=== PATIENT | male | born 1945 | race Caucasian/White ===

== ENCOUNTER 2016-12-21 19:03 | Inpatient (IN) | payer OTHER ==
[~2016-12-21] VITALS: Ht 175.3 cm; Wt 83.6 kg
[2016-12-21] MEDS ORDERED: SODIUM CHLORIDE 0.9% 500ML 500 ML IV STA (19:31)
--- NOTE | 2016-12-21 19:43 | EMERGENCY ROOM VISIT NOTE ---
History Report prepared by Yamilet: German Ojeda Under the Supervision of: Dr. Rich Lawler M.D. First contact with patient: 19:24 Chief Complaint: CHEST PAIN Stated Complaint: LEFT SIDED CHEST/ARM/NECK PAIN Nursing Triage Summary: Patient reports a sudden onset of left sided body "feeling weird." which then resolved after a few minutes. Patinet did report becoming nausea, and slightly clammy on onset. He denies any actual ches tpain, reporting my left body felt "weird", my hand "felt like it was swelling." Patient only c/c at present is a left sided headache, mild in nature. History of Present Illness The patient is a 71 year old male who presents to the Emergency Room with complaints of sudden left sided arm, chest, and face numbness occurring 15 minutes prior to arrival. The patient states that he was at [employer], and he was reading, and afterwards his left arm went numb, and he felt like his left hand was swelling. The patient states that after walking around it improved, and it felt like his arm had "fallen asleep". The patient denies any arm pain or numbness in his left leg. The patient additionally states that he has a slight headache. He denies any history of heart attack, stroke, or TIA. The patient states that he takes Advil, though he does not take any blood pressure or diabetes medication, and he states that he has been feeling okay recently. Source of History: patient Onset: 15 minutes prior to arrival Position: chest (left), arm (left) Quality: numbness Timing: other (sudden) Associated Symptoms: + headache Review of Systems See HPI for pertinent positives & negatives. A total of 10 systems reviewed and were otherwise negative. Past Medical & Surgical Medical Problems: (1) IBS (irritable bowel syndrome) Family History FH: heart attack Social History Smoking Status: Never Smoker Marital Status: Housing Status: lives with family Occupation Status: employed Current/Historical Medications Scheduled Glucosamine Sulfate (Glucosamine), 1,000 MG PO QAM Multivitamin (Multivitamin), 1 TAB PO DAILY Probiotic Product (Probiotic), 1 CAP PO DAILY Scheduled PRN Ibuprofen (Advil), 200-600 MG PO Q4H PRN for Pain Allergies Coded Allergies: No Known Allergies (Unverified , 12/21/16) Physical Exam Vital Signs Date Time Temp Pulse Resp B/P Pulse Ox O2 Delivery O2 Flow Rate FiO2 12/21/16 21:42 50 19 12/21/16 21:27 49 22 12/21/16 21:12 50 14 97 12/21/16 21:03 175/85 12/21/16 20:57 47 20 99 12/21/16 20:42 53 16 96 12/21/16 20:37 163/94 12/21/16 19:58 175/102 12/21/16 19:50 Room Air 12/21/16 19:33 51 19 97 12/21/16 19:31 156/100 12/21/16 19:28 54 12/21/16 19:22 Room Air 12/21/16 19:20 150/97 12/21/16 19:14 97 Room Air 12/21/16 19:07 36.7 52 20 192/91 94 Room Air Physical Exam GENERAL: Patient is in no acute distress. HEENT: No acute trauma, normocephalic atraumatic, mucous membranes moist, no nasal congestion, no scleral icterus. NECK: No stridor, no adenopathy, no meningismus, trachea is midline. LUNGS: Clear to auscultation bilaterally, no wheeze, no rhonchi, breath sounds equal. HEART: Bradycardic with regular rhythm. No murmur. ABDOMEN: Soft, nontender, bowel sounds positive, no hernias, no peritonitis. EXTREMITIES: No cyanosis or edema, full range of motion of all the joints without pain or difficulty, no signs for acute trauma. NEUROLOGIC: Oriented x 3, no acute motor or sensory deficits, no focal weakness. No pronator drift or cerebellar dysfunction. No speech slur or facial droop. SKIN: No rash, no jaundice, no diaphoresis. Medical Decision & Procedures ER Provider Diagnostic Interpretation: Radiology results as stated below per my review and radiologist interpretation: CT OF THE HEAD WITHOUT CONTRAST CLINICAL HISTORY: Stroke symptoms. Left-sided chest wall arm and neck pain. COMPARISON STUDY: No previous studies for comparison. CT DOSE: 537.48 mGy.cm TECHNIQUE: Helical axial images of the head were obtained without IV contrast. Automated exposure control was utilized for the study. FINDINGS: No acute intracranial hemorrhage, midline shift or mass effect is present. Ventricular system is normal. Basilar cisterns are patent. There are no extra-axial collections. Garza-white differentiation is maintained. There are no findings to suggest acute dural sinus thrombosis or acute territorial infarct. There are no calvarial abnormalities. Visualized portions of the sinuses and mastoid air cells are clear. IMPRESSION: No acute intracranial findings. Electronically signed by: Elliott Justice M.D. 12/21/2016 8:22 PM Dictated Date/Time: 12/21/2016 8:20 PM CHEST ONE VIEW PORTABLE CLINICAL HISTORY: Left-sided chest pain, arm pain and neck pain. COMPARISON STUDY: No previous studies for comparison. FINDINGS: Lung volumes are normal. Linear left basilar opacity is suggestive of atelectasis. There is no consolidation to suggest pneumonia and there is no evidence of pulmonary edema. Cardiac size is normal. Mediastinal contours are normal. IMPRESSION: No acute cardiopulmonary findings. Electronically signed by: Elliott Justice M.D. 12/21/2016 8:24 PM Dictated Date/Time: 12/21/2016 8:22 PM Laboratory Results Test 12/21/16 20:00 Prothrombin Time 10.1 SECONDS (9.0-12.0) Prothromb Time International Ratio 0.9 (0.9-1.1) Activated Partial Thromboplast Time 26.4 SECONDS (21.0-31.0) Partial Thromboplastin Ratio 1.0 Estimated Average Glucose 117 mg/dl Hemoglobin A1c 5.7 % (4.5-5.6) Magnesium Level 2.3 mg/dl (1.8-2.4) Thyroid Stimulating Hormone (TSH) 1.980 uIu/ml (0.300-4.500) Laboratory results reviewed by me. Medications Administered Medications (Trade) Dose Ordered Sig/[facility] Route Start Time Stop Time Status Last Admin Dose Admin Sodium Chloride (Nss 500ml) 500 ml @ 999 mls/hr Q31M STAT IV 12/21/16 19:31 12/21/16 20:02 DC 12/21/16 20:02 999 MLS/HR Aspirin (Aspirin Chew) 324 mg NOW STAT PO 12/21/16 20:46 12/21/16 20:47 DC 12/21/16 21:17 324 MG ECG Indication: chest pain Rate (beats per minute): 51 Rhythm: sinus bradycardia Findings: no acute ischemic change, no ectopy ED Course 1923: The patient was evaluated in room B10. A complete history and physical exam was performed. 1930: Sodium Chloride 500 ml @ 999 mls/hr IV 2045: Aspirin 324mg PO 2048: I discussed the patient's case with Sharda Novoa. He is going to evaluate the patient for further treatment. 2102: I reevaluated the patient, and I discussed the treatment plan. Medical Decision The patient is a 71 year old male who presents to the ED with complaints of left arm and chest numbness. Differential diagnoses considered include TIA or CVA, intracranial bleed, dysrhythmia, cardiac ischemia, thyroid disorder, electrolyte imbalance, anemia. The patient presents with some left arm and face numbness. It has almost completely improved/resolved. It was much worse prior to arrival. There is no leukocytosis or concerning anemia. No significant electrolyte abnormality or kidney failure. Brain CT shows no acute bleed or mass effect. EKG shows a sinus bradycardia, no acute ischemia. Cardiac enzyme testing 1 is not consistent with acute cardiac injury. Chest x-ray does not show mediastinal widening, pneumonia or pneumothorax. His stroke scale was 0, there were no focal neurologic deficits. The patient was given oral aspirin. He received IV saline. He has been resting comfortably. He has remained bradycardic, sometimes in the 40s. His blood pressure has remained adequate. The patient presents with left arm and face numbness. TIA or small CVA is a consideration. His bradycardia may be part of the issue as well. I do think further care in the hospital is warranted. I spoke to case management, the on- call hospitalist was consulted. Consults Time Called: 2044 Consulting Physician: Sharda Novoa Returned Call: 2048 I discussed the patient's case with Sharda Novoa. He is going to evaluate the patient for further treatment. Impression Primary Impression: Left sided numbness Scribe Attestation The scribe's documentation has been prepared under my direction and personally reviewed by me in its entirety. I confirm that the note above accurately reflects all work, treatment, procedures, and medical decision making performed by me. Departure Information Dispostion Being Evaluated By Hospitalist Referrals Abdullahi Hicks D.O. (PCP) Patient Instructions My [facility]
[2016-12-21 20:08] LABS: BASO % 0.3 %; BASO ABS # 0.02 K/uL (0-0.2); COMPLETE YES; EOS % 2.6 %; HEMATOCRIT 41.6 % (42-52); IG% 0.1 %; LYMPH % 36.8 %; LYMPH ABS # 2.55 K/uL (1.2-3.4); MEAN CELL VOLUME 82.2 fL (80-100); MEAN CORPUSCULAR HEMOGLOBIN 27.5 pg (25-34); MEAN CORPUSCULAR HGB CONC 33.4 g/dl (32-36); MEAN PLATELET VOLUME 10.4 fL (7.4-10.4); MONO % 11.3 %; NEUT % 48.9 %; PLATELET COUNT 239 K/uL (130-400); RED BLOOD COUNT 5.06 M/uL (4.7-6.1); WHITE BLOOD COUNT 6.93 K/uL (4.8-10.8)
[2016-12-21 20:18] LABS: INR 0.9 (0.9-1.1); PROTHROMBIN TIME (PATIENT) 10.1 SECONDS (9.0-12.0)
--- NOTE | 2016-12-21 20:24 | DIAGNOSTIC IMAGING REPORT ---
CT OF THE HEAD WITHOUT CONTRAST CLINICAL HISTORY: Stroke symptoms. Left-sided chest wall arm and neck pain. COMPARISON STUDY: No previous studies for comparison. CT DOSE: 537.48 mGy.cm TECHNIQUE: Helical axial images of the head were obtained without IV contrast. Automated exposure control was utilized for the study. FINDINGS: No acute intracranial hemorrhage, midline shift or mass effect is present. Ventricular system is normal. Basilar cisterns are patent. There are no extra-axial collections. Garza-white differentiation is maintained. There are no findings to suggest acute dural sinus thrombosis or acute territorial infarct. There are no calvarial abnormalities. Visualized portions of the sinuses and mastoid air cells are clear. IMPRESSION: No acute intracranial findings. Electronically signed by: Elliott Justice M.D. 12/21/2016 8:22 PM Dictated Date/Time: 12/21/2016 8:20 PM
--- NOTE | 2016-12-21 20:25 | DIAGNOSTIC IMAGING REPORT ---
CHEST ONE VIEW PORTABLE CLINICAL HISTORY: Left-sided chest pain, arm pain and neck pain. COMPARISON STUDY: No previous studies for comparison. FINDINGS: Lung volumes are normal. Linear left basilar opacity is suggestive of atelectasis. There is no consolidation to suggest pneumonia and there is no evidence of pulmonary edema. Cardiac size is normal. Mediastinal contours are normal. IMPRESSION: No acute cardiopulmonary findings. Electronically signed by: Elliott Justice M.D. 12/21/2016 8:24 PM Dictated Date/Time: 12/21/2016 8:22 PM
[2016-12-21 20:28] LABS: BLOOD UREA NITROGEN 19 mg/dl (7-18); BUN/CREATININE RATIO 13.5 (10-20); CARBON DIOXIDE 28 mmol/L (21-32); CHLORIDE 108 mmol/L (98-107); GLUCOSE 102 mg/dl (70-99); MAGNESIUM 2.3 mg/dl (1.8-2.4); POTASSIUM 4.2 mmol/L (3.5-5.1); SODIUM 143 mmol/L (136-145)
[2016-12-21 20:30] LABS: CALCIUM 8.7 mg/dl (8.5-10.1)
[2016-12-21] MEDS ORDERED: IBUP-1277 PO (20:30)
[2016-12-21] MEDS ORDERED: MISCCAP80 PO (20:30)
[2016-12-21] MEDS ORDERED: GLUC10007 PO (20:30)
[2016-12-21] MEDS ORDERED: MULT-506 PO (20:30)
[2016-12-21] MEDS ORDERED: ASPIRIN 81 MG CHEW PO STA (20:46)
[2016-12-21] MEDS ORDERED: NITROGLYCERIN 0.4 MG SL PER TAB CHARGE SL PRN (21:30)
[2016-12-21] MEDS ORDERED: ONDANSETRON INJ 2 MG/ML 2 ML VIAL IV PRN (21:30)
[2016-12-21] MEDS ORDERED: ACETAMINOPHEN 325 MG TAB PO PRN (21:30)
[2016-12-21] MEDS ORDERED: PHARMACIST DISCHARGE MED REC CONSULT PRN (21:45)
--- NOTE | 2016-12-21 21:58 | History and Physical ---
History & Physical Date & Time of Service: December 21, 2016 at 21:45 Chief Complaint: Left Arm Numbness Primary Care Physician: Abdullahi Hicks D.O. History of Present Illness 71 year old male who presents to the ER with left arm numbness. Patient reports he was at [employer] looking at tired when he developed left arm numbness. He reports his entire arm was tingling. He then went to find his . He reports symptoms started to ease up after a few minutes. He reports he was able to move his arm the entire time. No facial droop or slurred speech. No other extremities were affected. He also reports associated chest pain. He describes it as an ache and rated it #5/10 at its worst. It only lasted for a few minutes as well and resolved on its own. He also had a mild left temporal headache. He denies blurred vision. No associated diaphoresis, shortness of breath, or nausea. He notes that while doing yard work over the past few days he had some mild worsening exertional shortness of breath. He denies abdominal pain, vomiting, and diarrhea. No fevers or chills. He denies urinary symptoms. In the ER, patient's work up is unremarkable. Currently he reports minimal tingling in the left arm. He was given full dose ASA. Past Medical/Surgical History Medical Problems: (1) IBS (irritable bowel syndrome) Status: Chronic Family History FH: heart attack FATHER ( from [place] at age 43) Social History Smoking Status: Never Smoker Alcohol Use: occasionally Marital Status: Immunizations History of Influenza Vaccine: Yes (10) Influenza Vaccine Date: May 12, 2016 History of Tetanus Vaccine?: Yes Tetanus Immunization Date: Jun 16, 2015 History of Pneumococcal: Yes Pneumococcal Date: May 12, 2016 Multi-Drug Resistant Organisms History of MDRO: No Allergies Coded Allergies: No Known Allergies (Unverified , 12/21/16) Home Medications Scheduled Glucosamine Sulfate (Glucosamine), 1,000 MG PO QAM Multivitamin (Multivitamin), 1 TAB PO DAILY Probiotic Product (Probiotic), 1 CAP PO DAILY Scheduled PRN Ibuprofen (Advil), 200-600 MG PO Q4H PRN for Pain Review of Systems ROS per HPI, all other systems reviewed and negative Physical Exam Vital Signs Date Time Temp Pulse Resp B/P Pulse Ox O2 Delivery O2 Flow Rate FiO2 12/21/16 20:37 163/94 12/21/16 19:58 175/102 12/21/16 19:50 Room Air 12/21/16 19:33 51 19 97 12/21/16 19:31 156/100 12/21/16 19:28 54 12/21/16 19:22 Room Air 12/21/16 19:20 150/97 12/21/16 19:14 97 Room Air 12/21/16 19:07 36.7 52 20 192/91 94 Room Air General Appearance: no apparent distress Head: normocephalic Eyes: normal inspection ENT: hearing grossly normal Neck: supple, no JVD, no carotid bruits Respiratory/Chest: lungs clear, normal breath sounds, no respiratory distress Cardiovascular: regular rate, rhythm, no edema, normal peripheral pulses Abdomen/GI: normal bowel sounds, non tender, soft Extremities/Musculoskelatal: normal inspection, no calf tenderness Neurologic/Psych: no motor/sensory deficits, alert, normal mood/affect, oriented x 3 Skin: normal color, warm/dry Diagnostics Laboratory Results Results Past 24 Hours Test 12/21/16 20:00 12/21/16 21:31 Range/Units White Blood Count 6.93 4.8-10.8 K/uL Red Blood Count 5.06 4.7-6.1 M/uL Hemoglobin 13.9 14.0-18.0 g/dL Hematocrit 41.6 42-52 % Mean Corpuscular Volume 82.2 80-100 fL Mean Corpuscular Hemoglobin 27.5 25-34 pg Mean Corpuscular Hemoglobin Concent 33.4 32-36 g/dl Platelet Count 239 130-400 K/uL Mean Platelet Volume 10.4 7.4-10.4 fL Neutrophils (%) (Auto) 48.9 % Lymphocytes (%) (Auto) 36.8 % Monocytes (%) (Auto) 11.3 % Eosinophils (%) (Auto) 2.6 % Basophils (%) (Auto) 0.3 % Neutrophils # (Auto) 3.39 1.4-6.5 K/uL Lymphocytes # (Auto) 2.55 1.2-3.4 K/uL Monocytes # (Auto) 0.78 0.11-0.59 K/uL Eosinophils # (Auto) 0.18 0-0.5 K/uL Basophils # (Auto) 0.02 0-0.2 K/uL RDW Standard Deviation 44.2 36.4-46.3 fL RDW Coefficient of Variation 14.8 11.5-14.5 % Immature Granulocyte % (Auto) 0.1 % Immature Granulocyte # (Auto) 0.01 0.00-0.02 K/uL Prothrombin Time 10.1 9.0-12.0 SECONDS Prothromb Time International Ratio 0.9 0.9-1.1 Activated Partial Thromboplast Time 26.4 21.0-31.0 SECONDS Partial Thromboplastin Ratio 1.0 Sodium Level 143 136-145 mmol/L Potassium Level 4.2 3.5-5.1 mmol/L Chloride Level 108 98-107 mmol/L Carbon Dioxide Level 28 21-32 mmol/L Anion Gap 7.0 3-11 mmol/L Blood Urea Nitrogen 19 7-18 mg/dl Creatinine 1.40 0.60-1.40 mg/dl Est Creatinine Clear Calc Drug Dose 51.4 ml/min Estimated GFR () 57.4 Estimated GFR (Non- 49.5 BUN/Creatinine Ratio 13.5 10-20 Random Glucose 102 70-99 mg/dl Calcium Level 8.7 8.5-10.1 mg/dl Magnesium Level 2.3 1.8-2.4 mg/dl Troponin I < 0.015 0-0.045 ng/ml Thyroid Stimulating Hormone (TSH) 1.980 0.300-4.500 uIu/ml Diagnostic Radiology CT HEAD IMPRESSION: No acute intracranial findings. CXR IMPRESSION: No acute cardiopulmonary findings. Impression Assessment and Plan LEFT ARM PARESTHESIA, CHEST PAIN - admit to tele - patient presenting with left arm paresthesias and chest pain that lasted for a few minutes and subsequently resolved on its own - father from [place] at age 43, no other risk factors identified - CT head negative; will obtain brain MRI/MRA, neck MRA - initial troponin negative, EKG without acute ST changes - continue to cycle cardiac enzymes, check resting echo for wall motion abnormalities; consider stress test, possibly outpatient - s/p full dose ASA in ER, will continue with 81mg daily - check lipids in AM - BP elevated - possibly due to stress / anxiety; would allow for some permissive HTN due to possible CVA DVT PROPHYLAXIS - SCDs DISPO - In my clinical judgment this beneficiary meets acute admission criteria, established by [facility], that includes being hospitalized through two midnights. Attending Addendum: The patient was seen and examined in ER in presence of the Left UE heaviness and tingling since this evening Associate with discomfort in left neck without any other symptoms Denies any Chest pain,palpitation,SOB Denies any Nausea and or vomiting O/E hemodynamically stable HEENT-unremarkable Chest-clear Heart-regular Abdomen-benign,No masses,bowel sound present Extremities-negative M[employer] CLE[employer]ER-AAOx3 No Focal sensory and or motor deficit Labs and Imaging studies were reviewed Agree with the Assessment and plan. Dr Andrew Haile VTE Prophylaxis VTE Risk Assessment Done? Y/N: Yes Risk Level: Low
[2016-12-21] MEDS ORDERED: IV FLUIDS COMPLETED PRN (22:00)
[2016-12-21 23:55] VITALS: BP 192/90; PULSE 58; TEMP 36.4; O2SAT 98; Ht 175.3 cm; Wt 83.6 kg
[2016-12-22] MEDS ORDERED: GADAVIST IV PRN (00:30)
[2016-12-22] MEDS ORDERED: CLONIDINE HCL 0.1 MG TAB PO PRN (00:30)
[2016-12-22] MEDS ORDERED: IV FLUIDS COMPLETED PRN (01:15)
[2016-12-22 02:26] LABS: BASO % 0.5 %; BASO ABS # 0.03 K/uL (0-0.2); COMPLETE YES; EOS % 2.8 %; HEMATOCRIT 40.4 % (42-52); IG% 0.2 %; LYMPH % 38.9 %; LYMPH ABS # 2.52 K/uL (1.2-3.4); MEAN CELL VOLUME 81.6 fL (80-100); MEAN CORPUSCULAR HEMOGLOBIN 26.7 pg (25-34); MEAN CORPUSCULAR HGB CONC 32.7 g/dl (32-36); MONO % 9.3 %; NEUT % 48.3 %; PLATELET COUNT 218 K/uL (130-400); RED BLOOD COUNT 4.95 M/uL (4.7-6.1); WHITE BLOOD COUNT 6.47 K/uL (4.8-10.8)
[2016-12-22 02:43] LABS: BLOOD UREA NITROGEN 18 mg/dl (7-18); BUN/CREATININE RATIO 15.1 (10-20); CALCIUM 8.3 mg/dl (8.5-10.1); CARBON DIOXIDE 27 mmol/L (21-32); CHLORIDE 110 mmol/L (98-107); GLUCOSE 99 mg/dl (70-99); POTASSIUM 4.2 mmol/L (3.5-5.1); SODIUM 143 mmol/L (136-145)
[2016-12-22 02:48] LABS: CHOLESTEROL 195 mg/dl (0-200); CHOLESTEROL/HDL RATIO 6.1; HDL CHOLESTEROL 32 mg/dl
[2016-12-22 04:24] VITALS: BP 137/53; PULSE 43; TEMP 36.5; O2SAT 96
[2016-12-22 04:55] LABS: TRIGLYCERIDES 169 mg/dl (0-150)
[2016-12-22 04:57] LABS: LDL CHOLESTEROL CALCULATED 129 mg/dl; VERY LOW DENSITY LIPOPROT CALC 34 mg/dl
[2016-12-22 06:37] LABS: ESTIMATED AVERAGE GLUCOSE 117 mg/dl; HA1C FLAG Normal (Normal)
--- NOTE | 2016-12-22 06:38 | DIAGNOSTIC IMAGING REPORT ---
MRA OF THE INTRACRANIAL CIRCULATION WITHOUT CONTRAST CLINICAL HISTORY: Stroke - Attention to [facility] [employer] COMPARISON STUDY: Head CT performed earlier today. TECHNIQUE: Utilizing a 1.5 [place] magnet and 3-D [id number] technique, unenhanced MRA of the intracranial circulation was obtained. FINDINGS: The bilateral M1 and E3tokwoves are patent. There is no abrupt vessel cut off. The right A1 segment is absent and there is a tiny 2 mm aneurysm arising from the origin of the right A2 segment. The posterior circulation is intact. There is mild to moderate narrowing of the petrous portion of the right internal carotid artery and the bilateral supraclinoid internal carotid arteries. IMPRESSION: 1. No abrupt vessel cut off. 2. 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 3. Absent right A1 segment, likely congenital. 4. Mild to moderate narrowing of the petrous portion of the right internal carotid artery and the bilateral supraclinoid internal carotid arteries. Electronically signed by: Elliott Justice M.D. 12/22/2016 6:37 AM Dictated Date/Time: 12/22/2016 6:33 AM
--- NOTE | 2016-12-22 06:48 | DIAGNOSTIC IMAGING REPORT ---
MRA OF THE NECK WITH AND WITHOUT CONTRAST CLINICAL HISTORY: Stroke COMPARISON STUDY: None. TECHNIQUE: Unenhanced and contrast-enhanced MRA of the neck was performed. Injection of 8.7 mL of Gadavist IV was uneventful. NASCET criteria were utilized to estimate the degree of carotid stenosis. FINDINGS: The bilateral common carotid and internal carotid arteries are patent. No high-grade stenosis is identified within these vessels. There is irregularity of the proximal right internal carotid artery due to atherosclerotic plaque. This results in minimal narrowing of less than 30%. No dissection is identified within the major vasculature of the neck. IMPRESSION: No hemodynamically significant stenosis within the major vasculature of the neck. Minimal narrowing of the proximal right internal carotid artery, less than 30%. Electronically signed by: Elliott Justice M.D. 12/22/2016 6:47 AM Dictated Date/Time: 12/22/2016 6:44 AM
--- NOTE | 2016-12-22 07:24 | DIAGNOSTIC IMAGING REPORT ---
Brain MRI WITH AND WITHOUT CONTRAST HISTORY: Left-sided arm and neck pain. Stroke TECHNIQUE: Multiplanar multisequence MRI of the brain was performed both before and after the intravenous administration of contrast. COMPARISON STUDY: Head CT 12/21/2016. FINDINGS: There is no mass, hematoma, midline shift, or acute infarct. The paranasal sinuses are clear. The mastoid air cells are clear. The ventricles and sulci demonstrate mild age-related involutional changes. Scattered foci of T2 hyperintensity seen within the periventricular and subcortical white matter are nonspecific but suggestive of minimal microvascular ischemic changes. The major vascular flow voids at the skull base are well-maintained. No abnormal enhancement. IMPRESSION: No acute intracranial abnormality. Electronically signed by: Aashish Alcala M.D. 12/22/2016 7:23 AM Dictated Date/Time: 12/22/2016 7:20 AM
[2016-12-22 07:50] VITALS: BP 125/71; PULSE 44; TEMP 36.4; O2SAT 95
[2016-12-22 08:00] VITALS: O2SAT 95
--- NOTE | 2016-12-22 08:26 | ECHOCARDIOGRAM REPORT ---
*NOTICE TO RECEIVING LIBERTARIAN AGENCY This information is strictly Confidential and protected under [place] law. [place] law prohibits you from making any further disclosure of this information unless further disclosure is expressly permitted by the written consent of the person to whom it pertains or is authorized by law. A general authorization for the release of medical or other information is not sufficient for this purpose. Hospital accepts no responsibility if the information is made available to any other person, INCLUDING THE PATIENT. Interpretation Summary * Name: FRANCE MARTINEZ Study Date: 12/22/2016 06:33 AM BP: 125/71 mmHg * Patient Location: C.2E\S\E209\S\1 HR: 44 * : 1945 (M/d/yyyy) Gender: Male Height: 69 in * Age: 71 yrs Ethnicity: CA Weight: 192 lb * Ordering Physician: Abigail Roy * Referring Physician: Self, Referred * Performed By: Darleen Obrien RDCS * * Reason For Study: CHEST PAIN * BSA: 2.0 m2 * -- Conclusions -- * Normal LV chamber size with mild concentric LVH, sigmoid appearing septum. * Normal LV systolic function, EF 55-60%. * No segmental left ventricular wall motion abnormalities are noted. * Grade I diastolic dysfunction. * Aortic valve sclerosis mild, without significant aortic valvular stenosis. Mild aortic regurgitation. * Mild mitral annular calcification, mild mitral regurgitation. * Mild left atrial enlargement. Procedure Details * A complete two-dimensional transthoracic echocardiogram was performed (2D, M-mode, Doppler and color flow Doppler). Left Ventricle * The left ventricle is normal in size. * There is mild concentric left ventricular hypertrophy. * The basal septum is thickened and angulated consistent with sigmoid septum. * Ejection Fraction = 55-60%. * Left ventricular systolic function is normal. * No segmental left ventricular wall motion abnormalities are noted. * The left ventricular wall motion is normal. Right Ventricle * The right ventricular cavity size is normal (basal dimension <4.2 cm in right ventricular apical 4-chamber view). * The right ventricular systolic function is normal as assessed by tricuspid annular plane systolic excursion (TAPSE) (normal >1.5 cm). Atria * The left atrium is mildly dilated. * Right atrial size is normal. * No ASD detected; PFO is not assessed. Mitral Valve * There is mild mitral annular calcification. * There is no mitral valve stenosis. * There is trace mitral regurgitation. Tricuspid Valve * The tricuspid valve is normal in structure and function. Aortic Valve * The aortic valve is trileaflet. * Aortic valve sclerosis mild, without significant aortic valvular stenosis. * Mild aortic regurgitation. Pulmonic Valve * The pulmonary valve is not well seen, but the Doppler examination is normal without significant regurgitation or stenosis. Great Vessels * The aortic root is normal size. Pericardium/Pleural * There is no pericardial effusion. Left Ventricular Diastolic Function * Grade I diastolic dysfunction, (abnormal relaxation pattern). MMode 2D Measurements and Calculations IVSd 1.5 cm IVSs 2.1 cm LVIDd 4.7 cm LVIDs 3.0 cm LVPWd 1.2 cm LVPWs 1.4 cm IVS/LVPW 1.3 FS 35.6 % EDV(Teich) 101.9 ml ESV(Teich) 35.6 ml EF(Teich) 65.0 % EDV(cubed) 103.2 ml ESV(cubed) 27.6 ml EF(cubed) 73.3 % % IVS thick 45.3 % % LVPW thick 23.1 % LV mass(C)d 243.1 grams LV mass(C)dI 119.7 grams/m\S\2 LV mass(C)s 217.3 grams LV mass(C)sI 107.0 grams/m\S\2 SV(Teich) 66.3 ml SI(Teich) 32.6 ml/m\S\2 SV(cubed) 75.6 ml SI(cubed) 37.2 ml/m\S\2 Ao root diam 3.2 cm Ao root area 8.2 cm\S\2 LA dimension 4.1 cm LA/Ao 1.3 LVAd ap4 34.1 cm\S\2 LVLd ap4 8.3 cm EDV(MOD-sp4) 118.0 ml LVAs ap4 18.6 cm\S\2 LVLs ap4 6.3 cm ESV(MOD-sp4) 48.4 ml EF(MOD-sp4) 59.0 % LVAd ap2 31.6 cm\S\2 LVLd ap2 8.4 cm EDV(MOD-sp2) 99.7 ml LVAs ap2 16.4 cm\S\2 LVLs ap2 6.7 cm ESV(MOD-sp2) 34.7 ml EF(MOD-sp2) 65.2 % SV(MOD-sp4) 69.6 ml SI(MOD-sp4) 34.3 ml/m\S\2 SV(MOD-sp2) 65.0 ml SI(MOD-sp2) 32.0 ml/m\S\2 Doppler Measurements and Calculations MV E max alaina 66.5 cm/sec MV A max alaina 77.1 cm/sec MV E/A 0.86 MV dec time 0.24 sec Ao V2 max 179.8 cm/sec Ao max PG 12.9 mmHg Ao max PG (full) 8.4 mmHg LV V1 max PG 4.5 mmHg LV V1 max 106.2 cm/sec TR max alaina 205.6 cm/sec
[2016-12-22] MEDS: ASPIRIN 81 MG ECTAB PO SCH (09:11)
--- NOTE | 2016-12-22 10:12 | Progress Note ---
Internal Med Progress Note Date of Service: December 22, 2016. Provider Documentation: SUBJECTIVE: Seen and examined at bedside. Patient reports left hand tingling sensation. Denies chest pain, SOB, weakness, facial deformity, speech problems, blurry vision. Offers no other complaints. Family at bedside. OBJECTIVE: Vital Signs-as noted below Physical Exam: General Appearance:Moderately built and nourished, no apparent distress Head: normocephalic, Atraumatic Eyes: normal inspection, EOMI, PERRL Neck: supple, Trachea midline Respiratory/Chest: Normal breath sounds, CTA Cardiovascular: S1, S2, +Sinus bradycardia, No murmur Abdomen/GI:Soft, Non tender, Bowel sounds present Extremities/Musculoskelatal:normal inspection, no edema Neurologic/Psych:AAOX3, grossly no focal neurological deficits Skin: normal color, warm Lab data as noted below. 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 Await for input ECHO:No segmental left ventricular wall motion abnormalities Troponin X 3:negative EKG without acute ST changes Continue ASA 81mg daily H/O statin Intolerance BP elevated: likely situational Patient reports frequent checks of BP at home which is well controlled per patient Cardiology consulted for possible stress test H/O hyperlipidemia: Diet controlled, H/O statin intolerance Sinus Bradycardia: Monitor for now DVT PX: SCDs DISPOSITION: Likely discharge home today after Neurology/Cardiology eval. PROCEDURES: ECHO: * Normal LV chamber size with mild concentric LVH, sigmoid appearing septum. * Normal LV systolic function, EF 55-60%. * No segmental left ventricular wall motion abnormalities are noted. * Grade I diastolic dysfunction. * Aortic valve sclerosis mild, without significant aortic valvular stenosis. Mild aortic regurgitation. * Mild mitral annular calcification, mild mitral regurgitation. * Mild left atrial enlargement. Vital Signs: Date Time Temp Pulse Resp B/P Pulse Ox O2 Delivery O2 Flow Rate FiO2 12/22/16 08:00 95 Room Air 12/22/16 07:50 36.4 44 18 125/71 95 Room Air 12/22/16 05:37 Room Air 12/22/16 04:24 36.5 43 18 137/53 96 Room Air 12/21/16 23:55 36.4 58 16 192/90 Room Air 12/21/16 23:55 36.4 58 16 192/90 98 Room Air 12/21/16 22:42 54 12 168/78 97 12/21/16 21:42 50 19 12/21/16 21:27 49 22 12/21/16 21:12 50 14 97 12/21/16 21:03 175/85 12/21/16 20:57 47 20 99 12/21/16 20:42 53 16 96 12/21/16 20:37 163/94 12/21/16 19:58 175/102 12/21/16 19:50 Room Air 12/21/16 19:33 51 19 97 12/21/16 19:31 156/100 12/21/16 19:28 54 12/21/16 19:22 Room Air 12/21/16 19:20 150/97 12/21/16 19:14 97 Room Air 12/21/16 19:07 36.7 52 20 192/91 94 Room Air Lab Results: Results Past 24 Hours Test 12/21/16 20:00 12/22/16 02:00 12/22/16 02:07 12/22/16 07:58 Range/Units White Blood Count 6.93 6.47 4.8-10.8 K/uL Red Blood Count 5.06 4.95 4.7-6.1 M/uL Hemoglobin 13.9 13.2 14.0-18.0 g/dL Hematocrit 41.6 40.4 42-52 % Mean Corpuscular Volume 82.2 81.6 80-100 fL Mean Corpuscular Hemoglobin 27.5 26.7 25-34 pg Mean Corpuscular Hemoglobin Concent 33.4 32.7 32-36 g/dl Platelet Count 239 218 130-400 K/uL Mean Platelet Volume 10.4 10.0 7.4-10.4 fL Neutrophils (%) (Auto) 48.9 48.3 % Lymphocytes (%) (Auto) 36.8 38.9 % Monocytes (%) (Auto) 11.3 9.3 % Eosinophils (%) (Auto) 2.6 2.8 % Basophils (%) (Auto) 0.3 0.5 % Neutrophils # (Auto) 3.39 3.13 1.4-6.5 K/uL Lymphocytes # (Auto) 2.55 2.52 1.2-3.4 K/uL Monocytes # (Auto) 0.78 0.60 0.11-0.59 K/uL Eosinophils # (Auto) 0.18 0.18 0-0.5 K/uL Basophils # (Auto) 0.02 0.03 0-0.2 K/uL RDW Standard Deviation 44.2 43.0 36.4-46.3 fL RDW Coefficient of Variation 14.8 14.5 11.5-14.5 % Immature Granulocyte % (Auto) 0.1 0.2 % Immature Granulocyte # (Auto) 0.01 0.01 0.00-0.02 K/uL Prothrombin Time 10.1 9.0-12.0 SECONDS Prothromb Time International Ratio 0.9 0.9-1.1 Activated Partial Thromboplast Time 26.4 21.0-31.0 SECONDS Partial Thromboplastin Ratio 1.0 Sodium Level 143 143 136-145 mmol/L Potassium Level 4.2 4.2 3.5-5.1 mmol/L Chloride Level 108 110 98-107 mmol/L Carbon Dioxide Level 28 27 21-32 mmol/L Anion Gap 7.0 6.0 3-11 mmol/L Blood Urea Nitrogen 19 18 7-18 mg/dl Creatinine 1.40 1.20 0.60-1.40 mg/dl Est Creatinine Clear Calc Drug Dose 51.4 59.5 ml/min Estimated GFR () 57.4 69.1 Estimated GFR (Non- 49.5 59.6 BUN/Creatinine Ratio 13.5 15.1 10-20 Random Glucose 102 99 70-99 mg/dl Estimated Average Glucose 117 mg/dl Hemoglobin A1c 5.7 4.5-5.6 % Calcium Level 8.7 8.3 8.5-10.1 mg/dl Magnesium Level 2.3 1.8-2.4 mg/dl Troponin I < 0.015 0.017 < 0.015 0-0.045 ng/ml Thyroid Stimulating Hormone (TSH) 1.980 0.300-4.500 uIu/ml Creatine Kinase MB Ratio 0-3.0 Creatine Kinase MB 2.3 1.9 0.5-3.6 ng/ml Triglycerides Level 169 0-150 mg/dl Cholesterol Level 195 0-200 mg/dl HDL Cholesterol 32 mg/dl LDL Cholesterol, Calculated 129 mg/dl VLDL Cholesterol, Calculated 34 mg/dl Cholesterol/HDL Ratio 6.1 Test 12/22/16 08:00 Range/Units Creatine Kinase MB Ratio 0-3.0
[2016-12-22] MEDS ORDERED: AMLODIPINE BESYLATE 5 MG TAB PO ONE (11:52)
[2016-12-22 12:00] VITALS: BP 142/72; PULSE 63; TEMP 36.7; O2SAT 96
--- NOTE | 2016-12-22 12:16 | EXERCISE STRESS ECHO ---
*NOTICE TO RECEIVING REPUBLICAN AGENCY This information is strictly Confidential and protected under [place] law. [place] law prohibits you from making any further disclosure of this information unless further disclosure is expressly permitted by the written consent of the person to whom it pertains or is authorized by law. A general authorization for the release of medical or other information is not sufficient for this purpose. Hospital accepts no responsibility if the information is made available to any other person, INCLUDING THE PATIENT. Interpretation Summary * Name: FRANCE MARTINEZ Study Date: 12/22/2016 10:47 AM * Patient Location: C.2E\S\E209\S\1 HR: 46 * : 1945 (M/d/yyyy) Gender: Male Height: 69 in * Age: 71 yrs Ethnicity: [place] Weight: 188 lb * Ordering Physician: Dex Teresa * Referring Physician: Self, Referred * Performed By: Elsa Anthony RCS * * Reason For Study: CHEST PAIN * BSA: 2.0 m2 * -- Conclusions -- * Abnormal exercise stress echocardiogarm. * Inducible hypokinesis of the mid to basal anteroseptal wall. * >2mm horizontal ST segment depressions in the inferior leads. * >1mm horizontal ST segment depressions in the lateral leads. * Hypertensive BP response to exercise. * MATIHAS reproduced with stress. * Above average exercise tolerance. Procedure Details * ECHOEX, CPT #80167 Stress Parameters * Normal baseline electrocardiogram. * There was >2mm ST segment depression in the inferior lead(s). * There was a maximum 1.5mm ST segment depression in the lateral lead(s). * No arrhythmia were noted with stress. * The stress portion of this study was personally supervised by the undersigned interpreting physician. * Rest heart rate was '46' BPM. * Rest blood pressure was '160/86' * Maximum heart rate was 86 % of maximum age-predicted heart rate. * Maximum heart rate achieved was 127 bpm. * Maximum blood pressure was '227/113' * Total exercise time was '09:30' * Maximum exercise MET level achieved was '10.80' METS * Maximum treadmill speed was '4.20' miles per hour. * Maximum treadmill elevation was '16.00'% grade.
--- NOTE | 2016-12-22 16:20 | Neurology Consultation ---
Neurology Consultation Date of Consultation: December 22, 2016. Attending Physician: Luis Smith MD Primary Care Physician: Abdullahi Hicks D.O. Reason for Consultation: TIA History of Present Illness Source: patient Radhika is a 71 year old male who presents to the ER with chest pressure and left arm numbness which he describes has his hand feeling big. He was at [employer] looking for tires when he developed left arm numbness and tingling. He then went to find his and the symptoms strarted to subside after a few minutes. He also had a mild left temporal headache. 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 He had a complete cardiac work up when his father in his 50's from heart disease. He has always been concerned with the strong family history. Currently he states his left arm is still heavy feeling but the numbness and tingling is gone. he was not previously on aspirin and was given full dose ASA. denies current CP, SOB, abdominal pain, weakness, numbness tingling, slurred speech, N, V, swallowing difficulty. Social History Alcohol Use: occasionally Marital Status: Housing Status: lives with family Allergies Coded Allergies: No Known Allergies (Unverified , 12/21/16) Current Inpatient Medications Current Inpatient Medications Medications (Trade) Dose Ordered Sig/Travis Route Start Time Stop Time Status Last Admin Dose Admin Acetaminophen (Tylenol Tab) 650 mg Q4H PRN PO 12/21/16 21:30 01/20/17 21:29 Ondansetron HCl (Zofran Inj) 4 mg Q6H PRN IV 12/21/16 21:30 01/20/17 21:29 Nitroglycerin (Nitrostat Tab) 0.4 mg UD PRN SL 12/21/16 21:30 01/20/17 21:29 Aspirin (Ecotrin Tab) 81 mg QAM PO 12/22/16 09:00 01/21/17 08:59 12/22/16 09:11 81 MG Miscellaneous (Iv Fluids Completed) 1 ea PRN PRN N/A 12/21/16 22:00 12/21/17 21:59 Gadobutrol (Gadavist) 8.7 mmol UD PRN IV 12/22/16 00:30 12/26/16 00:29 Amlodipine Besylate (Norvasc Tab) 2.5 mg QAM PO 12/23/16 09:00 01/22/17 08:59 Physical Exam Vital Signs (Past 24 Hrs): Date Time Temp Pulse Resp B/P Pulse Ox O2 Delivery O2 Flow Rate FiO2 12/22/16 12:00 36.7 63 20 142/72 96 Room Air 12/22/16 12:00 Room Air 12/22/16 08:00 95 Room Air 12/22/16 07:50 36.4 44 18 125/71 95 Room Air 12/22/16 05:37 Room Air 12/22/16 04:24 36.5 43 18 137/53 96 Room Air 12/21/16 23:55 36.4 58 16 192/90 Room Air 12/21/16 23:55 36.4 58 16 192/90 98 Room Air 12/21/16 22:42 54 12 168/78 97 12/21/16 21:42 50 19 12/21/16 21:27 49 22 12/21/16 21:12 50 14 97 12/21/16 21:03 175/85 12/21/16 20:57 47 20 99 12/21/16 20:42 53 16 96 12/21/16 20:37 163/94 12/21/16 19:58 175/102 12/21/16 19:50 Room Air 12/21/16 19:33 51 19 97 12/21/16 19:31 156/100 12/21/16 19:28 54 12/21/16 19:22 Room Air 12/21/16 19:20 150/97 12/21/16 19:14 97 Room Air 12/21/16 19:07 36.7 52 20 192/91 94 Room Air Physical Exam: Constitutional: appearance nourished, healthy and normal Ears, Nose, Mouth and Throat: mucous membranes moist, no injection and skin normal, eyes normal Cardiovascular: normal S-1 and S-2 and regular rate and rhythm Respiratory: clear to auscultation (CTA) and no rales, rhonchi or wheeze Musculoskeletal: no peripheral edema and good distal pulses Skin: no stigmata of neurocutaneous disease noted and normal and intact Eyes: extraocular muscles intact (EOMI) and pupils equal, round and reactive to light (PERRL) NEUROLOGIC EXAMINATION: Mental status: Alert and interactive Oriented to full date and location Oriented to person Speech fluent with no evidence of aphasia Cranial Nerves smile eye brow raise symmetric, tongue midline Reflexes: Deep tendon reflexes were symmetrical and graded 2/5. Plantar responses were flexor. Sensory: cool and vibration intact Coordination: Romberg absent Gait/Stance: Posture normal. Gait normal: with steady with steps, base, turning, and tandem gait. Motor: Negative for pronator drift of out stretched arms with eyes closed. Strength: biceps triceps deltoids hand curator herbarium bilaterally 5/5 hip flex ext plantar flex ext 5/5 bilaterally Laboratory Results Past 24 Hours: 12/22/16 02:07 Red Blood Count 4.95, Mean Corpuscular Volume 81.6, Mean Corpuscular Hemoglobin 26.7, Mean Corpuscular Hemoglobin Concent 32.7, Mean Platelet Volume 10.0, Neutrophils (%) (Auto) 48.3, Lymphocytes (%) (Auto) 38.9, Monocytes (%) (Auto) 9.3, Eosinophils (%) (Auto) 2.8, Basophils (%) (Auto) 0.5, Neutrophils # (Auto) 3.13, Lymphocytes # (Auto) 2.52, Monocytes # (Auto) 0.60, Eosinophils # (Auto) 0.18, Basophils # (Auto) 0.03 12/22/16 02:07 Test 12/21/16 20:00 12/22/16 02:07 12/22/16 07:58 12/22/16 08:00 Prothrombin Time 10.1 SECONDS (9.0-12.0) Prothromb Time International Ratio 0.9 (0.9-1.1) Activated Partial Thromboplast Time 26.4 SECONDS (21.0-31.0) Partial Thromboplastin Ratio 1.0 Estimated Average Glucose 117 mg/dl Hemoglobin A1c 5.7 % (4.5-5.6) Magnesium Level 2.3 mg/dl (1.8-2.4) Thyroid Stimulating Hormone (TSH) 1.980 uIu/ml (0.300-4.500) White Blood Count 6.47 K/uL (4.8-10.8) Red Blood Count 4.95 M/uL (4.7-6.1) Hemoglobin 13.2 g/dL (14.0-18.0) Hematocrit 40.4 % (42-52) Mean Corpuscular Volume 81.6 fL (80-100) Mean Corpuscular Hemoglobin 26.7 pg (25-34) Mean Corpuscular Hemoglobin Concent 32.7 g/dl (32-36) Platelet Count 218 K/uL (130-400) Mean Platelet Volume 10.0 fL (7.4-10.4) Neutrophils (%) (Auto) 48.3 % Lymphocytes (%) (Auto) 38.9 % Monocytes (%) (Auto) 9.3 % Eosinophils (%) (Auto) 2.8 % Basophils (%) (Auto) 0.5 % Neutrophils # (Auto) 3.13 K/uL (1.4-6.5) Lymphocytes # (Auto) 2.52 K/uL (1.2-3.4) Monocytes # (Auto) 0.60 K/uL (0.11-0.59) Eosinophils # (Auto) 0.18 K/uL (0-0.5) Basophils # (Auto) 0.03 K/uL (0-0.2) RDW Standard Deviation 43.0 fL (36.4-46.3) RDW Coefficient of Variation 14.5 % (11.5-14.5) Immature Granulocyte % (Auto) 0.2 % Immature Granulocyte # (Auto) 0.01 K/uL (0.00-0.02) Anion Gap 6.0 mmol/L (3-11) Est Creatinine Clear Calc Drug Dose 59.5 ml/min Estimated GFR () 69.1 Estimated GFR (Non- 59.6 BUN/Creatinine Ratio 15.1 (10-20) Calcium Level 8.3 mg/dl (8.5-10.1) Triglycerides Level 169 mg/dl (0-150) Cholesterol Level 195 mg/dl (0-200) HDL Cholesterol 32 mg/dl LDL Cholesterol, Calculated 129 mg/dl VLDL Cholesterol, Calculated 34 mg/dl Cholesterol/HDL Ratio 6.1 Creatine Kinase MB 1.9 ng/ml (0.5-3.6) Troponin I < 0.015 ng/ml (0-0.045) Creatine Kinase MB Ratio (0-3.0) Imaging MRI brain with and without- no acute intracranial abnormality. MRA brain- No abrupt vessel cut off. 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 . Absent right A1 segment, likely congenital. Mild to moderate narrowing of the petrous portion of the right internal carotid artery and the bilateral supraclinoid internal carotid arteries. MRA neck -: No hemodynamically significant stenosis within the major vasculature of the neck. Minimal narrowing of the proximal right internal carotid artery, less than 30%. CT head- No acute intracranial findings. TTE- * Normal LV chamber size with mild concentric LVH, sigmoid appearing septum. * Normal LV systolic function, EF 55-60%. * No segmental left ventricular wall motion abnormalities are noted. * Grade I diastolic dysfunction. * Aortic valve sclerosis mild, without significant aortic valvular stenosis. Mild aortic regurgitation. * Mild mitral annular calcification, mild mitral regurgitation. * Mild left atrial enlargement. * NO ASD stress ECHO Abnormal exercise stress echocardiogarm. * Inducible hypokinesis of the mid to basal anteroseptal wall. * >2mm horizontal ST segment depressions in the inferior leads. * >1mm horizontal ST segment depressions in the lateral leads. * Hypertensive BP response to exercise. * MATHIAS reproduced with stress. * Above average exercise tolerance. Impression 71 year old male s/p left sided pressure and chest discomfort Plan 1. MRI no area of ischemia or structural abnormalities 2. MRA head- small aneurysm would refer to neurovascular as out patient for recommendations on how to follow 3. antiplatlet therapy chosen by cardiology ok with neurology 4. cardio vascular for procedure tomorrow 5. optimize HTN and cholestrol 6. no further neurologic imaging needed 7. will see prn as out patient I have seen and discussed above patient with Dr Halie Griffith, neurology History is difficult and perhaps less clear with repeated tellings.While pt walking he developed pressure and a sense of expanding in L arm and hand. This was accompanied by a similar feeling in L trunk and possibly l face. Possible numbness in same distribution. No neck pain per se. Bulk of sx lasted several minutes while he continued to look for his in the store. He was not SOB or diaphoretic. He may have developed a mild L sided headache ( no hx of migraine) . There was no change in vision, face, arm or leg weakness. The bulk of his sx resolved in several minutes however he still has a tight feeling in his L arm. MRI brain no acute ischemia , inspite of ongoing sx.. MRA R A2 segment 2 mm aneurysm. Pt EST pos for ischemia. Troponin x 1 neg. Exam reveals no CN, motor sensory or reflex abnl. Pressure/expansion in left arm would be unusual for an ischemic sx and in spite of ongoing sx his MRI brain does not show a diffusion abnl. Cervical radicular sx would generally not cause any cranial nerve abnormalities. Migraine, unlikely. If these sx were ischemic they would be small vessel and unlikely cardioembolic given there restricted distribution. REc antiplt agent as per cardiology, exploration for a statin that might be better tolerated. I do not think pt needs a cardionet as an outpt on the basis of his neuro sx. If sx of tightness in L arm persist MRI c spine, ncv emg as outpt might be reasonable. Pt should see NS post dc to see how often they recommend reimaging the small R PETER aneuysm. Dr. Kong will follow with you. TIGIST Griffith MD
[2016-12-22 16:36] VITALS: BP 151/93; PULSE 54; TEMP 36.8; O2SAT 95
--- NOTE | 2016-12-22 16:59 | CARDIOLOGY CONSULTATION ---
DATE OF CONSULTATION: 12/22/2016 CONSULTATION REQUESTED BY: Dr. Smith. REASON FOR CONSULTATION: Chest discomfort. HISTORY OF PRESENT ILLNESS: Mr. De La Torre is a very pleasant 71-year-old gentleman who presented to [facility] Emergency Department on 12/21/2016 with a complaint of left arm numbness and tingling. The patient states he was in his normal state of health yesterday when he was shopping for tires at [employer] when he suddenly developed left arm numbness and tingling down his left arm. At that time, he still had full use of his arm, but he developed an overwhelming sense of doom and became very concerned. At the same time he did have some chest discomfort with it. He described it as a pressure sensation, but states he has had this pressure sensation before and has never had this arm tingling at the same time. So after a few minutes the tingling slowly resolved but the pressure seemed to wax and wane. He came into the Emergency Department and upon presentation was rather hypertensive, but that quickly resolved. Currently, states he feels well at rest. He has not had any further tingling down his arm. He also denies any trauma. 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 He does not remember hurting his neck or sleeping on the wrong. He states he has never had paresthesias before. Upon further questioning, the patient does admit that over the last several weeks, he has been noticing that he is getting winded more and more easily. He states he is normally very active; however, previous activities for which he was able to complete without limitation, he has now had to stop and catch his breath with. He also gets occasional chest discomfort which he describes as a pressure sensation over the left side of his chest. He states it seems to occur with stress or significant exertion and usually does occur at the same time as his shortness of breath. Whenever it occurs, he simply stops what he is doing and the symptoms slowly subside. PAST SURGICAL HISTORY: 1. Cardiac catheterization over 20 years ago, was reportedly normal. 2. Colonoscopy. MEDICAL ILLNESSES: 1. Irritable bowel. 2. Dyslipidemia with intolerance to pravastatin. 3. Basel cell carcinoma of the forearm. FAMILY HISTORY: Remarkable for father who had a fatal myocardial infarction at age 43. SOCIAL HISTORY: Denies any tobacco use. Drinks occasional alcohol. Denies any recreational drug use. He is . He has 2 sons who are in good health. He is very active and he is retired from retail furniture. REVIEW OF SYSTEMS: As per HPI, all other review of systems reviewed and negative at this time. ALLERGIES: PRAVASTATIN CAUSED MUSCLE ACHES. MEDICATIONS AN OUTPATIENT: Multivitamin daily, albuterol as needed. PHYSICAL EXAMINATION: VITALS: Temperature 36.4, pulse 58, respiratory rate 12, blood pressure 125/71. GENERAL: Awake, alert, oriented x3 in no acute distress. HEENT: Normocephalic, atraumatic. Pupils equal, round, and reactive to light and accommodation. Extraocular muscles intact. Anicteric sclerae. Moist mucous membranes. NECK: No JVD, no bruit. CARDIOVASCULAR: Regular. Positive S4. Normal S1 and S2. No S3. A 2/6 mid to late systolic ejection murmur greatest at the right sternal border without radiation, no rubs. PULMONARY: Clear to auscultation bilaterally. No rales, rhonchi, or wheezing. ABDOMEN: Bowel sounds x4, soft. No rebound, guarding, tenderness. No organomegaly. EXTREMITIES: No clubbing, cyanosis or edema. +2 pedal pulses bilaterally. SKIN: Warm and dry. TEST RESULTS: A 12-lead EKG performed in the Emergency Department independently reviewed at this time shows sinus bradycardia at 51 beats per minute, otherwise normal study. A 2-D echocardiogram was read as normal LV chamber size with mild concentric LVH, sigmoid appearing septum, normal LV systolic function, EF 55%-60%, no segmental wall motion abnormalities were noted, grade 1 diastolic dysfunction, mild aortic valve sclerosis without stenosis, mild aortic regurgitation, mild mitral annular calcification, mild mitral regurgitation, mild left atrial enlargement. Exercise stress echocardiogram was positive for ischemic changes, inducible mid to apical anterior septal hypokinesis along with significant greater than [address] segment depressions in the inferior and lateral leads, hypertensive blood pressure response to exercise. IMPRESSION: 1. Abnormal exercise stress echocardiogram suggestive of mid to distal LAD stenosis. 2. Hypertensive blood pressure response to exercise. 3. Left arm paraesthesia. 4. Dyslipidemia with previous statin intolerance. RECOMMENDATIONS: It was my pleasure to see Mr. De La Torre in consultation today. The patient and his family were counseled. Given his symptoms of progressive dyspnea on exertion and chest discomfort with exertion along with his family history of coronary artery disease, his history of dyslipidemia that is unable will be treated and his stress test results, I believe the most prudent course of action would be to proceed with cardiac catheterization, they are in agreement. So at this time the patient will be made n.p.o. after midnight and plan for cardiac catheterization in the a.m. In the meantime, given his blood pressure response to exercise, will start him on gentle amlodipine of 2.5 mg daily, and his aspirin will be continued. Otherwise, I do not believe his paresthesias are completely separate issue and likely due to cervical radiculopathy. Neurology has been consulted. Thank you very much for allowing me to participate in the care of your patient.
[2016-12-22 20:25] VITALS: BP 146/83; PULSE 59; TEMP 36.7; O2SAT 94
[2016-12-23] VITALS (10 sets, daily range): BP systolic 113–181; BP diastolic 60–93; PULSE 46–64; TEMP 36.4–36.7; O2SAT 94–97
[2016-12-23 06:40] LABS: BASO % 0.3 %; BASO ABS # 0.02 K/uL (0-0.2); COMPLETE YES; EOS % 1.9 %; HEMATOCRIT 40.9 % (42-52); IG% 0.1 %; LYMPH % 29.8 %; LYMPH ABS # 2.16 K/uL (1.2-3.4); MEAN CELL VOLUME 82.5 fL (80-100); MEAN CORPUSCULAR HGB CONC 32.8 g/dl (32-36); MEAN PLATELET VOLUME 10.4 fL (7.4-10.4); MONO % 8.7 %; NEUT % 59.2 %; PLATELET COUNT 219 K/uL (130-400); RED BLOOD COUNT 4.96 M/uL (4.7-6.1); WHITE BLOOD COUNT 7.24 K/uL (4.8-10.8)
[2016-12-23 07:15] LABS: BUN/CREATININE RATIO 14.7 (10-20); CALCIUM 8.1 mg/dl (8.5-10.1); CREATININE 1.3 mg/dl (0.60-1.40); POTASSIUM 4.1 mmol/L (3.5-5.1)
[2016-12-23] MEDS: AMLODIPINE BESYLATE 5 MG TAB PO SCH (07:46)
[2016-12-23] MEDS: SODIUM CHLORIDE 0.9% 1000ML 1,000 ML IV SCH ×2 (09:58→16:12)
--- NOTE | 2016-12-23 10:08 | Progress Note ---
Internal Med Progress Note Date of Service: December 23, 2016. Provider Documentation: SUBJECTIVE: Seen and examined at bedside. States feeling well. Reports left hand pressure sensation has resolved. Denies chest pain, SOB, palpitations. Offers no other complaints. Family at bedside. OBJECTIVE: Vital Signs-as noted below Physical Exam: General Appearance:Moderately built and nourished, no apparent distress Head: normocephalic, Atraumatic Eyes: normal inspection, EOMI, PERRL Neck: supple, Trachea midline Respiratory/Chest: Normal breath sounds, CTA Cardiovascular: S1, S2, +Sinus bradycardia, No murmur Abdomen/GI:Soft, Non tender, Bowel sounds present Extremities/Musculoskelatal:normal inspection, no edema Neurologic/Psych:AAOX3, grossly no focal neurological deficits Skin: normal color, warm Lab data as noted below. 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 PROCEDURES: ECHO: * Normal LV chamber size with mild concentric LVH, sigmoid appearing septum. * Normal LV systolic function, EF 55-60%. * No segmental left ventricular wall motion abnormalities are noted. * Grade I diastolic dysfunction. * Aortic valve sclerosis mild, without significant aortic valvular stenosis. Mild aortic regurgitation. * Mild mitral annular calcification, mild mitral regurgitation. * Mild left atrial enlargement. Stress ECHO: * Abnormal exercise stress echocardiogram. * Inducible hypokinesis of the mid to basal anteroseptal wall. * >2mm horizontal ST segment depressions in the inferior leads. * >1mm horizontal ST segment depressions in the lateral leads. * Hypertensive BP response to exercise. * MATHIAS reproduced with stress. * Above average exercise tolerance. Vital Signs: Date Time Temp Pulse Resp B/P Pulse Ox O2 Delivery O2 Flow Rate FiO2 12/23/16 08:00 36.7 46 20 151/80 96 Room Air 12/23/16 08:00 Room Air 12/23/16 04:10 36.7 46 19 120/66 96 Room Air 12/23/16 04:00 Room Air 12/23/16 00:05 36.7 50 18 132/60 95 Room Air 12/23/16 00:00 Room Air 12/22/16 20:25 36.7 59 18 146/83 94 Room Air 12/22/16 20:00 Room Air 12/22/16 16:36 36.8 54 18 151/93 95 Room Air 12/22/16 16:00 Room Air 12/22/16 12:00 36.7 63 20 142/72 96 Room Air 12/22/16 12:00 Room Air Lab Results: Results Past 24 Hours Test 12/23/16 06:10 Range/Units White Blood Count 7.24 4.8-10.8 K/uL Red Blood Count 4.96 4.7-6.1 M/uL Hemoglobin 13.4 14.0-18.0 g/dL Hematocrit 40.9 42-52 % Mean Corpuscular Volume 82.5 80-100 fL Mean Corpuscular Hemoglobin 27.0 25-34 pg Mean Corpuscular Hemoglobin Concent 32.8 32-36 g/dl Platelet Count 219 130-400 K/uL Mean Platelet Volume 10.4 7.4-10.4 fL Neutrophils (%) (Auto) 59.2 % Lymphocytes (%) (Auto) 29.8 % Monocytes (%) (Auto) 8.7 % Eosinophils (%) (Auto) 1.9 % Basophils (%) (Auto) 0.3 % Neutrophils # (Auto) 4.28 1.4-6.5 K/uL Lymphocytes # (Auto) 2.16 1.2-3.4 K/uL Monocytes # (Auto) 0.63 0.11-0.59 K/uL Eosinophils # (Auto) 0.14 0-0.5 K/uL Basophils # (Auto) 0.02 0-0.2 K/uL RDW Standard Deviation 44.0 36.4-46.3 fL RDW Coefficient of Variation 14.7 11.5-14.5 % Immature Granulocyte % (Auto) 0.1 % Immature Granulocyte # (Auto) 0.01 0.00-0.02 K/uL Sodium Level 143 136-145 mmol/L Potassium Level 4.1 3.5-5.1 mmol/L Chloride Level 109 98-107 mmol/L Carbon Dioxide Level 28 21-32 mmol/L Anion Gap 6.0 3-11 mmol/L Blood Urea Nitrogen 19 7-18 mg/dl Creatinine 1.30 0.60-1.40 mg/dl Est Creatinine Clear Calc Drug Dose 50.6 ml/min Estimated GFR () 62.7 Estimated GFR (Non- 54.1 BUN/Creatinine Ratio 14.7 10-20 Random Glucose 89 70-99 mg/dl Calcium Level 8.1 8.5-10.1 mg/dl
--- NOTE | 2016-12-23 10:30 | Cardiology Follow-Up ---
Subjective Subjective Date of Service: December 23, 2016. Pt evaluation today including: conversation w/ patient, physical exam, chart review, lab review, review of studies, review of inpatient medication list Additional Details: Pt seen and examined, with at bedside. States that he's feeling well. No recurrence of arm paresthesia. No cp or sob at rest. Otherwise, feels well Tele reviewed: sinus rhythm with bradycardia while sleeping. No arrhythmias. Review of Systems Respiratory: No cough, No dyspnea at rest, No dyspnea on exertion, No hemoptysis, No problem reported, No see HPI, No shortness of breath, No sputum, No wheezing Cardiac: No PND, No chest pain, No claudication, No edema, No orthopnea, No palpitations, No problem reported, No see HPI Objective Vital Signs Last Vital Signs Documentation Date Time Temp Pulse Resp B/P Pulse Ox O2 Delivery O2 Flow Rate FiO2 12/23/16 08:00 36.7 46 20 151/80 96 Room Air Physical Exam: General Appearance: WD/WN, no apparent distress Eyes: bilateral eyes EOMI, bilateral eyes PERRL, bilateral eyes normal inspection ENT: normal ENT inspection, hearing grossly normal, pharynx normal Neck: supple, no adenopathy, thyroid normal, no JVD, no carotid bruits, trachea midline Respiratory/Chest: chest non-tender, lungs clear, normal breath sounds, no respiratory distress, no accessory muscle use Cardiovascular: regular rate, rhythm, no edema, no gallop, no JVD, + systolic murmur Abdomen: normal bowel sounds, non tender, soft, no organomegaly, no pulsatile mass Extremities: normal inspection, no pedal edema, no calf tenderness 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 MATHIAS abnormal stress echocardiogram suggestive of mid to distal LAD disease for cardiac cath today on asa intolerant of statins previously, pt reluctant to try further meds 2. hypertensive bp response to exercise started on amlodipine tolerating well
[2016-12-23] MEDS ORDERED: HEPARIN SOD (PORCINE) 1000 UNIT/ML 10 ML VIAL ONE (14:26)
[2016-12-23] MEDS ORDERED: MIDAZOLAM HCL 1 MG/ML 2ML VIAL ONE (14:26)
[2016-12-23] MEDS ORDERED: NiCARDipine HCL INJ 2.5 MG/ML 10 ML AMP ONE (14:26)
[2016-12-23] MEDS ORDERED: NITROGLYCERIN/D5W 100MCG/ML 20ML SYR ONE (14:26)
[2016-12-23] MEDS ORDERED: FENTANYL CITRATE INJ 50 MCG/1 ML 2 ML VIAL ONE (14:26)
[2016-12-23] MEDS ORDERED: ADENOSINE IV SOLN 3 MG/ML 20 ML VIAL ONE (15:13)
--- NOTE | 2016-12-23 15:13 | PROGRESS NOTE ---
DATE: 12/23/2016 HISTORY OF PRESENT ILLNESS: Radhika is 71 years old and soon to be 72 and was admitted yesterday to the hospital for evaluation of left arm pressure and a sense of fullness in his hand and some perhaps transient pressure in the left side of his face followed by a low grade left-sided headache. I refer the reader to Halie Crespo and Halie Griffith's note and to the admitting history and physical for more details. Basically, most of the symptoms have resolved. They occurred while he was at [employer] looking at tires. He became appropriately concerned that this was not a coronary artery syndrome. His is a nurse. She was located. He was brought to the ER and subsequent evaluation has suggested a left mid anterior descending type of ischemia with hypokinetic response to exercise in the distal left ventricle as described in the echo report. He is on deck for catheterization study, but this was delayed due to an emergency and he is now apparently going to be put back on the schedule. He has had no new symptoms, although the sense of tightness in his left thumb has persisted. IMAGING DATA: Imaging studies have shown no acute infarctions but did show an incidental right A2 segment 2 mm aneurysm which is going to need to be followed up with an MRA in a year. PHYSICAL EXAMINATION: At this point, his exam remains normal. I cannot induce any sensory symptoms by neck extension. He has normal strength. Good reflexes. There is no sensory loss. His speech is clear and his gait, station and coordination testing, etc. are quite unremarkable. ASSESSMENT AND PLAN: Like Dr. Griffith, I doubt that this was a cerebral event. I think this probably was somewhat atypical angina. The fact that symptoms persisted in the left thumb and index finger are little concerning, but we do not see anything on imaging studies and the exam is essentially normal now. He needs to have the coronary artery issue addressed and treated appropriately and possibly stented. I will take a look at him tomorrow and review the chart, but at this point, neurologic follow up is going to be limited to scheduling another MRA of the intracranial vessels in a year and possibly to do an outpatient EMG and MRI of the cervical spine if indeed his symptoms recur after the coronary disease has been addressed and treated appropriately. I will check with him tomorrow. THAO
[2016-12-23] MEDS ORDERED: SODIUM CHLORIDE 0.9% 1000ML 1,000 ML IV SCH (16:13)
[2016-12-23] MEDS ORDERED: ACETAMINOPHEN 325 MG TAB PO PRN (16:15)
--- NOTE | 2016-12-23 16:18 | Procedure Note ---
Post-Mod Sedation Assessment General Date of Moderate Sedation December 23, 2016. Vital Signs: Vital Signs Past 12 Hours Date Time Temp Pulse Resp B/P Pulse Ox O2 Delivery O2 Flow Rate FiO2 12/23/16 16:08 64 18 147/85 99 Nasal Cannula 3 12/23/16 12:00 Room Air 12/23/16 11:56 36.4 59 16 113/82 95 Room Air 12/23/16 08:00 36.7 46 20 151/80 96 Room Air 12/23/16 08:00 Room Air Review - Discharge Criteria Vital Signs Stable: Yes Alert/Oriented/Conversant: Yes Returned to Baseline Mental St: Yes Nausea Absent/Minimal: Yes Pain/Discomfort/Absent/Minimal: Yes Normal/Baseline Respirations: Yes Active Bleeding?: No Pt Received D/C Instructions: N/A Prescriptions Given: None Specific Proced. D/C Criteria Distal Pulses Present (Cardiac: Yes Groin site assessed-Card Cath: N/A Voided Prior To Discharge: N/A Discharged Patients Adult Escort/Transportation: Yes
--- NOTE | 2016-12-23 16:18 | Procedure Note ---
Pre-Mod Sedation Assessment General Date of Moderate Sedation: December 23, 2016. Vital Signs: Vital Signs Past 12 Hours Date Time Temp Pulse Resp B/P Pulse Ox O2 Delivery O2 Flow Rate FiO2 12/23/16 16:08 64 18 147/85 99 Nasal Cannula 3 12/23/16 12:00 Room Air 12/23/16 11:56 36.4 59 16 113/82 95 Room Air 12/23/16 08:00 36.7 46 20 151/80 96 Room Air 12/23/16 08:00 Room Air Review Cardiovascular: regular rate, rhythm, no edema Abdomen: normal bowel sounds, non tender Lungs: chest non-tender, lungs clear Airway Class: II Pre-Sedation Airway Assessment Oral Cavity: WNL Able to Visualize Vocal Cords: No Short Thick Neck: No Smoking Status: Never Smoker Mallampati Classification: Class II Procedure Planning Contraindications-for Mod Sed: None Yes Notes The planned sedation has been discussed with the patient and consent obtained. I have identified the patient, determined the appropriateness of sedation and have assessed the patient immediately prior to the procedure. All medicine(s) and interventions are by my order.
--- NOTE | 2016-12-23 17:28 | Cardiac Catheterization ---
Procedure Note Procedure Date December 23, 2016. Pre-Procedure Diagnosis Angina, Positive Stress Test AUC Score 7 Post-Procedure Diagnosis Severe CAD, Normal Intracardiac Pressures Procedure(s) Performed Coronary Angiography, Left Heart Cath, IVUS, Fractional Flow [place] [facility] Dr. thomas Traffic Inspector(s) Mauricio Estimated Blood Loss 18 Medication(s) Fentanyl, Heparin, Nitroglycerin, Versed, Lidocaine 1% Summary of Findings Indication: Positive stress test Access: 6Fr Slender Right Radial Artery Catheters: [place]; EBU 3.5 guide Findings: LM - 30% mid to distal disease LAD - Diffuse, calcified, 70-80% ostial to proximal stenosis; 80-90% focal mid segment stenosis; small distal/apical segment with 90% focal stenosis Circumflex - 60-70% ostial stenosis; 20-30% distal stenosis - small OM1 with 90% ostial stenosis - small to moderate caliber OM3 with diffuse 80-90% stenosis RCA - Dominant, 20-30% proximal to mid stenosis; diffuse 70-80% stenosis from the mid to distal segment. - small PDA with 70% ostial stenosis - distal PLB with 60-70% proximal stenosis LVEDP - 3 Arterial Closure: TR Band FFR LAD 0.62, ostial circumflex 0.82 IVUS - mildly calcified LM, ~30% stenosis; severe ostial/proximal calcified stenosis (CSA <4, catheter occlusive). Summary: 1. Severe multivessel coronary artery disease - 80% ostial-proximal LAD, 80% mid LAD - 60-70% ostial circumflex, 80% OM3 - 70-80% mid RCA 2. Normal intracardiac filling pressure Recommendations: With 3 vessel disease involving ostial LAD recommend CT surgery referral for consideration of bypass surgery Continued ASCVD risk factor modification Hemodynamics Rest Ao: 121/74/93 Final Ao: 132/54/86 LV: 136/3 Recommendations CABG Specimens None Radiation Exposure (mGy) 2400 Contrast (mls) 160 Fluids (cc crystalloids) 175 Drains None Anesthesia Moderate 14:51 - 16:08 Procedural Complication(s) None Disposition PCU [facility] Data Cardiac Status Clinical evaluation leading to the procedure CAD Presntation: Positive Stress Test Anginal Classification: CCS III Heart Failure: No, NYHA Class: CCS I Cardiogenic Shock w/in 24Hrs: No Cardiac Arrest w/in 24Hrs: No Imaging studies past 6 months: Yes Stress studies past 6 months: Yes Standard Exercise Stress Test: No Stress Echocardiogram: Yes - Positive Stress Testing w/SPECT MPI: No Cardiac CTA: No Coronary Anatomy Dominant: Right Left Main (% Stenosis): Mid (30) LAD (% Stenosis): Ostial (80), Mid (80), Distal (90) Circumflex (% Stenosis): Ostial (60-70) OM1 (% Stenosis): Ostial (80) OM3 (% Stenosis): Proximal RCA (% Stenosis): Mid (70) R PDA (% Stenosis): Ostial (70) Diagnostic Physician's Name: Slade Thomas MD Status: Elective Closure Device Percutaneous Entry Location: Radial Closure Device: Radial Band Recommendations: Medical therapy and/or Counseling Lesion Segment Name: proximal to mid LAD Culprit Artery: Yes Stenosis Prior to Rx (%): 80 IVUS: Yes FFR: Yes Ratio: less than or equal to 0.75% Intraprocedure Events Significant Dissection: No
[2016-12-23] MEDS ORDERED: NURSING VERBAL MED ORDER ONE (17:45)
[2016-12-23] MEDS ORDERED: AMLODIPINE BESYLATE 5 MG TAB PO ONE (18:30)
[2016-12-24 04:21] VITALS: BP 148/75; PULSE 57; TEMP 36.7; O2SAT 96
[2016-12-24] MEDS: SODIUM CHLORIDE 0.9% 1000ML 1,000 ML IV SCH (05:05)
[2016-12-24 06:26] LABS: BASO % 0.2 %; BASO ABS # 0.02 K/uL (0-0.2); COMPLETE YES; EOS % 1.3 %; HEMATOCRIT 41.9 % (42-52); IG% 0.2 %; LYMPH % 23.1 %; LYMPH ABS # 1.97 K/uL (1.2-3.4); MEAN CELL VOLUME 81.7 fL (80-100); MEAN CORPUSCULAR HEMOGLOBIN 26.7 pg (25-34); MEAN CORPUSCULAR HGB CONC 32.7 g/dl (32-36); MONO % 10.1 %; NEUT % 65.1 %; PLATELET COUNT 221 K/uL (130-400); RED BLOOD COUNT 5.13 M/uL (4.7-6.1); WHITE BLOOD COUNT 8.54 K/uL (4.8-10.8)
[2016-12-24 07:03] LABS: BUN/CREATININE RATIO 14.2 (10-20); CALCIUM 8.5 mg/dl (8.5-10.1); CREATININE 1.3 mg/dl (0.60-1.40); POTASSIUM 4.3 mmol/L (3.5-5.1)
[2016-12-24] MEDS: ASPIRIN 81 MG ECTAB PO SCH (07:34)
[2016-12-24] MEDS: AMLODIPINE BESYLATE 5 MG TAB PO SCH (07:35)
--- NOTE | 2016-12-24 07:47 | Progress Note ---
Internal Med Progress Note Date of Service: December 24, 2016. Provider Documentation: SUBJECTIVE: Seen and examined at bedside. Reports having some chest pressure and nausea overnight. Currently denies chest pain, SOB, palpitations. Offers no other complaints. Family at bedside. OBJECTIVE: Vital Signs-as noted below Physical Exam: General Appearance:Moderately built and nourished, no apparent distress Head: normocephalic, Atraumatic Eyes: normal inspection, EOMI, PERRL Neck: supple, Trachea midline Respiratory/Chest: Normal breath sounds, CTA Cardiovascular: S1, S2, +Sinus bradycardia, No murmur Abdomen/GI:Soft, Non tender, Bowel sounds present Extremities/Musculoskelatal:normal inspection, no edema Neurologic/Psych:AAOX3, grossly no focal neurological deficits Skin: normal color, warm Lab data as noted below. 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 PROCEDURES: ECHO: * Normal LV chamber size with mild concentric LVH, sigmoid appearing septum. * Normal LV systolic function, EF 55-60%. * No segmental left ventricular wall motion abnormalities are noted. * Grade I diastolic dysfunction. * Aortic valve sclerosis mild, without significant aortic valvular stenosis. Mild aortic regurgitation. * Mild mitral annular calcification, mild mitral regurgitation. * Mild left atrial enlargement. Stress ECHO: * Abnormal exercise stress echocardiogram. * Inducible hypokinesis of the mid to basal anteroseptal wall. * >2mm horizontal ST segment depressions in the inferior leads. * >1mm horizontal ST segment depressions in the lateral leads. * Hypertensive BP response to exercise. * MATHIAS reproduced with stress. * Above average exercise tolerance. Cardiac Cath: 1. Severe multivessel coronary artery disease - 80% ostial-proximal LAD, 80% mid LAD - 60-70% ostial circumflex, 80% OM3 - 70-80% mid RCA 2. Normal intracardiac filling pressure Recommendations: With 3 vessel disease involving ostial LAD recommend CT surgery referral for consideration of bypass surgery Continued ASCVD risk factor modification Vital Signs: Date Time Temp Pulse Resp B/P Pulse Ox O2 Delivery O2 Flow Rate FiO2 12/24/16 04:21 36.7 57 18 148/75 96 Room Air 12/24/16 04:00 Room Air 12/23/16 23:59 36.7 47 18 146/80 97 Room Air 12/23/16 23:59 Room Air 12/23/16 20:00 Room Air 12/23/16 19:32 36.4 53 18 148/88 94 Room Air 12/23/16 18:21 52 20 144/84 Room Air 12/23/16 18:07 54 22 181/93 Room Air 12/23/16 17:02 64 23 152/76 Room Air 12/23/16 16:45 61 22 156/93 Room Air 12/23/16 16:45 Room Air 12/23/16 16:23 64 18 154/77 98 Room Air 12/23/16 16:18 62 18 157/119 97 Room Air 12/23/16 16:13 62 18 157/93 97 Room Air 12/23/16 16:08 64 18 147/85 99 Nasal Cannula 3 12/23/16 12:00 Room Air 12/23/16 11:56 36.4 59 16 113/82 95 Room Air Lab Results: Results Past 24 Hours Test 12/24/16 06:15 Range/Units White Blood Count 8.54 4.8-10.8 K/uL Red Blood Count 5.13 4.7-6.1 M/uL Hemoglobin 13.7 14.0-18.0 g/dL Hematocrit 41.9 42-52 % Mean Corpuscular Volume 81.7 80-100 fL Mean Corpuscular Hemoglobin 26.7 25-34 pg Mean Corpuscular Hemoglobin Concent 32.7 32-36 g/dl Platelet Count 221 130-400 K/uL Mean Platelet Volume 10.0 7.4-10.4 fL Neutrophils (%) (Auto) 65.1 % Lymphocytes (%) (Auto) 23.1 % Monocytes (%) (Auto) 10.1 % Eosinophils (%) (Auto) 1.3 % Basophils (%) (Auto) 0.2 % Neutrophils # (Auto) 5.56 1.4-6.5 K/uL Lymphocytes # (Auto) 1.97 1.2-3.4 K/uL Monocytes # (Auto) 0.86 0.11-0.59 K/uL Eosinophils # (Auto) 0.11 0-0.5 K/uL Basophils # (Auto) 0.02 0-0.2 K/uL RDW Standard Deviation 42.9 36.4-46.3 fL RDW Coefficient of Variation 14.4 11.5-14.5 % Immature Granulocyte % (Auto) 0.2 % Immature Granulocyte # (Auto) 0.02 0.00-0.02 K/uL Sodium Level 143 136-145 mmol/L Potassium Level 4.3 3.5-5.1 mmol/L Chloride Level 109 98-107 mmol/L Carbon Dioxide Level 28 21-32 mmol/L Anion Gap 6.0 3-11 mmol/L Blood Urea Nitrogen 18 7-18 mg/dl Creatinine 1.30 0.60-1.40 mg/dl Est Creatinine Clear Calc Drug Dose 50.6 ml/min Estimated GFR () 62.7 Estimated GFR (Non- 54.1 BUN/Creatinine Ratio 14.2 10-20 Random Glucose 93 70-99 mg/dl Calcium Level 8.5 8.5-10.1 mg/dl
[2016-12-24 08:00] VITALS: BP 145/92; PULSE 60; TEMP 36.5; O2SAT 93; O2SAT 96
[2016-12-24] MEDS ORDERED: LISINOPRIL 5 MG TAB PO ONE (10:45)
--- NOTE | 2016-12-24 11:15 | CARDIOLOGY PROGRESS NOTE ---
DATE: 12/24/2016 DATE: 12/24/2016. The patient seen and examined. Chart, medications, telemetry reviewed. SUBJECTIVE: The patient feels well this morning. No further chest pains or discomfort. Notes no dizziness or lightheadedness. Notes no syncope or near syncope. Results of testing were discussed in detail with the patient. OBJECTIVE: VITAL SIGNS: Heart rate is 60, blood pressure is 145/92. Telemetry reveals intermittent sinus bradycardia, no arrhythmias. HEAD, EYES, EARS, NOSE, AND THROAT EXAMINATION: Normocephalic, atraumatic. NECK: There is no jugular venous distention. No carotid bruits. LUNGS: Clear. CARDIOVASCULAR EXAMINATION: Regular. There is no S3 gallop. ABDOMEN: Soft. EXTREMITIES: Without cyanosis or clubbing. There is no peripheral edema. Right radial puncture site is healed well. LABORATORY DATA: White cell count is 8.5, hemoglobin is 13.7. Sodium is 143, potassium is 4.3, chloride is 109, bicarbonate 28, BUN 18, creatinine is 1.3. Cardiac catheterization as well outlined demonstrated 3-vessel coronary disease. IMPRESSION: A 71-year-old male presents with atypical left arm pain, likely representing angina after abnormal stress testing underwent diagnostic cardiac catheterization demonstrating 3-vessel coronary disease. RECOMMENDATIONS: Results of findings discussed in detail. The patient will be referred for surgical revascularization. The patient may be discharged to home with the above recommendations. 1. Continue aspirin 81 mg per day. Continue amlodipine at 2.5 mg daily for anginal effect. 2. Avoid beta blockers given profound bradycardia at night. 3. Initiate lisinopril 5 mg per day for hypertension control and cardioprotective affect. 4. Begin statin at low dose, atorvastatin 10 mg every other day, given past history of diffuse myalgias with pravastatin at moderate dosing. Arrangements have been made for initial contact with cardiovascular surgery in the next week. With scheduling contacted full arrangements will be made Monday.
[2016-12-24 12:00] VITALS: BP 158/108; PULSE 59; TEMP 36.3; O2SAT 92; O2SAT 96
[2016-12-24] MEDS ORDERED: NRV5 PO (12:57)
[2016-12-24] MEDS ORDERED: ASPEC81 PO (12:57)
[2016-12-24] MEDS ORDERED: LPT10 PO (12:57)
[2016-12-24] MEDS ORDERED: LSN5 PO (12:57)
[2016-12-24] MEDS ORDERED: NTRSLP4 SL (12:57)
--- NOTE | 2016-12-24 13:07 | Discharge Summary ---
Discharge Summary Date of Service December 24, 2016. Discharge Summary Admission Date: December 21, 2016 at 21:42 Discharge Date: December 24, 2016 Discharge Disposition: Home Principal Diagnosis: Severe Coronary Artery Disease Procedures: ECHO: * Normal LV chamber size with mild concentric LVH, sigmoid appearing septum. * Normal LV systolic function, EF 55-60%. * No segmental left ventricular wall motion abnormalities are noted. * Grade I diastolic dysfunction. * Aortic valve sclerosis mild, without significant aortic valvular stenosis. Mild aortic regurgitation. * Mild mitral annular calcification, mild mitral regurgitation. * Mild left atrial enlargement. Stress ECHO: * Abnormal exercise stress echocardiogram. * Inducible hypokinesis of the mid to basal anteroseptal wall. * >2mm horizontal ST segment depressions in the inferior leads. * >1mm horizontal ST segment depressions in the lateral leads. * Hypertensive BP response to exercise. * MATHIAS reproduced with stress. * Above average exercise tolerance. Cardiac Cath: 1. Severe multivessel coronary artery disease - 80% ostial-proximal LAD, 80% mid LAD - 60-70% ostial circumflex, 80% OM3 - 70-80% mid RCA 2. Normal intracardiac filling pressure Recommendations: With 3 vessel disease involving ostial LAD recommend CT surgery referral for consideration of bypass surgery Continued ASCVD risk factor modification Brain MRI: No acute intracranial abnormality. Brain MRA: 1. No abrupt vessel cut off. 2. 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 3. Absent right A1 segment, likely congenital. 4. Mild to moderate narrowing of the petrous portion of the right internal carotid artery and the bilateral supraclinoid internal carotid arteries. Neck MRA: No hemodynamically significant stenosis within the major vasculature of the neck. Minimal narrowing of the proximal right internal carotid artery, less than 30%. CXR: No acute cardiopulmonary findings. Consultations: Cardiology, Neurology Pending Studies/Follow-Up: Follow up with on 12/28/16 at 11:05am Follow up with your manager data in 1 week as advised Follow up with cardiovascular surgery for revascularization as advised Take medications as prescribed Seek immediate medical attention if your symptoms reoccur or worsen Recommend to get repeat Head MRA in 1 year to assess aneurysm of right anterior cerebral artery and follow up with Neurosurgery as needed. Medication Reconciliation New Medications: Amlodipine Besylate (Amlodipine Besylate) 5 Mg Tab 2.5 MG PO QAM for 30 Days, #15 TAB 1 Refill Aspirin (Aspirin EC Low Dose) 81 Mg Ectab 81 MG PO QAM for 30 Days, #30 1 Refill Atorvastatin (Atorvastatin Calcium) 10 Mg Tab 10 MG PO Q2D@0900 for 30 Days, #15 TAB 1 Refill Lisinopril (Lisinopril) 5 Mg Tab 5 MG PO QAM for 30 Days, #30 TAB 1 Refill Nitroglycerin (Nitrostat) 0.4 Mg/1 Tab Subl 0.4 MG SL UD PRN for Chest Pain for 10 Days, #30 Continued Medications: Glucosamine Sulfate (Glucosamine) 1,000 Mg Tab 1000 MG PO QAM, TAB Ibuprofen (Advil) 200 Mg Tab 200-600 MG PO Q4H PRN for Pain, TAB Multivitamin (Multivitamin) Tab 1 TAB PO DAILY, TAB Probiotic Product (Probiotic) 1 Cap Cap 1 CAP PO DAILY Admission Information HPI (per Admitting provider): 71 year old male who presents to the ER with left arm numbness. Patient reports he was at [employer] looking at tired when he developed left arm numbness. He reports his entire arm was tingling. He then went to find his . He reports symptoms started to ease up after a few minutes. He reports he was able to move his arm the entire time. No facial droop or slurred speech. No other extremities were affected. He also reports associated chest pain. He describes it as an ache and rated it #5/10 at its worst. It only lasted for a few minutes as well and resolved on its own. He also had a mild left temporal headache. He denies blurred vision. No associated diaphoresis, shortness of breath, or nausea. He notes that while doing yard work over the past few days he had some mild worsening exertional shortness of breath. He denies abdominal pain, vomiting, and diarrhea. No fevers or chills. He denies urinary symptoms. In the ER, patient's work up is unremarkable. Currently he reports minimal tingling in the left arm. He was given full dose ASA. Physical Exam (per Admitting): General Appearance: no apparent distress Head: normocephalic Eyes: normal inspection ENT: hearing grossly normal Neck: supple, no JVD, no carotid bruits Respiratory/Chest: lungs clear, normal breath sounds, no respiratory distress Cardiovascular: regular rate, rhythm, no edema, normal peripheral pulses Abdomen/GI: normal bowel sounds, non tender, soft Extremities/Musculoskelatal: normal inspection, no calf tenderness Neurologic/Psych: no motor/sensory deficits, alert, normal mood/affect, oriented x 3 Skin: normal color, warm/dry Hospital Course LEFT ARM PARESTHESIA, ATYPICAL CHEST PAIN Patient presented with left arm paresthesias and chest pain that lasted for a few minutes and resolved on its own Positive family history:father from [place] at age 43, no other risk factors identified CT head/Brain MRI:No acute intracranial abnormality Brain MRA: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 PROCEDURES: ECHO: * Normal LV chamber size with mild concentric LVH, sigmoid appearing septum. * Normal LV systolic function, EF 55-60%. * No segmental left ventricular wall motion abnormalities are noted. * Grade I diastolic dysfunction. * Aortic valve sclerosis mild, without significant aortic valvular stenosis. Mild aortic regurgitation. * Mild mitral annular calcification, mild mitral regurgitation. * Mild left atrial enlargement. Stress ECHO: * Abnormal exercise stress echocardiogram. * Inducible hypokinesis of the mid to basal anteroseptal wall. * >2mm horizontal ST segment depressions in the inferior leads. * >1mm horizontal ST segment depressions in the lateral leads. * Hypertensive BP response to exercise. * MATHIAS reproduced with stress. * Above average exercise tolerance. Cardiac Cath: 1. Severe multivessel coronary artery disease - 80% ostial-proximal LAD, 80% mid LAD - 60-70% ostial circumflex, 80% OM3 - 70-80% mid RCA 2. Normal intracardiac filling pressure Recommendations: With 3 vessel disease involving ostial LAD recommend CT surgery referral for consideration of bypass surgery Continued ASCVD risk factor modification Total time spent on discharge = 33 minutes This includes examination of the patient, discharge planning, medication reconciliation, and communication with other providers. Discharge Instructions Discharge Instructions Date of Service December 24, 2016. Admission Reason for Admission: Left Arm Numbness Discharge Discharge Diagnosis / Problem: Severe Coronary Artery Disease Discharge Goals Goal(s): Decrease discomfort, Improve function Activity Recommendations Activity Limitations: per Instructions/Follow-up section Lifting Limitations: until after follow-up appointment (No heavy exercise, weight lifting) Exercise/Sports Limitations: gradually increase as tolerated Driving or Machine Use: Do not drive until cleared by your primary care physician . Instructions / Follow-Up Instructions / Follow-Up Follow up with on 12/28/16 at 11:05am Follow up with your manager data in 1 week as advised Follow up with cardiovascular surgery for revascularization as advised Take medications as prescribed Seek immediate medical attention if your symptoms reoccur or worsen Recommend to get repeat Head MRA in 1 year to assess aneurysm of right anterior cerebral artery and follow up with Neurosurgery as needed. Current Hospital Diet Patient's current hospital diet: AHA Diet (Heart Healthy) Discharge Diet Recommended Diet: AHA Diet (Heart Healthy) Pending Studies Studies pending at discharge: no Laboratory Results Hemoglobin A1c Test 12/21/16 20:00 Range/Units Estimated Average Glucose 117 mg/dl Hemoglobin A1c 5.7 H 4.5-5.6 % Lipid Panel Test 12/22/16 02:07 Range/Units Triglycerides Level 169 H 0-150 mg/dl Cholesterol Level 195 0-200 mg/dl HDL Cholesterol 32 mg/dl Cholesterol/HDL Ratio 6.1 LDL Cholesterol, Calculated 129 mg/dl Medical Emergencies . Who to Call and When: Medical Emergencies: If at any time you feel your situation is an emergency, please call 911 immediately. . Non-Emergent Contact Non-Emergency issues call your: Primary Care Provider, Director [employer] Call Non-Emergent contact if: you have a fever, your pain is not controlled, your pain is worsening, your pain is unusual for you, you have any medication questions . . "Provider Documentation" section prepared by Luis K Vangala. . VTE Core Measure Inpt VTE Proph given/why not?: SCD's
[2016-12-24 13:11] VITALS: BP 158/108; PULSE 59; TEMP 36.3; O2SAT 92
--- NOTE | 2016-12-24 14:13 | PROGRESS NOTE ---
DATE: 12/24/2016 SUBJECTIVE: Radhika looks good today. He still has some paresthesias of his left thumb and index fingers, but now admits that he has had this intermittently for some time prior to this event and the pressure sensation in his left arm, which I think was anginal is now gone. We found no evidence for CVA. Provocative testing does not suggest the C6 sensory radiculopathy but he still could have one. He may have something as common as a carpal tunnel syndrome as he does admit to occasionally waking up at night with numb hands bilaterally. The catheter study did show three level anterior descending disease circumflex disease and and some right coronary disease as well, and I refer to the cath report for more details He clearly is going to need a cardiovascular surgery consult, probably at [place] and then if he wishes to go off to [place] for another opinion he may decide to do so, but his insurance is unlikely to cover this. Right now, the neurologic issues are going to have to take back door to his cardiac ones obviously and we would be happy to look at him on an outpatient basis to address the hand paresthesias and to possibly address the potential cervical sensory neuropathy in the future. Right now, it appears he is going to be discharged and probably seen in [place] next week by the vascular surgery ____. GIGID
[2016-12-25] MEDS ORDERED: ATORVASTATIN 10 MG TAB PO SCH (09:00)
[2016-12-25] MEDS ORDERED: LISINOPRIL 5 MG TAB PO SCH (09:00)
== END 2016-12-24 13:37 | disposition home or self-care (01) | DRG 287 ==
LOC: ENRESERVTM → ENRESERVDT → C.EDB 19:05 → C.2E 21:42
PROVIDERS: ADMIT Internal Medicine; ATTEND Internal Medicine
PROC: 4A023N7 Measurement of Cardiac Sampling and Pressure, Left Heart, Percutaneous Approach (ICD-10-PCS; principal; 2016-12-23 14:23)
DX: I25.119 Atherosclerotic heart disease of native coronary artery with unspecified angina pectoris (principal); I67.1 Cerebral aneurysm, nonruptured; R20.0 Anesthesia of skin; E78.5 Hyperlipidemia, unspecified; Z79.899 Other long term (current) drug therapy; Z82.49 Family history of ischemic heart disease and other diseases of the circulatory system

== ENCOUNTER 2017-01-11 17:46 | Emergency (ER) | payer OTHER ==
[~2017-01-11] VITALS: Ht 175.3 cm; Wt 85.0 kg
[~2017-01-11 17:46] MED LIST changes: -ACET-1311 PO; -AMIO200T4 PO; -ASPI81TA28 PO; -ATOR10TA82 PO; -ENOX40IN SQ; -FAMO20TA11 PO; -FRS/40 PO; -GLUCTAB7 PO; -MISC4CAP PO; -NTRGSL/4 UT; -OXYC1TAB3 PO; -POTA10TA32 PO; -PRENTAB26 PO; -WARF-246 PO
[2017-01-11 17:58] VITALS: TEMP 36.6; Ht 175.3 cm; Wt 85.0 kg
[2017-01-11] MEDS ORDERED: WARF-246 PO (18:51)
[2017-01-11] MEDS ORDERED: POTA10TA32 PO (18:51)
[2017-01-11] MEDS ORDERED: ATOR10TA82 PO (18:51)
[2017-01-11] MEDS ORDERED: AMIO200T4 PO (18:51)
[2017-01-11] MEDS ORDERED: FRS/40 PO (18:51)
[2017-01-11] MEDS ORDERED: PRENTAB26 PO (18:51)
[2017-01-11] MEDS ORDERED: MISC4CAP PO (18:51)
[2017-01-11] MEDS ORDERED: NTRGSL/4 UT (18:51)
[2017-01-11] MEDS ORDERED: FAMO20TA11 PO (18:51)
[2017-01-11] MEDS ORDERED: ASPI81TA28 PO (18:51)
[2017-01-11] MEDS ORDERED: OXYC1TAB3 PO (18:51)
[2017-01-11] MEDS ORDERED: GLUCTAB7 PO (18:51)
[2017-01-11] MEDS ORDERED: ACET-1311 PO (18:55)
--- NOTE | 2017-01-11 18:56 | EMERGENCY ROOM VISIT NOTE ---
History Report prepared by Yamilet: Cliff Yoo Under the Supervision of: Dr. Ashley Quiroga M.D. First contact with patient: 18:30 Chief Complaint: REFERRED BY DOCTOR Stated Complaint: ACUTE THROMBOPHLEBIITIS OF LF ARM History of Present Illness The patient is a 71 year old male who presents to the Emergency Room with complaints of constant discomfort to his left wrist beginning a three days ago. He currently rates his discomfort a 1/10 in severity. The patient states that he had bypass surgery a week ago and was given mediation through an IV. He reports that his IV was moved from his right arm to his left arm with a smaller needle. The patient states that any time his IV was used, he experienced a burning sensation. He notes that he was discharged from the hospital two days ago, and his IV was removed. The patient reports that his wrist still hurt after his IV was removed. He states that today, he went in to receive his INR blood work; his INR level was 1.3. The patient reports that he was speaking to a case filler and was told his arm needed to be checked out. He notes that as he was walking out of the clinic, he saw his doctor, and was told to go to the ER because he would not be able to be seen until tomorrow. The patient states that he took Tylenol and his pain went away. He denies chest pain and shortness of breath. The patient states that he currently takes two baby aspirin and 2.5mg of Coumadin a day because his history of atrial fibulation. Source of History: patient Onset: three days ago Position: wrist (left) Symptom Intensity: 1/10 Timing: constant Modifying Factors (Relieving): tylenol Associated Symptoms: No chest pain, No SOB Review of Systems See HPI for pertinent positives & negatives. A total of 10 systems reviewed and were otherwise negative. Past Medical & Surgical Medical Problems: (1) IBS (irritable bowel syndrome) Family History FH: heart attack FATHER ( from [place] at age 43) Social History Smoking Status: Never Smoker Marital Status: Housing Status: lives with family Current/Historical Medications Scheduled Amiodarone Hcl (Cordarone), 200 MG PO UD Aspirin (Aspirin Ec), 162 MG PO DAILY Atorvastatin (Lipitor), 10 MG PO DAILY Enoxaparin (Lovenox), 40 MG SQ BID Famotidine (Pepcid), 20 MG PO Q12 Furosemide (Lasix), 40 MG PO DAILY Aqzrudgxbhb-Hzwzwavkiub-Wgp C- (Glucosamine Chondroitin), 1 TAB PO DAILY Multivit/Min/Iron/Fol Ac/Pren ( Vitamin), 1 TAB PO DAILY Potassium Chloride Microencaps (Potassium Chloride Er), 10 MEQ PO DAILY Warfarin Sodium (Warfarin Sodium), 2.5 MG PO DAILY Scheduled PRN Acetaminophen (Tylenol), 325 MG PO UD PRN for Pain or Fever Nitroglycerin (Nitrostat), 0.4 MG UT UD PRN for Chest Pain Oxycodone Ir (Roxicodone Ir), 5 MG PO Q4H PRN for Pain Probiotic Product (Align), 4 MG PO DAILY PRN for IBS Symptoms Allergies Coded Allergies: Pravastatin (Verified Allergy, Unknown, Muscle pain, 01/11/17) Physical Exam Vital Signs Date Time Temp Pulse Resp B/P (MAP) Pulse Ox O2 Delivery O2 Flow Rate FiO2 01/11/17 19:55 60 18 142/79 96 01/11/17 17:58 36.6 50 20 142/70 94 Room Air Physical Exam Vital signs reviewed. General: Well-appearing, in no significant distress. HEENT: No scleral icterus, PERRLA, neck supple. Atraumatic. Cardiovascular: Regular rate and rhythm, no extra sounds. Pulmonary: Clear to auscultation bilaterally, normal work of breathing. Upper Extremities: Erythema and subcutaneous edema of the left distal forearm, warm to the touch, neurovascularly intact Abdomen: Soft, nontender, nondistended, positive bowel sounds. Musculoskeletal: Atraumatic, no peripheral edema. Neurologic: Patient awake alert and oriented x 3 Skin: Warm, dry, no rash Medical Decision & Procedures Medications Administered Medications (Trade) Dose Ordered Sig/Travis Route Start Time Stop Time Status Last Admin Dose Admin Enoxaparin Sodium (Lovenox Inj) 80 mg NOW STAT SQ 01/11/17 19:28 01/11/17 19:29 DC 01/11/17 19:36 80 MG ED Course 1837: Past medical records reviewed. The patient was evaluated in room C11. A complete history and physical examination was performed. 1927: Ordered Lovenox Inj 80mg SQ 1932: Upon reevaluation, the patient is resting and in no distress. The treatment plan was discussed with the patient, and he verbalized complete agreement with the plan. He was discharged home. Medical Decision Differential diagnosis: Etiologies such as cellulitis, abscess, MRSA infection, DVT, necrotizing fasciitis, dermatitis, drug eruption, as well as others were entertained.. Medication Reconciliation: I attest that I have personally reviewed the patient' s current medication list. Blood Pressure Screening: Patient was found to have a slightly elevated blood pressure due to circumstances. I do not believe that the patient requires hypertension monitoring. This pt was evaluated and appeared to be in no distress. US report was reviewed from earlier in the day. The report is significant for several clots, some in the deep venous system. This was confirmed after conversation with Dr Manuel of radiology. Pt was given 80 mg of SQ lovenox and asked to take 5 mg of coumadin this evening. He will continue lovenox BID and coumadin 5 mg for 3 days and have INR repeated. This is likely reactive from a peripheral IV site the pt had last week in the hospital during his CABG. Pt was advised of the findings and the plan. He agrees and sees his PCP tomorrow as scheduled. Impression Primary Impression: DVT (deep venous thrombosis) Additional Impression: Thrombophlebitis arm Scribe Attestation The scribe's documentation has been prepared under my direction and personally reviewed by me in its entirety. I confirm that the note above accurately reflects all work, treatment, procedures, and medical decision making performed by me. Departure Information Dispostion Home / Self-Care Referrals Abdullahi Hicks D.O. (PCP) Forms HOME CARE DOCUMENTATION FORM, IMPORTANT VISIT INFORMATION, WORK / SCHOOL INSTRUCTIONS Patient Instructions My [facility] Additional Instructions Diagnosis: Thrombophlebitis Increase coumadin to 5 mg daily for 3 days, have INR repeated on 4 th day. Continue warm compresses 4 times daily and elevate arm. Gentle compression wrap maybe helpful. FOllow up with your doctor tomorrow as scheduled for reevaluation. REturn to emergency for worsening of symptoms or any medical concerns. Problem Qualifiers
[2017-01-11] MEDS ORDERED: ENOXAPARIN 80 MG/0.8 ML SYR SQ STA (19:28)
[2017-01-11] MEDS ORDERED: ENOX40IN SQ (19:31)
[2017-01-11 19:55] VITALS: BP 142/79; PULSE 60; O2SAT 96
[2017-01-12] MEDS ORDERED: ENOX40IN SQ (01:56)
== END 2017-01-11 19:55 | disposition home or self-care (01) ==
LOC: C.EDB 17:47 → C.EDC 19:55
DX: I80.8 Phlebitis and thrombophlebitis of other sites (principal); I82.622 Acute embolism and thrombosis of deep veins of left upper extremity; Z95.1 Presence of aortocoronary bypass graft; I48.91 Unspecified atrial fibrillation; K58.9 Irritable bowel syndrome, unspecified; Z82.49 Family history of ischemic heart disease and other diseases of the circulatory system; Z79.82 Long term (current) use of aspirin; Z79.01 Long term (current) use of anticoagulants; Z79.899 Other long term (current) drug therapy

== ENCOUNTER → 2017-01-11 | Outpatient (CLI) | payer OTHER ==
[~2017-01-11] MED LIST: ACET-1311 PO; AMIO200T4 PO; ASPEC81 PO; ASPI81TA28 PO; ATOR10TA82 PO; ENOX40IN SQ; FAMO20TA11 PO; FRS/40 PO; GLUC10007 PO; GLUCTAB7 PO; IBUP-1277 PO; LPT10 PO; LSN5 PO; MISC4CAP PO; MISCCAP80 PO; MULT-506 PO; NRV5 PO; NTRGSL/4 UT; NTRSLP4 SL; OXYC1TAB3 PO; POTA10TA32 PO; PRENTAB26 PO; WARF-246 PO
[2017-01-11 16:00] LABS: HEMATOCRIT 35.1 % (42-52); MEAN CELL VOLUME 83.4 fL (80-100); MEAN CORPUSCULAR HEMOGLOBIN 27.3 pg (25-34); MEAN PLATELET VOLUME 9.6 fL (7.4-10.4); PLATELET COUNT 359 K/uL (130-400); RED BLOOD COUNT 4.21 M/uL (4.7-6.1); WHITE BLOOD COUNT 10.29 K/uL (4.8-10.8)
[2017-01-11 16:10] LABS: MEAN CORPUSCULAR HGB CONC 32.8 g/dl (32-36)
--- NOTE | 2017-01-11 17:01 | DIAGNOSTIC IMAGING REPORT ---
Venous Doppler left arm LEFT VENOUS DOPP LOWER EXT UNILAT CLINICAL HISTORY: ARM LEFT SWELLING AND PAIN; I80.8 STATARM LEFT SWELLING AND TECHNIQUE: Doppler COMPARISON STUDY: None FINDINGS: Focal thrombus seen within the proximal brachial vein. Thrombus is also seen within the left cephalic vein extending to the mid forearm. Compressibility is incomplete. IMPRESSION: Findings of acute thrombophlebitis of the left arm. Electronically signed by: Brennen Manuel M.D. 01/11/2017 5:00 PM Dictated Date/Time: 01/11/2017 4:59 PM
== END | disposition home or self-care (01) ==
LOC: C.ULTR 15:38
PROVIDERS: ATTEND Internal Medicine
DX: I80.8 Phlebitis and thrombophlebitis of other sites (principal)

== ENCOUNTER 2017-01-12 01:24 | Emergency (ER) | payer OTHER ==
[~2017-01-12] VITALS: Ht 175.3 cm; Wt 81.0 kg
[~2017-01-12 01:24] MED LIST changes: +ACET-1311 PO; +AMIO200T4 PO; -ASPEC81 PO; +ASPI81TA28 PO; +ATOR10TA82 PO; +ENOX40IN SQ; +FAMO20TA11 PO; +FRS/40 PO; -GLUC10007 PO; +GLUCTAB7 PO; -IBUP-1277 PO; -LPT10 PO; -LSN5 PO; +MISC4CAP PO; -MISCCAP80 PO; -MULT-506 PO; -NRV5 PO; +NTRGSL/4 UT; -NTRSLP4 SL; +OXYC1TAB3 PO; +POTA10TA32 PO; +PRENTAB26 PO; +WARF-246 PO
[2017-01-12 01:30] VITALS: TEMP 36.8; Ht 175.3 cm; Wt 81.0 kg
[2017-01-12 01:41] VITALS: O2SAT 94
[2017-01-12] MEDS ORDERED: ENOX40IN SQ (01:56)
--- NOTE | 2017-01-12 02:08 | EMERGENCY ROOM VISIT NOTE ---
History Report prepared by Yamilet: Yeison Akins Under the Supervision of: Dr. Amy Barcenas D.O. First contact with patient: 01:34 Chief Complaint: CHEST PAIN Stated Complaint: NECK AND CHEST DISCOMFORT S/P BYPASS SURGERY Nursing Triage Summary: Seen in this ED earlier today for IV infiltration from prior hospital stay at [facility]. Diagnosed with DVT to left arm - given lovenox and warfarin adjustment. . Around 11pm, when lying down felt left sided neck pain, and intermittent chest pain. PSH: CABG x4 at [facility] on 01/04/17. Afib post operatively. Discharged home this Monday History of Present Illness The patient is a 71 year old male who presents to the Emergency Room with complaints of left chest pain starting about 3 hours ago. He lied down when he started having pain radiation to the left neck. He did not take Nitro or Oxy at home. The patient was evaluated in the Emergency Room about 7 hours ago for left arm discomfort. He had an ultrasound which showed DVT in the left arm. He received a shot of Lovenox and was discharged home on a Lovenox prescription. He did not have any pain in the left arm at the onset of the chest pain. He currently reports the chest pain has improved but it continues to persist. He ate chicken sandwich and gravy last night for dinner. He had his INR checked today which was 1.3. He had bypass surgery about a week ago and he was discharged 3 days ago. He denies any cough, sore throat, shortness of breath, or any other complaints. Source of History: patient Onset: about 3 hours ago Position: chest (left) Timing: other (persistent but improved) Associated Symptoms: + neck pain, No sorethroat, No cough, No SOB Review of Systems See HPI for pertinent positives & negatives. A total of 10 systems reviewed and were otherwise negative. Past Medical & Surgical Medical Problems: (1) IBS (irritable bowel syndrome) 4 vessel CABG Family History FH: heart attack FATHER ( from [place] at age 43) Social History Smoking Status: Never Smoker Marital Status: Housing Status: lives with family Current/Historical Medications Scheduled Amiodarone Hcl (Cordarone), 200 MG PO UD Aspirin (Aspirin Ec), 162 MG PO DAILY Atorvastatin (Lipitor), 10 MG PO DAILY Enoxaparin (Lovenox), 40 MG SQ BID Famotidine (Pepcid), 20 MG PO Q12 Furosemide (Lasix), 40 MG PO DAILY Ddwiwtmhrov-Bhjgkviqrvo-Vuw C- (Glucosamine Chondroitin), 1 TAB PO DAILY Multivit/Min/Iron/Fol Ac/Pren ( Vitamin), 1 TAB PO DAILY Potassium Chloride Microencaps (Potassium Chloride Er), 10 MEQ PO DAILY Warfarin Sodium (Warfarin Sodium), 2.5 MG PO DAILY Scheduled PRN Acetaminophen (Tylenol), 325 MG PO UD PRN for Pain or Fever Nitroglycerin (Nitrostat), 0.4 MG UT UD PRN for Chest Pain Oxycodone Ir (Roxicodone Ir), 5 MG PO Q4H PRN for Pain Probiotic Product (Align), 4 MG PO DAILY PRN for IBS Symptoms Allergies Coded Allergies: Pravastatin (Verified Allergy, Unknown, Muscle pain, 01/11/17) Physical Exam Vital Signs Date Time Temp Pulse Resp B/P (MAP) Pulse Ox O2 Delivery O2 Flow Rate FiO2 01/12/17 05:02 56 16 140/78 96 01/12/17 04:46 56 16 140/78 96 Room Air 01/12/17 03:33 54 12 127/68 96 Room Air 01/12/17 01:45 55 01/12/17 01:41 94 Room Air 01/12/17 01:30 36.8 56 16 145/78 96 Room Air 01/12/17 01:30 94 Room Air Physical Exam HEENT: Head - normocephalic and atraumatic Pupils are equal, round, and reactive to light. Extraocular eye muscles are intact, and sclera are anicteric. Nose - moist nasal mucosa without discharge. Mouth - moist buccal mucosa. Oropharynx is nonerythematous and there is no tonsillar exudate or edema noted. Neck: Supple; no JVD, nuchal rigidity, enlarged left anterior cervical lymph nodes, or auscultated bruits. Chest: Well-healing incisions on anterior chest wall. Heart: Regular rate and rhythm. There is a normal S1 and S2 with no murmurs, clicks, or gallops appreciated. Lungs: Diminished breath sounds at both lung bases. There is no wheezing. Abdomen: Soft, completely nontender, nondistended, with good bowel sounds. There are no palpable pulsatile masses or hepatosplenomegaly. There is no guarding, rigidity, or rebound noted. Extremities: No evidence of cyanosis, clubbing, or edema. There are easily palpable peripheral pulses. Well-healing surgical incisions on left lower extremity. Skin: warm and dry with good turgor and no rashes. Medical Decision & Procedures ER Provider Diagnostic Interpretation: CT results as stated below per my review and radiologist interpretation: CTA CHEST Status post recent median sternotomy and CABG. Recently with intravenous time with a few locules of gas. No evidence of abscess. There is a small pericardial effusion. Moderate left sided pleural effusion with presumed adjacent atelectasis. Pneumonia is not excluded. No thoracic aortic dissection or aneurysm. Coronary artery calcifications. Punctate calcifications within the spleen. No acute osseous abnormality. Radiologist: Chema Mejia MD ADDENDUM- Added by Chema Mejia MD on 01/12/2017 4:10 am (-07:00) No evidence of pulmonary embolus. Laboratory Results 01/12/17 01:37 Red Blood Count 4.48, Mean Corpuscular Volume 82.1, Mean Corpuscular Hemoglobin 25.9, Mean Corpuscular Hemoglobin Concent 31.5, Mean Platelet Volume 9.6, Neutrophils (%) (Auto) 64.2, Lymphocytes (%) (Auto) 22.7, Monocytes (%) (Auto) 8.5, Eosinophils (%) (Auto) 3.7, Basophils (%) (Auto) 0.4, Neutrophils # (Auto) 6.69, Lymphocytes # (Auto) 2.37, Monocytes # (Auto) 0.89, Eosinophils # (Auto) 0.39, Basophils # (Auto) 0.04 01/12/17 01:37 Test 01/12/17 01:37 White Blood Count 10.43 K/uL (4.8-10.8) Red Blood Count 4.48 M/uL (4.7-6.1) Hemoglobin 11.6 g/dL (14.0-18.0) Hematocrit 36.8 % (42-52) Mean Corpuscular Volume 82.1 fL (80-100) Mean Corpuscular Hemoglobin 25.9 pg (25-34) Mean Corpuscular Hemoglobin Concent 31.5 g/dl (32-36) Platelet Count 414 K/uL (130-400) Mean Platelet Volume 9.6 fL (7.4-10.4) Neutrophils (%) (Auto) 64.2 % Lymphocytes (%) (Auto) 22.7 % Monocytes (%) (Auto) 8.5 % Eosinophils (%) (Auto) 3.7 % Basophils (%) (Auto) 0.4 % Neutrophils # (Auto) 6.69 K/uL (1.4-6.5) Lymphocytes # (Auto) 2.37 K/uL (1.2-3.4) Monocytes # (Auto) 0.89 K/uL (0.11-0.59) Eosinophils # (Auto) 0.39 K/uL (0-0.5) Basophils # (Auto) 0.04 K/uL (0-0.2) RDW Standard Deviation 42.6 fL (36.4-46.3) RDW Coefficient of Variation 14.1 % (11.5-14.5) Immature Granulocyte % (Auto) 0.5 % Immature Granulocyte # (Auto) 0.05 K/uL (0.00-0.02) Prothrombin Time 14.0 SECONDS (9.0-12.0) Prothromb Time International Ratio 1.3 (0.9-1.1) Activated Partial Thromboplast Time 37.3 SECONDS (21.0-31.0) Partial Thromboplastin Ratio 1.4 Anion Gap 8.0 mmol/L (3-11) Est Creatinine Clear Calc Drug Dose 41.1 ml/min Estimated GFR () 48.8 Estimated GFR (Non- 42.1 BUN/Creatinine Ratio 13.9 (10-20) Calcium Level 8.8 mg/dl (8.5-10.1) Total Creatine Kinase 66 U/L (39-308) Creatine Kinase MB < 0.5 ng/ml (0.5-3.6) Creatine Kinase MB Ratio (0-3.0) Troponin I 0.022 ng/ml (0-0.045) Pro-B-Type Natriuretic Peptide 571 pg/ml (0-900) Laboratory results per my review. Medications Administered Medications (Trade) Dose Ordered Sig/Travis Route Start Time Stop Time Status Last Admin Dose Admin Sodium Chloride 500 ml @ 999 mls/hr Q31M STAT IV 01/12/17 03:24 01/12/17 03:54 DC 01/12/17 03:34 999 MLS/HR Procedure Sodium Chloride 500 ml @ 999 mls/hr IV ECG Indication: chest pain Rate (beats per minute): 56 Rhythm: sinus bradycardia Findings: no ectopy, other (Biphasic t wave anterior and lateral leads; no ST elevation) Comparison ECG Date: December 23, 2016 Change: Changes are acute when compared to December 23, 2016. ED Course 0134: Past medical records reviewed. The patient was evaluated in room A03. A complete history and physical exam was performed. An IV lock was initiated and labs were drawn as above. A twelve-lead EKG was obtained as described above. The patient will go for CT scan of the chest to rule out PE. 0324: Sodium Chloride 500 ml @ 999 mls/hr IV 0431: Upon reevaluation, the patient is resting comfortably. I discussed findings and results with him. He verbalized agreement of the treatment plan. O2 saturations remained greater than 97%. He was discharged home. Medical Decision This patient presents to the Emergency Room with the chief complaint of chest pain. Differential diagnosis includes but is not limited to PE, costochondritis , Saray's syndrome, cardiac ischemia. His labs showed no leucocytosis, hemoglobin of 11.6, hematocrit 36.8, BUN 22, creatinine 1.6, troponin of 0.022, BNP 571, glucose 91, and INR of 1.3. I attest that I have personally reviewed the patient's current medication list. Blood Pressure Screening: Patient was found to have a slightly elevated blood pressure due to circumstances. I do not believe that the patient requires hypertension monitoring. The patient had some left-sided chest discomfort and discomfort to the left side of his neck. Troponin was negative. Twelve-lead EKG was negative for any ST segment elevation. CT scan showed no evidence of pulmonary embolus or aortic dissection. There was a moderate left-sided pleural effusion. This may be the cause of the patient's chest discomfort. However, he remains hemodynamically stable. He is in no shortness of breath and he is not hypoxic. I spent some time talking to the patient and his about appropriate follow- up. He has an appointment later today with his PCP. He will continue taking the Lovenox and the Coumadin. He then has an appointment with his screen repairer crusher next week and then his cardiothoracic surgeon 1 month. I suggested that he keep all these appointments. If at any time, he develops a fever or shortness of breath, he should return to the ER. Impression Primary Impression: Pleural effusion on left Additional Impression: Left sided chest pain Scribe Attestation The scribe's documentation has been prepared under my direction and personally reviewed by me in its entirety. I confirm that the note above accurately reflects all work, treatment, procedures, and medical decision making performed by me. Departure Information Dispostion Home / Self-Care Referrals Abdullahi Hicks D.O. (PCP) Forms HOME CARE DOCUMENTATION FORM, IMPORTANT VISIT INFORMATION Patient Instructions [facility] Additional Instructions Rest. Continue the coumadin and lovenox. Continue to do incentive spirometer. If you develop a fever, cough or shortness of breath, return to the ER Follow up with Dr. Teresa next week to discuss the left-sided pleural effusion Problem Qualifiers
[2017-01-12] MEDS ORDERED: OPTIRAY 320 IV PRN (02:30)
[2017-01-12 02:40] LABS: BASO % 0.4 %; BASO ABS # 0.04 K/uL (0-0.2); COMPLETE YES; EOS % 3.7 %; HEMATOCRIT 36.8 % (42-52); IG% 0.5 %; LYMPH % 22.7 %; LYMPH ABS # 2.37 K/uL (1.2-3.4); MEAN CELL VOLUME 82.1 fL (80-100); MEAN CORPUSCULAR HEMOGLOBIN 25.9 pg (25-34); MEAN CORPUSCULAR HGB CONC 31.5 g/dl (32-36); MEAN PLATELET VOLUME 9.6 fL (7.4-10.4); MONO % 8.5 %; NEUT % 64.2 %; PLATELET COUNT 414 K/uL (130-400); RED BLOOD COUNT 4.48 M/uL (4.7-6.1); WHITE BLOOD COUNT 10.43 K/uL (4.8-10.8)
[2017-01-12 02:48] LABS: INR 1.3 (0.9-1.1); PARTIAL THROMBOPLASTIN RATIO 1.4
[2017-01-12 02:57] LABS: BLOOD UREA NITROGEN 22 mg/dl (7-18); BUN/CREATININE RATIO 13.9 (10-20); CALCIUM 8.8 mg/dl (8.5-10.1); CARBON DIOXIDE 28 mmol/L (21-32); CHLORIDE 105 mmol/L (98-107); GLUCOSE 91 mg/dl (70-99); POTASSIUM 3.8 mmol/L (3.5-5.1); SODIUM 141 mmol/L (136-145)
[2017-01-12] MEDS ORDERED: SODIUM CHLORIDE 0.9% 500ML 500 ML IV STA (03:24)
[2017-01-12 05:02] VITALS: BP 140/78; PULSE 56; O2SAT 96
--- NOTE | 2017-01-12 07:41 | DIAGNOSTIC IMAGING REPORT ---
CHEST CTA for PULMONARY ARTERIES CT DOSE: 539.31 mGycm HISTORY: Atypical chest pain. Neck pain. TECHNIQUE: Multiaxial CT images of the chest were performed following the intravenous administration of contrast to evaluate the pulmonary arteries. Maximal intensity projection images were also obtained. COMPARISON STUDY: None. FINDINGS: No evidence for an aortic dissection or pulmonary embolus. Trace right and small left pleural effusions. Small pericardial effusion. Recent median sternotomy. Retrosternal gas is likely due to the recent postoperative changes. The heart is mildly enlarged. No mediastinal or hilar lymphadenopathy. A 1 cm left thyroid nodule. Visualized liver and spleen are unremarkable. No pneumothorax. The central airways are patent. The upper lung zones are clear. Bibasilar densities, left greater the right likely represent atelectasis. IMPRESSION: 1. No evidence for pulmonary embolus. 2. Recent median sternotomy. Retrosternal gas is likely due to the recent postoperative changes. 3. Trace right and small left pleural effusions. There is also a small pericardial effusion. 4. Bibasilar densities, left greater than right, likely represent atelectasis. 5. A 1 cm left thyroid nodule. Electronically signed by: Aashish Alcala M.D. 01/12/2017 7:39 AM Dictated Date/Time: 01/12/2017 7:33 AM
== END 2017-01-12 05:03 | disposition home or self-care (01) ==
LOC: C.EDB 01:26 → C.EDA 05:03
DX: J90 Pleural effusion, not elsewhere classified (principal); R07.9 Chest pain, unspecified; K58.9 Irritable bowel syndrome, unspecified; Z98.61 Coronary angioplasty status; Z79.01 Long term (current) use of anticoagulants; Z79.82 Long term (current) use of aspirin; Z79.899 Other long term (current) drug therapy; Z88.8 Allergy status to other drugs, medicaments and biological substances; Z82.49 Family history of ischemic heart disease and other diseases of the circulatory system

== ENCOUNTER 2017-09-25 19:49 | Inpatient (IN) | payer OTHER ==
[~2017-09-25] VITALS: Ht 175.3 cm; Wt 84.7 kg
[~2017-09-25 19:49] MED LIST changes: -ENOX40IN SQ; -FRS/40 PO; -NTRGSL/4 UT; -OXYC1TAB3 PO; -POTA10TA32 PO; -WARF-246 PO
[2017-09-25] MEDS ORDERED: SODIUM CHLORIDE 0.9% 1000ML 1,000 ML IV STA (20:59)
[2017-09-25] MEDS ORDERED: OPTIRAY 320 IV PRN (21:15)
[2017-09-25 21:31] LABS: BASO % 0.3 %; BASO ABS # 0.03 K/uL (0-0.2); EOS ABS # 0.11 K/uL (0-0.5); HEMATOCRIT 46.4 % (42-52); HEMOGLOBIN 15.8 g/dL (14.0-18.0); IG# 0.01 K/uL (0.00-0.02); LYMPH % 20.9 %; LYMPH ABS # 2.25 K/uL (1.2-3.4); MEAN CELL VOLUME 81.3 fL (80-100); MEAN CORPUSCULAR HEMOGLOBIN 27.7 pg (25-34); MEAN CORPUSCULAR HGB CONC 34.1 g/dl (32-36); MEAN PLATELET VOLUME 10.2 fL (7.4-10.4); MONO % 9.4 %; MONO ABS # 1.01 K/uL (0.11-0.59); NEUT % 68.3 %; NEUT ABS # 7.38 K/uL (1.4-6.5); PLATELET COUNT 256 K/uL (130-400); RED CELL DISTRIBUTION WIDTH CV 14.4 % (11.5-14.5); RED CELL DISTRIBUTION WIDTH SD 42.4 fL (36.4-46.3); WHITE BLOOD COUNT 10.79 K/uL (4.8-10.8)
[2017-09-25 21:50] LABS: CALCIUM 9.7 mg/dl (8.5-10.1); CREATININE 1.29 mg/dl (0.60-1.40)
[2017-09-25 21:53] LABS: TOTAL PROTEIN 8.2 gm/dl (6.4-8.2)
[2017-09-25] MEDS ORDERED: COEN1CAP17 PO (22:11)
[2017-09-25] MEDS ORDERED: MULT-506 PO (22:12)
[2017-09-25] MEDS ORDERED: ACET-1256 PO (22:12)
--- NOTE | 2017-09-25 22:35 | DIAGNOSTIC IMAGING REPORT ---
ABDOMEN AND PELVIS CT WITH IV CONTRAST CT DOSE: 394.96 mGy.cm HISTORY: Left lower quadrant abdominal pain. TECHNIQUE: Multiaxial CT images of the abdomen and pelvis were performed following the use of intravenous contrast. A dose lowering technique was utilized adhering to the principles of ALARA. COMPARISON STUDY: Abdomen and pelvis CT 11/27/2006. FINDINGS: A few bibasilar linear densities consistent with subsegmental atelectasis. No pneumoperitoneum. No pneumatosis. No suspicious lytic or blastic osseous lesions. Poststernotomy changes. The liver, adrenal glands, pancreas, and kidneys are unremarkable. No hydronephrosis. A few small left peripelvic renal cysts. Calcified granuloma seen within the spleen. The gallbladder is decompressed. Multiple small gallstones. No retroperitoneal lymphadenopathy. A left circumaortic renal vein. Moderate calcified plaque within the normal caliber abdominal aorta. Normal bladder. Multiple colonic diverticula. No evidence for bowel obstruction. Normal appendix. Focal thickening within the proximal sigmoid colon with pericolonic fat stranding consistent with acute diverticulitis. There is a 1.2 cm peripheral enhancing fluid filled focus within the wall the proximal sigmoid colon. This may represent a small intramural abscess. This is best seen on image 347. IMPRESSION: 1. Acute diverticulitis within the proximal sigmoid colon. No perforation identified. There may be a small intramural abscess. Recommend follow-up to ensure resolution. 2. Cholelithiasis. Electronically signed by: Aashish Alcala M.D. 09/25/2017 10:33 PM Dictated Date/Time: 09/25/2017 10:26 PM
[2017-09-25] MEDS ORDERED: PIPERACILLIN/TAZOBACTAM 4.5 GM/100ML D5W IV STA (23:06)
--- NOTE | 2017-09-25 23:27 | EMERGENCY ROOM VISIT NOTE ---
History Report prepared by Yamilet: Winter Morales Under the Supervision of: Dr. Tyler Edwards M.D. First contact with patient: 20:39 Chief Complaint: ABDOMINAL PAIN Stated Complaint: STOMACH PAIN Nursing Triage Summary: patient states he has had gas pain, abdominal pain. states it feels like he has diverticulitis. has history of diverticulitis. went to urgent care to try to get the medicine he usually takes when he has diverticulitis and was sent to the ED History of Present Illness The patient is a 72 year old male who presents to the Emergency Room with complaints of worsening abdominal pain starting 3 days ago. He describes the pain as stabbing. He has felt bloated and gassy. He has tried taking Pepcid and Tums to no significant relief. Today, he noticed his pain localized to the LLQ and became similar to his previous diverticulitis. He notes his diverticulitis is usually treated with Flagyl and Cipro. He was sent to the ED from urgent care. He has been having harder bowel movements than normal. He did have a large bowel movement today. He reports that his face feels warm. He had 1 cold sweat. He denies any chest pain, SOB, or vomiting. Source of History: patient Onset: 3 days ago Position: abdomen Quality: stabbing Timing: worsening Associated Symptoms: + fevers, + diaphoresis, No chest pain, No SOB, No vomiting Review of Systems See HPI for pertinent positives and negatives. A total of ten systems were reviewed and were otherwise negative. Past Medical & Surgical Medical Problems: (1) IBS (irritable bowel syndrome) Family History FH: heart attack FATHER ( from [place] at age 43) Social History Smoking Status: Never Smoker Marital Status: Housing Status: lives with family Current/Historical Medications Scheduled Aspirin (Aspirin Ec), 81 MG PO DAILY Atorvastatin (Lipitor), 10 MG PO DAILY Coenzyme Q10 (Ubidecarenone) (Co Q 10), Unknown Dose PO DAILY Xscrwuromuc-Yonlvscloyg-Hku C- (Glucosamine Chondroitin), 1,500 MG PO DAILY Multivitamin (Multivitamin), 1 TAB PO DAILY Scheduled PRN Acetaminophen (Tylenol), 500 MG PO Q8 PRN for Pain or Fever Famotidine (Pepcid), 20 MG PO Q12 PRN for GI Upset Probiotic Product (Align), 4 MG PO DAILY PRN for IBS Symptoms Allergies Coded Allergies: Pravastatin (Verified Allergy, Unknown, Muscle pain, 01/11/17) Physical Exam Vital Signs Date Time Temp Pulse Resp B/P (MAP) Pulse Ox O2 Delivery O2 Flow Rate FiO2 09/25/17 22:21 64 20 168/100 97 Room Air 09/25/17 20:22 37.2 68 20 176/97 95 Room Air Physical Exam Physical Exam GENERAL: He is oriented to person, place, and time. He appears well-developed and well-nourished. He does not appear distressed. ____ HENT: Exam performed. Head: Normocephalic and atraumatic. Right Ear: External ear normal. No mastoid tenderness. Left Ear: External ear normal. No mastoid tenderness. Mouth/Throat: The oropharynx is clear and moist. No trismus in the jaw. No dental abscesses or uvula swelling. No oropharyngeal exudate or tonsillar abscesses. ____ EYES: Conjunctivae and EOM are normal. Pupils are equal, round, and reactive to light. Right eye exhibits no discharge. Left eye exhibits no discharge. No scleral icterus. ____ NECK: Normal range of motion. Neck supple. No JVD present. No spinous process tenderness present. No carotid bruit present. No rigidity. No tracheal deviation and normal range of motion present. No Brudzinski's sign and no Kernig 's sign noted. ____ CV: Normal rate, regular rhythm, normal heart sounds and intact distal pulses. There is no peripheral edema. Palpable radial pulses bue. ____ PULM/CHEST: Effort normal and breath sounds normal. No respiratory distress. No stridor. He has no wheezes. He has no rales. Chest Wall: He exhibits no tenderness. ____ ABD: The abdomen is soft. Bowel sounds are normal. He has no distension. No mass is present. There is pain on palpation of the LLQ. There is no rebound, no guarding, no Rahman's sign and no tenderness at McBurney's point. Rovsig negative MUSC/SKEL: Normal range of motion. There is no peripheral edema, tenderness or deformity. LYMPH: No cervical adenopathy. ____ NEURO: He is alert and oriented to person, place, and time. He has normal strength. No cranial nerve deficit or sensory deficit. Coordination and gait normal. GCS eye subscore is 4. GCS verbal subscore is 5. GCS motor subscore is 6. Cerebellar tests wnl. ____ SKIN: Skin is warm and dry. He is not diaphoretic. ____ PSYCH: He has a normal mood and affect. His behavior is normal. Judgment and thought content normal. ____ Medical Decision & Procedures ER Provider Diagnostic Interpretation: Radiology results as stated below per my review and radiologist interpretation: ABDOMEN AND PELVIS CT WITH IV CONTRAST CT DOSE: 394.96 mGy.cm HISTORY: Left lower quadrant abdominal pain. TECHNIQUE: Multiaxial CT images of the abdomen and pelvis were performed following the use of intravenous contrast. A dose lowering technique was utilized adhering to the principles of ALARA. COMPARISON STUDY: Abdomen and pelvis CT 11/27/2006. FINDINGS: A few bibasilar linear densities consistent with subsegmental atelectasis. No pneumoperitoneum. No pneumatosis. No suspicious lytic or blastic osseous lesions. Poststernotomy changes. The liver, adrenal glands, pancreas, and kidneys are unremarkable. No hydronephrosis. A few small left peripelvic renal cysts. Calcified granuloma seen within the spleen. The gallbladder is decompressed. Multiple small gallstones. No retroperitoneal lymphadenopathy. A left circumaortic renal vein. Moderate calcified plaque within the normal caliber abdominal aorta. Normal bladder. Multiple colonic diverticula. No evidence for bowel obstruction. Normal appendix. Focal thickening within the proximal sigmoid colon with pericolonic fat stranding consistent with acute diverticulitis. There is a 1.2 cm peripheral enhancing fluid filled focus within the wall the proximal sigmoid colon. This may represent a small intramural abscess. This is best seen on image 347. IMPRESSION: 1. Acute diverticulitis within the proximal sigmoid colon. No perforation identified. There may be a small intramural abscess. Recommend follow-up to ensure resolution. 2. Cholelithiasis. Electronically signed by: Aashish Alcala M.D. 09/25/2017 10:33 PM Dictated Date/Time: 09/25/2017 10:26 PM Laboratory Results 09/25/17 21:10 Red Blood Count 5.71, Mean Corpuscular Volume 81.3, Mean Corpuscular Hemoglobin 27.7, Mean Corpuscular Hemoglobin Concent 34.1, Mean Platelet Volume 10.2, Neutrophils (%) (Auto) 68.3, Lymphocytes (%) (Auto) 20.9, Monocytes (%) (Auto) 9.4, Eosinophils (%) (Auto) 1.0, Basophils (%) (Auto) 0.3, Neutrophils # (Auto) 7.38, Lymphocytes # (Auto) 2.25, Monocytes # (Auto) 1.01, Eosinophils # (Auto) 0.11, Basophils # (Auto) 0.03 09/25/17 21:10 Test 09/25/17 21:10 White Blood Count 10.79 K/uL (4.8-10.8) Red Blood Count 5.71 M/uL (4.7-6.1) Hemoglobin 15.8 g/dL (14.0-18.0) Hematocrit 46.4 % (42-52) Mean Corpuscular Volume 81.3 fL (80-100) Mean Corpuscular Hemoglobin 27.7 pg (25-34) Mean Corpuscular Hemoglobin Concent 34.1 g/dl (32-36) Platelet Count 256 K/uL (130-400) Mean Platelet Volume 10.2 fL (7.4-10.4) Neutrophils (%) (Auto) 68.3 % Lymphocytes (%) (Auto) 20.9 % Monocytes (%) (Auto) 9.4 % Eosinophils (%) (Auto) 1.0 % Basophils (%) (Auto) 0.3 % Neutrophils # (Auto) 7.38 K/uL (1.4-6.5) Lymphocytes # (Auto) 2.25 K/uL (1.2-3.4) Monocytes # (Auto) 1.01 K/uL (0.11-0.59) Eosinophils # (Auto) 0.11 K/uL (0-0.5) Basophils # (Auto) 0.03 K/uL (0-0.2) RDW Standard Deviation 42.4 fL (36.4-46.3) RDW Coefficient of Variation 14.4 % (11.5-14.5) Immature Granulocyte % (Auto) 0.1 % Immature Granulocyte # (Auto) 0.01 K/uL (0.00-0.02) Anion Gap 8.0 mmol/L (3-11) Est Creatinine Clear Calc Drug Dose 50.3 ml/min Estimated GFR () 62.9 Estimated GFR (Non- 54.3 BUN/Creatinine Ratio 13.0 (10-20) Calcium Level 9.7 mg/dl (8.5-10.1) Total Bilirubin 0.5 mg/dl (0.2-1) Aspartate Amino Transf (AST/SGOT) 20 U/L (15-37) Alanine Aminotransferase (ALT/SGPT) 32 U/L (12-78) Alkaline Phosphatase 114 U/L (45-117) Total Protein 8.2 gm/dl (6.4-8.2) Albumin 4.0 gm/dl (3.4-5.0) Globulin 4.2 gm/dl (2.5-4.0) Albumin/Globulin Ratio 0.9 (0.9-2) Lipase 224 U/L (73-393) Laboratory results reviewed by me Medications Administered Medications (Trade) Dose Ordered Sig/Travis Route Start Time Stop Time Status Last Admin Dose Admin Sodium Chloride 1,000 ml @ 125 mls/hr Q8H STAT IV 09/25/17 20:59 09/26/17 04:58 09/25/17 21:16 125 MLS/HR Piperacillin Sod/ Tazobactam Sod (Zosyn Iv) 4.5 gm NOW STAT IV 09/25/17 23:06 09/25/17 23:07 DC 09/25/17 23:58 4.5 GM ED Course 2058: The patient was evaluated in room B7. A complete history and physical exam was performed. 4: Labs within normal limits. CT of the abdomen shows acute diverticulitis with small intramural abscess. I discussed the patient's case with Dr. Sparks, [facility] surgery. He states to admit to the hospitalist service and he will be on consult. Patient will be treated with broad-spectrum antibiotics Zosyn. Blood culture sent. 2304: [facility] the [facility] The patient will be evaluated for further treatment and disposition. Medical Decision Labs within normal limits. CT of the abdomen shows acute diverticulitis with small intramural abscess. I discussed the patient's case with Dr. Sparks, [facility] surgery. He states to admit to the hospitalist service and he will be on consult. Patient will be treated with broad-spectrum antibiotics Zosyn. Blood culture sent. Medication Reconcilliation Current Medication List: was personally reviewed by me Blood Pressure Screening Patient's blood pressure: Elevated blood pressure Blood pressure disposition: Elevated BP felt to be situational Consults Time Called: 2249 Consulting Physician: Dr. Sparks, [facility] general surgery Returned Call: [phone] I discussed the patient's case with him. He states to admit to the hospitalist service. Additional Consults: Time Called: 2299 Consulted Physician: Dr. Clements [facility] hospitalist Returned Call: [phone] Additional Comments: Discussed the patient's case. The patient will be evaluated for further treatment and disposition. Impression Primary Impression: Colonic diverticular abscess Scribe Attestation The scribe's documentation has been prepared under my direction and personally reviewed by me in its entirety. I confirm that the note above accurately reflects all work, treatment, procedures, and medical decision making performed by me. The chart was completed utilizing [employer] Speech voice recognition software. Grammatical errors, random word insertions, pronoun errors, and incomplete sentences are an occasional consequence of this system due to software limitations, ambient noise, and hardware issues. Any formal questions or concerns about the content, text, or information contained within the body of this dictation should be directly addressed to the physician for clarification. Departure Information Dispostion Being Evaluated By Hospitalist Referrals Abdullahi Hicks D.O. (PCP) Patient Instructions [facility]
[2017-09-26] MEDS ORDERED: ACETAMINOPHEN 325 MG TAB PO PRN
[2017-09-26] MEDS ORDERED: POLYETHYLENE (MIRALAX) 17 GM PACK PO PRN
[2017-09-26] MEDS ORDERED: ONDANSETRON INJ 2 MG/ML 2 ML VIAL IV PRN
[2017-09-26] MEDS ORDERED: PIPERACILL/TAZOBAC CONSULT ACTIVE PRN (00:15)
[2017-09-26 01:10] VITALS: BP 163/92; PULSE 58; TEMP 36.7; O2SAT 94; Ht 175.3 cm; Wt 84.7 kg
--- NOTE | 2017-09-26 02:04 | History and Physical ---
History & Physical Date & Time of Service: Sep 26, 2017 at 02:03 Chief Complaint: Colonic Diverticular Abscess Primary Care Physician: Abdullahi Hicks D.OLashawn History of Present Illness Source: patient, family, clinic records, hospital records Patient is a 72 yo male who presents to the hospital for complaints of gradually worsening LLQ abdominal pain that he first noticed at the end of last week. Over the weekend he woke up at 5 AM with abdominal discomfort that felt as if he needed to eat or he needed to have a BM; he tried eating cereal but the pain was still present. He states he had gone out to eat over the weekend and thought maybe it was from eating something and then he tried taking rolaids but did not have any improvement. He states the same symptoms persisted and that he tried taking probiotics, vitamins, and pepcid but did not have any relief, and then when palpating his abdomen he felt tenderness in his LLQ which reminded him of pain that he gets with prior bouts of diverticulitis. He states he went to urgent care and they referred him to the hospital. The patient also reports having difficulty with some constipation over the weekend which is very unusual for him. He denies any complaints of N/V/D, melena or hematochezia. Denies any recent infection or antibiotic use. Denies any dietary changes. Past Medical/Surgical History Medical Problems: (1) CAD (2) IBS (irritable bowel syndrome) (3) Hypercholesterolemia (4) CKD Stage III (5) Cerebral aneurysm Surgical Hx: (1) CABG x 4 (2) Colonoscopy and EGD Family History FH: heart attack FATHER ( from [place] at age 43) Social History Smoking Status: Never Smoker Smokeless Tobacco Use: No Alcohol Use: occasionally Drug Use: none Marital Status: Housing status: lives with family Immunizations History of Influenza Vaccine: Yes Influenza Vaccine Date: May 12, 2016 History of Tetanus Vaccine?: Yes Tetanus Immunization Date: Jun 16, 2015 History of Pneumococcal: Yes Pneumococcal Date: May 12, 2016 Multi-Drug Resistant Organisms History of MDRO: No Allergies Coded Allergies: Pravastatin (Verified Allergy, Unknown, Muscle pain, 01/11/17) Home Medications Scheduled Aspirin (Aspirin Ec), 81 MG PO DAILY Atorvastatin (Lipitor), 10 MG PO DAILY Coenzyme Q10 (Ubidecarenone) (Co Q 10), Unknown Dose PO DAILY Fwpinqlrgfg-Rupbuewnomc-Qka C- (Glucosamine Chondroitin), 1,500 MG PO DAILY Multivitamin (Multivitamin), 1 TAB PO DAILY Scheduled PRN Acetaminophen (Tylenol), 500 MG PO Q8 PRN for Pain or Fever Famotidine (Pepcid), 20 MG PO Q12 PRN for GI Upset Probiotic Product (Align), 4 MG PO DAILY PRN for IBS Symptoms Review of Systems Constitutional: No fever, No chills, No sweats, No weight loss Eyes: No worsening of vision, No redness, No diplopia ENT: No nasal symptoms, No sore throat, No trouble swallowing Respiratory: No cough, No wheezing, No shortness of breath Cardiovascular: No chest pain, No edema, No palpitations Abdomen: + pain, + constipation, No nausea, No vomiting Musculoskeletal: No joint pain, No muscle pain, No swelling Genitourinary - Male: No hematuria, No dysuria, No urinary frequency, No urinary urgency Neurologic: No memory loss, No numbness/tingling, No vertigo Psychiatric: No depression symptoms, No anxiety, No insomnia Endocrine: No fatigue, No excessive thirst, No excessive urination Hematologic / Lymphatic: No abnormal bleeding/bruising, No clotting problems, No swollen lymph nodes Integumentary: No rash, No itch, No new/changing skin lesions Physical Exam Vital Signs Date Time Temp Pulse Resp B/P (MAP) Pulse Ox O2 Delivery O2 Flow Rate FiO2 09/26/17 01:10 36.7 58 18 163/92 (115) 94 Room Air 09/26/17 01:10 36.7 58 18 163/92 Room Air 09/26/17 00:49 52 18 96 Room Air 09/26/17 00:34 54 96 09/26/17 00:31 151/84 09/26/17 00:19 53 18 97 09/26/17 00:04 60 96 09/26/17 00:01 174/93 09/25/17 22:21 64 20 168/100 97 Room Air 09/25/17 20:22 37.2 68 20 176/97 95 Room Air General Appearance: WD/WN, no apparent distress Head: normocephalic, atraumatic Eyes: PERRL, EOMI, sclerae normal ENT: hearing grossly normal Neck: supple, no JVD, no carotid bruits, trachea midline Respiratory/Chest: chest non-tender, lungs clear, normal breath sounds, no respiratory distress, no accessory muscle use Cardiovascular: regular rate, rhythm, no edema, no gallop, no JVD, no murmur Abdomen/GI: normal bowel sounds, soft, no organomegaly, + tenderness (LLQ) Back: normal inspection, no CVA tenderness Extremities/Musculoskelatal: normal inspection, no calf tenderness, no pedal edema Neurologic/Psych: no motor/sensory deficits, alert, normal mood/affect, oriented x 3 Skin: normal color, warm/dry, no rash Diagnostics Laboratory Results Results Past 24 Hours Test 09/25/17 21:10 Range/Units White Blood Count 10.79 4.8-10.8 K/uL Red Blood Count 5.71 4.7-6.1 M/uL Hemoglobin 15.8 14.0-18.0 g/dL Hematocrit 46.4 42-52 % Mean Corpuscular Volume 81.3 80-100 fL Mean Corpuscular Hemoglobin 27.7 25-34 pg Mean Corpuscular Hemoglobin Concent 34.1 32-36 g/dl Platelet Count 256 130-400 K/uL Mean Platelet Volume 10.2 7.4-10.4 fL Neutrophils (%) (Auto) 68.3 % Lymphocytes (%) (Auto) 20.9 % Monocytes (%) (Auto) 9.4 % Eosinophils (%) (Auto) 1.0 % Basophils (%) (Auto) 0.3 % Neutrophils # (Auto) 7.38 1.4-6.5 K/uL Lymphocytes # (Auto) 2.25 1.2-3.4 K/uL Monocytes # (Auto) 1.01 0.11-0.59 K/uL Eosinophils # (Auto) 0.11 0-0.5 K/uL Basophils # (Auto) 0.03 0-0.2 K/uL RDW Standard Deviation 42.4 36.4-46.3 fL RDW Coefficient of Variation 14.4 11.5-14.5 % Immature Granulocyte % (Auto) 0.1 % Immature Granulocyte # (Auto) 0.01 0.00-0.02 K/uL Sodium Level 139 136-145 mmol/L Potassium Level 4.0 3.5-5.1 mmol/L Chloride Level 105 98-107 mmol/L Carbon Dioxide Level 26 21-32 mmol/L Anion Gap 8.0 3-11 mmol/L Blood Urea Nitrogen 17 7-18 mg/dl Creatinine 1.29 0.60-1.40 mg/dl Est Creatinine Clear Calc Drug Dose 50.3 ml/min Estimated GFR () 62.9 Estimated GFR (Non- 54.3 BUN/Creatinine Ratio 13.0 10-20 Random Glucose 92 70-99 mg/dl Calcium Level 9.7 8.5-10.1 mg/dl Total Bilirubin 0.5 0.2-1 mg/dl Aspartate Amino Transf (AST/SGOT) 20 15-37 U/L Alanine Aminotransferase (ALT/SGPT) 32 12-78 U/L Alkaline Phosphatase 114 45-117 U/L Total Protein 8.2 6.4-8.2 gm/dl Albumin 4.0 3.4-5.0 gm/dl Globulin 4.2 2.5-4.0 gm/dl Albumin/Globulin Ratio 0.9 0.9-2 Lipase 224 73-393 U/L Microbiology Results 09/25/17 Blood Culture, Received Pending 09/25/17 Blood Culture, Received Pending Impression Assessment and Plan ACUTE DIVERTICULITIS: WITH SMALL INTRAMURAL ABSCESS -CT abdomen pelvis: no evidence of perforation, acute diverticulitis with possible small intramural abscess; follow up imaging recommended to check for resolution -patient has had several episodes of diverticulitis which were managed over the years as an outpt with PO antibiotics -will consult GI and Surgery for recommendations going forward -continue zosyn -stool culture; and if diarrhea consider c diff -NPO -continue with IV fluids CAD: S/P CABG x 4 in 12/2016 -has had overall good recovery other than some transient a fib post op which has not recurred -not on BB due to low HR -on ASA and statin, held now for hospitalization in case of procedures; resume when able HYPERCHOLESTEROLEMIA: -resume statin when taking po CKD STAGE III: -at baseline Cr 1.2-1.4 -monitor -avoid nephrotoxins Level of Care Med/Surg Advanced Directives Existing Living Will: No Existing Power of Manager [employer]ing: No Resuscitation Status FULL RESUSCITATION VTE Prophylaxis VTE Risk Assessment Done? Y/N: Yes Risk Level: Moderate Given or contraindicated: SCD's
[2017-09-26] MEDS: SODIUM CHLORIDE 0.9% 1000ML 1,000 ML IV SCH ×3 (02:19→23:24)
[2017-09-26 03:50] VITALS: BP 129/71; PULSE 58
[2017-09-26] MEDS: PIPERACILL/TAZOBAC IV 3.375 GM in DEXTROSE 5% 100ML 100 ML IV SCH ×3 (05:40→21:26)
[2017-09-26 06:18] LABS: HEMATOCRIT 39.8 % (42-52); HEMOGLOBIN 13.5 g/dL (14.0-18.0); MEAN CELL VOLUME 81.1 fL (80-100); MEAN CORPUSCULAR HEMOGLOBIN 27.5 pg (25-34); MEAN CORPUSCULAR HGB CONC 33.9 g/dl (32-36); MEAN PLATELET VOLUME 10.4 fL (7.4-10.4); PLATELET COUNT 221 K/uL (130-400); RED CELL DISTRIBUTION WIDTH CV 14.4 % (11.5-14.5); RED CELL DISTRIBUTION WIDTH SD 42.7 fL (36.4-46.3); WHITE BLOOD COUNT 7.73 K/uL (4.8-10.8)
[2017-09-26 06:53] LABS: ALBUMIN 3.1 gm/dl (3.4-5.0); CALCIUM 8.4 mg/dl (8.5-10.1); CREATININE 1.34 mg/dl (0.60-1.40); POTASSIUM 3.7 mmol/L (3.5-5.1)
[2017-09-26 07:16] LABS: TOTAL PROTEIN 6.6 gm/dl (6.4-8.2)
[2017-09-26 07:33] VITALS: BP 137/72; PULSE 53; TEMP 36.5; O2SAT 94
--- NOTE | 2017-09-26 11:31 | Gastrointestinal Consultation ---
Gastrointestinal Consultation Date of Consultation: Sep 26, 2017 Attending Physician: Boy Consulting Physician: Vignesh Reason for Consultation: diverticulitis, gallstones History of Present Illness Patient is a 72 year old male w/ history of CAD s/p CABG x 4, IBS and others listed below who presented to the ED for abdominal pain. CT w/ evidence of diverticulitis w/ ?abscess and gallstones. GI was asked to evaluate the pt. Pt was seen and evaluated, chart reviewed. Pt notes he has had diverticulitis before, suggesting this is his 3rd episode in the past 15 years. About 4 days ago had lower abdominal pain, he thought this was related to his IBS. however, his abd pain persisted and worsened. Pain was LLQ. Sharp, constant. without radiation of his pain. Bowels unchanged. Had a large semi-formed stool yesterday , no black or bloody stools. No UGI symptoms, no epigastric pain, nausea, vomiting. None of his symptoms resolved w/ pepcid, rolaids, probiotics. CT ABD/Pelvis 09/25/17: Acute diverticulitis within the proximal sigmoid colon. No perforationidentified. There may be a small intramural abscess. Recommend follow-up to ensure resolution.Cholelithiasis. Colonoscopy 08/04/08: diverticulosis of sigmoid to descending colon Past Medical/Surgical History Medical Problems: (1) Colonic diverticular abscess Status: Acute (2) Deep vein thrombosis (DVT) of left upper extremity Status: Acute (3) DVT (deep venous thrombosis) Status: Acute (4) Left sided chest pain Status: Acute (5) Pleural effusion on left Status: Acute (6) Thrombophlebitis Status: Acute (7) Thrombophlebitis arm Status: Acute Past Medical History: IBS, CKD, dyslipidemia, cerebral aneurysm, CAD Past Surgical History: EGD, colon, CABG Family History FH: heart attack FATHER ( from [place] at age 43) Social History Smoking Status: Never Smoker Drug Use: none Marital Status: Housing Status: lives with family Allergies Coded Allergies: Pravastatin (Verified Allergy, Unknown, Muscle pain, 01/11/17) Current Medications Home Meds and Scripts Medications Dose Route/Sig Max Daily Dose Days Date Category Multivitamin (Multivitamins) Tab 1 Tab PO DAILY 09/25/17 Reported Tylenol (Acetaminophen) 500 Mg Tab 500 Mg PO Q8 PRN 09/25/17 Reported Co Q 10 (Coenzyme Q10 (Ubidecarenone)) Unknown Strength Cap Unknown Dose PO DAILY 09/25/17 Reported Align (Probiotic Product) 4 Mg Cap 4 Mg PO DAILY PRN 01/11/17 Reported Lipitor (Atorvastatin Calcium) 10 Mg Tab 10 Mg PO DAILY 01/11/17 Reported Pepcid (Famotidine) 20 Mg Tab 20 Mg PO Q12 PRN 01/11/17 Reported Aspirin Ec (Aspirin) 81 Mg Tab 81 Mg PO DAILY 01/11/17 Reported Glucosamine Chondroitin (Dpltvrmigfi-Gmybcdwrtsm-Pgj C-) 1 Tab Tab 1,500 Mg PO DAILY 01/11/17 Reported Review of Systems Constitutional: No fever, No chills, No sweats, No weight loss, No weakness, No fatigue ENT: No hearing loss, No unusual epistaxis, No sore throat, No trouble swallowing, No pain on swallowing Respiratory: No cough, No sputum, No wheezing, No shortness of breath Cardiac: No chest pain, No orthopnea, No PND, No edema Abdomen: + pain, No nausea, No vomiting, No diarrhea, No constipation, No GI bleeding, No dysphagia, No odynophagia Male : No dysuria, No urinary frequency, No incontinence, No hematuria Heme: No night sweats Skin: No rash, No itch, No color change, No bleeding, No jaundice Physical Exam Date Time Temp Pulse Resp B/P (MAP) Pulse Ox O2 Delivery O2 Flow Rate FiO2 09/26/17 07:33 36.5 53 16 137/72 (93) 94 Room Air 09/26/17 07:20 Room Air 09/26/17 03:50 58 129/71 (90) 09/26/17 01:10 Room Air 09/26/17 01:10 36.7 58 18 163/92 (115) 94 Room Air 09/26/17 01:10 36.7 58 18 163/92 Room Air 09/26/17 00:49 52 18 96 Room Air 09/26/17 00:34 54 96 09/26/17 00:31 151/84 09/26/17 00:19 53 18 97 09/26/17 00:04 60 96 09/26/17 00:01 174/93 09/25/17 22:21 64 20 168/100 97 Room Air 09/25/17 20:22 37.2 68 20 176/97 95 Room Air General Appearance: no apparent distress Eyes: PERRL ENT: hearing grossly normal Neck: supple Respiratory/Chest: lungs clear, normal breath sounds Cardiovascular: regular rate, rhythm, no gallop, no JVD, no murmur Abdomen: normal bowel sounds, soft, no organomegaly, no pulsatile mass, + tenderness (slight LLQ pain w/ palpation) Neurologic/Psych: alert, normal mood/affect, oriented x 3 Skin: normal color, no jaundice, warm/dry, no rash Laboratory Results Last 24 Hours Test 09/25/17 21:10 09/26/17 05:22 White Blood Count 10.79 K/uL 7.73 K/uL Red Blood Count 5.71 M/uL 4.91 M/uL Hemoglobin 15.8 g/dL 13.5 g/dL Hematocrit 46.4 % 39.8 % Mean Corpuscular Volume 81.3 fL 81.1 fL Mean Corpuscular Hemoglobin 27.7 pg 27.5 pg Mean Corpuscular Hemoglobin Concent 34.1 g/dl 33.9 g/dl Platelet Count 256 K/uL 221 K/uL Mean Platelet Volume 10.2 fL 10.4 fL Neutrophils (%) (Auto) 68.3 % Lymphocytes (%) (Auto) 20.9 % Monocytes (%) (Auto) 9.4 % Eosinophils (%) (Auto) 1.0 % Basophils (%) (Auto) 0.3 % Neutrophils # (Auto) 7.38 K/uL Lymphocytes # (Auto) 2.25 K/uL Monocytes # (Auto) 1.01 K/uL Eosinophils # (Auto) 0.11 K/uL Basophils # (Auto) 0.03 K/uL RDW Standard Deviation 42.4 fL 42.7 fL RDW Coefficient of Variation 14.4 % 14.4 % Immature Granulocyte % (Auto) 0.1 % Immature Granulocyte # (Auto) 0.01 K/uL Sodium Level 139 mmol/L 139 mmol/L Potassium Level 4.0 mmol/L 3.7 mmol/L Chloride Level 105 mmol/L 106 mmol/L Carbon Dioxide Level 26 mmol/L 23 mmol/L Anion Gap 8.0 mmol/L 10.0 mmol/L Blood Urea Nitrogen 17 mg/dl 15 mg/dl Creatinine 1.29 mg/dl 1.34 mg/dl Est Creatinine Clear Calc Drug Dose 50.3 ml/min 48.4 ml/min Estimated GFR () 62.9 60.1 Estimated GFR (Non- 54.3 51.8 BUN/Creatinine Ratio 13.0 11.0 Random Glucose 92 mg/dl 90 mg/dl Calcium Level 9.7 mg/dl 8.4 mg/dl Total Bilirubin 0.5 mg/dl 1.1 mg/dl Aspartate Amino Transf (AST/SGOT) 20 U/L 15 U/L Alanine Aminotransferase (ALT/SGPT) 32 U/L 22 U/L Alkaline Phosphatase 114 U/L 96 U/L Total Protein 8.2 gm/dl 6.6 gm/dl Albumin 4.0 gm/dl 3.1 gm/dl Globulin 4.2 gm/dl 3.5 gm/dl Albumin/Globulin Ratio 0.9 0.9 Lipase 224 U/L Impression Patient is a 72 year old male w/ LLQ pain x 4 days, CT evidence of acute diverticulitis w/ question of small abscess. Surgery consulted. Pt is clinically improving. Plan NPO for bowel rest - If cleared by surgery will need trial of clears, advance to low fiber x 6 weeks Continue IV ABX OP Colonoscopy in 6-8 weeks General surgery consult GI to sign off. Please call with any questions or concerns. ATTESTATION: I have performed a history and physical examination of this patient and reviewed the electronic record. Specifically, on physical examination there is mild LLQ tenderness without guarding or rebound. I have discussed the case with JEFF Curtis. The above note reflects my findings, conclusions, and recommendations. Kelton Medellin MD
[2017-09-26 14:54] VITALS: BP 154/75; PULSE 56; TEMP 36.5; O2SAT 97
--- NOTE | 2017-09-26 15:32 | Surgery Consultation ---
Consultation Date of Consultation: Sep 26, 2017. Attending Physician: Abdoulaye Brunson MD Reason for Consultation: Colonic Diverticulitis History of Present Illness Mr. De La Torre is a pleasant 72-year-old male who presented to the emergency room last evening with complaint of abdominal pain that started about 4 days ago. States the pain was generalized and started over the weekend. [place] this could have been due to the type of food that he ate as he ate at a buffet. Or he felt that this could have been due to his irritable bowel syndrome. States the pain continued and progressively got worse. Pain started to become more prominent in the left lower quadrant. Describes pain as sharp and constant pain. At this time he felt that the pain was similar to his previous episodes of diverticulitis. Did note some abdominal distention and bloating with the inability to pass gas. Yesterday he was able to pass gas that had a large semi- formed bowel movement. Denies any blood in the stools or black tarry stools. Denies of any fevers, chills, nausea, vomiting, chest pain, or shortness of breath. States this is about his third episode of diverticulitis. His first episode was about 15-20 years ago in which he was hospitalized. Next episode was about 10 years later and was treated with oral antibiotics. States he has discussed with his PCP at one time about surgical resection due to episodes of diverticulitis. However PCP did not feel that it was warranted at the time as his episodes of diverticulitis were spaced fairly far apart from one another. States his sister does have history of diverticulitis as well. Last colonoscopy was in 2008 which showed diverticulosis of sigmoid to descending colon. He has not had a colonoscopy since. States prior to his last 2 episodes of diverticulitis he has ate nuts or seeds. Emergency room workup included labs which showed no leukocytosis. CT scan of the abdomen and pelvis with IV contrast showed focal thickening within the proximal sigmoid colon with pericolonic fat stranding consistent with acute diverticulitis. A 1.2 cm peripheral enhancing fluid-filled focus within the wall of the proximal sigmoid colon was also seen which may represent a small intramural abscess. Past Medical/Surgical History Past Medical History: (1) Diverticulosis with Diverticulitis (2) Deep vein thrombosis (DVT) of left upper extremity (3) DVT (deep venous thrombosis) (4) CAD (5) Pleural effusion on left (6) Thrombophlebitis Past Surgical History: 1. CABG x 4 (December 2016) 2. Colonoscopy and EGD Family History FH: heart attack FATHER ( from [place] at age 43) Social History Smoking Status: Never Smoker Smokeless Tobacco Use: No Alcohol Use: occasionally Drug Use: none Marital Status: Housing Status: lives with family Allergies Coded Allergies: Pravastatin (Verified Allergy, Unknown, Muscle pain, 01/11/17) Home Medications Scheduled Aspirin (Aspirin Ec), 81 MG PO DAILY Atorvastatin (Lipitor), 10 MG PO DAILY Coenzyme Q10 (Ubidecarenone) (Co Q 10), Unknown Dose PO DAILY Xogivwybbbr-Qgzludxbmzl-Owe C- (Glucosamine Chondroitin), 1,500 MG PO DAILY Multivitamin (Multivitamin), 1 TAB PO DAILY Scheduled PRN Acetaminophen (Tylenol), 500 MG PO Q8 PRN for Pain or Fever Famotidine (Pepcid), 20 MG PO Q12 PRN for GI Upset Probiotic Product (Align), 4 MG PO DAILY PRN for IBS Symptoms Current Inpatient Medications Current Inpatient Medications Medications (Trade) Dose Ordered Sig/Travis Route Start Time Stop Time Status Last Admin Dose Admin Ioversol (Optiray 320) 125 ml UD PRN IV 09/25/17 21:15 09/29/17 21:14 Acetaminophen (Tylenol Tab) 650 mg Q4H PRN PO 09/26/17 00:00 10/26/17 00:00 Polyethylene (Miralax Powder Packet) 17 gm DAILY PRN PO 09/26/17 00:00 10/26/17 00:00 Ondansetron HCl (Zofran Inj) 4 mg Q6H PRN IV 09/26/17 00:00 10/26/17 00:00 Sodium Chloride 1,000 ml @ 80 mls/hr [id number] IV 09/26/17 00:15 10/26/17 00:14 09/26/17 12:15 80 MLS/HR Piperacillin Sod/ Tazobactam Sod 3.375 gm/Dextrose 115 ml @ 28.75 mls/ hr Q8H IV 09/26/17 06:00 10/06/17 05:59 09/26/17 13:54 28.75 MLS/HR Miscellaneous Information (Consult) 1 ea UD PRN N/A 09/26/17 00:15 10/26/17 00:14 Review of Systems Constitutional: + sweats, No fever, No chills Respiratory: No cough, No shortness of breath Cardiovascular: No chest pain Abdomen: + pain, No nausea, No vomiting, No diarrhea, No constipation, No GI bleeding Genitourinary - Male: No hematuria, No dysuria, No urinary frequency, No urinary urgency Hematologic / Lymphatic: No abnormal bleeding/bruising Integumentary: No rash Physical Exam Date Time Temp Pulse Resp B/P (MAP) Pulse Ox O2 Delivery O2 Flow Rate FiO2 09/26/17 14:54 36.5 56 16 154/75 (101) 97 Room Air 09/26/17 07:33 36.5 53 16 137/72 (93) 94 Room Air 09/26/17 07:20 Room Air 09/26/17 03:50 58 129/71 (90) 09/26/17 01:10 Room Air 09/26/17 01:10 36.7 58 18 163/92 (115) 94 Room Air 09/26/17 01:10 36.7 58 18 163/92 Room Air 09/26/17 00:49 52 18 96 Room Air 09/26/17 00:34 54 96 09/26/17 00:31 151/84 09/26/17 00:19 53 18 97 09/26/17 00:04 60 96 09/26/17 00:01 174/93 09/25/17 22:21 64 20 168/100 97 Room Air 09/25/17 20:22 37.2 68 20 176/97 95 Room Air General Appearance: WD/WN, no apparent distress Head: normocephalic, atraumatic Eyes: sclerae normal ENT: hearing grossly normal Neck: trachea midline Respiratory/Chest: lungs clear, normal breath sounds, no respiratory distress, no accessory muscle use Cardiovascular: regular rate, rhythm, no murmur Abdomen/GI: normal bowel sounds, soft, no organomegaly, no pulsatile mass, + tenderness (LLQ on deep palpation, slight voluntary guarding but no rigidity, rebound, or peritonitis) Back: normal inspection Extremities/Musculoskelatal: normal inspection Neurologic/Psych: alert, normal mood/affect, oriented x 3 Skin: normal color, warm/dry, no rash Laboratory Results Last 24 Hours Test 09/25/17 21:10 2/27/18 05:22 White Blood Count 10.79 K/uL 7.73 K/uL Red Blood Count 5.71 M/uL 4.91 M/uL Hemoglobin 15.8 g/dL 13.5 g/dL Hematocrit 46.4 % 39.8 % Mean Corpuscular Volume 81.3 fL 81.1 fL Mean Corpuscular Hemoglobin 27.7 pg 27.5 pg Mean Corpuscular Hemoglobin Concent 34.1 g/dl 33.9 g/dl Platelet Count 256 K/uL 221 K/uL Mean Platelet Volume 10.2 fL 10.4 fL Neutrophils (%) (Auto) 68.3 % Lymphocytes (%) (Auto) 20.9 % Monocytes (%) (Auto) 9.4 % Eosinophils (%) (Auto) 1.0 % Basophils (%) (Auto) 0.3 % Neutrophils # (Auto) 7.38 K/uL Lymphocytes # (Auto) 2.25 K/uL Monocytes # (Auto) 1.01 K/uL Eosinophils # (Auto) 0.11 K/uL Basophils # (Auto) 0.03 K/uL RDW Standard Deviation 42.4 fL 42.7 fL RDW Coefficient of Variation 14.4 % 14.4 % Immature Granulocyte % (Auto) 0.1 % Immature Granulocyte # (Auto) 0.01 K/uL Sodium Level 139 mmol/L 139 mmol/L Potassium Level 4.0 mmol/L 3.7 mmol/L Chloride Level 105 mmol/L 106 mmol/L Carbon Dioxide Level 26 mmol/L 23 mmol/L Anion Gap 8.0 mmol/L 10.0 mmol/L Blood Urea Nitrogen 17 mg/dl 15 mg/dl Creatinine 1.29 mg/dl 1.34 mg/dl Est Creatinine Clear Calc Drug Dose 50.3 ml/min 48.4 ml/min Estimated GFR () 62.9 60.1 Estimated GFR (Non- 54.3 51.8 BUN/Creatinine Ratio 13.0 11.0 Random Glucose 92 mg/dl 90 mg/dl Calcium Level 9.7 mg/dl 8.4 mg/dl Total Bilirubin 0.5 mg/dl 1.1 mg/dl Aspartate Amino Transf (AST/SGOT) 20 U/L 15 U/L Alanine Aminotransferase (ALT/SGPT) 32 U/L 22 U/L Alkaline Phosphatase 114 U/L 96 U/L Total Protein 8.2 gm/dl 6.6 gm/dl Albumin 4.0 gm/dl 3.1 gm/dl Globulin 4.2 gm/dl 3.5 gm/dl Albumin/Globulin Ratio 0.9 0.9 Lipase 224 U/L ABDOMEN AND PELVIS CT WITH IV CONTRAST CT DOSE: 394.96 mGy.cm HISTORY: Left lower quadrant abdominal pain. TECHNIQUE: Multiaxial CT images of the abdomen and pelvis were performed following the use of intravenous contrast. A dose lowering technique was utilized adhering to the principles of ALARA. COMPARISON STUDY: Abdomen and pelvis CT 11/27/2006. FINDINGS: A few bibasilar linear densities consistent with subsegmental atelectasis. No pneumoperitoneum. No pneumatosis. No suspicious lytic or blastic osseous lesions. Poststernotomy changes. The liver, adrenal glands, pancreas, and kidneys are unremarkable. No hydronephrosis. A few small left peripelvic renal cysts. Calcified granuloma seen within the spleen. The gallbladder is decompressed. Multiple small gallstones. No retroperitoneal lymphadenopathy. A left circumaortic renal vein. Moderate calcified plaque within the normal caliber abdominal aorta. Normal bladder. Multiple colonic diverticula. No evidence for bowel obstruction. Normal appendix. Focal thickening within the proximal sigmoid colon with pericolonic fat stranding consistent with acute diverticulitis. There is a 1.2 cm peripheral enhancing fluid filled focus within the wall the proximal sigmoid colon. This may represent a small intramural abscess. This is best seen on image 347. IMPRESSION: 1. Acute diverticulitis within the proximal sigmoid colon. No perforation identified. There may be a small intramural abscess. Recommend follow-up to ensure resolution. 2. Cholelithiasis. Assessment & Plan 72-year-old male presents to the emergency room with generalized abdominal pain 4 days ago which localized to the left lower quadrant yesterday. Emergency room workup showed evidence of acute diverticulitis of the sigmoid colon on CT scan of abdomen and pelvis with IV contrast with a 1.2 cm fluid enhancing foci in the wall of the sigmoid colon concerning for possible intramural abscess. This is patient's third or fourth episode of diverticulitis with this being his second hospital admission. Last colonoscopy was in 2008 which showed sigmoid diverticulosis. Today patient is feeling much better. Abdomen is soft, tender in the left lower quadrant on deep palpation with some voluntary guarding however no peritonitis rigidity or distention. Labs show no leukocytosis and patient has been afebrile since admission. Plan: No acute surgical intervention required at this time. Intramural abscess is too small for drainage. Would recommend to continue conservative management with IV fluids, IV antibiotics currently on Zosyn, n.p.o. for bowel rest, IV pain management and IV Zofran as needed. May start clear liquid diet tomorrow morning. Encourage ambulation. Continue current medical management. Discussed with patient at length elective colectomy given this is the third- fourth episode of diverticulitis with second hospital admission. It would be helpful to determine extent of diverticulosis to have an outpatient colonoscopy in 6-8 weeks prior to any discussion on elective colectomy. We will continue to follow this patient. Thank you for the consultation. Dr. Alcazar has seen this patient and agrees with above.
--- NOTE | 2017-09-26 16:44 | Progress Note ---
Subjective Date of Service: Sep 26, 2017. Subjective Pt evaluation today including: conversation w/ patient, physical exam, lab review, review of studies, review of inpatient medication list Saw/examined the patient in room 387 He's doing well abdominal pain improving no diarrhea, no nausea/vomiting; denies fevers/chills Problem List Medical Problems: (1) Colonic diverticular abscess Status: Acute (2) Deep vein thrombosis (DVT) of left upper extremity Status: Acute (3) DVT (deep venous thrombosis) Status: Acute (4) Left sided chest pain Status: Acute (5) Pleural effusion on left Status: Acute (6) Thrombophlebitis Status: Acute (7) Thrombophlebitis arm Status: Acute Review of Systems Constitutional: No fever, No chills Abdomen: + pain, No nausea, No vomiting, No diarrhea, No constipation, No GI bleeding Medications Current Inpatient Medications Medications (Trade) Dose Ordered Sig/Travis Route Start Time Stop Time Status Last Admin Dose Admin Ioversol (Optiray 320) 125 ml UD PRN IV 09/25/17 21:15 09/29/17 21:14 Acetaminophen (Tylenol Tab) 650 mg Q4H PRN PO 09/26/17 00:00 10/26/17 00:00 Polyethylene (Miralax Powder Packet) 17 gm DAILY PRN PO 09/26/17 00:00 10/26/17 00:00 Ondansetron HCl (Zofran Inj) 4 mg Q6H PRN IV 09/26/17 00:00 10/26/17 00:00 Sodium Chloride 1,000 ml @ 80 mls/hr [id number] IV 09/26/17 00:15 10/26/17 00:14 09/26/17 12:15 80 MLS/HR Piperacillin Sod/ Tazobactam Sod 3.375 gm/Dextrose 115 ml @ 28.75 mls/ hr Q8H IV 09/26/17 06:00 10/06/17 05:59 09/26/17 13:54 28.75 MLS/HR Miscellaneous Information (Consult) 1 ea UD PRN N/A 09/26/17 00:15 10/26/17 00:14 Objective Vital Signs Date Time Temp Pulse Resp B/P (MAP) Pulse Ox O2 Delivery O2 Flow Rate FiO2 09/26/17 15:10 Room Air 09/26/17 14:54 36.5 56 16 154/75 (101) 97 Room Air 09/26/17 07:33 36.5 53 16 137/72 (93) 94 Room Air 09/26/17 07:20 Room Air 09/26/17 03:50 58 129/71 (90) 09/26/17 01:10 Room Air 09/26/17 01:10 36.7 58 18 163/92 (115) 94 Room Air 09/26/17 01:10 36.7 58 18 163/92 Room Air 09/26/17 00:49 52 18 96 Room Air 09/26/17 00:34 54 96 09/26/17 00:31 151/84 09/26/17 00:19 53 18 97 09/26/17 00:04 60 96 09/26/17 00:01 174/93 09/25/17 22:21 64 20 168/100 97 Room Air 09/25/17 20:22 37.2 68 20 176/97 95 Room Air Physical Exam General Appearance: no apparent distress Respiratory/Chest: lungs clear, normal breath sounds, no respiratory distress, no accessory muscle use Abdomen: normal bowel sounds, soft, + tenderness (mild tenderness at LLQ) Neurologic/Psychiatric: no motor/sensory deficits, alert, normal mood/affect Laboratory Results Last 24 Hours Test 09/25/17 21:10 09/26/17 05:22 White Blood Count 10.79 K/uL 7.73 K/uL Red Blood Count 5.71 M/uL 4.91 M/uL Hemoglobin 15.8 g/dL 13.5 g/dL Hematocrit 46.4 % 39.8 % Mean Corpuscular Volume 81.3 fL 81.1 fL Mean Corpuscular Hemoglobin 27.7 pg 27.5 pg Mean Corpuscular Hemoglobin Concent 34.1 g/dl 33.9 g/dl Platelet Count 256 K/uL 221 K/uL Mean Platelet Volume 10.2 fL 10.4 fL Neutrophils (%) (Auto) 68.3 % Lymphocytes (%) (Auto) 20.9 % Monocytes (%) (Auto) 9.4 % Eosinophils (%) (Auto) 1.0 % Basophils (%) (Auto) 0.3 % Neutrophils # (Auto) 7.38 K/uL Lymphocytes # (Auto) 2.25 K/uL Monocytes # (Auto) 1.01 K/uL Eosinophils # (Auto) 0.11 K/uL Basophils # (Auto) 0.03 K/uL RDW Standard Deviation 42.4 fL 42.7 fL RDW Coefficient of Variation 14.4 % 14.4 % Immature Granulocyte % (Auto) 0.1 % Immature Granulocyte # (Auto) 0.01 K/uL Sodium Level 139 mmol/L 139 mmol/L Potassium Level 4.0 mmol/L 3.7 mmol/L Chloride Level 105 mmol/L 106 mmol/L Carbon Dioxide Level 26 mmol/L 23 mmol/L Anion Gap 8.0 mmol/L 10.0 mmol/L Blood Urea Nitrogen 17 mg/dl 15 mg/dl Creatinine 1.29 mg/dl 1.34 mg/dl Est Creatinine Clear Calc Drug Dose 50.3 ml/min 48.4 ml/min Estimated GFR () 62.9 60.1 Estimated GFR (Non- 54.3 51.8 BUN/Creatinine Ratio 13.0 11.0 Random Glucose 92 mg/dl 90 mg/dl Calcium Level 9.7 mg/dl 8.4 mg/dl Total Bilirubin 0.5 mg/dl 1.1 mg/dl Aspartate Amino Transf (AST/SGOT) 20 U/L 15 U/L Alanine Aminotransferase (ALT/SGPT) 32 U/L 22 U/L Alkaline Phosphatase 114 U/L 96 U/L Total Protein 8.2 gm/dl 6.6 gm/dl Albumin 4.0 gm/dl 3.1 gm/dl Globulin 4.2 gm/dl 3.5 gm/dl Albumin/Globulin Ratio 0.9 0.9 Lipase 224 U/L Assessment and Plan This is a 72 year old male with a PMH of CAD s/p CABG, CKD stage 3, hx. of recurrent diverticulitis - presents with acute diverticulitis Acute Diverticulitis around the proximal sigmoid colon for now, on Zosyn, which we can continue NPO and IVFs for now appreciate GI and general surgery input plan for advancing diet in AM no surgical intervention at this time colonoscopy in 6-8 weeks CAD s/p CABG no acute issues continue aspirin and statin on discharge (no b-ellen due to bradycardia episodes) CKD stage 3 creatinine at baseline DVT ppx SCDs FULL CODE
[2017-09-26 22:50] VITALS: BP 126/72; PULSE 62; TEMP 36.7; O2SAT 97
[2017-09-27] VITALS (7 sets, daily range): BP systolic 133–168; BP diastolic 78–85; PULSE 56–78; TEMP 36.4–36.8; O2SAT 95
[2017-09-27] MEDS: PIPERACILL/TAZOBAC IV 3.375 GM in DEXTROSE 5% 100ML 100 ML IV SCH ×3 (05:36→21:44)
[2017-09-27 07:16] LABS: HEMATOCRIT 37.6 % (42-52); HEMOGLOBIN 12.7 g/dL (14.0-18.0); MEAN CELL VOLUME 80.3 fL (80-100); MEAN CORPUSCULAR HEMOGLOBIN 27.1 pg (25-34); MEAN CORPUSCULAR HGB CONC 33.8 g/dl (32-36); MEAN PLATELET VOLUME 9.5 fL (7.4-10.4); PLATELET COUNT 204 K/uL (130-400); RED CELL DISTRIBUTION WIDTH CV 14.1 % (11.5-14.5); WHITE BLOOD COUNT 5.68 K/uL (4.8-10.8)
[2017-09-27 07:54] LABS: CALCIUM 8.3 mg/dl (8.5-10.1); CREATININE 1.22 mg/dl (0.60-1.40); POTASSIUM 3.7 mmol/L (3.5-5.1)
--- NOTE | 2017-09-27 09:43 | Gastroenterology Progress Note ---
Progress Note Date of Service: Sep 27, 2017 Subjective Pt evaluation today including: conversation w/ patient, physical exam, chart review, lab review Pt was seen and examined, chart reviewed. Surgery is at bedside. Plan for non- surgical management at this time as there is no urgent indication. He continues to improve. Notes he has much less abdominal pain, limited to deep palpation. Is passing gas, no BM. No UGI pain, no nausea, vomiting. No fever, chills, CP, SOB. CT ABD/Pelvis 09/25/17: Acute diverticulitis within the proximal sigmoid colon. No perforationidentified. There may be a small intramural abscess. Recommend follow-up to ensure resolution.Cholelithiasis. Colonoscopy 08/04/08: diverticulosis of sigmoid to descending colon Review of Systems Constitutional: No fever, No chills, No weight loss, No weakness, No fatigue Respiratory: No cough, No sputum, No shortness of breath, No dyspnea on exertion Cardiac: No chest pain, No edema Abdomen: + pain, No nausea, No vomiting, No diarrhea, No constipation, No GI bleeding, No dysphagia, No odynophagia Male : No dysuria, No urinary frequency, No incontinence Endo: No fatigue Skin: No rash, No itch, No color change, No bleeding Medications Current Inpatient Medications Medications (Trade) Dose Ordered Sig/Travis Route Start Time Stop Time Status Last Admin Dose Admin Ioversol (Optiray 320) 125 ml UD PRN IV 09/25/17 21:15 09/29/17 21:14 Acetaminophen (Tylenol Tab) 650 mg Q4H PRN PO 09/26/17 00:00 10/26/17 00:00 Polyethylene (Miralax Powder Packet) 17 gm DAILY PRN PO 09/26/17 00:00 10/26/17 00:00 Ondansetron HCl (Zofran Inj) 4 mg Q6H PRN IV 09/26/17 00:00 10/26/17 00:00 Sodium Chloride 1,000 ml @ 80 mls/hr [id number] IV 09/26/17 00:15 10/26/17 00:14 09/26/17 23:24 80 MLS/HR Piperacillin Sod/ Tazobactam Sod 3.375 gm/Dextrose 115 ml @ 28.75 mls/ hr Q8H IV 09/26/17 06:00 10/06/17 05:59 09/27/17 05:36 28.75 MLS/HR Miscellaneous Information (Consult) 1 ea UD PRN N/A 09/26/17 00:15 10/26/17 00:14 Objective Vital Signs Date Time Temp Pulse Resp B/P (MAP) Pulse Ox O2 Delivery O2 Flow Rate FiO2 09/27/17 08:09 95 Room Air 09/27/17 08:02 36.4 61 18 146/80 (102) 95 Room Air 09/27/17 07:20 Room Air 09/26/17 23:30 Room Air 09/26/17 22:50 36.7 62 18 126/72 (90) 97 Room Air 09/26/17 15:10 Room Air 09/26/17 14:54 36.5 56 16 154/75 (101) 97 Room Air Physical Exam General Appearance: no apparent distress Eyes: PERRL ENT: hearing grossly normal Neck: supple, no adenopathy, trachea midline Respiratory/Chest: lungs clear, normal breath sounds, no respiratory distress, no accessory muscle use Cardiovascular: regular rate, rhythm, no gallop, no JVD, no murmur Abdomen: normal bowel sounds, soft, no organomegaly, no pulsatile mass, + tenderness (very mild LLQ tendenress) Neurologic/Psych: alert, normal mood/affect, oriented x 3 Skin: normal color, warm/dry, no rash Laboratory Results Last 24 Hours Test 09/27/17 06:51 White Blood Count 5.68 K/uL Red Blood Count 4.68 M/uL Hemoglobin 12.7 g/dL Hematocrit 37.6 % Mean Corpuscular Volume 80.3 fL Mean Corpuscular Hemoglobin 27.1 pg Mean Corpuscular Hemoglobin Concent 33.8 g/dl RDW Standard Deviation 41.0 fL RDW Coefficient of Variation 14.1 % Platelet Count 204 K/uL Mean Platelet Volume 9.5 fL Sodium Level 139 mmol/L Potassium Level 3.7 mmol/L Chloride Level 108 mmol/L Carbon Dioxide Level 23 mmol/L Anion Gap 8.0 mmol/L Blood Urea Nitrogen 15 mg/dl Creatinine 1.22 mg/dl Est Creatinine Clear Calc Drug Dose 53.1 ml/min Estimated GFR () 67.3 Estimated GFR (Non- 58.0 BUN/Creatinine Ratio 12.0 Random Glucose 86 mg/dl Calcium Level 8.3 mg/dl Assessment and Plan Patient is a 72 year old male w/ LLQ pain x 4 days, CT evidence of acute diverticulitis w/ question of small abscess. Surgery consulted. Pt is clinically improving. Continued to improve over night, evaluated by surgery w/o need for surgical intervention. Clear liquids Advance to low fiber diet as tolerated Continue IV ABX Will need to be discharged on PO ABX to complete a 14 day course OP Colonoscopy in 6-8 weeks GI to sign off. Please call with any questions or concerns ATTESTATION: I have performed a history and physical examination of this patient and reviewed the electronic record. Specifically, on physical examination there is no abdominal tenderness. I have discussed the case with JEFF Curtis. The above note reflects my findings, conclusions, and recommendations. Kelton Medellin MD
--- NOTE | 2017-09-27 10:51 | Surgery Progress Note ---
Surgery Progress Note Date of Service Sep 27, 2017. Subjective Post OP Day: HD # 2 + feeling well patient feeling better this morning. Abdominal pain much improved. States he has to "find the pain" at this point in time. Passing small amounts of flatus, no bowel movement. Tolerated clear liquids. No nausea, vomiting, fever, chills, sweats. Objective Vital Signs: Date Time Temp Pulse Resp B/P (MAP) Pulse Ox O2 Delivery O2 Flow Rate FiO2 09/27/17 08:09 95 Room Air 09/27/17 08:02 36.4 61 18 146/80 (102) 95 Room Air 09/27/17 07:20 Room Air 09/26/17 23:30 Room Air 09/26/17 22:50 36.7 62 18 126/72 (90) 97 Room Air 09/26/17 15:10 Room Air 09/26/17 14:54 36.5 56 16 154/75 (101) 97 Room Air General Appearance: WD/WN, no apparent distress Head: normocephalic, atraumatic Neck: trachea midline Respiratory/Chest: no respiratory distress, no accessory muscle use Abdomen: normal bowel sounds, non distended, soft, no organomegaly, no pulsatile mass, + tenderness (LLQ on deep palpation, no guarding, rigidity, or peritonitis. No further voluntary guarding. Improved) Laboratory Results: Results Past 24 Hours Test 09/27/17 06:51 Range/Units White Blood Count 5.68 4.8-10.8 K/uL Red Blood Count 4.68 4.7-6.1 M/uL Hemoglobin 12.7 14.0-18.0 g/dL Hematocrit 37.6 42-52 % Mean Corpuscular Volume 80.3 80-100 fL Mean Corpuscular Hemoglobin 27.1 25-34 pg Mean Corpuscular Hemoglobin Concent 33.8 32-36 g/dl RDW Standard Deviation 41.0 36.4-46.3 fL RDW Coefficient of Variation 14.1 11.5-14.5 % Platelet Count 204 130-400 K/uL Mean Platelet Volume 9.5 7.4-10.4 fL Sodium Level 139 136-145 mmol/L Potassium Level 3.7 3.5-5.1 mmol/L Chloride Level 108 98-107 mmol/L Carbon Dioxide Level 23 21-32 mmol/L Anion Gap 8.0 3-11 mmol/L Blood Urea Nitrogen 15 7-18 mg/dl Creatinine 1.22 0.60-1.40 mg/dl Est Creatinine Clear Calc Drug Dose 53.1 ml/min Estimated GFR () 67.3 Estimated GFR (Non- 58.0 BUN/Creatinine Ratio 12.0 10-20 Random Glucose 86 70-99 mg/dl Calcium Level 8.3 8.5-10.1 mg/dl Assessment & Plan Acute diverticulitis of sigmoid colon with 1.2 cm intramural abscess -vitals stable, afebrile, no leukocytosis - abdominal pain improved, tolerating clear liquids - Passing flatus Plan: May advance diet to full liquids and then as tolerated to low fiber diet Would not recommend repeating CT scan as patient's abdominal pain vastly improving, he is afebrile, and no leukocytosis. Feel the exposure to radiation outweighs the need for repeat imaging as patient clinically improving. Would need colonoscopy in 6-8 weeks and then may discuss elective colectomy with Dr. Alcazar in surgical office. Discharge with oral Cipro/Flagyl for total course of antibiotics for 14 days. Our services signing off, please call with questions or concerns. Dr. Alcazar has seen patient, agrees with above.
[2017-09-27] MEDS: SODIUM CHLORIDE 0.9% 1000ML 1,000 ML IV SCH ×2 (11:03→23:20)
--- NOTE | 2017-09-27 12:14 | Progress Note ---
Subjective Date of Service: Sep 27, 2017. Subjective Pt evaluation today including: conversation w/ patient, physical exam, lab review, review of studies, review of inpatient medication list Saw/examined the patient in room 387 No problems/issues to note abdominal pain subsiding Tolerated clear liquids this AM Problem List Medical Problems: (1) Colonic diverticular abscess Status: Acute (2) Deep vein thrombosis (DVT) of left upper extremity Status: Acute (3) DVT (deep venous thrombosis) Status: Acute (4) Left sided chest pain Status: Acute (5) Pleural effusion on left Status: Acute (6) Thrombophlebitis Status: Acute (7) Thrombophlebitis arm Status: Acute Review of Systems Abdomen: No pain, No nausea, No vomiting, No diarrhea, No constipation, No GI bleeding Medications Current Inpatient Medications Medications (Trade) Dose Ordered Sig/Travis Route Start Time Stop Time Status Last Admin Dose Admin Ioversol (Optiray 320) 125 ml UD PRN IV 09/25/17 21:15 09/29/17 21:14 Acetaminophen (Tylenol Tab) 650 mg Q4H PRN PO 09/26/17 00:00 10/26/17 00:00 Polyethylene (Miralax Powder Packet) 17 gm DAILY PRN PO 09/26/17 00:00 10/26/17 00:00 Ondansetron HCl (Zofran Inj) 4 mg Q6H PRN IV 09/26/17 00:00 10/26/17 00:00 Sodium Chloride 1,000 ml @ 80 mls/hr [id number] IV 09/26/17 00:15 10/26/17 00:14 09/27/17 11:03 80 MLS/HR Piperacillin Sod/ Tazobactam Sod 3.375 gm/Dextrose 115 ml @ 28.75 mls/ hr Q8H IV 09/26/17 06:00 10/06/17 05:59 09/27/17 05:36 28.75 MLS/HR Miscellaneous Information (Consult) 1 ea UD PRN N/A 09/26/17 00:15 10/26/17 00:14 Objective Vital Signs Date Time Temp Pulse Resp B/P (MAP) Pulse Ox O2 Delivery O2 Flow Rate FiO2 09/27/17 08:09 95 Room Air 09/27/17 08:02 36.4 61 18 146/80 (102) 95 Room Air 09/27/17 07:20 Room Air 09/26/17 23:30 Room Air 09/26/17 22:50 36.7 62 18 126/72 (90) 97 Room Air 09/26/17 15:10 Room Air 09/26/17 14:54 36.5 56 16 154/75 (101) 97 Room Air Physical Exam General Appearance: no apparent distress Abdomen: normal bowel sounds, non tender, soft Laboratory Results Last 24 Hours Test 09/27/17 06:51 White Blood Count 5.68 K/uL Red Blood Count 4.68 M/uL Hemoglobin 12.7 g/dL Hematocrit 37.6 % Mean Corpuscular Volume 80.3 fL Mean Corpuscular Hemoglobin 27.1 pg Mean Corpuscular Hemoglobin Concent 33.8 g/dl RDW Standard Deviation 41.0 fL RDW Coefficient of Variation 14.1 % Platelet Count 204 K/uL Mean Platelet Volume 9.5 fL Sodium Level 139 mmol/L Potassium Level 3.7 mmol/L Chloride Level 108 mmol/L Carbon Dioxide Level 23 mmol/L Anion Gap 8.0 mmol/L Blood Urea Nitrogen 15 mg/dl Creatinine 1.22 mg/dl Est Creatinine Clear Calc Drug Dose 53.1 ml/min Estimated GFR () 67.3 Estimated GFR (Non- 58.0 BUN/Creatinine Ratio 12.0 Random Glucose 86 mg/dl Calcium Level 8.3 mg/dl Assessment and Plan This is a 72 year old male with a PMH of CAD s/p CABG, CKD stage 3, hx. of recurrent diverticulitis - presents with acute diverticulitis Acute Diverticulitis 09/27 doing well clinically advance diet today if tolerating can d/c in AM () with 14 day course of Cipro + Flagyl outpatient c-scope in 6-8 weeks 09/26 around the proximal sigmoid colon for now, on Zosyn, which we can continue NPO and IVFs for now appreciate GI and general surgery input plan for advancing diet in AM no surgical intervention at this time colonoscopy in 6-8 weeks CAD s/p CABG no acute issues continue aspirin and statin on discharge (no b-ellen due to bradycardia episodes) CKD stage 3 creatinine at baseline DVT ppx SCDs FULL CODE
[2017-09-28] MEDS: PIPERACILL/TAZOBAC IV 3.375 GM in DEXTROSE 5% 100ML 100 ML IV SCH ×2 (05:37→13:29)
[2017-09-28 06:27] LABS: HEMATOCRIT 39.8 % (42-52); HEMOGLOBIN 13.2 g/dL (14.0-18.0); MEAN CELL VOLUME 81.2 fL (80-100); MEAN CORPUSCULAR HEMOGLOBIN 26.9 pg (25-34); MEAN CORPUSCULAR HGB CONC 33.2 g/dl (32-36); MEAN PLATELET VOLUME 10.2 fL (7.4-10.4); PLATELET COUNT 224 K/uL (130-400); RED CELL DISTRIBUTION WIDTH SD 41.4 fL (36.4-46.3); WHITE BLOOD COUNT 6.02 K/uL (4.8-10.8)
[2017-09-28 06:55] LABS: CALCIUM 8.4 mg/dl (8.5-10.1); CREATININE 1.27 mg/dl (0.60-1.40); POTASSIUM 3.5 mmol/L (3.5-5.1)
[2017-09-28 07:41] VITALS: BP 171/84; PULSE 55; TEMP 36.4; O2SAT 96
[2017-09-28] MEDS ORDERED: AMLODIPINE BESYLATE 5 MG TAB PO ONE (08:30)
[2017-09-28] MEDS ORDERED: ATORVASTATIN 10 MG TAB PO SCH (09:00)
[2017-09-28] MEDS ORDERED: ASPIRIN 81 MG ECTAB PO SCH (09:00)
[2017-09-28] MEDS: SODIUM CHLORIDE 0.9% 1000ML 1,000 ML IV SCH (11:25)
--- NOTE | 2017-09-28 14:12 | Progress Note ---
Subjective Date of Service: Sep 28, 2017. Subjective Pt evaluation today including: conversation w/ patient, physical exam, lab review, review of studies, review of inpatient medication list Saw/examined the patient in room 387 No problems/issues to note today He states he ate a lot of dinner and felt some abdominal cramping Doing better today after breakfast and lunch; eager to go home Problem List Medical Problems: (1) Colonic diverticular abscess Status: Acute (2) Deep vein thrombosis (DVT) of left upper extremity Status: Acute (3) DVT (deep venous thrombosis) Status: Acute (4) Left sided chest pain Status: Acute (5) Pleural effusion on left Status: Acute (6) Thrombophlebitis Status: Acute (7) Thrombophlebitis arm Status: Acute Review of Systems Constitutional: No fever, No chills Abdomen: No pain, No nausea, No vomiting, No diarrhea, No constipation, No GI bleeding Medications Current Inpatient Medications Medications (Trade) Dose Ordered Sig/Travis Route Start Time Stop Time Status Last Admin Dose Admin Ioversol (Optiray 320) 125 ml UD PRN IV 09/25/17 21:15 09/29/17 21:14 Acetaminophen (Tylenol Tab) 650 mg Q4H PRN PO 09/26/17 00:00 10/26/17 00:00 Polyethylene (Miralax Powder Packet) 17 gm DAILY PRN PO 09/26/17 00:00 10/26/17 00:00 Ondansetron HCl (Zofran Inj) 4 mg Q6H PRN IV 09/26/17 00:00 10/26/17 00:00 Sodium Chloride 1,000 ml @ 80 mls/hr [id number] IV 09/26/17 00:15 10/26/17 00:14 09/28/17 11:25 80 MLS/HR Piperacillin Sod/ Tazobactam Sod 3.375 gm/Dextrose 115 ml @ 28.75 mls/ hr Q8H IV 09/26/17 06:00 10/06/17 05:59 09/28/17 13:29 28.75 MLS/HR Miscellaneous Information (Consult) 1 ea UD PRN N/A 09/26/17 00:15 10/26/17 00:14 Aspirin (Ecotrin Tab) 81 mg DAILY PO 3/1/18 09:00 10/28/17 08:59 09/28/17 09:54 81 MG Atorvastatin Calcium (Lipitor Tab) 10 mg DAILY PO 09/28/17 09:00 10/28/17 08:59 Objective Vital Signs Date Time Temp Pulse Resp B/P (MAP) Pulse Ox O2 Delivery O2 Flow Rate FiO2 09/28/17 08:02 Room Air 09/28/17 07:41 36.4 55 16 171/84 (113) 96 Room Air 09/27/17 23:15 Room Air 09/27/17 23:05 36.8 78 18 133/78 (96) 95 Room Air 09/27/17 16:12 158/85 (109) 09/27/17 15:45 95 Room Air 09/27/17 15:08 56 160/83 (108) 09/27/17 14:57 36.4 58 17 168/84 (112) 95 Room Air Physical Exam General Appearance: no apparent distress Abdomen: normal bowel sounds, non tender, soft Laboratory Results Last 24 Hours Test 09/28/17 05:46 White Blood Count 6.02 K/uL Red Blood Count 4.90 M/uL Hemoglobin 13.2 g/dL Hematocrit 39.8 % Mean Corpuscular Volume 81.2 fL Mean Corpuscular Hemoglobin 26.9 pg Mean Corpuscular Hemoglobin Concent 33.2 g/dl RDW Standard Deviation 41.4 fL RDW Coefficient of Variation 14.0 % Platelet Count 224 K/uL Mean Platelet Volume 10.2 fL Sodium Level 142 mmol/L Potassium Level 3.5 mmol/L Chloride Level 110 mmol/L Carbon Dioxide Level 28 mmol/L Anion Gap 5.0 mmol/L Blood Urea Nitrogen 11 mg/dl Creatinine 1.27 mg/dl Est Creatinine Clear Calc Drug Dose 51.1 ml/min Estimated GFR () 64.1 Estimated GFR (Non- 55.3 BUN/Creatinine Ratio 8.3 Random Glucose 93 mg/dl Calcium Level 8.4 mg/dl Assessment and Plan This is a 72 year old male with a PMH of CAD s/p CABG, CKD stage 3, hx. of recurrent diverticulitis - presents with acute diverticulitis Acute Diverticulitis 09/28 patient is doing well plan to d/c home with Cipro + Flagyl for 11 days to total 14 days of abx. outpatient colonoscopy in 6-8 weeks 09/27 doing well clinically advance diet today if tolerating can d/c in AM () with 14 day course of Cipro + Flagyl outpatient c-scope in 6-8 weeks 09/26 around the proximal sigmoid colon for now, on Zosyn, which we can continue NPO and IVFs for now appreciate GI and general surgery input plan for advancing diet in AM no surgical intervention at this time colonoscopy in 6-8 weeks CAD s/p CABG no acute issues continue aspirin and statin on discharge (no b-ellen due to bradycardia episodes) CKD stage 3 creatinine at baseline DVT ppx SCDs FULL CODE
[2017-09-28] MEDS ORDERED: METR-163 PO (14:15)
[2017-09-28] MEDS ORDERED: LCTX PO (14:15)
[2017-09-28] MEDS ORDERED: CIPR-255 PO (14:15)
--- NOTE | 2017-09-28 14:19 | Discharge Instructions ---
Discharge Instructions Date of Service Sep 28, 2017. Admission Reason for Admission: Colonic Diverticular Abscess Discharge Discharge Diagnosis / Problem: Acute Diverticulitis Discharge Goals Goal(s): Decrease discomfort, Improve function, Diagnostic testing, Therapeutic intervention Activity Recommendations Activity Limitations: resume your previous activity . Instructions / Follow-Up Instructions / Follow-Up Please follow up with Dr. Hicks on October 05 at 10:45AM * You will be discharged with Cipro and Flagyl (antibiotics) for the next 11 days (start on 09/29) * Start with a soft diet - after two weeks you should start a high fiber diet to prevent recurrence * You will need to follow-up with the bakery sales clerk, you need a colonoscopy in 6-8 weeks * Will need repeat blood pressure check as an outpatient Current Hospital Diet Patient's current hospital diet: AHA Diet (Heart Healthy) Discharge Diet Recommended Diet: Regular Diet Pending Studies Studies pending at discharge: no Medical Emergencies . Who to Call and When: Medical Emergencies: If at any time you feel your situation is an emergency, please call 911 immediately. . Non-Emergent Contact Non-Emergency issues call your: Primary Care Provider, Counter Sales Person . . "Provider Documentation" section prepared by Susan Wright. . VTE Core Measure Inpt VTE Proph given/why not?: SCD's
--- NOTE | 2017-09-28 14:23 | Discharge Summary ---
Discharge Summary Date of Service Sep 28, 2017. Discharge Summary Admission Date: Sep 25, 2017 at 23:52 Discharge Date: Sep 28, 2017 Discharge Disposition: Home Principal Diagnosis: Acute Sigmoid Diverticulitis Medication Reconciliation New Medications: Ciprofloxacin Hcl (Cipro) 500 Mg Tab 500 MG PO BID for 11 Days, #22 TAB Lactobacillus Acidophilus (Floranex) 1 Tab Tab 1 TAB PO DAILY for 14 Days, #14 TABS Metronidazole (Flagyl) 500 Mg Tab 500 MG PO TID for 11 Days, #33 TAB Continued Medications: Acetaminophen (Tylenol) 500 Mg Tab 500 MG PO Q8 PRN for Pain or Fever, TAB Aspirin (Aspirin Ec) 81 Mg Tab 81 MG PO DAILY Atorvastatin (Lipitor) 10 Mg Tab 10 MG PO DAILY, TAB Coenzyme Q10 (Ubidecarenone) (Co Q 10) Unknown Strength Cap Unknown Dose PO DAILY Famotidine (Pepcid) 20 Mg Tab 20 MG PO Q12 PRN for GI Upset, TAB Ymjctnntqkl-Ioxueaouaiz-Cli C- (Glucosamine Chondroitin) 1 Tab Tab 1500 MG PO DAILY Multivitamin (Multivitamin) Tab 1 TAB PO DAILY, TAB Probiotic Product (Align) 4 Mg Cap 4 MG PO DAILY PRN for IBS Symptoms Admission Information HPI (per Admitting provider): Patient is a 72 yo male who presents to the hospital for complaints of gradually worsening LLQ abdominal pain that he first noticed at the end of last week. Over the weekend he woke up at 5 AM with abdominal discomfort that felt as if he needed to eat or he needed to have a BM; he tried eating cereal but the pain was still present. He states he had gone out to eat over the weekend and thought maybe it was from eating something and then he tried taking rolaids but did not have any improvement. He states the same symptoms persisted and that he tried taking probiotics, vitamins, and pepcid but did not have any relief, and then when palpating his abdomen he felt tenderness in his LLQ which reminded him of pain that he gets with prior bouts of diverticulitis. He states he went to urgent care and they referred him to the hospital. The patient also reports having difficulty with some constipation over the weekend which is very unusual for him. He denies any complaints of N/V/D, melena or hematochezia. Denies any recent infection or antibiotic use. Denies any dietary changes. Physical Exam (per Admitting): General Appearance: WD/WN, no apparent distress Head: normocephalic, atraumatic Eyes: PERRL, EOMI, sclerae normal ENT: hearing grossly normal Neck: supple, no JVD, no carotid bruits, trachea midline Respiratory/Chest: chest non-tender, lungs clear, normal breath sounds, no respiratory distress, no accessory muscle use Cardiovascular: regular rate, rhythm, no edema, no gallop, no JVD, no murmur Abdomen/GI: normal bowel sounds, soft, no organomegaly, + tenderness (LLQ) Back: normal inspection, no CVA tenderness Extremities/Musculoskelatal: normal inspection, no calf tenderness, no pedal edema Neurologic/Psych: no motor/sensory deficits, alert, normal mood/affect, oriented x 3 Skin: normal color, warm/dry, no rash Hospital Course This is a 72 year old male with a PMH of CAD s/p CABG, CKD stage 3, hx. of recurrent diverticulitis - presents with acute diverticulitis Acute Diverticulitis 09/28 patient is doing well plan to d/c home with Cipro + Flagyl for 11 days to total 14 days of abx. outpatient colonoscopy in 6-8 weeks 09/27 doing well clinically advance diet today if tolerating can d/c in AM () with 14 day course of Cipro + Flagyl outpatient c-scope in 6-8 weeks 09/26 around the proximal sigmoid colon for now, on Zosyn, which we can continue NPO and IVFs for now appreciate GI and general surgery input plan for advancing diet in AM no surgical intervention at this time colonoscopy in 6-8 weeks CAD s/p CABG no acute issues continue aspirin and statin on discharge (no b-ellen due to bradycardia episodes) CKD stage 3 creatinine at baseline DVT ppx SCDs FULL CODE Total time spent on discharge = 35 minutes This includes examination of the patient, discharge planning, medication reconciliation, and communication with other providers. Discharge Instructions Please follow up with Dr. Hicks on October 05 at 10:45AM * You will be discharged with Cipro and Flagyl (antibiotics) for the next 11 days (start on 09/29) * Start with a soft diet - after two weeks you should start a high fiber diet to prevent recurrence * You will need to follow-up with the distribution clerk, you need a colonoscopy in 6-8 weeks * Will need repeat blood pressure check as an outpatient
[2017-09-28 15:50] VITALS: BP 171/84; PULSE 55; TEMP 36.4; O2SAT 96
== END 2017-09-28 16:15 | disposition home or self-care (01) | DRG 392 ==
LOC: C.EDB 19:50 → C.MSN 23:52 → ENRESERV 09-26 00:01
PROVIDERS: ADMIT Internal Medicine; ATTEND Family Medicine
DX: K57.20 Diverticulitis of large intestine with perforation and abscess without bleeding (principal); K58.9 Irritable bowel syndrome, unspecified; I25.10 Atherosclerotic heart disease of native coronary artery without angina pectoris; E78.00 Pure hypercholesterolemia, unspecified; N18.3 Chronic kidney disease, stage 3 (moderate); Z95.1 Presence of aortocoronary bypass graft; Z79.82 Long term (current) use of aspirin; Z88.8 Allergy status to other drugs, medicaments and biological substances; Z82.49 Family history of ischemic heart disease and other diseases of the circulatory system

== ENCOUNTER → 2017-11-14 | Day surgery (SDC) | payer OTHER ==
[2017-11-08 09:48] VITALS: BMI 27.0
[~2017-11-14] VITALS: Ht 175.3 cm; Wt 84.1 kg
[~2017-11-14] MED LIST changes: +ACET-1256 PO; -ACET-1311 PO; -AMIO200T4 PO; -ATOR10TA82 PO; +COEN1CAP7 PO; +LIDOCAINE HCL 2% 2 ML VIAL (20MG/ML) ONE; +LPT20 PO; -MISC4CAP PO; +MISCCAP80 PO; +MULT-506 PO; -PRENTAB26 PO; +PROPOFOL IV EMULSION 10 MG/ML 20 ML VIAL IV ONE; +SODIUM CHLORIDE 0.9% 500ML 500 ML IV ONE
[2017-11-14 11:46] VITALS: Ht 175.3 cm; Wt 84.1 kg
--- NOTE | 2017-11-14 12:32 | Endo History and Physical ---
History & Physical Date of Service: Nov 14, 2017. Chief Complaint: DIVERTICULITIS Referring Physician: DR NGUYEN History of Present Illness Diverticulitis Past Surgical History Hx Cardiac Surgery: Yes (HEART CATH/NO STENTS, CABG-4 VESSELS) Hx Internal Defibrillator: No Hx Pacemaker: No Hx Abdominal Surgery: No Hx of Implantable Prosthesis: No Hx Post-Op Nausea and Vomiting: No Hx Cancer Surgery: No Hx Thoracic Surgery: No Hx Orthopedic: No Hx Urinary Tract Surgery: No Family History IBD Social History Smoking Status: Former Smoker Hx Substance Use: No Hx Alcohol Use: Yes (RARELY) Allergies Coded Allergies: Pravastatin (Verified Allergy, Unknown, Muscle pain, 11/14/17) Current Medications Reported Home Medications Medications Dose Route/Sig Max Daily Dose Days Date Category Probiotic (Probiotic Product) 1 Cap Cap 1 Cap PO QAM 11/08/17 Reported Coq10 (Coenzyme Q10 (Ubidecarenone)) 200 Mg Cap 1 Cap PO QPM 11/08/17 Reported Multivitamin (Multivitamins) Tab 1 Tab PO QAM 09/25/17 Reported Tylenol (Acetaminophen) 500 Mg Tab 500 Mg PO Q8 PRN 09/25/17 Reported Pepcid (Famotidine) 20 Mg Tab 20 Mg PO Q12 PRN 01/11/17 Reported Aspirin Ec (Aspirin) 81 Mg Tab 81 Mg PO QAM 01/11/17 Reported Glucosamine Chondroitin (Wie[place]-Mgvbkfqoclt-Aqk C-) 1 Tab Tab 1,500 Mg PO QAM 01/11/17 Reported Vital Signs Weight (Kilograms): 84.09 Height (Feet): 5 Height (Inches): 9 Date Time Temp Pulse Resp B/P (MAP) Pulse Ox O2 Delivery O2 Flow Rate FiO2 11/14/17 11:55 36.5 57 20 142/92 (109) 98 Room Air Physical Exam General Appearance: no apparent distress Respiratory/Chest: Auscultation: breath sounds normal Cardiovascular: Heart Auscultation: RRR Abdomen: Inspection & Palpation: soft Assessment and Plan Diverticulitis - cscopy
--- NOTE | 2017-11-14 13:22 | Discharge Instructions ---
Endoscopy Patient Instructions Date / Procedure(s) Performed Nov 14, 2017. Colonoscopy Allergy Information Coded Allergies: Pravastatin (Verified Allergy, Unknown, Muscle pain, 11/14/17) Discharge Date / Findings Nov 14, 2017. Diverticulosis, hemorrhoids Provider Instructions Activity Restrictions - No exercising or heavy lifting for 24 hours. - Do not drink alcohol the day of the procedure. - Do not drive a car or operate machinery until the day after the procedure. - Do not make any important decisions or sign important papers in 24 hours after the procedure. Following Day: - Return to full activity which may include returning to work/school. Diet Start your diet with liquids and light foods (jello, soup, juice, toast). Then eat your usual diet if not nauseated. Treatment For Common After Affects For mild abdominal pain, bloating, or excessive gas: - Rest - Eat lightly - Lie on right side Follow-Up Information Follow-up with DR NGUYEN as scheduled Anesthesia Information What You Should Know You have had a procedure that required some medicine to reduce anxiety and discomfort. This treatment is called moderate sedation. After receiving the treatment, you may be sleepy, but you will be able to breathe on your own. The effects of the treatment may last for several hours. Follow these instructions along with Activity/Diet recommendations noted above: * Do NOT do anything where dizziness or clumsiness would be dangerous. * Rest quietly at home today, then you can be up and about tomorrow. * Have a responsible person stay with you the rest of today. * You may have had an I.V. today. If so, you may take the dressing off later today. Recommendations Call your doctor if: * Trouble breathing * Continuous vomiting for more than 24 hours * Temperature above 101 degrees * Severe abdominal pain or bloating * Pain not relieved by pain medicine ordered * There is increased drainage or redness from any incision * A large amount of rectal bleeding greater than 2-3 tablespoons. (If you had a polyp/s removed or have hemorrhoids, a small amount of blood - from the rectum is to be expected.) * You have any unanswered questions or concerns. IN THE EVENT OF A SERIOUS EMERGENCY, GO TO THE NEAREST EMERGENCY ROOM Your discharge instructions were prepared by provider Luiz Joshi. Patient Instructions Signature Page Radhika De La Torre Patient (or Guardian) Signature/Date: I have read and understand the instructions given to me by my caregivers. Caregiver/RN/Doctor Signature/Date: The above-named patient and/or guardian has received patient instructions on this date. + Original Patient Signature Page (only) stays with chart. Please make copy for patient.
--- NOTE | 2017-11-14 13:22 | GI REPORT ---
Procedure Date: 11/14/2017 12:44 PM Procedure: Colonoscopy Indications: Follow-up of diverticulitis Medicines: See the Anesthesia note for documentation of the administered medications Complications: No immediate complications. Estimated Blood Loss: Estimated blood loss: none. Procedure: Pre-Anesthesia Assessment: - ASA Grade Assessment: III - A patient with severe systemic disease. After I obtained informed consent, the scope was passed under direct vision. Throughout the procedure, the patient's blood pressure, pulse, and oxygen saturations were monitored continuously. The scope was introduced through the anus and advanced to the terminal ileum. The colonoscopy was performed without difficulty. The patient tolerated the procedure well. The quality of the bowel preparation was good. Findings: Hemorrhoids were found on perianal exam. Multiple small and large-mouthed diverticula were found in the entire colon. The exam was otherwise without abnormality. Impression: - Hemorrhoids found on perianal exam. - Diverticulosis in the entire examined colon. - The examination was otherwise normal. - No specimens collected. Recommendation: - Discharge patient to home. Given age, would not pursue further CRC screening. Luiz Peterson M.D. Luiz Peterson MD 11/14/2017 1:22:01 PM This report has been signed electronically. Note Initiated On: 11/14/2017 12:44 PM I attest to the content of the Intraoperative Record and orders documented therein, exceptions below
--- NOTE | 2017-11-14 13:35 | Anesthesiology Progress Note ---
Anesthesia Post Op Note Date & Time Nov 14, 2017 at 13:35 Vital Signs Pain Intensity: 0 Vital Signs Past 12 Hours Date Time Temp Pulse Resp B/P (MAP) Pulse Ox O2 Delivery O2 Flow Rate FiO2 11/14/17 11:55 36.5 57 20 142/92 (109) 98 Room Air Notes Mental Status: alert / awake / arousable, participated in evaluation Pt Amnestic to Procedure: Yes Nausea / Vomiting: adequately controlled Pain: adequately controlled Airway Patency, RR, SpO2: stable & adequate BP & HR: stable & adequate Hydration State: stable & adequate Anesthetic Complications: no major complications apparent
[2017-11-14 13:45] VITALS: BP 166/72; PULSE 46; O2SAT 99
== END | disposition home or self-care (01) ==
LOC: C.GI 10:30
PROVIDERS: ATTEND Internal Medicine Gastroenterology
DX: K57.30 Diverticulosis of large intestine without perforation or abscess without bleeding (principal); I25.10 Atherosclerotic heart disease of native coronary artery without angina pectoris; K21.9 Gastro-esophageal reflux disease without esophagitis; K64.8 Other hemorrhoids; N18.9 Chronic kidney disease, unspecified; M19.90 Unspecified osteoarthritis, unspecified site; Z95.5 Presence of coronary angioplasty implant and graft; Z87.891 Personal history of nicotine dependence; Z88.8 Allergy status to other drugs, medicaments and biological substances; Z79.82 Long term (current) use of aspirin; Z79.899 Other long term (current) drug therapy; Z85.820 Personal history of malignant melanoma of skin

== ENCOUNTER 2018-08-06 21:00 | Observation (INO) ==
--- NOTE | 2018-08-06 22:06 | XRay Report ---
XR chest 1V portable HISTORY: 73 years-old Male chest pain acute dizziness with atypical chest pain COMPARISON: Chest radiograph 12/21/2016, CTA chest 01/12/2017 TECHNIQUE: Portable AP view of the chest FINDINGS: Prior median sternotomy and CABG. No pneumothorax, pleural effusion, focal airspace consolidation or overt pulmonary edema. Subsegmental left basilar opacities suggest atelectasis/scarring. Bones of the chest appear grossly intact. IMPRESSION: No acute process. The above report was generated using voice recognition software. It may contain grammatical, syntax o r spelling errors. Electronically signed by: Timothy Al M.D. 08/06/2018 10:05 PM
[2018-08-06 22:07] LABS: Basophils # (auto) 0.03 K/uL (0-0.2); Basophils % (auto) 0.4 %; Eosinophils # (auto) 0.11 K/uL (0-0.5); Eosinophils % (auto) 1.6 %; Hematocrit (blood only) 46.2 % (42-52); Hemoglobin 15.3 g/dL (14.0-18.0); Immature Granulocytes # (auto) 0.02 K/uL (0.00-0.02); Immature Granulocytes % (auto) 0.3 %; Lymphocytes # (auto) 2.46 K/uL (1.2-3.4); Lymphocytes % (auto) 35.3 %; Mean Corpuscular Hgb Conc 33.1 g/dL (32-36); Mean Corpuscular Volume 82.2 fL (80-100); Mean Platelet Volume 10.9 fL (7.4-10.4); Monocytes # (auto) 0.57 K/uL (0.11-0.59); Monocytes % (auto) 8.2 %; Neutrophils # (auto) 3.78 K/uL (1.4-6.5); Neutrophils % (auto) 54.2 %; Platelet Count 247 K/uL (130-400); RDW Coefficient of Variation 14.2 % (11.5-14.5); RDW Standard Deviation 42.3 fL (36.4-46.3); Red Blood Count 5.62 M/uL (4.7-6.1); White Blood Count 6.97 K/uL (4.8-10.8)
[2018-08-06 22:14] LABS: Alanine Aminotransferase 24 U/L (12-78); Albumin Level 3.6 gm/dl (3.4-5.0); Aspartate Aminotransferase 15 U/L (15-37); BUN Creatinine Ratio 15.4 (10-20); Blood Urea Nitrogen 22 mg/dl (7-18); Carbon Dioxide 27 mmol/L (21-32); Chloride 106 mmol/L (98-107); Creatinine Clr Calc Pharmacy 45.6 ml/min; Est GFR (African American) 56.6; Est GFR (Non-African American) 48.8; Glucose 135 mg/dl (70-99); Magnesium 2.1 mg/dl (1.8-2.4); Potassium 3.9 mmol/L (3.5-5.1); Sodium 139 mmol/L (136-145)
[2018-08-06 22:25] LABS: Albumin Globulin Ratio 0.8 (0.9-2); Alkaline Phosphatase 93 U/L (45-117); Bilirubin,Total 0.2 mg/dl (0.2-1); Globulin 4.3 gm/dl (2.5-4.0); Total Protein 7.9 gm/dl (6.4-8.2); Troponin I < 0.015 ng/ml (0-0.045)
[2018-08-06] MEDS ORDERED: OPTIRAY 320 125ml IV PRN (23:12)
[2018-08-06 23:20] LABS: Appearance Urine Clear (Clear); Bilirubin Urine Negative (Negative); Color Urine Yellow; Glucose Urine UA Negative (Negative); Ketones Urine Negative (Negative); Leukocyte Esterase Urine Negative (Negative); Nitrite Urine Negative (Negative); Protein Urine Negative (Negative); Specific Gravity Urine 1.009 (1.000-1.030); Urobilinogen Urine Negative (Negative)
[2018-08-07 00:34] LABS: Troponin I < 0.015 ng/ml (0-0.045)
[2018-08-07] MEDS ORDERED: NITROGLYCERIN 2% OINTMENT 30GM TUBE EXT ONE (00:47)
[2018-08-07] MEDS ORDERED: LISINOPRIL 5 MG TAB PO SCH (01:05)
--- NOTE | 2018-08-07 01:06 | Emergency Department Note ---
Entered by Juliana Tubbs acting as a scribe for Vilma Philippe DO History of Present Illness General Chief complaint: Tachycardia Stated complaint: CHEST PRESSURE, SWEATS, NUMBNESS, DIZZY Time Seen by Provider: 08/06/18 21:14 Source: patient History of Present Illness Onset (ago): day(s) 6 Location: head (Dizziness) Severity: similar to prior episodes Pain Consistency: + other (Persistent) Maximum Pain Intensity: 4 Quality: + other (Dizziness) Exacerbated By: + movement Associated symptoms: + chest pain, + fever/chills (Positive chills. Negative fever.), + headaches and + other (Dizziness) The patient is a 73 year old male who presents to the Emergency Room with complaints of persistent dizziness starting 6 days ago. The patient reports that he has been dizzy, has a headache and has been experiencing chills without fevers. He states that he feels pressure in his chest and that it is hard to explain what he is thinking in his head. He notes that he feels a pinching sensation in his left neck intermittently. He adds that he tried swimmers ear drops that did not help. He notes that movement worsens his symptoms. He has also had intermittent diaphoresis. This is occasionally associated with exertion. The patient reports the he went to his family doctor 4 days ago and found that his blood work was normal. He notes that his acute care physical therapist advised him to come to the ED if his chills continued. He adds that he had a flu 4 months ago. He denies any sinus problems. He has an appointment with his acute care physical therapist on Monday. Patient had prior CABG x4. Patient states he has been off of his cholesterol medication for 1 month. Home Medications Home Medications Medication Instructions Recorded Confirmed Type Multi Vitamin 1 tab PO DAILY 08/06/18 08/06/18 History acetaminophen [Tylenol Extra 500 mg PO TID PRN 08/06/18 08/06/18 History Strength] aspirin [Aspir-81] 81 mg PO DAILY 08/06/18 08/06/18 History coenzyme Q10 [Co Q-10] 100 mg PO 2XWK 08/06/18 08/06/18 History wcdurnfjiok-mvy-srwxeklek-vitC 1 cap PO DAILY 08/06/18 08/06/18 History [Glucosamine Complex-MSM] bcofh-iy-3-cvo-gbq-xfjktnd-ast 1 cap PO 3XWK 08/06/18 08/06/18 History [krill oil] lactobacillus combination no.4 1 cap PO DAILY 08/06/18 08/06/18 History [Probiotic] isosorbide mononitrate 30 mg PO QAM 30 Days #30 tab 08/07/18 Rx Allergies Allergy/AdvReac Type Severity Reaction Status Date / Time STATIN DRUGS AdvReac Muscle Pain Uncoded 08/06/18 22:17 Past Med/Surg History Medical History IBS (irritable bowel syndrome) (Chronic) DVT (deep venous thrombosis) (Acute) Surgical History History of quadruple bypass Social History Current Living Situation: Spouse Other Information That Helps Us Care for You: No Feels Safe at Home: Yes Safety Concerns: Feels Safe At This Time Smoking Status: Unknown if ever smoked Hx Alcohol Use: Yes Alcohol type: wine Alcohol Intake Frequency: a few times a month Hx Substance Use: No Beliefs That Will Affect Care: None Preferred Language: Libyan Review of Systems See HPI for pertinent positives & negatives. and A total of 10 systems reviewed and were otherwise negative Physical Exam Vital Signs Vital Signs - 24 hr 08/07/18 02:38 08/07/18 06:21 08/07/18 08:00 Temperature 36.6 C Temperature Source Oral Pulse Rate - Lying Pulse Rate - Sitting Pulse Rate - Standing Pulse Rate 69 64 Pulse Rate [Finger] 54 L Pulse Rhythm [Finger] Regular Pulse Strength [Finger] Normal Respiratory Rate 18 Respiratory Effort / Characteristics Non-Labored Spontaneous Normal for Patient Respiratory Depth Normal Respiratory Pattern Regular Blood Pressure - Lying Blood Pressure - Sitting Blood Pressure- Standing Blood Pressure [Left Arm] 173/88 H 104/53 L Blood Pressure Mean [Left Arm] 116 70 Blood Pressure Position [Left Arm] Sitting Lying Pulse Oximetry 96 Oxygen Delivery Method Room Air 08/07/18 08:04 08/07/18 12:48 08/07/18 15:25 Temperature 36.7 C 36.4 C L 36.9 C Temperature Source Oral Oral Oral Pulse Rate - Lying Pulse Rate - Sitting Pulse Rate - Standing Pulse Rate Pulse Rate [Finger] 51 L 67 67 Pulse Rhythm [Finger] Pulse Strength [Finger] Respiratory Rate 20 18 19 Respiratory Effort / Characteristics Respiratory Depth Respiratory Pattern Blood Pressure - Lying Blood Pressure - Sitting Blood Pressure- Standing Blood Pressure [Left Arm] 110/62 136/87 148/84 H Blood Pressure Mean [Left Arm] 78 103 105 Blood Pressure Position [Left Arm] Lying Lying Lying Pulse Oximetry 95 97 97 Oxygen Delivery Method Room Air Room Air Room Air 08/07/18 15:29 08/07/18 18:24 Temperature 36.9 C Temperature Source Pulse Rate - Lying 61 Pulse Rate - Sitting 60 Pulse Rate - Standing 60 Pulse Rate Pulse Rate [Finger] 67 Pulse Rhythm [Finger] Pulse Strength [Finger] Respiratory Rate 19 Respiratory Effort / Characteristics Respiratory Depth Respiratory Pattern Blood Pressure - Lying 155/84 H Blood Pressure - Sitting 148/91 H Blood Pressure- Standing 124/81 Blood Pressure [Left Arm] 148/84 H Blood Pressure Mean [Left Arm] Blood Pressure Position [Left Arm] Pulse Oximetry 97 Oxygen Delivery Method GENERAL: alert, well appearing, well nourished, no distress, non-toxic EYE EXAM: normal conjunctiva, PERRL and EOM's grossly intact. No nystagmus. OROPHARYNX: no exudate, no erythema, lips, buccal mucosa, and tongue normal and mucous membranes are moist NECK: supple, no nuchal rigidity, no adenopathy, non-tender, no bruits LUNGS: Clear to auscultation. Normal chest wall mechanics, no w/r/r HEART: no murmurs, S1 normal and S2 normal, well-healed midline sternotomy scar ABDOMEN: abdomen soft, non-tender, normo-active bowel sounds, no masses, no rebound or guarding. BACK: Back is symmetrical on inspection and there is no deformity, no midline tenderness, no CVA tenderness. SKIN: no rashes and no bruising UPPER EXTREMITIES: upper extremities are grossly normal. FROM, nml pulses b/l. LOWER EXTREMITIES: No pitting edema. FROM, nml pulses b/l. NEURO EXAM: Normal sensorium, cranial nerves II-XII grossly intact, normal speech, no gross weakness of arms, no gross weakness of legs. Course 2114: Past medical records reviewed. The patient was evaluated in room C4, and a complete history and physical examination were performed. 0001: I updated the patient on his imaging at this time. I will order a repeat troponin and ambulatory pulse oximeter. 0046: I reevaluated the patient at this time who is still having symptoms with ambulation and is uncomfortable going home. Patient states he had intermittent chest pains yet both during and after ambulation, no recurrent diaphoresis. 0048: I reviewed the patient's case with Dr. Rosario Alejandro hospitalist. He will evaluate the patient for further management. Administered Medications Discontinued Medications Aspirin (Ecotrin Ectab) 81 mg PO DAILY BLACK Stop: 09/06/18 08:59 Last Admin: 08/07/18 07:49 Dose: 81 mg Enoxaparin Sodium (Lovenox) 30 mg SQ QAM [facility] Stop: 09/06/18 08:59 Last Admin: 08/07/18 07:50 Dose: Not Given Potassium Chloride/Sodium Chloride (Normal Saline W/20 Meq Kcl) 20 meq in 1, 000 mls @ 40 mls/hr IV .Q24H BLACK Stop: 09/06/18 02:42 Last Admin: 08/07/18 03:04 Dose: 40 mls/hr Ioversol (Optiray 320 125ml) 125 ml IV ONCE PRN PRN Reason: Interaction Checking Stop: 08/10/18 23:11 Last Admin: 08/06/18 23:12 Dose: 117 ml Isosorbide Mononitrate (Imdur Extended Rel) [facility] [place] Stop: 09/06/18 14:14 Last Admin: 08/07/18 16:04 Dose: 30 mg Lisinopril (Zestril) 2.5 mg PO QAM [facility] Stop: 09/06/18 01:04 Last Admin: 08/07/18 01:19 Dose: 2.5 mg Lisinopril (Zestril) Confirm Administered Dose 5 mg PO .STK-MED ONE Stop: 08/07/18 01:17 Last Admin: 08/07/18 01:18 Dose: Not Given Multivitamins (Multivitamin Tab) 1 tab PO DAILY BLACK Stop: 09/06/18 08:59 Last Admin: 08/07/18 07:50 Dose: 1 tab Nitroglycerin (Nitro-Bid 2%) 1 inch EXT NOW ONE Stop: 08/07/18 00:48 Last Admin: 08/07/18 00:54 Dose: 1 inch Medical Decision Making Differential Diagnosis Differential diagnosis: Etiologies such as benign positional vertigo, labrynthitis, dehydration, hypovolemia, anemia, tumor, infection, hypoglycemia, electrolyte abnormalities, cardiac sources, toxicological sources, central neurologic process, shingles, musculoskeletal pain, pericarditis, myocarditis, cardiac ischemia, pericardial tamponade, pneumonia, pneumothorax, pleural effusion, hemothorax, pleurisy, aortic pathology, pulmonary embolism, intra-abdominal process, as well as others were considered. Medical Records Attestation: I reviewed the patient's medical records. Home Medications Current Medication List: was personally reviewed by me Laboratory Data Attestation: I reviewed the patient's lab results. Result diagrams: 08/07/18 06:19 08/07/18 06:19 Lab Results 08/06/18 08/06/18 08/06/18 Range/Units 21:15 21:15 21:15 WBC 6.97 (4.8-10.8) K/uL RBC 5.62 (4.7-6.1) M/uL Hgb 15.3 (14.0-18.0) g/dL Hct 46.2 (42-52) % MCV 82.2 (80-100) fL MCH 27.2 (25-34) pg MCHC 33.1 (32-36) g/dL RDW Std Deviation 42.3 (36.4-46.3) fL RDW Coeff of Marie 14.2 (11.5-14.5) % Plt Count 247 (130-400) K/uL MPV 10.9 H (7.4-10.4) fL Immature Gran % (Auto) 0.3 % Neut % (Auto) 54.2 % Lymph % (Auto) 35.3 % [place] % (Auto) 8.2 % Eos % (Auto) 1.6 % Baso % (Auto) 0.4 % Immature Gran # (Auto) 0.02 (0.00-0.02) K/uL Neut # (Auto) 3.78 (1.4-6.5) K/uL Lymph # (Auto) 2.46 (1.2-3.4) K/uL [place] # (Auto) 0.57 (0.11-0.59) K/uL Eos # (Auto) 0.11 (0-0.5) K/uL Baso # (Auto) 0.03 (0-0.2) K/uL APTT (21.0-31.0) Seconds PTT Ratio Sodium 139 (136-145) mmol/L Potassium 3.9 (3.5-5.1) mmol/L Chloride 106 (98-107) mmol/L Carbon Dioxide 27 (21-32) mmol/L Anion Gap 7.0 (3-11) BUN 22 H (7-18) mg/dl Creatinine 1.40 (0.6-1.4) mg/dl Est Cr Clr Drug Dosing 45.6 ml/min Est GFR ( Amer) 56.6 Est GFR (Non-Af Amer) 48.8 BUN/Creatinine Ratio 15.4 (10-20) Glucose 135 H (70-99) mg/dl Estimat Average Glucose mg/dl Hemoglobin A1c (4.5-5.6) % Calcium 9.0 (8.5-10.1) mg/dl Magnesium 2.1 (1.8-2.4) mg/dl Total Bilirubin 0.2 (0.2-1) mg/dl AST 15 (15-37) U/L ALT 24 (12-78) U/L Alkaline Phosphatase 93 (45-117) U/L Total Creatine Kinase (39-308) U/L Troponin I < 0.015 (0-0.045) ng/ml Total Protein 7.9 (6.4-8.2) gm/dl Albumin 3.6 (3.4-5.0) gm/dl Globulin 4.3 H (2.5-4.0) gm/dl Albumin/Globulin Ratio 0.8 L (0.9-2) Lipase 276 (73-393) U/L TSH 2.380 (0.300-4.500) uIu/ml Urine Color Urine Appearance (Clear) Urine pH (4.5-7.5) Ur Specific [place] (1.000-1.030) Urine Protein (Negative) Urine Glucose (UA) (Negative) Urine Ketones (Negative) Urine Blood (Negative) Urine Nitrite (Negative) Urine Bilirubin (Negative) Urine Urobilinogen (Negative) Ur Leukocyte Esterase (Negative) Lyme Disease IgG Ab Negative (Negative) Lyme Disease IgM Ab Negative (Negative) 08/06/18 08/06/18 08/07/18 Range/Units 21:15 23:00 00:04 WBC (4.8-10.8) K/uL RBC (4.7-6.1) M/uL Hgb (14.0-18.0) g/dL Hct (42-52) % MCV (80-100) fL MCH (25-34) pg MCHC (32-36) g/dL RDW Std Deviation (36.4-46.3) fL RDW Coeff of Marie (11.5-14.5) % Plt Count (130-400) K/uL MPV (7.4-10.4) fL Immature Gran % (Auto) % Neut % (Auto) % Lymph % (Auto) % [place] % (Auto) % Eos % (Auto) % Baso % (Auto) % Immature Gran # (Auto) (0.00-0.02) K/uL Neut # (Auto) (1.4-6.5) K/uL Lymph # (Auto) (1.2-3.4) K/uL [place] # (Auto) (0.11-0.59) K/uL Eos # (Auto) (0-0.5) K/uL Baso # (Auto) (0-0.2) K/uL APTT (21.0-31.0) Seconds PTT Ratio Sodium (136-145) mmol/L Potassium (3.5-5.1) mmol/L Chloride (98-107) mmol/L Carbon Dioxide (21-32) mmol/L Anion Gap (3-11) BUN (7-18) mg/dl Creatinine (0.6-1.4) mg/dl Est Cr Clr Drug Dosing ml/min Est GFR ( Amer) Est GFR (Non-Af Amer) BUN/Creatinine Ratio (10-20) Glucose (70-99) mg/dl Estimat Average Glucose 120 mg/dl Hemoglobin A1c 5.8 H (4.5-5.6) % Calcium (8.5-10.1) mg/dl Magnesium (1.8-2.4) mg/dl Total Bilirubin (0.2-1) mg/dl AST (15-37) U/L ALT (12-78) U/L Alkaline Phosphatase (45-117) U/L Total Creatine Kinase 84 (39-308) U/L Troponin I < 0.015 (0-0.045) ng/ml Total Protein (6.4-8.2) gm/dl Albumin (3.4-5.0) gm/dl Globulin (2.5-4.0) gm/dl Albumin/Globulin Ratio (0.9-2) Lipase (73-393) U/L TSH (0.300-4.500) uIu/ml Urine Color Yellow Urine Appearance Clear (Clear) Urine pH 5.0 (4.5-7.5) Ur Specific [place] 1.009 (1.000-1.030) Urine Protein Negative (Negative) Urine Glucose (UA) Negative (Negative) Urine Ketones Negative (Negative) Urine Blood Negative (Negative) Urine Nitrite Negative (Negative) Urine Bilirubin Negative (Negative) Urine Urobilinogen Negative (Negative) Ur Leukocyte Esterase Negative (Negative) Lyme Disease IgG Ab (Negative) Lyme Disease IgM Ab (Negative) 08/07/18 08/07/18 08/07/18 Range/Units 06:19 06:19 06:19 WBC 6.56 (4.8-10.8) K/uL RBC 5.04 (4.7-6.1) M/uL Hgb 13.5 L (14.0-18.0) g/dL Hct 41.1 L (42-52) % MCV 81.5 (80-100) fL MCH 26.8 (25-34) pg MCHC 32.8 (32-36) g/dL RDW Std Deviation 42.2 (36.4-46.3) fL RDW Coeff of Marie 14.2 (11.5-14.5) % Plt Count 218 (130-400) K/uL MPV 11.1 H (7.4-10.4) fL Immature Gran % (Auto) 0.2 % Neut % (Auto) 45.8 % Lymph % (Auto) 40.4 % [place] % (Auto) 10.8 % Eos % (Auto) 2.3 % Baso % (Auto) 0.5 % Immature Gran # (Auto) 0.01 (0.00-0.02) K/uL Neut # (Auto) 3.01 (1.4-6.5) K/uL Lymph # (Auto) 2.65 (1.2-3.4) K/uL [place] # (Auto) 0.71 H (0.11-0.59) K/uL Eos # (Auto) 0.15 (0-0.5) K/uL Baso # (Auto) 0.03 (0-0.2) K/uL APTT 26.2 (21.0-31.0) Seconds PTT Ratio 1.0 Sodium 139 (136-145) mmol/L Potassium 4.2 (3.5-5.1) mmol/L Chloride 108 H (98-107) mmol/L Carbon Dioxide 25 (21-32) mmol/L Anion Gap 6.0 (3-11) BUN 19 H (7-18) mg/dl Creatinine 1.18 (0.6-1.4) mg/dl Est Cr Clr Drug Dosing 54.1 ml/min Est GFR ( Amer) 69.5 Est GFR (Non-Af Amer) 60.0 BUN/Creatinine Ratio 16.2 (10-20) Glucose 85 (70-99) mg/dl Estimat Average Glucose mg/dl Hemoglobin A1c (4.5-5.6) % Calcium 8.6 (8.5-10.1) mg/dl Magnesium (1.8-2.4) mg/dl Total Bilirubin (0.2-1) mg/dl AST (15-37) U/L ALT (12-78) U/L Alkaline Phosphatase (45-117) U/L Total Creatine Kinase (39-308) U/L Troponin I < 0.015 (0-0.045) ng/ml Total Protein (6.4-8.2) gm/dl Albumin (3.4-5.0) gm/dl Globulin (2.5-4.0) gm/dl Albumin/Globulin Ratio (0.9-2) Lipase (73-393) U/L TSH (0.300-4.500) uIu/ml Urine Color Urine Appearance (Clear) Urine pH (4.5-7.5) Ur Specific [place] (1.000-1.030) Urine Protein (Negative) Urine Glucose (UA) (Negative) Urine Ketones (Negative) Urine Blood (Negative) Urine Nitrite (Negative) Urine Bilirubin (Negative) Urine Urobilinogen (Negative) Ur Leukocyte Esterase (Negative) Lyme Disease IgG Ab (Negative) Lyme Disease IgM Ab (Negative) 08/07/18 Range/Units 06:19 WBC (4.8-10.8) K/uL RBC (4.7-6.1) M/uL Hgb (14.0-18.0) g/dL Hct (42-52) % MCV (80-100) fL MCH (25-34) pg MCHC (32-36) g/dL RDW Std Deviation (36.4-46.3) fL RDW Coeff of Marie (11.5-14.5) % Plt Count (130-400) K/uL MPV (7.4-10.4) fL Immature Gran % (Auto) % Neut % (Auto) % Lymph % (Auto) % [place] % (Auto) % Eos % (Auto) % Baso % (Auto) % Immature Gran # (Auto) (0.00-0.02) K/uL Neut # (Auto) (1.4-6.5) K/uL Lymph # (Auto) (1.2-3.4) K/uL [place] # (Auto) (0.11-0.59) K/uL Eos # (Auto) (0-0.5) K/uL Baso # (Auto) (0-0.2) K/uL APTT (21.0-31.0) Seconds PTT Ratio Sodium Cancelled (136-145) mmol/L Potassium Cancelled (3.5-5.1) mmol/L Chloride Cancelled (98-107) mmol/L Carbon Dioxide Cancelled (21-32) mmol/L Anion Gap Cancelled (3-11) BUN Cancelled (7-18) mg/dl Creatinine Cancelled (0.6-1.4) mg/dl Est Cr Clr Drug Dosing Cancelled ml/min Est GFR ( Amer) Cancelled Est GFR (Non-Af Amer) Cancelled BUN/Creatinine Ratio Cancelled (10-20) Glucose Cancelled (70-99) mg/dl Estimat Average Glucose mg/dl Hemoglobin A1c (4.5-5.6) % Calcium Cancelled (8.5-10.1) mg/dl Magnesium (1.8-2.4) mg/dl Total Bilirubin (0.2-1) mg/dl AST (15-37) U/L ALT (12-78) U/L Alkaline Phosphatase (45-117) U/L Total Creatine Kinase (39-308) U/L Troponin I (0-0.045) ng/ml Total Protein (6.4-8.2) gm/dl Albumin (3.4-5.0) gm/dl Globulin (2.5-4.0) gm/dl Albumin/Globulin Ratio (0.9-2) Lipase (73-393) U/L TSH (0.300-4.500) uIu/ml Urine Color Urine Appearance (Clear) Urine pH (4.5-7.5) Ur Specific [place] (1.000-1.030) Urine Protein (Negative) Urine Glucose (UA) (Negative) Urine Ketones (Negative) Urine Blood (Negative) Urine Nitrite (Negative) Urine Bilirubin (Negative) Urine Urobilinogen (Negative) Ur Leukocyte Esterase (Negative) Lyme Disease IgG Ab (Negative) Lyme Disease IgM Ab (Negative) Imaging Data Radiologist's Impression: Radiology results as stated below per my review and the radiologist's interpretation: XR chest 1V portable HISTORY: 73 years-old Male chest pain acute dizziness with atypical chest pain COMPARISON: Chest radiograph 12/21/2016, CTA chest 01/12/2017 TECHNIQUE: Portable AP view of the chest FINDINGS: Prior median sternotomy and CABG. No pneumothorax, pleural effusion, focal airspace consolidation or overt pulmonary edema. Subsegmental left basilar opacities suggest atelectasis/scarring. Bones of the chest appear grossly intact. IMPRESSION: No acute process. The above report was generated using voice recognition software. It may contain grammatical, syntax or spelling errors. Electronically signed by: Timothy Al M.D. 08/06/2018 10:[address] HEAD: COMPARISON: 12/21/16 FINDINGS: No intracranial hemorrhage abnormal intra- or extra-axial collections or parenchymal lesions are seen. The shape and configuration of the cortical sulci, basal cisterns and ventricles are within normal limits. The thornton-white differentiation is preserved. No evidence of mass effect, midline shift, or edema. The osseous structures are unremarkable. The visualized portions of the paranasal sinuses are clear. IMPRESSION: Unremarkable CT brain no change from prior study. Radiologist: Otoniel Vyas MD. Study ready at 23:12 and initial results transmitted at 23:34. CTA HEAD: FINDINGS: No evidence for intracranial thrombosis. There is a normal appearance of distal internal carotid arteries. Normal appearance of right middle cerebral artery appeared is an atretic A1 segment on the right with a patent anterior communicating artery. Posterior communicating arteries are nit clearly identified on this study. Normal appearance the posterior circulation. IMPRESSION: Unremarkable CTA of the brain. Radiologist: Otoniel Vyas MD. Study ready at 23:13 and initial results transmitted at 23:37. CTA NECK: FINDINGS: The aortic arch and proximal great vessels are unremarkable. The bilateral common, internal and external carotid arteries are within normal limits as are the vertebral arteries. Visualized portions of the lung apices are clear. Soft tissues and osseous structures are unremarkable. IMPRESSION: No evidence of dissection or high grade stenosis. Radiologist: Otoniel Vyas MD. Study ready at 23:13 and initial results transmitted at 23:37. ECG Data Attestation: I personally reviewed and interpreted this ECG as follows: Indication: weakness Rate (beats per minute): 52 Rhythm: sinus bradycardia Findings: + other (Normal axis and intervals.) and + 1st degree AV block; no ectopy Comparison ECG Date: from () Change: the following changes noted (Mild ST depression in V4 & V5. Inverted T wave AVL seen on prior EKG. Slightly biphasic appearance of T waves in V2.) Blood Pressure Blood Pressure Findings: Elevated blood pressure Blood Pressure Disposition: further management by hospitalist MDM Narrative Patient here with symptoms of dizziness, diaphoresis, as well as chest pain all intermittent, and not always happening concurrently. Patient with significant cardiac history including quadruple bypass, and follows with Dr. Teresa. Given slight headache noted and patient's concern for possible aneurysm, CT of the brain pursued and found to be unremarkable. Other labs are reassuring including 2- troponins. Patient still symptoms include here including with ambulation, and given concern for symptoms with very subtle EKG changes compared to prior, case discussed with hospitalist for additional evaluation and management. I do not suspect PE, dissection, tamponade, effusion, worsening aneurysm. No evidence of bacteremia/sepsis. Patient hemodynamically stable here. I do not suspect other occult [employer] pathology. Impression & Plan Dizziness, Chest pain, Diaphoresis, Abnormal EKG Discharge Plan Visit Data *Final* Discharge Date/Time: 08/07/18 03:11 Chief Complaint: Tachycardia Stated Complaint: CHEST PRESSURE, SWEATS, NUMBNESS, DIZZY ED Provider: Vilma Philippe Discharge Problem: Dizziness, Chest pain, Diaphoresis, Abnormal EKG Patient Disposition: Admitted As Inpatient Discharge Instructions Interventions: ED Discharge Assessment Last Done: 08/07/18 03:11 The scribe's documentation has been prepared under my direction and personally reviewed by me in its entirety. I confirm that the note above accurately reflects all work, treatment, procedures, and medical decision making performed by me.
[2018-08-07] MEDS ORDERED: LISINOPRIL 5 MG TAB PO ONE (01:16)
--- NOTE | 2018-08-07 01:54 | History & Physical Report ---
Date of Service August 07, 2018 Assessment & Plan (1) Chest pain: Headache, dizziness Possibly from hypertensive urgency CAD status post CABG Chronic bradycardia hx statin intolerance past history DVT history cerebral aneurysm as per records, patient [place] with [facility] [place] [facility] Hyperglycemia rule out DM past tobacco abuse OBS Medical telemetry Initiate low-dose lisinopril Follow up troponin in a.m. TTE, Cardiology consult RE chest pain, elevated BP Check hemoglobin A1c DVT prophylaxis. Lovenox subcu Full code Patient's requesting for updates from providers. Mrs. Chantel De La Torre, contact #[phone]. History of Present Illness Chief Complaint: Chest pressure, headache, dizziness Primary Care Provider: Abdullahi Hicks DO History obtained from patient, family, and records. Medical history significant for CAD status post CABG, chronic bradycardia, hypertension, statin intolerance, past history DVT, history cerebral aneurysm as per records. Recent confinement September 2017 for acute diverticulitis. Last week patient noted frontal headache symptoms, dizziness described as lightheadedness occasional veering to the left side without associated spinning sensation. Intermittent left-sided chest squeezing sensation different from heart attack in 2017 without shortness of breath. Woke up one morning with chills and sweats. Recent stress in the last few months from re-trial/ subsequent discontinuation of statin therapy, holiday travel to [place], and pet care. SBP at home 140s. Patient seen at the weekend clinic 3 days ago for evaluation of symptoms. SBP at the clinic was 120. Outpatient Cardiology appointment scheduled this week. Patient told to go to ER for worsening symptoms. Symptoms more bothersome tonight. Improvement of symptoms with application of Nitropaste at the ER. Medical History as above MRA 11/2017 1. Previously described 2 mm focal outpouching arising from the proximal right A2 segment is unchanged in appearance, and could represent a small infundibulum/ aneurysm. 2. At least mild narrowing is present within the distal right M1 segment proximal to the bifurcation, artifact somewhat limits evaluation in this location. 3. Moderate stenosis involving the right P2 segment. 4. Moderate stenosis involving the distal cavernous ICA segments bilaterally. Surgical History : CABG Family History : Heart disease Personal/Social history : Past tobacco use, occasional EtOH intake, retired furniture businessman Allergies Allergy/AdvReac Type Severity Reaction Status Date / Time STATIN DRUGS AdvReac Muscle Pain Uncoded 08/06/18 22:17 Home Medications Home Medications Medication Instructions Recorded Confirmed Type Multi Vitamin 1 tab PO DAILY 08/06/18 08/06/18 History acetaminophen [Tylenol Extra 500 mg PO TID PRN 08/06/18 08/06/18 History Strength] aspirin [Aspir-81] 81 mg PO DAILY 08/06/18 08/06/18 History coenzyme Q10 [Co Q-10] 100 mg PO 2XWK 08/06/18 08/06/18 History yiujkqmrhlx-noi-vrluaqusi-vitC 1 cap PO DAILY 08/06/18 08/06/18 History [Glucosamine Complex-MSM] wrdkl-wr-9-nwj-kgw-umrbsyk-ast 1 cap PO 3XWK 08/06/18 08/06/18 History [krill oil] lactobacillus combination no.4 1 cap PO DAILY 08/06/18 08/06/18 History [Probiotic] Past Med/Surg History Medical History IBS (irritable bowel syndrome) (Chronic) DVT (deep venous thrombosis) (Acute) Surgical History History of quadruple bypass Social History Current Living Situation: Spouse Other Information That Helps Us Care for You: No Feels Safe at Home: Yes Safety Concerns: Feels Safe At This Time Smoking Status: Unknown if ever smoked Hx Alcohol Use: Yes Alcohol type: wine Alcohol Intake Frequency: a few times a month Hx Substance Use: No Beliefs That Will Affect Care: None Preferred Language: Salvadorean Communication Ability: Effective Payroll And Benefits Analyst Required: No Review of Systems As per HPI, all 10 systems reviewed, all other ROS negative Physical Exam 2 Vital Signs (Past 24 Hours): Last Vital Signs Temp 36.3 C L 08/06/18 21:03 Pulse 47 L 08/07/18 01:17 Resp 18 08/07/18 01:17 BP 167/89 H 08/07/18 01:17 Pulse Ox 95 08/07/18 00:45 Physical Exam: GENERAL: Comfortable, slightly anxious, no respiratory distress SKIN: Normal color, warm HEENT: Mcbride palpebral conjunctivae, no ptosis, dry buccal mucosa NECK : Supple, no tenderness CHEST : CTA, no tenderness HEART : Bradycardic, no obvious murmurs ABDOMEN: Some distention, nontender EXTREMITIES : No LE swelling/tenderness, no other conspicuous deformities noted NEUROLOGIC : Coherent, no facial asymmetry, no other gross focality Results & Data Laboratory Results Laboratory Results WBC 6.97 K/uL (4.8-10.8) 08/06/18 21:15 RBC 5.62 M/uL (4.7-6.1) 08/06/18 21:15 Hgb 15.3 g/dL (14.0-18.0) 08/06/18 21:15 Hct 46.2 % (42-52) 08/06/18 21:15 MCV 82.2 fL (80-100) 08/06/18 21:15 MCH 27.2 pg (25-34) 08/06/18 21:15 MCHC 33.1 g/dL (32-36) 08/06/18 21:15 RDW Std Deviation 42.3 fL (36.4-46.3) 08/06/18 21:15 RDW Coeff of Marie 14.2 % (11.5-14.5) 08/06/18 21:15 Plt Count 247 K/uL (130-400) 08/06/18 21:15 MPV 10.9 fL (7.4-10.4) H 08/06/18 21:15 Immature Gran % (Auto) 0.3 % 08/06/18 21:15 Neut % (Auto) 54.2 % 08/06/18 21:15 Lymph % (Auto) 35.3 % 08/06/18 21:15 Orange % (Auto) 8.2 % 08/06/18 21:15 Eos % (Auto) 1.6 % 08/06/18 21:15 Baso % (Auto) 0.4 % 08/06/18 21:15 Immature Gran # (Auto) 0.02 K/uL (0.00-0.02) 08/06/18 21:15 Neut # (Auto) 3.78 K/uL (1.4-6.5) 08/06/18 21:15 Lymph # (Auto) 2.46 K/uL (1.2-3.4) 08/06/18 21:15 Orange # (Auto) 0.57 K/uL (0.11-0.59) 08/06/18 21:15 Eos # (Auto) 0.11 K/uL (0-0.5) 08/06/18 21:15 Baso # (Auto) 0.03 K/uL (0-0.2) 08/06/18 21:15 Sodium 139 mmol/L (136-145) 08/06/18 21:15 Potassium 3.9 mmol/L (3.5-5.1) 08/06/18 21:15 Chloride 106 mmol/L (98-107) 08/06/18 21:15 Carbon Dioxide 27 mmol/L (21-32) 08/06/18 21:15 Anion Gap 7.0 (3-11) 08/06/18 21:15 BUN 22 mg/dl (7-18) H 08/06/18 21:15 Creatinine 1.40 mg/dl (0.6-1.4) 08/06/18 21:15 Est Cr Clr Drug Dosing 45.6 ml/min 08/06/18 21:15 Est GFR ( Amer) 56.6 08/06/18 21:15 Est GFR (Non-Af Amer) 48.8 08/06/18 21:15 BUN/Creatinine Ratio 15.4 (10-20) 08/06/18 21:15 Glucose 135 mg/dl (70-99) H 08/06/18 21:15 Calcium 9.0 mg/dl (8.5-10.1) 08/06/18 21:15 Magnesium 2.1 mg/dl (1.8-2.4) 08/06/18 21:15 Total Bilirubin 0.2 mg/dl (0.2-1) 08/06/18 21:15 AST 15 U/L (15-37) 08/06/18 21:15 ALT 24 U/L (12-78) 08/06/18 21:15 Alkaline Phosphatase 93 U/L (45-117) 08/06/18 21:15 Troponin I < 0.015 ng/ml (0-0.045) 08/07/18 00:04 Total Protein 7.9 gm/dl (6.4-8.2) 08/06/18 21:15 Albumin 3.6 gm/dl (3.4-5.0) 08/06/18 21:15 Globulin 4.3 gm/dl (2.5-4.0) H 08/06/18 21:15 Albumin/Globulin Ratio 0.8 (0.9-2) L 08/06/18 21:15 Lipase 276 U/L (73-393) 08/06/18 21:15 TSH 2.380 uIu/ml (0.300-4.500) 08/06/18 21:15 Urine Color Yellow 08/06/18 23:00 Urine Appearance Clear (Clear) 08/06/18 23:00 Urine pH 5.0 (4.5-7.5) 08/06/18 23:00 Ur Specific Robinson 1.009 (1.000-1.030) 08/06/18 23:00 Urine Protein Negative (Negative) 08/06/18 23:00 Urine Glucose (UA) Negative (Negative) 08/06/18 23:00 Urine Ketones Negative (Negative) 08/06/18 23:00 Urine Blood Negative (Negative) 08/06/18 23:00 Urine Nitrite Negative (Negative) 08/06/18 23:00 Urine Bilirubin Negative (Negative) 08/06/18 23:00 Urine Urobilinogen Negative (Negative) 08/06/18 23:00 Ur Leukocyte Esterase Negative (Negative) 08/06/18 23:00 Diagnostic Findings Chest x-ray no acute process EKG as per my interpretation : Rate 50, sinus bradycardia, T wave inversion septal leads CT head initial read: No acute pathology CT angios head initial read: No significant stenosis, occlusion, or aneurysm within the q[place]angin of Staples. 50% narrowing of the cavernous components of the internal carotid arteries bilaterally. _ (1) Chest pain Chest pain type: unspecified Ischemic chest pain type: Qualified Code(s): R07.9 - Chest pain, unspecified
[2018-08-07] MEDS ORDERED: MoRPHine SULFATE 4 MG/ML 1 ML CARP\\VIAL IV PRN (02:43)
[2018-08-07] MEDS ORDERED: NITROGLYCERIN SL 0.4 MG/TAB TAB SL PRN (02:43)
[2018-08-07] MEDS ORDERED: NSS + 20MEQ KCL 20 MEQ/1,000 ML BAG IV SCH (02:43)
[2018-08-07] MEDS ORDERED: TRAMADOL HCL 50 MG TABLET PO PRN (02:43)
[2018-08-07] MEDS ORDERED: ACETAMINOPHEN 325 MG TAB PO PRN (02:43)
[2018-08-07] MEDS ORDERED: PROCHLORPERAZINE 5 MG in SYRINGE 4 ML IV PRN (02:43)
[2018-08-07] MEDS ORDERED: LORazepam 0.25 MG/0.5 ML VIAL IV PRN (02:43)
[2018-08-07 03:05] LABS: Creatine Kinase 84 U/L (39-308)
[2018-08-07 03:13] LABS: Lyme Ab IgG w/WB Rflx Negative (Negative); Lyme Ab IgM w/WB Rflx Negative (Negative)
[2018-08-07 06:10] LABS: Estimated Average Glucose 120 mg/dl
[2018-08-07 06:38] LABS: Basophils # (auto) 0.03 K/uL (0-0.2); Basophils % (auto) 0.5 %; Eosinophils # (auto) 0.15 K/uL (0-0.5); Eosinophils % (auto) 2.3 %; Hematocrit (blood only) 41.1 % (42-52); Hemoglobin 13.5 g/dL (14.0-18.0); Immature Granulocytes # (auto) 0.01 K/uL (0.00-0.02); Immature Granulocytes % (auto) 0.2 %; Lymphocytes # (auto) 2.65 K/uL (1.2-3.4); Lymphocytes % (auto) 40.4 %; Mean Corpuscular Hgb Conc 32.8 g/dL (32-36); Mean Corpuscular Volume 81.5 fL (80-100); Mean Platelet Volume 11.1 fL (7.4-10.4); Monocytes # (auto) 0.71 K/uL (0.11-0.59); Monocytes % (auto) 10.8 %; Neutrophils # (auto) 3.01 K/uL (1.4-6.5); Neutrophils % (auto) 45.8 %; Platelet Count 218 K/uL (130-400); RDW Coefficient of Variation 14.2 % (11.5-14.5); RDW Standard Deviation 42.2 fL (36.4-46.3); Red Blood Count 5.04 M/uL (4.7-6.1); White Blood Count 6.56 K/uL (4.8-10.8)
--- NOTE | 2018-08-07 06:38 | CT Scan Report ---
CT angio head w con HISTORY: Atherosclerotic change hayden, dizziness, known aneurysm TECHNIQUE: Multiaxial CT angiography of the head was performed IV contrast: None. Maximum in tensity projection images were also obtained. A dose lowering technique was utilized adhering to the principles of ALARA. COMPARISON: None. FINDINGS: There is no mass, hematoma, midline shift, or acute infarct. Visualized intracranial internal grinder tender al carotid arteries, distal vertebral arteries, and basilar artery are widely patent. There is no sig nificant stenosis, occlusion, or aneurysm seen within the bilateral ACAs, MCAs, or instrument repair technician. 50% narrowin g cavernous component of the internal carotid arteries bilaterally. IMPRESSION: No significant stenosis, occlusion, or aneurysm within the mechoopda of Staples. 50% narrowing of the cav ernous components of the internal carotid arteries bilaterally. The above report was generated using voice recognition software. It may contain grammatical, syntax or spelling errors. Electronically signed by: Brennen Manuel M.D. 08/07/2018 6:36 AM
--- NOTE | 2018-08-07 06:39 | CT Scan Report ---
CT angio neck with con CLINICAL HISTORY: Headache, dizziness, known aneurysm. COMPARISON STUDY: No previous studies for comparison. TECHNIQUE: CT angiography was performed from the aortic arch to the skull base. MIP imaging was perfo rmed. The patient was scanned in a dynamic helical fashion during intravenous administration of 117 c c of Optiray 320. NASCET criteria was utilized. A dose lowering technique was utilized adhering to t he principles of ALARA. CT DOSE: Technique: CT angiogram of the carotid and vertebral arteries was obtained using intravenous contrast and 3-D reconstruction. NASCET criteria was utilized. Findings: The right carotid revealed no evidence of aneurysm and no evidence of dissection. There is no evidenc e of hemodynamic significant stenosis. There is scattered atheromatous changes. The left carotid revealed no evidence of hemodynamic significant stenosis. There is no evidence of an eurysm. There is no evidence of dissection. There is scattered atheromatous changes. There is no evidence of hemodynamically significant vertebral stenosis. There is no evidence of verte bral dissection. There is scattered atheromatous changes. IMPRESSION: No evidence of hemodynamically significant carotid or vertebral artery stenosis. No evidence of disse ction. Electronically signed by: Pepito Worley M.D. 08/07/2018 6:38 AM
[2018-08-07 06:45] LABS: Partial Thromboplastin Time 26.2 Seconds (21.0-31.0)
--- NOTE | 2018-08-07 07:04 | CT Scan Report ---
HEAD CT NONCONTRAST CT DOSE: HISTORY: hayden, dizziness TECHNIQUE: Multiaxial CT images of the head were performed without the use of intravenous contrast. A utomated exposure control was utilized for this study. A dose lowering technique was utilized adheri ng to the principles of ALARA. Comparison: Head CT 12/21/2016. Findings: The paranasal sinuses and mastoid air cells are clear. The calvarium and skull base are int act. The ventricles and sulci are within normal limits. There is no mass, hematoma, midline shift, or acute infarct. Impression: No acute intracranial abnormality. Electronically signed by: Aashish Alcala M.D. 08/07/2018 7:03 AM
[2018-08-07 07:08] LABS: BUN Creatinine Ratio 16.2 (10-20); Blood Urea Nitrogen 19 mg/dl (7-18); Calcium 8.6 mg/dl (8.5-10.1); Carbon Dioxide 25 mmol/L (21-32); Chloride 108 mmol/L (98-107); Creatinine Clr Calc Pharmacy 54.1 ml/min; Est GFR (African American) 69.5; Glucose 85 mg/dl (70-99); Potassium 4.2 mmol/L (3.5-5.1); Sodium 139 mmol/L (136-145)
[2018-08-07 07:13] LABS: Troponin I < 0.015 ng/ml (0-0.045)
[2018-08-07] MEDS ORDERED: ASPIRIN 81 MG ECTAB PO SCH (09:00)
[2018-08-07] MEDS ORDERED: ENOXAPARIN INJ 30 MG/0.3 ML SYR SQ SCH (09:00)
[2018-08-07] MEDS ORDERED: MULTIVITAMIN TAB PO SCH (09:00)
--- NOTE | 2018-08-07 09:41 | Medical Student H&P ---
Date of Service August 07, 2018 History of Present Illness Primary Care Provider: Abdullahi Hicks DO Pt is a 73 yo M with a pmh of CAD and HLD and pshx of CABG w/ 3 arterial-vein and 1 arterial graft who was admitted for chest discomfort and dizziness. Pt had recently been on a trip to [place] where he occassionally felt short of breath upon exertion especially walking up a hill, but had not felt any chest pain. Upon returning from his trip, he felt dizzy and off balanced when getting out of bed or turning his head which he attributed to his ear. Pt did go to his PCP regarding the dizziness where his vitals had been checked and were found to be WNL, unremarkable visit overall. Pt's dizziness remained consistent from last monday up until Monday. On Monday night, pt awoke at 4 am with night sweats. Pt is unsure if he was experiencing any chest discomfort when being awoken at 4 am, but knows that throughout the day on monday he had constant chest pain accompanied by L. sided neck pain and bilateral arm pain. Pt also states he had a headache throughout the day. Pt decided to go to the ED that Monday where he was found to have an elevated blood pressure of 166/100. Pt was given lisinopril and a nitroglycerin patch, which seemed to help relieve his chest discomfort. Today deleon day 2 of the patient's admission. He states he is feeling better, no longer having chest discomfort, neck pain, arm pain, night sweats, or dizziness. Pt is ambulating without issue, no longer feeling dizzy, but still has a headache. Allergies Allergy/AdvReac Type Severity Reaction Status Date / Time STATIN DRUGS AdvReac Muscle Pain Uncoded 08/06/18 22:17 Home Medications Home Medications Medication Instructions Recorded Confirmed Type Multi Vitamin 1 tab PO DAILY 08/06/18 08/06/18 History acetaminophen [Tylenol Extra 500 mg PO TID PRN 08/06/18 08/06/18 History Strength] aspirin [Aspir-81] 81 mg PO DAILY 08/06/18 08/06/18 History coenzyme Q10 [Co Q-10] 100 mg PO 2XWK 08/06/18 08/06/18 History eachndxmedy-que-qcbftjyyl-vitC 1 cap PO DAILY 08/06/18 08/06/18 History [Glucosamine Complex-MSM] ilmgq-iy-8-fyo-pgl-ehmplxb-ast 1 cap PO 3XWK 08/06/18 08/06/18 History [krill oil] lactobacillus combination no.4 1 cap PO DAILY 08/06/18 08/06/18 History [Probiotic] Patient History Medical History IBS (irritable bowel syndrome) (Chronic) DVT (deep venous thrombosis) (Acute) Surgical History History of quadruple bypass Social History Current Living Situation: Spouse Other Information That Helps Us Care for You: No Feels Safe at Home: Yes Safety Concerns: Feels Safe At This Time Smoking Status: Unknown if ever smoked Hx Alcohol Use: Yes Alcohol type: wine Alcohol Intake Frequency: a few times a month Hx Substance Use: No Beliefs That Will Affect Care: None Preferred Language: Greenlandic Communication Ability: Effective Environmental Systems Coordinator Required: No Physical Exam 2 Vital Signs (Past 24 Hours): Last Vital Signs Temp 36.7 C 08/07/18 08:04 Pulse 51 L 08/07/18 08:04 Resp 20 08/07/18 08:04 BP 110/62 08/07/18 08:04 Pulse Ox 95 08/07/18 08:04 Results & Data Medications Administered Aspirin (Ecotrin Ectab) 81 mg PO DAILY BLACK Stop: 09/06/18 08:59 Last Admin: 08/07/18 07:49 Dose: 81 mg Enoxaparin Sodium (Lovenox) 30 mg SQ QAM BLACK Stop: 09/06/18 08:59 Last Admin: 08/07/18 07:50 Dose: Not Given Potassium Chloride/Sodium Chloride (Normal Saline W/20 Meq Kcl) 20 meq in 1, 000 mls @ 40 mls/hr IV .Q24H BLACK Stop: 09/06/18 02:42 Last Admin: 08/07/18 03:04 Dose: 40 mls/hr Lisinopril (Zestril) 2.5 mg PO QAM BLACK Stop: 09/06/18 01:04 Last Admin: 08/07/18 01:19 Dose: 2.5 mg Multivitamins (Multivitamin Tab) 1 tab PO DAILY BLACK Stop: 09/06/18 08:59 Last Admin: 08/07/18 07:50 Dose: 1 tab
--- NOTE | 2018-08-07 10:22 | Cardiology Consultation ---
Date of Consultation August 07, 2018 Assessment & Plan (1) Chest pain: nonspecific there is a slight change in EKG with depressions laterally resting echo without new wall motion abnormality will stress for completeness sake if stress unremarkable will add imdur 30mg daily for likely microvascular disease (2) Dizziness: possibly orthostatic in nature will perform stress to check for chronotropic competence will also ask neurology to eval given hx of cerebral anuerysm (3) Hypertension: elevated on presentation improved with lisinopril if we add imdur would hold off on further meds and follow as outpatient History of Present Illness Attending Physician: Abdoulaye Brunson MD History of Present Illness Pt is a 73 yo M with a pmh of CAD and HLD and pshx of CABG w/ 3 arterial-vein and 1 arterial graft who was admitted for chest discomfort and dizziness. Pt had recently been on a trip to [place] where he occassionally felt short of breath upon exertion especially walking up a hill, but had not felt any chest pain. Upon returning from his trip, he felt dizzy and off balanced when getting out of bed or turning his head which he attributed to his ear. Pt did go to his PCP regarding the dizziness where his vitals had been checked and were found to be WNL, unremarkable visit overall. Pt's dizziness remained consistent from last monday up until Monday. On Monday night, pt awoke at 4 am with night sweats. Pt is unsure if he was experiencing any chest discomfort when being awoken at 4 am, but knows that throughout the day on monday he had constant chest pain accompanied by L. sided neck pain and bilateral arm pain. Pt also states he had a headache throughout the day. Pt decided to go to the ED that Monday where he was found to have an elevated blood pressure of 166/100. Pt was given lisinopril and a nitroglycerin patch, which seemed to help relieve his chest discomfort. Today deleon day 2 of the patient's admission. He states he is feeling better, no longer having chest discomfort, neck pain, arm pain, night sweats, or dizziness. Pt is ambulating without issue, no longer feeling dizzy, but still has a headache. ROS: As per HPI, all other systems reviewed and negative at this time. Allergies Allergy/AdvReac Type Severity Reaction Status Date / Time STATIN DRUGS AdvReac Muscle Pain Uncoded 08/06/18 22:17 Home Medications Home Medications Medication Instructions Recorded Confirmed Type Multi Vitamin 1 tab PO DAILY 08/06/18 08/06/18 History acetaminophen [Tylenol Extra 500 mg PO TID PRN 08/06/18 08/06/18 History Strength] aspirin [Aspir-81] 81 mg PO DAILY 08/06/18 08/06/18 History coenzyme Q10 [Co Q-10] 100 mg PO 2XWK 08/06/18 08/06/18 History hhdgppexsop-fuk-gicxrdqbj-vitC 1 cap PO DAILY 08/06/18 08/06/18 History [Glucosamine Complex-MSM] fgouv-rx-6-qum-vmo-wuzmftj-ast 1 cap PO 3XWK 08/06/18 08/06/18 History [krill oil] lactobacillus combination no.4 1 cap PO DAILY 08/06/18 08/06/18 History [Probiotic] Patient History Medical History IBS (irritable bowel syndrome) (Chronic) DVT (deep venous thrombosis) (Acute) Surgical History History of quadruple bypass Social History Current Living Situation: Spouse Other Information That Helps Us Care for You: No Feels Safe at Home: Yes Safety Concerns: Feels Safe At This Time Smoking Status: Unknown if ever smoked Hx Alcohol Use: Yes Alcohol type: wine Alcohol Intake Frequency: a few times a month Hx Substance Use: No Beliefs That Will Affect Care: None Preferred Language: Macedonian Communication Ability: Effective Spectrographer Required: No Physical Exam 2 Vital Signs (Past 24 Hours): Last Vital Signs Temp 36.7 C 08/07/18 08:04 Pulse 51 L 08/07/18 08:04 Resp 20 08/07/18 08:04 BP 110/62 08/07/18 08:04 Pulse Ox 95 08/07/18 08:04 Physical Exam: General: Awake, alert and oriented x 3. No acute distress. HEENT: Normocephalic, atraumatic. Pupils equal, round and reactive to light and accommodation. Extraocular muscles are intact. Anicteric sclera. Moist mucous membranes. Neck: No JVD. No bruit. Cardiovascular: Regular. Positive S-4. Normal S-1 and S-2. No S-3. No murmurs or rubs. Pulmonary: Clear to auscultation B/L. No rales, rhonchi or wheezing Abdomen: Bowel sounds x 4, soft. No rebound, guarding or tenderness. No organomegaly. Extremities: No clubbing, cyanosis or edema. +2 pedal pulses bilaterally. Skin: Warm and dry. _ (1) Chest pain Chest pain type: unspecified Ischemic chest pain type: Qualified Code(s): R07.9 - Chest pain, unspecified
[2018-08-07] MEDS ORDERED: ISOSORBIDE MONO EXTENDED REL 30 MG TABCR PO SCH (14:15)
--- NOTE | 2018-08-07 14:18 | Neurology Consultation ---
Date of Consultation August 07, 2018 Assessment & Plan (1) Dizziness: 1. no current symptoms of dizziness 2. should check orthostatics 3. PT - Ericka maneuver - for reproduction of symptoms 4. HTN - no well controlled 5. cardiology on board for further management of CP issues 6. CTA head and neck- no evidence of aneurysm previous image was MRA which is not as clear when imaging head and neck vessels. 7. if symptoms continue and orthostatics are normal can refer to balance clinic in [place] for further manipulation or [facility] locally for BPPV maneuvers 8. MRI brain - to r/o stroke will see in our clinic as outpatient neurology as needed. Supervising Physician Co-Signing Physician Notes I have seen and discussed above patient with Dr Jesús Kong, neurology I have seen Mr. De La Torre, reviewed his imaging studies, discussed his case with Halie Crespo PA-C and agree with above assessment and plan. History suggests that this may simply be benign positional vertigo perhaps due to otolith displacement created by repeatedly striking his head to extract water from his ears after shower. There could have been elements of airline cabin pressure change as well but very little suggests the possibility of a transient ischemic event despite his vascular history. He does have a slight degree of orthostasis with a systolic blood pressure drop between 154 and 120 today but diastolic pressures remained stable and he was pretty asymptomatic. His examination is normal. He is clear mentally as intact cranial nerves normal station gait and coordination, unremarkable reflexes strength testing and sensation. I could not re-create the vertiginous sensation today by having him move his head in any position. All this having been said I think it would be safest for us to do a nonenhanced MRI scan just to be sure that there was no cerebellar infarct which on occasion can mimic benign positional vertigo and a whole host of vertiginous symptoms yet be unassociated with any significant physical examination abnormalities I doubt we will find much. If the MRI is indeed negative then he can be discharged with follow-up being dependent upon how frequent the vertiginous events occur. Currently they seem to be resolved so will be hard to justify a referral to [facility] therapy for potential Ericka maneuver but if they recur then referral their institution would seem to be appropriate Meclizine and other oral agents to treat and suppress vertigo often are ineffective in the setting of benign positional vertigo simply add to the overall sedation of the patient so I would not recommend these be used in this setting. The CT angiographic studies failed to corroborate presence of the aneurysm that was described based on MRI/MRA technology in my opinion are probably more accurate and the diagnosis of an aneurysm is therefore not supported. The bilateral 50% stenoses described in the carotid system are insignificant and have nothing to do with the current complaints. Neurology will sign off at this point unless there is of course of abnormality on MRI at which point we will reassess him tomorrow. Jesús Kong MD History of Present Illness Reason for Consultation: dizziness, ICA stenosis Requesting Physician: Abdoulaye Brunson MD Attending Physician: Abdoulaye Brunson MD History of Present Illness Radhika is a 73 year old male who has a PMH CAD, HLD (non tolerance to statins), CABG w/ 3 arterial-vein and 1 arterial graft who was admitted for chest discomfort and dizziness. In June he was on a trip to [place] where he occasionally felt short of breath upon exertion especially walking up a hill, but had not felt any chest pain. When he returned he felt dizzy and off balanced when getting out of bed or turning his head which he attributed to his ear. He was seen by his PCP. Vitals had been checked and were found to be WNL, unremarkable visit overall. He continued to have on and off episodes of dizziness. Then on Monday night he woke at 4 am with night sweats. Pt is unsure if he was experiencing any chest discomfort when being awoken at 4 am, but knows that throughout the day on Monday he had constant chest pain accompanied by L. sided neck pain and bilateral arm pain and had a headache through the day. He decided to go to the ED and was found to have elevated blood pressure of 166/100. He was given lisinopril and a nitroglycerin patch, which seemed to help relieve his chest discomfort. Today he is feeling better, no longer having chest discomfort, neck pain, arm pain, night sweats, or dizziness. He is ambulating and moving without dizziness or CP. He states he was worried that his past diagnosis of aneurysm had something to do with this. denies CP, SOB, abdominal pain, one sided weakness, numbness tingling, N, V, vision changes, dizziness, room spinning. Allergies Allergy/AdvReac Type Severity Reaction Status Date / Time STATIN DRUGS AdvReac Muscle Pain Uncoded 08/06/18 22:17 Home Medications Home Medications Medication Instructions Recorded Confirmed Type Multi Vitamin 1 tab PO DAILY 08/06/18 08/06/18 History acetaminophen [Tylenol Extra 500 mg PO TID PRN 08/06/18 08/06/18 History Strength] aspirin [Aspir-81] 81 mg PO DAILY 08/06/18 08/06/18 History coenzyme Q10 [Co Q-10] 100 mg PO 2XWK 08/06/18 08/06/18 History ghbwujsaekc-tnp-[id number]-vitC 1 cap PO DAILY 08/06/18 08/06/18 History [Glucosamine Complex-MSM] schwv-nq-2-usq-rlz-[id number]-ast 1 cap PO 3XWK 08/06/18 08/06/18 History [krill oil] lactobacillus combination no.4 1 cap PO DAILY 08/06/18 08/06/18 History [Probiotic] Patient History Medical History IBS (irritable bowel syndrome) (Chronic) DVT (deep venous thrombosis) (Acute) Surgical History History of quadruple bypass Social History Current Living Situation: Spouse Other Information That Helps Us Care for You: No Feels Safe at Home: Yes Safety Concerns: Feels Safe At This Time Smoking Status: Unknown if ever smoked Hx Alcohol Use: Yes Alcohol type: wine Alcohol Intake Frequency: a few times a month Hx Substance Use: No Beliefs That Will Affect Care: None Preferred Language: Czech Communication Ability: Effective Adventure Guide Required: No Physical Exam 2 Vital Signs (Past 24 Hours): Last Vital Signs Temp 36.4 C L 08/07/18 12:48 Pulse 67 08/07/18 12:48 Resp 18 08/07/18 12:48 BP 136/87 08/07/18 12:48 Pulse Ox 97 08/07/18 12:48 Physical Exam: Constitutional: appearance nourished, healthy and normal Ears, Nose, Mouth and Throat: mucous membranes moist, no injection and skin normal, eyes normal Cardiovascular: normal S-1 and S-2 and regular rate and rhythm Respiratory: clear to auscultation (CTA) and no rales, ronchi or wheeze Musculoskeletal: no peripheral edema and good distal pulses Skin: no stigmata of neurocutaneous disease noted and normal and intact Eyes: extraocular muscles intact (EOMI) and pupils equal, round and reactive to light (PERRL) NEUROLOGIC EXAMINATION: Mental status: Alert and interactive Oriented to full date and location Oriented to person Speech fluent with no evidence of aphasia Cranial Nerves smile eye brow raise symmetric Reflexes: Deep tendon reflexes were symmetrical and graded 2/5. Plantar responses were flexor. Sensory: decreased sensation left LE (previous vascular harvest) Coordination: finger to nose no bi pass, no tremor no cog wheeling Gait/Stance: Posture normal. Gait normal: with steady with steps, base, turning, tandem gait. Motor: Negative for pronator drift of out stretched arms with eyes closed. Strength: biceps triceps hand herbarium curator intrinsics 5/5 bilaterally, hip flex patellar/plantar flex ext 5/5 bilaterally Results & Data Laboratory Results labs Abnormal Labs 08/06/18 08/06/18 08/06/18 21:15 21:15 21:15 Hgb Hct MPV 10.9 H [place] # (Auto) Chloride BUN 22 H Glucose 135 H Hemoglobin A1c 5.8 H Globulin 4.3 H Albumin/Globulin Ratio 0.8 L 08/07/18 08/07/18 06:19 06:19 Hgb 13.5 L Hct 41.1 L MPV 11.1 H [place] # (Auto) 0.71 H Chloride 108 H BUN 19 H Glucose Hemoglobin A1c Globulin Albumin/Globulin Ratio Diagnostic Findings CT head-No acute intracranial abnormality. CTA head- There is no mass, hematoma, midline shift, or acute infarct. Visualized intracranial internal carotid arteries, distal vertebral arteries, and basilar artery are widely patent. There is no significant stenosis, occlusion, or aneurysm seen within the bilateral ACAs, MCAs, or public health internship. 50% narrowing cavernous component of the internal carotid arteries bilaterally. CTA neck-No evidence of hemodynamically significant carotid or vertebral artery stenosis. No evidence of dissection.
--- NOTE | 2018-08-07 16:44 | Hospitalist Progress Note ---
Date of Service August 07, 2018 Assessment & Plan (1) Chest pain: History of CAD , CABG ACS ruled out troponins negative EKG no signs of acute ischemia Exercise Stress Test: negative evaluated by Dr. Teresa, recommend to start Imdur 30mg qAM chest pain may also be related to Hypertensive Urgency monitor BP as outpatient Dizziness CT angio of the head: 50% Bilateral R ICA stenosis Neuro consulted Brain MRI pending Chronic bradycardia hx statin intolerance past history DVT history cerebral aneurysm as per records, patient follows with [facility] Neurosurgery Hyperglycemia a1c 5.8 monitor as outpatient DVT prophylaxis. Lovenox subcu Full code Subjective ff up for chest pain, dizziness seen resting in bed, comfortable was ambulating in the hallways earlier chest pain free, denies dyspnea, palpitations no dizziness today denies other symptoms Physical Exam 2 Vital Signs (Past 24 Hours): Last Vital Signs Temp 36.9 C 08/07/18 15:25 Pulse 67 08/07/18 15:25 Resp 19 08/07/18 15:25 BP 148/84 H 08/07/18 15:25 Pulse Ox 97 08/07/18 15:25 Physical Exam: General- oriented x 3, not in distress, speaks in sentences with no effort or accessory muscle use Eyes- anicteric Neck- no JVD Lungs- clear breath sounds bilaterally, no rales/wheezes Heart- normal rate, regular rhythm; no murmurs Abdomen- normal bowel sounds, nondistended, soft, nontender Extremities- no pretibial edema, no calf tenderness Neuro- alert, oriented x 3; no gross focal neurologic deficits Skin- warm & dry Results & Data Laboratory Results Laboratory Results - last 24 hr 08/06/18 08/06/18 08/06/18 21:15 21:15 21:15 WBC 6.97 RBC 5.62 Hgb 15.3 Hct 46.2 MCV 82.2 MCH 27.2 MCHC 33.1 RDW Std Deviation 42.3 RDW Coeff of Marie 14.2 Plt Count 247 MPV 10.9 H Immature Gran % (Auto) 0.3 Neut % (Auto) 54.2 Lymph % (Auto) 35.3 [place] % (Auto) 8.2 Eos % (Auto) 1.6 Baso % (Auto) 0.4 Immature Gran # (Auto) 0.02 Neut # (Auto) 3.78 Lymph # (Auto) 2.46 [place] # (Auto) 0.57 Eos # (Auto) 0.11 Baso # (Auto) 0.03 APTT PTT Ratio Sodium 139 Potassium 3.9 Chloride 106 Carbon Dioxide 27 Anion Gap 7.0 BUN 22 H Creatinine 1.40 Est Cr Clr Drug Dosing 45.6 Est GFR ( Amer) 56.6 Est GFR (Non-Af Amer) 48.8 BUN/Creatinine Ratio 15.4 Glucose 135 H Estimat Average Glucose Hemoglobin A1c Calcium 9.0 Magnesium 2.1 Total Bilirubin 0.2 AST 15 ALT 24 Alkaline Phosphatase 93 Total Creatine Kinase Troponin I < 0.015 Total Protein 7.9 Albumin 3.6 Globulin 4.3 H Albumin/Globulin Ratio 0.8 L Lipase 276 TSH 2.380 Urine Color Urine Appearance Urine pH Ur Specific [place] Urine Protein Urine Glucose (UA) Urine Ketones Urine Blood Urine Nitrite Urine Bilirubin Urine Urobilinogen Ur Leukocyte Esterase Lyme Disease IgG Ab Negative Lyme Disease IgM Ab Negative 08/06/18 08/06/18 08/07/18 21:15 23:00 00:04 WBC RBC Hgb Hct MCV MCH MCHC RDW Std Deviation RDW Coeff of Marie Plt Count MPV Immature Gran % (Auto) Neut % (Auto) Lymph % (Auto) [place] % (Auto) Eos % (Auto) Baso % (Auto) Immature Gran # (Auto) Neut # (Auto) Lymph # (Auto) [place] # (Auto) Eos # (Auto) Baso # (Auto) APTT PTT Ratio Sodium Potassium Chloride Carbon Dioxide Anion Gap BUN Creatinine Est Cr Clr Drug Dosing Est GFR ( Amer) Est GFR (Non-Af Amer) BUN/Creatinine Ratio Glucose Estimat Average Glucose 120 Hemoglobin A1c 5.8 H Calcium Magnesium Total Bilirubin AST ALT Alkaline Phosphatase Total Creatine Kinase 84 Troponin I < 0.015 Total Protein Albumin Globulin Albumin/Globulin Ratio Lipase TSH Urine Color Yellow Urine Appearance Clear Urine pH 5.0 Ur Specific [place] 1.009 Urine Protein Negative Urine Glucose (UA) Negative Urine Ketones Negative Urine Blood Negative Urine Nitrite Negative Urine Bilirubin Negative Urine Urobilinogen Negative Ur Leukocyte Esterase Negative Lyme Disease IgG Ab Lyme Disease IgM Ab 08/07/18 08/07/18 08/07/18 06:19 06:19 06:19 WBC 6.56 RBC 5.04 Hgb 13.5 L Hct 41.1 L MCV 81.5 MCH 26.8 MCHC 32.8 RDW Std Deviation 42.2 RDW Coeff of Marie 14.2 Plt Count 218 MPV 11.1 H Immature Gran % (Auto) 0.2 Neut % (Auto) 45.8 Lymph % (Auto) 40.4 [place] % (Auto) 10.8 Eos % (Auto) 2.3 Baso % (Auto) 0.5 Immature Gran # (Auto) 0.01 Neut # (Auto) 3.01 Lymph # (Auto) 2.65 [place] # (Auto) 0.71 H Eos # (Auto) 0.15 Baso # (Auto) 0.03 APTT 26.2 PTT Ratio 1.0 Sodium 139 Potassium 4.2 Chloride 108 H Carbon Dioxide 25 Anion Gap 6.0 BUN 19 H Creatinine 1.18 Est Cr Clr Drug Dosing 54.1 Est GFR ( Amer) 69.5 Est GFR (Non-Af Amer) 60.0 BUN/Creatinine Ratio 16.2 Glucose 85 Estimat Average Glucose Hemoglobin A1c Calcium 8.6 Magnesium Total Bilirubin AST ALT Alkaline Phosphatase Total Creatine Kinase Troponin I < 0.015 Total Protein Albumin Globulin Albumin/Globulin Ratio Lipase TSH Urine Color Urine Appearance Urine pH Ur Specific [place] Urine Protein Urine Glucose (UA) Urine Ketones Urine Blood Urine Nitrite Urine Bilirubin Urine Urobilinogen Ur Leukocyte Esterase Lyme Disease IgG Ab Lyme Disease IgM Ab 08/07/18 06:19 WBC RBC Hgb Hct MCV MCH MCHC RDW Std Deviation RDW Coeff of Marie Plt Count MPV Immature Gran % (Auto) Neut % (Auto) Lymph % (Auto) [place] % (Auto) Eos % (Auto) Baso % (Auto) Immature Gran # (Auto) Neut # (Auto) Lymph # (Auto) [place] # (Auto) Eos # (Auto) Baso # (Auto) APTT PTT Ratio Sodium Cancelled Potassium Cancelled Chloride Cancelled Carbon Dioxide Cancelled Anion Gap Cancelled BUN Cancelled Creatinine Cancelled Est Cr Clr Drug Dosing Cancelled Est GFR ( Amer) Cancelled Est GFR (Non-Af Amer) Cancelled BUN/Creatinine Ratio Cancelled Glucose Cancelled Estimat Average Glucose Hemoglobin A1c Calcium Cancelled Magnesium Total Bilirubin AST ALT Alkaline Phosphatase Total Creatine Kinase Troponin I Total Protein Albumin Globulin Albumin/Globulin Ratio Lipase TSH Urine Color Urine Appearance Urine pH Ur Specific [place] Urine Protein Urine Glucose (UA) Urine Ketones Urine Blood Urine Nitrite Urine Bilirubin Urine Urobilinogen Ur Leukocyte Esterase Lyme Disease IgG Ab Lyme Disease IgM Ab _ (1) Chest pain Chest pain type: unspecified Ischemic chest pain type: Qualified Code(s): R07.9 - Chest pain, unspecified
--- NOTE | 2018-08-07 17:40 | Magnetic Resonance Report ---
MR brain wo con HISTORY: 73 years-old Male r/o stroke acute strokelike symptoms COMPARISON: CT head August 06, 2017, brain MRI 12/21/2016 TECHNIQUE: Multiplanar multisequence MRI of the brain was obtained without the use of IV contrast. FINDINGS: Patient Service Associate localizer images demonstrate no gross abnormality. There is no restricted diffusion to suggest acute or subacute infarction. The midline structures including the corpus callosum, brainstem, optic chiasm, pituitary and pineal glands appear unremarkable the sagittal T1 series. No cerebellar tonsill ar herniation. Degenerative changes noted about the imaged cervical spine. No acute intracranial hemorrhage, midline shift, abnormal extra-axial collections, hydrocephalus or i ntracranial mass. Mild degree of patchy T2/FLAIR hyperintensities about the white matter suggestive o f chronic microvascular ischemic changes. These findings appear generally stable from comparison. The major flow voids at the level of the skull base appear patent. Mastoid air cells are clear. Mild muc osal thickening of the ethmoid and frontal sinuses. 2.8 cm linear area of polypoid mucosal thickening about the inferior right maxillary sinus. Orbits, soft tissues and skull are unremarkable. IMPRESSION: 1. No acute intracranial abnormality. 2. No acute or subacute infarction. 3. Suggestion of mild chronic microvascular ischemic changes. The above report was generated using voice recognition software. It may contain grammatical, syntax o r spelling errors. Electronically signed by: Timothy Al M.D. 08/07/2018 5:38 PM
--- NOTE | 2018-08-07 18:25 | Discharge Summary ---
Date of Service August 07, 2018 Admission HPI Per Admitting Provider Pt is a 73 yo M with a pmh of CAD and HLD and pshx of CABG w/ 3 arterial-vein and 1 arterial graft who was admitted for chest discomfort and dizziness. Pt had recently been on a trip to [place] where he occassionally felt short of breath upon exertion especially walking up a hill, but had not felt any chest pain. Upon returning from his trip, he felt dizzy and off balanced when getting out of bed or turning his head which he attributed to his ear. Pt did go to his PCP regarding the dizziness where his vitals had been checked and were found to be WNL, unremarkable visit overall. Pt's dizziness remained consistent from last monday up until Monday. On Monday night, pt awoke at 4 am with night sweats. Pt is unsure if he was experiencing any chest discomfort when being awoken at 4 am, but knows that throughout the day on monday he had constant chest pain accompanied by L. sided neck pain and bilateral arm pain. Pt also states he had a headache throughout the day. Pt decided to go to the ED that Monday where he was found to have an elevated blood pressure of 166/100. Pt was given lisinopril and a nitroglycerin patch, which seemed to help relieve his chest discomfort. Today deleon day 2 of the patient's admission. He states he is feeling better, no longer having chest discomfort, neck pain, arm pain, night sweats, or dizziness. Pt is ambulating without issue, no longer feeling dizzy, but still has a headache. Admission Exam Per Admitting Provider Vital Signs (Past 24 Hours): Last Vital Signs Temp 36.3 C L 08/06/18 21:03 Pulse 47 L 08/07/18 01:17 Resp 18 08/07/18 01:17 BP 167/89 H 08/07/18 01:17 Pulse Ox 95 08/07/18 00:45 Physical Exam: GENERAL: Comfortable, slightly anxious, no respiratory distress SKIN: Normal color, warm HEENT: [place] palpebral conjunctivae, no ptosis, dry buccal mucosa NECK : Supple, no tenderness CHEST : CTA, no tenderness HEART : Bradycardic, no obvious murmurs ABDOMEN: Some distention, nontender EXTREMITIES : No LE swelling/tenderness, no other conspicuous deformities noted NEUROLOGIC : Coherent, no facial asymmetry, no other gross focality Principal Diagnosis CHEST PAIN, LIKELY FROM HYPERTENSION Discharge Exam Vital Signs (Past 24 Hours): Last Vital Signs Temp 36.9 C 08/07/18 15:25 Pulse 67 08/07/18 15:25 Resp 19 08/07/18 15:25 BP 148/84 H 08/07/18 15:25 Pulse Ox 97 08/07/18 15:25 Physical Exam: General- oriented x 3, not in distress, speaks in sentences with no effort or accessory muscle use Eyes- anicteric Neck- no JVD Lungs- clear breath sounds bilaterally, no rales/wheezes Heart- normal rate, regular rhythm; no murmurs Abdomen- normal bowel sounds, nondistended, soft, nontender Extremities- no pretibial edema, no calf tenderness Neuro- alert, oriented x 3; no gross focal neurologic deficits Skin- warm & dry Discharge Data Allergies Allergy/AdvReac Type Severity Reaction Status Date / Time STATIN DRUGS AdvReac Muscle Pain Uncoded 08/06/18 22:17 Consultations 08/07/18 00:48 ED Decision to Admit Stat 08/07/18 02:43 Consult Cardiology Routine 08/07/18 09:02 Consult Neurology Routine 08/07/18 11:16 Consult Neurology Routine Ordered Studies 08/06/18 22:18 CT angio head w con HISTORY: Atherosclerotic change hayden, dizziness, known aneurysm TECHNIQUE: Multiaxial CT angiography of the head was performed IV contrast : None. Maximum intensity projection images were also obtained. A dose lowering technique was utilized adhering to the principles of ALARA. COMPARISON: None. FINDINGS: There is no mass, hematoma, midline shift, or acute infarct. Visualized intracranial internal carotid arteries, distal vertebral arteries, and basilar artery are widely patent. There is no significant stenosis, occlusion, or aneurysm seen within the bilateral ACAs, MCAs, or burrer marker axle. 50% narrowing cavernous component of the internal carotid arteries bilaterally. IMPRESSION: No significant stenosis, occlusion, or aneurysm within the [place]. 50 % narrowing of the cavernous components of the internal carotid arteries bilaterally. CT angio neck with con CLINICAL HISTORY: Headache, dizziness, known aneurysm. COMPARISON STUDY: No previous studies for comparison. TECHNIQUE: CT angiography was performed from the aortic arch to the skull base. MIP imaging was performed. The patient was scanned in a dynamic helical fashion during intravenous administration of 117 cc of Optiray 320. NASCET criteria was utilized. A dose lowering technique was utilized adhering to the principles of ALARA. CT DOSE: Technique: CT angiogram of the carotid and vertebral arteries was obtained using intravenous contrast and 3-D reconstruction. NASCET criteria was utilized. Findings: The right carotid revealed no evidence of aneurysm and no evidence of dissection. There is no evidence of hemodynamic significant stenosis. There is scattered atheromatous changes. The left carotid revealed no evidence of hemodynamic significant stenosis. There is no evidence of aneurysm. There is no evidence of dissection. There is scattered atheromatous changes. There is no evidence of hemodynamically significant vertebral stenosis. There is no evidence of vertebral dissection. There is scattered atheromatous changes. IMPRESSION: No evidence of hemodynamically significant carotid or vertebral artery stenosis. No evidence of dissection. HEAD CT NONCONTRAST TECHNIQUE: Multiaxial CT images of the head were performed without the use of intravenous contrast. Automated exposure control was utilized for this study. A dose lowering technique was utilized adhering to the principles of ALARA. Comparison: Head CT 12/21/2016. Findings: The paranasal sinuses and mastoid air cells are clear. The calvarium and skull base are intact. The ventricles and sulci are within normal limits. There is no mass, hematoma, midline shift, or acute infarct. Impression: No acute intracranial abnormality. 08/07/18 15:21 MR brain wo con HISTORY: 73 years-old Male r/o stroke acute strokelike symptoms COMPARISON: CT head August 06, 2017, brain MRI 12/21/2016 TECHNIQUE: Multiplanar multisequence MRI of the brain was obtained without the use of IV contrast. FINDINGS: Tong Setter localizer images demonstrate no gross abnormality. There is no restricted diffusion to suggest acute or subacute infarction. The midline structures including the corpus callosum, brainstem, optic chiasm, pituitary and pineal glands appear unremarkable the sagittal T1 series. No cerebellar tonsillar herniation. Degenerative changes noted about the imaged cervical spine. No acute intracranial hemorrhage, midline shift, abnormal extra-axial collections, hydrocephalus or intracranial mass. Mild degree of patchy T2/FLAIR hyperintensities about the white matter suggestive of chronic microvascular ischemic changes. These findings appear generally stable from comparison. The major flow voids at the level of the skull base appear patent. Mastoid air cells are clear. Mild mucosal thickening of the ethmoid and frontal sinuses. 2.8 cm linear area of polypoid mucosal thickening about the inferior right maxillary sinus. Orbits, soft tissues and skull are unremarkable. IMPRESSION: 1. No acute intracranial abnormality. 2. No acute or subacute infarction. 3. Suggestion of mild chronic microvascular ischemic changes. Hospital Course (1) Chest pain: History of CAD , CABG ACS ruled out troponins negative EKG no signs of acute ischemia Exercise Stress Test: negative evaluated by Dr. Teresa chest pain may be related to Hypertensive Urgency, Microvascular disease recommend to start Imdur 30mg qAM continue other usual medications monitor BP as outpatient Episodes of Dizziness CT angio of the head: 50% Bilateral R ICA stenosis Neuro consulted, Dr. Kong Brain MRI ordered: negative except chronic microvascular ischemic changes- findings appear generally stable from comparison. Dizziness resolved, likely from Vertigo as per Neuro History cerebral aneurysm CT Angio Head: no cerebral aneurysm noted Hyperglycemia/Pre Diabetes a1c 5.8 monitor as outpatient Total Time Total Time Spent Total Time Spent (In Minutes): 40 minutes Discharge Plan Discharge Items Patient Disposition: Home - Self-Care Reason For Visit: htn urgency Discharge Diagnosis: CHEST PAIN Discharge Goals: Diagnostic testing and Therapeutic intervention Activity: As commented below Activity Comment: RESUME ACTIVITY GRADUALLY TOLERATED, NO HEAVY EXERTION Lifting: Wait until after follow-up appointment Exercise/Sports: Wait until after follow-up appointment Driving/Machine Use Comment: NO DRIVING UNTIL RE-EVALUATED BY PRIMARY CARE PHYSICIAN Non-emergency contact: Primary Care Provider Call non-emergency contact if: you have any medication questions, your symptoms worsen, your pain is not controlled, your pain is worsening, your pain is unusual for you, your pain is concerning for you and you have a fever Follow-up/Referrals: Refugio Davis MD [Family Provider] - 08/09/18 12:45 pm Diet: Heart Healthy Add Provider Instructions: PLEASE FOLLOW UP WITH DR. DAVIS NOTED ABOVE. FOLLOW UP WITH [facility] IN 2 WEEKS. CALL PRIMARY CARE PHYSICIAN OR RETURN TO ER IMMEDIATELY IF WITH RECURRENCE OR WORSENING OF SYMPTOMS. ALWAYS STAY WELL HYDRATED. Prescriptions: New isosorbide mononitrate 30 mg Tablet Extended Release 24 Hr 30 mg PO QAM 30 Days Qty: 30 RF: 1 Continue aspirin [Aspir-81] 81 mg Tablet,Delayed Release (Dr/Ec) 81 mg PO DAILY RF: 0 lactobacillus combination no.4 [Probiotic] 3 billion cell Capsule 1 cap PO DAILY RF: 0 Multi Vitamin tablet 1 tab PO DAILY RF: 0 yrnhrcgwmln-spf-fxvzhqhuw-vitC [Glucosamine Complex-MSM] Capsule 1 cap PO DAILY RF: 0 acetaminophen [Tylenol Extra Strength] 500 mg Tablet 500 mg PO TID PRN (Reason: Pain) RF: 0 rbkrm-cj-5-bby-nxb-vwyyrjh-ast [krill oil] 1,005-169-75-80 mg Capsule 1 cap PO 3XWK RF: 0 coenzyme Q10 [Co Q-10] 100 mg Capsule 100 mg PO 2XWK RF: 0 Stand-Alone Forms: [facility] Discharge Orders: Discharge Order (Routine); Ordered 08/07/18 Ordered By: Abdoulaye Brunson Admission Data Admit Date/Time: 08/07/18 01:54 Attending Provider: Abdoulaye Brunson Admit Provider: Dario Ponce Primary Care Provider: Abdullahi Hicks Other Providers: Dario Ponce ; Dex Teresa ; Johnny Henning ; Crispin Nguyễn ; James Wallace ; Karson Jon ; Brennen Cowart ; Nhung Campbell ; Halie Croft ; Jesús Kong ; Halie Crespo ; Halie Griffith ; Sierra Smith ; Zak Garg ; Arely Anthony Service: Telemetry Medical
== END 2018-08-07 20:39 | disposition home or self-care (01) ==
LOC: 2N 21:00 → ED 21:00 → 2N 08-07 03:11

== ENCOUNTER 2025-03-07 14:52 | Inpatient (IN) ==
--- NOTE | 2025-03-07 15:16 | Emergency Department Note ---
Impression & Plan Chest pain ED Provider Note CHIEF COMPLAINT: Chest pain HISTORY OF PRESENTING ILLNESS: This 80-year-old male patient presents to the emergency department with his son for evaluation of chest pain. The patient states that [place] and started with a pinching left-sided chest pain at 10:30 AM. There is no radiation of the chest pain. The patient states that he was using his left arm to try to push a wire into a conduit when the symptoms started. The pain has been intermittent since that time, but has not fully resolved. The symptoms have intensified each time. He is also been having some mild headaches and dizziness with the chest pain. He denies any nausea, vomiting, vision changes, or shortness of breath with the symptoms. The patient tried to drink water in case it was from dehydration. He also laid down to rest, but neither the symptoms helped. He denies any change in his symptoms with exertion. He denies any urinary symptoms or changes in his bowel movements. He has a history of cardiac bypass surgery 8 years ago. He is prescribed nitroglycerin as needed, but did not take any today. He did take his 81 mg aspirin today. REVIEW OF SYSTEMS: See HPI for pertinent positives and pertinent negatives. ALLERGIES: Statins MEDICATIONS: See below PAST MEDICAL HISTORY: See below PHYSICAL EXAM: VITALS: Vitals are noted on the nurse's note and reviewed by myself. GENERAL: Non toxic, in no acute distress, non-diaphoretic. SKIN: Capillary refill <2 sec. EYES: PERRLA. EOMI. Conjunctivae without injection, sclerae without icterus. NOSE: Patent without discharge. MOUTH: Mucous membranes moist. Uvula midline. Airway patent. NECK: Supple without nuchal rigidity. HEART: Regular rate and rhythm without murmurs gallops or rubs. LUNGS: Clear to auscultation bilaterally without wheezes, rales or rhonchi. No retractions or accessory muscle use. ABDOMEN: Positive bowel sounds x 4. Normal tympanic percussion. Soft, nontender to palpation. No masses or hepatosplenomegaly. Rahman sign negative. No CVA tenderness. No guarding, rigidity, or rebound tenderness. No focal RLQ or LLQ tenderness. MUSCULOSKELETAL: No gross musculoskeletal defects. Bilateral lower extremities negative for edema, erythema, warmth, or cording. Peripheral pulses 2+ and equal in the bilateral upper and lower extremities. NEURO: Patient was alert and oriented. No focal neurological deficits. DIFFERENTIAL DIAGNOSIS: Differential diagnosis includes angina, SD, pericarditis, myocarditis, aortic dissection, pleurisy, pneumothorax, PE, pneumonia, pneumomediastinum, esophagitis, esophageal spasm, GERD, perforated esophagus, perforated duodenal/gastric ulcer, pancreatitis, cholecystitis, costochondritis, musculoskeletal, bronchitis, URI, or others. ED COURSE AND MEDICAL DECISION MAKING: HISTORY FROM INDEPENDENT HISTORIAN: Additional history obtained from the patient's son MEDICATIONS GIVEN: Aspirin 324 mg p.o. Nitropaste 1 inch MONITOR: Continuous rn cardiac cath: Order was placed for continuous rn cardiac cath. Patient was placed on the rn cardiac cath and continuous pulse ox. Patient was noted to be in normal sinus rhythm at an initial rate of 80 bpm per my interpretation. EKG: EKG was interpreted by myself as sinus rhythm at 76 bpm with no acute ST or T wave changes and no significant change from the previous EKG. INTERPRETATION OF LABS: I interpreted the labs with full lab results as below in the lab section of this note. Laboratory results pertinent to the emergent complaint are discussed in the MDM section below. The patient was advised to follow up with their PCP and/or specialist(s) for further outpatient monitoring and management of any abnormal results. INTERPRETATION OF IMAGING: Imaging studies were interpreted by myself and read by radiology as per the imaging section of this note. The patient was advised to follow up with their PCP and/or specialist(s) for further outpatient management of any non-emergent abnormal findings. Chest x-ray negative for acute cardiopulmonary etiology. CHRONIC MEDICAL/SOCIAL CONDITIONS AFFECTING CARE: History of cardiac bypass surgery CONSULTATIONS: On-call hospitalist MDM SUMMARY: I examined the patient. The patient started with intermittent chest pain at 10:30 AM this morning as described above. The patient continues to have intermittent episodes that seem to be getting progressively worse. The patient has a history of cardiac bypass surgery. An IV lock was placed and labs were drawn. The patient was given aspirin 324 mg p.o. The patient had been having intermittent symptoms while in the emergency department until nitro place was placed. The patient denied any additional episodes of chest pain after the Nitropaste was placed. White blood cell count normal at 6.95. Hemoglobin normal at 14. Platelet count normal at 236. Coags were normal. Anion gap 12, BUN 27, and glucose 179. CMP otherwise without significant abnormalities. Magnesium normal. High- sensitivity troponin normal. Chest x-ray negative for acute cardiopulmonary etiology. I had a meaningful discussion about this patient with Dr. Lawler who agrees with my assessment and the treatment plan. The patient had resolution of his chest pain with the nitro placed. He does have a history of cardiac bypass surgery. Therefore, we feel the patient requires admission for further inpatient cardiac workup. I spoke with the on-call hospitalist who agreed to admit the patient for further management. Please refer to their dictation for further details. The patient's care was transferred in stable condition. DIAGNOSIS: Chest pain Past Med/Surg History Problem List (Updated 03/07/25 @ 22:35 by Hermelinda Dietz PA-C) Hypertension (Acute) Dizziness (Acute) Chest pain (Acute) Medical History (Updated 03/07/25 @ 22:35 by Hermelinda Dietz PA-C) CKD (chronic kidney disease), stage III Dyslipidemia CAD (coronary artery disease) Intracranial abscess Diverticulitis DVT (deep venous thrombosis) IBS (irritable bowel syndrome) Surgical History History of quadruple bypass Social History (Updated 03/07/25 @ 21:07 by Chiquis Navarrete PA-C) Smoking Status: Never smoker Do You Dip or Chew Tobacco: No; Hx Alcohol Use: Yes Alcohol type: wine Hx Substance Use: No Preferred Language: Vincentian Communication Ability: Effective Head Loader Required: No Beliefs That Will Affect Care: None Current Living Situation: Alone Other Information That Helps Us Care for You: No Feels Safe at Home: Yes Safety Concerns: Feels Safe At This Time Assistive Devices: Glasses Allergies Allergies Allergy/AdvReac Type Severity Reaction Status Date / Time [id number]-[id number]-WbE Reductase AdvReac Muscle Pain Verified 03/07/25 21:40 Inhibitor Home Meds Home Medications Medication Instructions Recorded Confirmed acetaminophen 500 mg tablet 500 mg PO TID PRN Pain 08/06/18 03/07/25 (Tylenol Extra Strength) swibbjkhpcd-uik-uqhktdbms-vitC 1 cap PO QAM 08/06/18 03/07/25 capsule (Glucosamine Complex-MSM capsule) multivitamin 1 tab PO QAM 02/20/19 03/07/25 evolocumab 140 mg/mL subcutaneous 140 mg subcut UD 01/06/24 03/07/25 pen injector (Sd Patterson) psyllium husk 3.4 gram/5.4 gram 1 tbsp PO DAILY 02/08/24 03/07/25 oral powder (Metamucil) amlodipine 5 mg tablet 5 mg PO DAILY 03/07/25 03/07/25 aspirin 81 mg tablet,delayed 81 mg PO DAILY 03/07/25 03/07/25 release hydrochlorothiazide 12.5 mg tablet 12.5 mg PO DAILY 03/07/25 03/07/25 Previous Rx's Medication Instructions Recorded nitroglycerin 0.4 mg sublingual 0.4 mg sublingual Q5M PRN chest 06/15/24 tablet pain #25 tabs Results & Data (ED) Vital Signs Vital Signs - 24 hr 03/07/25 14:55 03/07/25 15:30 03/07/25 15:35 Temperature 36.9 C Temperature Source Temporal Artery Scan Pulse Rate 87 69 Pulse Rate [Left Apical] Respiratory Rate 19 Respiratory Effort / Characteristics Respiratory Depth Normal Respiratory Pattern Blood Pressure 139/71 153/110 H Blood Pressure [Right Arm] Blood Pressure Mean 93 140 Blood Pressure Mean [Right Arm] Pulse Oximetry 97 Oxygen Delivery Method Room Air Sepsis Recent Fever Within 48 Hours No Sepsis New/Unexplained Change in Mental Status N/A Sepsis Action Taken by Nursing No Action Required 03/07/25 15:41 03/07/25 16:09 03/07/25 16:31 Temperature Temperature Source Pulse Rate 68 Pulse Rate [Left Apical] 71 Respiratory Rate 18 21 Respiratory Effort / Characteristics Non-Labored Spontaneous Respiratory Depth Normal Respiratory Pattern Regular Blood Pressure 142/79 H 149/83 H Blood Pressure [Right Arm] 143/77 H Blood Pressure Mean 100 101 Blood Pressure Mean [Right Arm] 99 Pulse Oximetry 94 92 Oxygen Delivery Method Room Air Room Air Sepsis Recent Fever Within 48 Hours Sepsis New/Unexplained Change in Mental Status Sepsis Action Taken by Nursing 03/07/25 16:51 03/07/25 16:57 Temperature Temperature Source Pulse Rate 73 75 Pulse Rate [Left Apical] Respiratory Rate 23 21 Respiratory Effort / Characteristics Respiratory Depth Respiratory Pattern Blood Pressure 132/71 Blood Pressure [Right Arm] Blood Pressure Mean 91 Blood Pressure Mean [Right Arm] Pulse Oximetry 93 91 Oxygen Delivery Method Room Air Room Air Sepsis Recent Fever Within 48 Hours Sepsis New/Unexplained Change in Mental Status Sepsis Action Taken by Nursing Laboratory Data 03/07/25 15:05 03/07/25 15:05 Lab Results 03/07/25 Range/Units 15:05 WBC 6.95 (4.8-10.8) K/ul RBC 5.37 (4.70-6.10) M/uL Hgb 14.0 (14.0-18.0) g/dl Hct 42.9 (42.0-52.0) % MCV 79.9 L (80.0-100.0) fL MCH 26.1 (25.0-34.0) pg MCHC 32.6 (32.0-36.0) g/dL RDW Std Deviation 42.3 (36.4-46.3) fL RDW Coeff of Marie 14.6 H (11.5-14.5) % Plt Count 236 (130-400) K/uL MPV 10.5 (9.4-12.4) fL Immature Gran % (Auto) 0.4 % Neut % (Auto) 62.1 % Lymph % (Auto) 28.1 % [place] % (Auto) 7.2 % Eos % (Auto) 1.3 % Baso % (Auto) 0.9 % Neut # (Auto) 4.32 (1.40-6.50) K/uL Lymph # (Auto) 1.95 (1.20-3.40) K/uL [place] # (Auto) 0.50 (0.11-0.59) K/uL Eos # (Auto) 0.09 (0.00-0.50) K/uL Baso # (Auto) 0.06 (0.00-0.20) K/uL Immature Gran # (Auto) 0.03 (0.01-0.20) K/uL PT 10.3 (9.0-12.0) Seconds INR 0.9 (0.9-1.1) APTT 26 (21-31) Seconds PTT Ratio 1.0 Sodium 139 (136-145) mmol/L Potassium 3.8 (3.5-5.1) mmol/L Chloride 103 (98-107) mmol/L Carbon Dioxide 24 (21-32) mmol/L Anion Gap 12 H (3-11) BUN 27 H (6-23) mg/dl Creatinine 1.26 (0.6-1.4) mg/dl Est Cr Clr Drug Dosing 45.2 ml/min eGFR 56.94 BUN/Creatinine Ratio 21.4 H (10-20) Glucose 179 H (70-99(Fasting)) mg/dl Calcium 9.3 (8.6-10.3) mg/dl Magnesium 2.0 (1.7-2.4) mg/dl Total Bilirubin 0.5 (0.2-1.0) mg/dl AST 23 (13-39) U/L ALT 20 (7-52) U/L Alkaline Phosphatase 71 (34-104) U/L Troponin I High Sens 13.2 (0-20) pg/ml Total Protein 7.4 (6.0-8.3) gm/dl Albumin 4.2 (3.4-5.0) gm/dl Globulin 3.2 (2.5-4.0) gm/dl Albumin/Globulin Ratio 1.3 (0.9-2) Administered Medications Heparin Sodium (Porcine) (Heparin Sod 5,000 Unit/0.5 Ml Vial) 5,000 units SQ Q12 BLACK Stop: 04/06/25 21:30 Last Admin: 03/07/25 21:56 Dose: 5,000 units Documented By: [place] Discontinued Medications Aspirin (Aspirin Chew 324 Mg) 324 mg PO NOW STA Stop: 03/07/25 15:35 Last Admin: 03/07/25 15:42 Dose: 324 mg Documented By: [facility] Nitroglycerin (Nitroglycerin 2% Ointment 30gm Tube) 1 inch EXT NOW STA Stop: 03/07/25 15:35 Last Admin: 03/07/25 15:42 Dose: 1 inch Documented By: [facility] Imaging Data Radiologist's Impression: Chest X-Ray 03/07/25 14:58 XR chest 1V portable CLINICAL HISTORY: Chest pain, nonspecific COMPARISON STUDY: Chest CT January 12, 2017. Chest radiograph June 15, 2024. FINDINGS: Median sternotomy wires and mediastinal surgical clips are noted. Lung volumes are normal. There is no consolidation to suggest pneumonia. Linear left basilar densities represent atelectasis. There is no pneumothorax or pleural effusion. Cardiac size is normal. Mediastinal contours are normal. There is no evidence for pulmonary edema. IMPRESSION: No acute cardiopulmonary findings. ACT 112: Negative or not required by law. Electronically signed by: Elliott Justice M.D. 03/07/2025 3:37 PM Discharge Plan Visit Data Chief Complaint: Chest Pain Stated Complaint: CHEST PAIN/HEAD ACHES ED Provider: Rich Lawler ED Midlevel Provider: Hermelinda Dietz Discharge Problem: Chest pain Patient Disposition: Admitted As Inpatient Condition: Fair Discharge Instructions Interventions: ED Discharge Assessment Last Done: 03/07/25 21:18 Discharge Problem: Chest pain Qualifiers: Chest pain type: unspecified Qualified Code(s): R07.9 - Chest pain, unspecified
[2025-03-07 15:19] LABS: Hematocrit (blood only) 42.9 % (42.0-52.0); Hemoglobin 14.0 g/dl (14.0-18.0); Immature Granulocytes # (auto) 0.03 K/uL (0.01-0.20); Immature Granulocytes % (auto) 0.4 %; Mean Corpuscular Hemoglobin 26.1 pg (25.0-34.0); Mean Corpuscular Volume 79.9 fL (80.0-100.0); Platelet Count 236 K/uL (130-400); RDW Standard Deviation 42.3 fL (36.4-46.3); Red Blood Count 5.37 M/uL (4.70-6.10); White Blood Count 6.95 K/ul (4.8-10.8)
--- NOTE | 2025-03-07 15:36 | Emergency Department Note ---
ED Visit Note I was consulted by the Advanced Practice Provider. I personally made/approved the management plan and take responsibility for the patient management. I performed a substantive portion of the visit. This includes the aspects of: [-I independently interpreted the following studies:][Chest x-ray does not show mediastinal widening, pneumonia or pneumothorax.] The patient presents with chest pain, he does have a cardiac history. He felt better with the application of nitroglycerin paste. Given his cardiac history, given his presentation, hospitalization and further cardiac workup was felt warranted. .
[2025-03-07 15:37] LABS: Alanine Aminotransferase 20.0 U/L (7-52); Albumin Globulin Ratio 1.3 (0.9-2); Alkaline Phosphatase 71.0 U/L (34-104); Anion Gap 12.0 (3-11); Bilirubin,Total 0.5 mg/dl (0.2-1.0); Blood Urea Nitrogen 27.0 mg/dl (6-23); Calcium 9.3 mg/dl (8.6-10.3); Carbon Dioxide 24.0 mmol/L (21-32); Chloride 103.0 mmol/L (98-107); Creatinine Clr Calc Pharmacy 45.2 ml/min; Globulin 3.2 gm/dl (2.5-4.0); Glucose 179.0 mg/dl (70-99(Fasting)); Potassium 3.8 mmol/L (3.5-5.1); Sodium 139.0 mmol/L (136-145); Total Protein 7.4 gm/dl (6.0-8.3)
--- NOTE | 2025-03-07 15:38 | XRay Report ---
XR chest 1V portable CLINICAL HISTORY: Chest pain, nonspecific COMPARISON STUDY: Chest CT January 12, 2017. Chest radiograph June 15, 2024. FINDINGS: Median sternotomy wires and mediastinal surgical clips are noted. Lung volumes are normal. There is no consolidation to suggest pneumonia. Linear left basilar densities represent atelectasis. There is no pneumothorax or pleural effusion. Cardiac size is normal. Mediastinal contours are normal . There is no evidence for pulmonary edema. IMPRESSION: No acute cardiopulmonary findings. ACT 112: Negative or not required by law. Electronically signed by: Elliott Justice M.D. 03/07/2025 3:37 PM
[2025-03-07] MEDS: ASPIRIN CHEW 324 MG PO STA (15:42)
[2025-03-07] MEDS: NITROGLYCERIN 2% OINTMENT 30GM TUBE EXT STA (15:42)
[2025-03-07 15:47] LABS: INR 0.9 (0.9-1.1); Partial Thromboplastin Time 26 Seconds (21-31); Prothrombin Time 10.3 Seconds (9.0-12.0)
[2025-03-07 15:56] LABS: Magnesium 2.0 mg/dl (1.7-2.4)
--- NOTE | 2025-03-07 16:37 | History & Physical Report ---
Date of Service March 07, 2025 Assessment & Plan (1) Chest pain: (2) CAD (coronary artery disease): Plan: Patient is 80 year old male with PMH HTN, dyslipidemia, CAD s/p CABG x 4 in 2017, CKD III, IBS and others listed below presented to ER with c/o intermittent left sided CP today. 06/28/2024 echo: EF: 60-64%, grade 1 diastolic dysfunction, mild aortic stenosis, mild aortic regurgitation, mild mitral regurgitation, mild tricuspid regurgitation, no evidence of pulmonary hypertension, proximal ascending thoracic aorta mildly enlarged at 4 cm In ER vitals stable EKG without acute ST elevation. Troponin negative x 2 In ER given aspirin 324mg and nitro paste applied. Reports CP resolution with nitropaste without recurrence during ER course R/O ACS Repeat EKG in am Will trend troponin Echo H/O Statin intolerance H/O beta ellen intolerance - bradycardia Lipid panel, A1c in am Continue aspirin -lipid panel, ?statin Nitro prn CP and repeat EKG for CP Cardiology consult (3) Hypertension: Plan: Continue amlodipine, HCTZ (4) Dyslipidemia: Plan: Statin intolerant On Repatha (5) CKD (chronic kidney disease), stage III: Plan: Cr: 1.26. Baseline creatinine 1.2 DVT Prophylaxis Heparin SQ Admit telemetry Full Code as per discussion with pt Follows with Dr Hicks for routine care Pt was seen and care coordinated with Dr Wei. See addendum I spent a total of 60 minutes reviewing notes, outpatient records, labs, medication, coordinating, documenting and providing care for this patient excluding time spent in the performance of separately billed services and excluding time spent by another provider/QHP. History of Present Illness Chief Complaint: CP Primary Care Provider: Abdullahi Hicks DO Patient is 80 year old male with PMH HTN, dyslipidemia, CAD s/p CABG x 4 in 2017, CKD III, IBS and others listed below presented to ER with c/o CP today. Patient reports today was threading wire through a pipe with left arm and started with some twinging left chest pain. States was "pinching" sensation. Initially he thought it may be muscular. He sat and rested. States intermittent left chest pain throughout the day. States his head felt "a little foggy" but denies ESPANA, dizziness, syncope, vision change. Left CP remained intermittent throughout the day. Denies worsening pain with ROM extremities or inspiration or palpation. Denies fever/chills, diaphoresis, N/V/D/C, ESPANA, dizziness, syncope, vision changes, neck pain, SOB, palpitations, cough, rhinorrhea, abdominal pain, paresthesias, weakness, extremity edema, rashes, urinary symptoms. In ER nitro paste placed with resolution of CP. Allergies Allergy/AdvReac Type Severity Reaction Status Date / Time STATIN DRUGS AdvReac Muscle Pain Uncoded 02/08/24 16:47 Home Medications Medication Instructions Recorded Confirmed Type acetaminophen 500 mg tablet 500 mg PO TID PRN Pain 08/06/18 03/07/25 History (Tylenol Extra Strength) cnkmnutgniz-bzp-yxzyzclus-vitC 1 cap PO QAM 08/06/18 03/07/25 History capsule (Glucosamine Complex-MSM capsule) multivitamin 1 tab PO QAM 02/20/19 03/07/25 History evolocumab 140 mg/mL subcutaneous 140 mg subcut UD 01/06/24 03/07/25 History pen injector (Sd Patterson) psyllium husk 3.4 gram/5.4 gram 1 tbsp PO DAILY 02/08/24 03/07/25 History oral powder (Metamucil) nitroglycerin 0.4 mg sublingual 0.4 mg sublingual Q5M PRN chest 06/15/24 03/07/25 Rx tablet pain #25 tabs amlodipine 5 mg tablet 5 mg PO DAILY 03/07/25 03/07/25 History aspirin 81 mg tablet,delayed 81 mg PO DAILY 03/07/25 03/07/25 History release hydrochlorothiazide 12.5 mg tablet 12.5 mg PO DAILY 03/07/25 03/07/25 History Past Med/Surg History Problem List (Updated 03/07/25 @ 21:09 by Chiquis Navarrete PA-C) Hypertension (Acute) Dizziness (Acute) Chest pain (Acute) Medical History (Updated 03/07/25 @ 21:09 by Chiquis Navarrete PA-C) CKD (chronic kidney disease), stage III Dyslipidemia CAD (coronary artery disease) Intracranial abscess Diverticulitis DVT (deep venous thrombosis) IBS (irritable bowel syndrome) Surgical History History of quadruple bypass Social History (Updated 03/07/25 @ 21:07 by Chiquis Navarrete PA-C) Smoking Status: Never smoker Do You Dip or Chew Tobacco: No; Hx Alcohol Use: Yes (3 drinks a month) Alcohol type: wine Hx Substance Use: No Preferred Language: Gambian Communication Ability: Effective Civil Engineer'S Aide Required: No Beliefs That Will Affect Care: None Current Living Situation: Spouse Feels Safe at Home: Yes Assistive Devices: None Review of Systems Review of Systems: All systems reviewed & are unremarkable except as noted in HPI & below Physical Exam Physical Exam: General: no distress, WDWN Head: normocephalic, atraumatic Eyes: conjunctiva non-injected, anicteric ENT: normal inspection external ears, nose, mucous membranes moist Neck: supple, trachea midline Lungs: clear, no respiratory distress, no wheezing/rhonchi/rales CV: RRR, + murmur, no JVD, 1+ pretibial edema Abd: normal BS, soft, non-tender Ext: no cyanosis, no calf tenderness Neuro: A&O x 3, no focal deficits noted, normal affect Skin: warm, dry Results & Data Results & Data Vital Signs (Past 12 Hours) Vital Signs Temp Pulse Pulse Resp BP BP Pulse Ox 03/07/25 15:41 71 18 143/77 H 94 03/07/25 15:35 69 03/07/25 15:30 153/110 H 03/07/25 14:55 36.9 C 87 19 139/71 97 O2 Del Method 03/07/25 15:41 Room Air 03/07/25 15:35 03/07/25 15:30 03/07/25 14:55 Room Air Laboratory Results Short CBC 03/07/25 Range/Units 15:05 WBC 6.95 (4.8-10.8) K/ul Hgb 14.0 (14.0-18.0) g/dl Hct 42.9 (42.0-52.0) % Plt Count 236 (130-400) K/uL BMP 03/07/25 15:05 Sodium 139 Potassium 3.8 Chloride 103 Carbon Dioxide 24 BUN 27 H Creatinine 1.26 Glucose 179 H Calcium 9.3 Liver Function 03/07/25 Range/Units 15:05 Total Bilirubin 0.5 (0.2-1.0) mg/dl AST 23 (13-39) U/L ALT 20 (7-52) U/L Alkaline Phosphatase 71 (34-104) U/L Albumin 4.2 (3.4-5.0) gm/dl Diagnostic Findings Chest X-Ray 03/07/25 14:58 XR chest 1V portable CLINICAL HISTORY: Chest pain, nonspecific COMPARISON STUDY: Chest CT January 12, 2017. Chest radiograph June 15, 2024. FINDINGS: Median sternotomy wires and mediastinal surgical clips are noted. Lung volumes are normal. There is no consolidation to suggest pneumonia. Linear left basilar densities represent atelectasis. There is no pneumothorax or pleural effusion. Cardiac size is normal. Mediastinal contours are normal. There is no evidence for pulmonary edema. IMPRESSION: No acute cardiopulmonary findings. ACT 112: Negative or not required by law. Electronically signed by: Elliott Justice M.D. 03/07/2025 3:37 PM ECG Additional Comments: Sinus rhythm, first-degree AV block, rate 76, T wave inversion in septal leads, T wave flattening anterior leads. Compared to EKG 06/15/2024 T wave septal leads present, appears T wave flattening more pronounced anterior leads on today's EKG compared to prior per my interpretation Supervising Physician Co-Signing Physician Notes I have seen and discussed the case with the collaborating advanced practitioner. I agree with the above H&P. I have reviewed and confirmed the patients medical history, the findings on physical examination, and the patients diagnosis and treatment plan with Rosalba STOLL and agree with the information documented. In short, Mr. De La Torre is an 80 yo gentleman presenting with sudden onset tight chest pain throughout the day today. He notes that he was at a hunting camp site and working to thread wire, but as he was doing so a sudden tight sensation started in his left chest into his left shoulder. He though maybe it was muscular in nature--but it didnt hurt when he touched it and massage didn't worsening or help the sensation. The pain would subside briefly but would then return sporadically. Given his cardiac history, he became concerns, prompting presentation to ED. He denies palpitations, diaphoresis, or other symptoms. Trops negative x 2, EKG with out concerns for active ACS #Chest pain, ACS r/o continue to trend trops x 3 monitor on tele ECHO in am nitro offered relief upon presentation, continue nitro sl prn rest of plan as above I spent a total of 25 minutes coordinating, documenting, and providing care for this patient excluding time spent in the performance of separately billed services. All of the aforementioned completed outside of collaborating with the assigned advanced practitioner for a full treatment plan. I have reviewed the advanced practitioner's documentation, and I agree with, and take responsibility for the plan of care (1) Chest pain Chest pain type: unspecified Qualified Code(s): R07.9 - Chest pain, unspecified
[2025-03-07] MEDS ORDERED: NITROGLYCERIN SL 0.4 MG/TAB TAB SL PRN (21:31)
[2025-03-07] MEDS ORDERED: POLYETHYLENE (MIRALAX) 17 GM PACK PO PRN (21:31)
[2025-03-07] MEDS ORDERED: ONDANSETRON INJ 2 MG/ML 2 ML VIAL IV PRN (21:31)
[2025-03-07] MEDS ORDERED: ACETAMINOPHEN 325 MG TAB PO PRN (21:31)
[2025-03-07] MEDS ORDERED: MAGNESIUM HYDROXIDE SUSP 30 ML UDC PO PRN (21:31)
[2025-03-07] MEDS: HEPARIN SOD 5,000 UNIT/0.5 ML VIAL SQ SCH (21:56)
[2025-03-07] MEDS ORDERED: Heparin IV Adult Wt-Based Standard *NO* INITIAL Bolus Protocol IV STA (23:28)
--- NOTE | 2025-03-07 23:28 | Communication Note ---
Date of Service: March 07, 2025 Third troponin noted to be elevated at 42.9. AP NSTEMI History of CAD status post CABG Initiate IV heparin Await cardio input in AM. Continue n.p.o. status.
[2025-03-08 01:25] LABS: Partial Thromboplastin Time 27 Seconds (21-31)
[2025-03-08] MEDS: HEPARIN 25000 UNIT/500 ML D5W 25,000 UNITS/500 ML BAG IV SCH (01:35)
[2025-03-08] MEDS: NSS + 20MEQ KCL 20 MEQ/1,000 ML BAG IV ONE (03:42)
--- NOTE | 2025-03-08 08:28 | Cardiology Consultation ---
Date of Consultation March 08, 2025 Assessment & Plan (1) Chest pain: (2) CAD (coronary artery disease): (3) History of quadruple bypass: (4) Sinus bradycardia: (5) Hypertension: Plan 80 year old male who presented to [facility] ED on 03/07/25 for evaluation of non- radiating, exertional left-sided chest pain. Seen by cardiology today for evaluation of chest pain given prior history of multivessel CAD s/p CABG x4 (2016). Chest discomfort radiated at 5 out of 10 upon arrival. Resolved after received ASA and nitro paste. EKG upon admission with no acute ischemic changes. High sensitivity troponins x2 mildly elevated (42-33). 1. Chest pain 2. Multivessel coronary artery disease s/p CABG x4 (2016) with SCHWARZ to the LAD, SVG to the OM1-OM3, SVG to the RCA 3. Family history of premature CAD -Remains stable and asymptomatic with no recurrent anginal symptoms -EKG upon admission with no acute ischemic changes -High-sensitivity troponins x2 (42-33) mildly elevated but trending down -Continue IV heparin gtt for anticoagulation -Continue to trend troponins x3 -ECHO pending today -Continue [employer] aspirin and amlodipine as per current regimen -Tentatively plan for cardiac catheterization on Monday and NPO except for medications at midnight on Monday -Continue to monitor on telemetry 4. Hypertension -Blood pressure well controlled this AM -Continue amlodipine as per current regimen 5. Beta-ellen intolerance, resting bradycardia -Sinus bradycardia with 1st degree AVB and rates 50-70s upon telemetry review -Hold AV edel blockers given history of beta-ellen intolerance and resting bradycardia Case discussed and coordinated with Dr. Garnica. Please see Dr. Garnica notes for further recommendations. I spent a total of 45 minutes coordinating, documenting, and providing care for this patient excluding time spent in the performance of separately billed services or time spent by another provider/QHP. JEFF Chong Department of Cardiology Supervising Physician Co-Signing Physician Notes I spent a total of 50 minutes on the date of service in preparation, delivery, and documentation of the care provided to this patient, excluding any time spent in the performance of separately billed services. I have personally performed a history and physical examination on the patient. I have reviewed the advance practitioner's documentation, and I agree with, and take responsibility for the plan of care. 80-year-old male with history of coronary artery disease status post x 4 in [address] [facility] with exertional left-sided chest that started yesterday. He states that he has not been feeling himself since his back in June. At the time he was having some chest discomfort but mostly fatigue was seen by cardiology as an outpatient and had a Lexiscan nuclear stress test done that was negative for inducible ischemia. He states he continued to had fatigue especially with exertion. He states he is a very active gentleman actively plays golf. He states he feels more tired lately. Yesterday while at camp with his children he started having left-sided chest discomfort with exertion initially thought it was a musculoskeletal pull as he was lifting things around camp when it persisted with exertion. Did not take any nitroglycerin. By the time he got to the ER he received aspirin and Nitropaste with improvement in his symptoms. He has not had any recurrence of chest discomfort. His ECG showed sinus rhythm with no acute ischemic changes troponins did bump up to 43 and down trended to 33. He denied having any dyspnea or syncope. Denies any abnormal bleeding. Echocardiogram done today showed preserved left ventricular ejection fraction with moderate mitral regurgitation (the jet is eccentric and degree of severity may be underestimated). I had a long discussion with patient and his family about his symptoms. He did have a negative Lexiscan nuclear stress test done a few months ago but his symptoms of fatigue have persisted and now having chest pain with exertion. [place] decision was made with patient and his family to proceed with a left heart catheterization on Monday for more definitive evaluation for underlying coronary artery disease. He does have moderate mitral regurgitation the jet does appear to be eccentric may consider a transesophageal echocardiogram in the future. Agree with heparin drip. He will need to be n.p.o. on Monday after midnight. Continue to monitor on telemetry. Blood pressure still elevated today consider increasing amlodipine to 10 mg p.o. daily. Patient not on statin due to myalgias. Will consider PCSK9 inhibitor. History of Present Illness Reason for Consultation: Chest pain Requesting Physician: Chiquis Navarrete PA-C Attending Physician: Abdoulaye Brunson MD History of Present Illness 80 year old male who presented to [facility] ED on 03/07/25 for evaluation of chest pa in. Seen by cardiology today for evaluation of chest pain with prior history of multivessel CAD s/p CABG x4 (2017). He was at hunting camp with his son and doing more strenuous activity. He was helping his son lift a shed when he developed non-radiating left-sided chest discomfort. Paulina like a mild "pinching" sensation and initially thought it was muscular pain. Pain resolved quickly with rest but had intermittent exertional left-sided chest discomfort throughout the day. He had another episode when he was trying to thread a wire through a conduit and while he was changing oil. Associated headache. Denies associated shortness of breath, nausea, diaphoresis, or tachy palpitations. He got back home and took his blood pressure with systolic in 160-170s. He decided to come into hospital for further evaluation. Chest discomfort radiated at 5 out of 10 upon arrival. Resolved after received ASA and nitro paste. Denies fatigue, weakness, worsening dyspnea on exertion, lightheadedness, dizziness, syncope, orthopnea, PND, worsening edema, or recent weight gain. Denies tobacco, alcohol, or illicit drug use. Significant family history of premature cardiovascular disease with father passing away at age 43 of heart attack. Past Medical History: 1. Multivessel coronary artery disease s/p CABG x4 (2017) with SCHWARZ to the LAD, SVG to the OM1-OM3, SVG to the RCA 2. Postoperative atrial fibrillation, without documented recurrence. 2. Hypertension 3. Dyslipidemia with statin intolerance 4. Beta-ellen intolerance, resting bradycardia 5. CKD stage III 7. Irritable bowel syndrome 8. Diverticulitis. 9. History of DVT 10. History of cerebral aneurysm 11. Family history of premature coronary artery disease, father at the age of 53 Allergies Allergy/AdvReac Type Severity Reaction Status Date / Time Szechoc-KMT-GrD Reductase AdvReac Muscle Pain Verified 03/07/25 21:40 Inhibitor Home Medications Medication Instructions Recorded Confirmed Type acetaminophen 500 mg tablet 500 mg PO TID PRN Pain 08/06/18 03/07/25 History (Tylenol Extra Strength) vnmjkhsklfv-gsw-kclverfph-vitC 1 cap PO QAM 08/06/18 03/07/25 History capsule (Glucosamine Complex-MSM capsule) multivitamin 1 tab PO QAM 02/20/19 03/07/25 History evolocumab 140 mg/mL subcutaneous 140 mg subcut UD 01/06/24 03/07/25 History pen injector (gila Patterson) psyllium husk 3.4 gram/5.4 gram 1 tbsp PO DAILY 02/08/24 03/07/25 History oral powder (Metamucil) nitroglycerin 0.4 mg sublingual 0.4 mg sublingual Q5M PRN chest 06/15/24 03/07/25 Rx tablet pain #25 tabs amlodipine 5 mg tablet 5 mg PO DAILY 03/07/25 03/07/25 History aspirin 81 mg tablet,delayed 81 mg PO DAILY 03/07/25 03/07/25 History release hydrochlorothiazide 12.5 mg tablet 12.5 mg PO DAILY 03/07/25 03/07/25 History Patient History Medical History (Updated 03/08/25 @ 08:27 by JEFF Chong) CKD (chronic kidney disease), stage III Dyslipidemia CAD (coronary artery disease) Intracranial abscess Diverticulitis DVT (deep venous thrombosis) IBS (irritable bowel syndrome) Surgical History History of quadruple bypass Social History (Updated 03/07/25 @ 21:07 by Chiquis Navarrete PA-C) Smoking Status: Never smoker Do You Dip or Chew Tobacco: No; Hx Alcohol Use: Yes Alcohol type: wine Hx Substance Use: No Preferred Language: Bahraini Communication Ability: Effective Fabrics And Material Cutter Required: No Beliefs That Will Affect Care: None Current Living Situation: Alone Other Information That Helps Us Care for You: No Feels Safe at Home: Yes Safety Concerns: Feels Safe At This Time Assistive Devices: Glasses Review of Systems Review of Systems: See HPI for pertinent positives. All others negative other than those noted in the HPI. CONSTITUTIONAL: No change in weight, No weakness, No fatigue, No fevers, No sweats or chills. HEENT: +headache. No visual changes, No epistaxis, No bleeding gums, No dysphagia, PULMONARY: No cough, sputum, or hemoptysis, No wheezing, No shortness of breath, and No recent change in breathing. CARDIOVASCULAR: +chest pain. No dyspnea on exertion, No edema, No palpitations, No syncope, No claudication, No calf pain. GASTROINTESTINAL: No change in appetite, No abdominal pain, No change in bowel habits, No significant heartburn, No nausea, No vomiting, No diarrhea, No constipation, No blood in stools or black tarry stools, No dysphagia. HEMATOLOGIC: No abnormal bleeding and No bruising. NEUROLOGICAL: No falls, No dizziness, No lightheadedness, Normal balance, No headaches, and No weakness. PSYCH: No sleep disturbances, No mood changes. Physical Exam Physical Exam: Vital signs within normal limits as above. General: Well developed and nourished. No acute distress. A+Ox3. HEENT: Normocephalic. Atraumatic. EOMI. Conjunctiva and sclera clear. NECK: Trachea midline. No thyromegaly. No carotid bruits. No JVD. Carotid upstrokes are brisk. Heart: RRR. S1 and S2 noted. Grade II/ systolic murmur. No rubs or gallops. PMI non displaced. Lungs: No acute respiratory distress. Clear to auscultation. No wheezes.No rhonchi. No rales. Abdomen: Normal bowel sounds. Soft. Nontender. No abdominal bruits. Extremities: Normal capillary refill. No edema. No clubbing or cyanosis. Pulses: radial=2/4, dorsal pedis=2/4. Skin: Warm and dry. NEURO: No focal deficits. PSYCH: Appropriate affect and insight. Results & Data Vital Signs (Past 12 Hours) Vital Signs Temp Pulse Pulse Resp BP BP Pulse Ox 03/08/25 08:06 36.4 C L 54 L 17 136/76 96 03/08/25 05:12 58 L 03/08/25 03:03 36.6 C 60 18 140/67 95 03/08/25 00:00 72 03/07/25 22:43 36.5 C 73 18 132/80 95 03/07/25 21:57 36.6 C 63 18 125/72 94 03/07/25 21:30 61 03/07/25 21:00 60 22 146/62 H 96 03/07/25 20:30 58 L 21 123/60 95 O2 Del Method 03/08/25 08:06 Room Air 03/08/25 05:12 03/08/25 03:03 Room Air 03/08/25 00:00 03/07/25 22:43 Room Air 03/07/25 21:57 Room Air 03/07/25 21:30 03/07/25 21:00 03/07/25 20:30 Laboratory Results Cardiac Enzymes 03/07/25 03/07/25 03/07/25 Range/Units 15:05 17:36 22:42 AST 23 (13-39) U/L Troponin I High Sens 13.2 17.1 42.9 H D (0-20) pg/ml Coagulation 03/07/25 03/08/25 Range/Units 15:05 00:42 PT 10.3 (9.0-12.0) Seconds APTT 26 27 (21-31) Seconds CBC 03/07/25 Range/Units 15:05 WBC 6.95 (4.8-10.8) K/ul RBC 5.37 (4.70-6.10) M/uL Hgb 14.0 (14.0-18.0) g/dl Hct 42.9 (42.0-52.0) % Plt Count 236 (130-400) K/uL Neut # (Auto) 4.32 (1.40-6.50) K/uL Lymph # (Auto) 1.95 (1.20-3.40) K/uL [place] # (Auto) 0.50 (0.11-0.59) K/uL Eos # (Auto) 0.09 (0.00-0.50) K/uL Baso # (Auto) 0.06 (0.00-0.20) K/uL Comprehensive Metabolic Panel 03/07/25 Range/Units 15:05 Sodium 139 (136-145) mmol/L Potassium 3.8 (3.5-5.1) mmol/L Chloride 103 (98-107) mmol/L Carbon Dioxide 24 (21-32) mmol/L BUN 27 H (6-23) mg/dl Creatinine 1.26 (0.6-1.4) mg/dl Glucose 179 H (70-99(Fasting)) mg/dl Calcium 9.3 (8.6-10.3) mg/dl AST 23 (13-39) U/L ALT 20 (7-52) U/L Alkaline Phosphatase 71 (34-104) U/L Total Protein 7.4 (6.0-8.3) gm/dl Albumin 4.2 (3.4-5.0) gm/dl Intake and Output 03/07/25 03/08/25 03/08/25 22:59 06:59 14:59 Intake Total 350 / 350 154 / 154 Balance 350 / 350 154 / 154 Intake: IV 154 / 154 Heparin 99950 Unit/500 ml D5w 154 / 154 25,000 units In 500 ml @ 1,400 UNITS/HR 28 mls/hr IV .[id number] BLACK Rx#:[id number] Oral 350 / 350 Other: Other Intake Source npo # Unmeasured Voids 1 1 Weight 85.5 kg 85.4 kg Weight Measurement Method [facility] Findings EKG done on 03/07/25 personally reviewed and demonstrated sinus rhythm with 1st degree AV block, possible left atrial enlargement, and non-specific ST-T wave abnormality in anterolateral leads (seen on prior EKG 05/2024). Rate 76 beats per minute. QTc 443 ms. Chest X-Ray 03/07/25 14:58 XR chest 1V portable CLINICAL HISTORY: Chest pain, nonspecific COMPARISON STUDY: Chest CT January 12, 2017. Chest radiograph June 15, 2024. FINDINGS: Median sternotomy wires and mediastinal surgical clips are noted. Lung volumes are normal. There is no consolidation to suggest pneumonia. Linear left basilar densities represent atelectasis. There is no pneumothorax or pleural effusion. Cardiac size is normal. Mediastinal contours are normal. There is no evidence for pulmonary edema. IMPRESSION: No acute cardiopulmonary findings. ACT 112: Negative or not required by law. Electronically signed by: Elliott Justice M.D. 03/07/2025 3:37 PM PG Care Time/CCT Total # of Minutes Spent Total Time Spent: 45 Total Time Spent with Patient: Total time spent is greater than 50% in coordination of care (as documented) at patient's floor/unit and/or counseling patient: [place] [address] IN/OBS CONSULT LVL 4,60M Patient Type New Diagnoses Chest pain R07.9 Chest pain type: unspecified CAD (coronary artery disease) I25.10 History of quadruple bypass Z95.1 Sinus bradycardia R00.1 Hypertension I10 Time Spent (min) 60 (1) Chest pain Chest pain type: unspecified Qualified Code(s): R07.9 - Chest pain, unspecified
[2025-03-08 08:51] LABS: Hematocrit (blood only) 42.7 % (42.0-52.0); Hemoglobin 14.2 g/dl (14.0-18.0); Mean Corpuscular Hemoglobin 27.2 pg (25.0-34.0); Mean Corpuscular Volume 81.6 fL (80.0-100.0); Platelet Count 223 K/uL (130-400); RDW Standard Deviation 42.7 fL (36.4-46.3); Red Blood Count 5.23 M/uL (4.70-6.10); White Blood Count 9.20 K/ul (4.8-10.8)
[2025-03-08] MEDS: MULTIVITAMIN TAB PO SCH (08:53)
[2025-03-08] MEDS: ASPIRIN 81 MG ECTAB PO SCH (08:54)
[2025-03-08] MEDS ORDERED: hydroCHLOROthiazide 25 MG TAB PO SCH (09:00)
[2025-03-08 09:10] LABS: Anion Gap 8.0 (3-11); Blood Urea Nitrogen 26.0 mg/dl (6-23); Calcium 9.2 mg/dl (8.6-10.3); Carbon Dioxide 28.0 mmol/L (21-32); Chloride 103.0 mmol/L (98-107); Cholesterol 114.0 mg/dl (0-200); Creatinine Clr Calc Pharmacy 54.1 ml/min; Glucose 109.0 mg/dl (70-99(Fasting)); HDL Cholesterol 41.0 mg/dl; Potassium 4.1 mmol/L (3.5-5.1); Sodium 139.0 mmol/L (136-145); Triglycerides 123.0 mg/dl (0-150)
[2025-03-08 09:15] LABS: Hemoglobin A1C 6.2 % (4.5-5.6)
[2025-03-08 09:39] LABS: ANTI-Xa, UFH(UnfractionatedHep 0.80 IU/ml (0.3-0.7)
--- NOTE | 2025-03-08 10:42 | Hospitalist Progress Note ---
Date of Service March 08, 2025 Assessment & Plan (1) Chest pain: (2) CAD (coronary artery disease): Plan: Per admitting service notes with above: (1) Chest pain: (2) CAD (coronary artery disease): Plan: Patient is 80 year old male with PMH HTN, dyslipidemia, CAD s/p CABG x 4 in 2017, CKD III, IBS and others listed below presented to ER with c/o intermittent left sided CP today. 06/28/2024 echo: EF: 60-64%, grade 1 diastolic dysfunction, mild aortic stenosis, mild aortic regurgitation, mild mitral regurgitation, mild tricuspid regurgitation, no evidence of pulmonary hypertension, proximal ascending thoraci c aorta mildly enlarged at 4 cm In ER vitals stable EKG without acute ST elevation. Troponin negative x 2 In ER given aspirin 324mg and nitro paste applied. Reports CP resolution with nitropaste without recurrence during ER course R/O ACS Repeat EKG in am Will trend troponin Echo H/O Statin intolerance H/O beta ellen intolerance - bradycardia Lipid panel, A1c in am Continue aspirin -lipid panel, ?statin Nitro prn CP and repeat EKG for CP Cardiology consult 03/08 Troponin increased to 40s, decreased to 30s No EKG changes to suggest acute ischemia echo: preserved left ventricular ejection fraction with moderate mitral regurgitation (the jet is eccentric and degree of severity may be underestimated). evaluated by cardiology service for cardiac cath on Monday (3) Hypertension: Plan: Continue amlodipine, HCTZ (4) Dyslipidemia: Plan: Statin intolerant On Repatha (5) CKD (chronic kidney disease), stage III: Plan: Cr: 1.26. Baseline creatinine 1.2 DVT Prophylaxis Heparin SQ Admit telemetry Full Code as per discussion with pt Follows with Dr Hicks for routine care plan of care discussed with patient and son at bedside in detail and at length all questions answered he is understanding, agreeable, comfortable with the plan of care (3) Hypertension: Plan: Continue amlodipine, HCTZ (4) Dyslipidemia: Plan: Statin intolerant On Repatha (5) CKD (chronic kidney disease), stage III: Plan: Cr: 1.26. Baseline creatinine 1.2 DVT Prophylaxis Heparin SQ Admit telemetry Full Code as per discussion with pt Follows with Dr Hicks for routine care Pt was seen and care coordinated with Dr Wei. See addendum I spent a total of 60 minutes reviewing notes, outpatient records, labs, medication, coordinating, documenting and providing care for this patient excluding time spent in the performance of separately billed services and excluding time spent by another provider/QHP. Admission and Anticipated Discharge Date Admission Date: March 07, 2025 Subjective ff up for chest pain, possible NSTEMI, etc Seen resting in bed, comfortable Patient's son at the bedside visiting States he feels fine overall Has intermittent chest discomfort over the left side, lasting for few seconds No nausea or vomiting, dizziness, palpitations No other new symptoms Review of Systems Review of Systems: all noted and negative except for above Physical Exam Physical Exam: General- oriented x 3, not in distress, speaks in sentences with no effort or accessory muscle use Eyes- anicteric Neck- no JVD Lungs- clear breath sounds bilaterally, no rales/wheezes Heart- normal rate, regular rhythm; no murmurs Abdomen- normal bowel sounds, nondistended, soft, nontender Extremities- no pretibial edema, no calf tenderness Neuro- alert, oriented x 3; no gross focal neurologic deficits Skin- warm & dry Results & Data Results & Data Vital Signs (Past 12 Hours) Vital Signs Temp Pulse Pulse Resp BP Pulse Ox O2 Del Method 03/08/25 08:06 36.4 C L 54 L 17 136/76 96 Room Air 03/08/25 05:12 58 L 03/08/25 03:03 36.6 C 60 18 140/67 95 Room Air 03/08/25 00:00 72 03/07/25 22:43 36.5 C 73 18 132/80 95 Room Air all noted and reviewed including below (1) Chest pain Chest pain type: unspecified Qualified Code(s): R07.9 - Chest pain, unspecified
[2025-03-08 16:38] LABS: ANTI-Xa, UFH(UnfractionatedHep 0.65 IU/ml (0.3-0.7)
[2025-03-09 07:33] LABS: ANTI-Xa, UFH(UnfractionatedHep 0.70 IU/ml (0.3-0.7)
--- NOTE | 2025-03-09 08:29 | Cardiology Progress Note ---
Date of Service March 09, 2025 Assessment & Plan (1) Chest pain: (2) CAD (coronary artery disease): (3) History of quadruple bypass: (4) Sinus bradycardia: (5) Hypertension: Plan 80 year old male who presented to [facility] ED on 03/07/25 for evaluation of non- radiating, exertional left-sided chest pain that developed [place]. Patient with past medical history of coronary artery disease s/p CABG x4 (2016). He recently had a Lexiscan nuclear stress test outpatient for ongoing fatigue and chest discomfort in June 2024 which was negative for inducible ischemia. Seen by cardiology on 03/08/25 for evaluation of chest pain. Chest discomfort radiated at 5 out of 10 upon arrival. Resolved after received ASA and nitro paste. EKG upon admission with no acute ischemic changes. High sensitivity troponins x2 mildly elevated (42-33) but down tren ding. ECHO 03/08/25 showed preserved LVEF 60-65%, moderate mitral regurgitation with jet eccentrically directed and degree of severity possibly underestimated, and mild aortic regurgitation. 1. Chest pain 2. Multivessel coronary artery disease s/p CABG x4 (2017) with SCHWARZ to the LAD, SVG to the OM1-OM3, SVG to the RCA 3. Family history of premature CAD with father passing away of heart attack at age 43 -Non-radiating, exertional chest discomfort concerning for ACS given significant prior cardiac history and ongoing anginal symptoms -EKG upon admission with no acute ischemic changes -High-sensitivity troponins x2 (42-33) mildly elevated but trending down -Continue IV heparin gtt for anticoagulation -Continue [employer] aspirin and amlodipine as per current regimen -Tentatively plan for cardiac catheterization on Monday and NPO except for medications at midnight tonight (03/09) -Continue to monitor on telemetry 4. Moderate mitral regurgitation -ECHO 03/08/25 showed preserved LVEF 60-65%, moderate mitral regurgitation with jet eccentrically directed and degree of severity possibly underestimated, and mild aortic regurgitation -Appears euvolemic upon examination -Would consider transesophageal echocardiogram outpatient to assess severity of mitral regurgitation if he becomes symptomatic 5. Hypertension -Blood pressure well controlled this AM -Continue amlodipine as per current regimen 6. Hyperlipidemia -Cholesterol and LDL (48) well controlled -Currently managed outpatient with Repatha 140 mg/mL every 14 days 7. Beta-ellen intolerance, resting bradycardia -Sinus bradycardia with 1st degree AVB and rates 50-70s upon telemetry review -Hold AV edel blockers given history of beta-ellen intolerance and resting bradycardia Case discussed and coordinated with Dr. Garnica. Please see Dr. Garnica notes for further recommendations. I spent a total of 30 minutes coordinating, documenting, and providing care for this patient excluding time spent in the performance of separately billed services or time spent by another provider/QHP. JEFF Chong Department of Cardiology Admission and Anticipated Discharge Date Admission Date: March 08, 2025 Supervising Physician Co-Signing Physician Notes I spent a total of 30minutes on the date of service in preparation, delivery, and documentation of the care provided to this patient, excluding any time spent in the performance of separately billed services. I have personally performed a history and physical examination on the patient. I have reviewed the advance practitioner's documentation, and I agree with, and take responsibility for the plan of care. Keep n.p.o. after midnight for left heart catheterization in the morning. Subjective Seen by cardiology today for examination and follow-up. Laying comfortably in bed on room air. Family present at bedside upon exam. Had two episodes of mild chest discomfort while ambulating to the bathroom yesterday. [place] like light "pinching" sensation. Resolves within seconds at rest. Denies associated SOB, nausea, or diaphoresis. Did not alert nursing staff. Denies recurrent chest discomfort this AM. Denies tachy palpitations, lightheadedness, syncope, or edema. Chart, medications, and telemetry personally reviewed. Review of Systems Review of Systems: See HPI for pertinent positives. All others negative other than those noted in the HPI. CONSTITUTIONAL: No change in weight, No weakness, No fatigue, No fevers, No sweats or chills. HEENT: No visual changes, No epistaxis, No bleeding gums, No dysphagia, PULMONARY: No cough, sputum, or hemoptysis, No wheezing, No shortness of breath, and No recent change in breathing. CARDIOVASCULAR: +chest pain. No dyspnea on exertion, No edema, No palpitations, No syncope, No claudication, No calf pain. GASTROINTESTINAL: No change in appetite, No abdominal pain, No change in bowel habits, No significant heartburn, No nausea, No vomiting, No diarrhea, No cons tipation, No blood in stools or black tarry stools, No dysphagia. HEMATOLOGIC: No abnormal bleeding and No bruising. NEUROLOGICAL: No falls, No dizziness, No lightheadedness, Normal balance, No headaches, and No weakness. PSYCH: No sleep disturbances, No mood changes. Physical Exam Physical Exam: Vital signs within normal limits as above. General: Well developed and nourished. No acute distress. A+Ox3. HEENT: Normocephalic. Atraumatic. EOMI. Conjunctiva and sclera clear. NECK: Trachea midline. No thyromegaly. No carotid bruits. No JVD. Carotid upstrokes are brisk. Heart: RRR. S1 and S2 noted. Grade II/ systolic murmur. No rubs or gallops. PMI non displaced. Lungs: No acute respiratory distress. Clear to auscultation. No wheezes.No rhonchi. No rales. Abdomen: Normal bowel sounds. Soft. Nontender. No abdominal bruits. Extremities: Normal capillary refill. No edema. No clubbing or cyanosis. Pulses: radial=2/4, dorsal pedis=2/4. Skin: Warm and dry. NEURO: No focal deficits. PSYCH: Appropriate affect and insight. Results & Data Vital Signs (Past 12 Hours) Vital Signs Temp Pulse Pulse Resp BP BP Pulse Ox 03/09/25 08:09 36.6 C 59 L 150/74 H 96 03/09/25 07:19 58 L 03/09/25 02:39 36.7 C 60 20 157/79 H 94 03/08/25 22:43 45 L 03/08/25 22:36 36.6 C 57 L 18 111/63 97 O2 Del Method 03/09/25 08:09 Room Air 03/09/25 07:19 03/09/25 02:39 Room Air 03/08/25 22:43 03/08/25 22:36 Room Air Laboratory Results Cardiac Enzymes 03/08/25 Range/Units 08:32 Troponin I High Sens 33.9 H (0-20) pg/ml Lipids 03/08/25 Range/Units 08:32 Triglycerides 123 (0-150) mg/dl Cholesterol 114 (0-200) mg/dl HDL Cholesterol 41 mg/dl Cholesterol/HDL Ratio 2.8 (0-5) CBC 03/08/25 Range/Units 08:32 WBC 9.20 (4.8-10.8) K/ul RBC 5.23 (4.70-6.10) M/uL Hgb 14.2 (14.0-18.0) g/dl Hct 42.7 (42.0-52.0) % Plt Count 223 (130-400) K/uL Comprehensive Metabolic Panel 03/08/25 Range/Units 08:32 Sodium 139 (136-145) mmol/L Potassium 4.1 (3.5-5.1) mmol/L Chloride 103 (98-107) mmol/L Carbon Dioxide 28 (21-32) mmol/L BUN 26 H (6-23) mg/dl Creatinine 1.14 (0.6-1.4) mg/dl Glucose 109 H (70-99(Fasting)) mg/dl Calcium 9.2 (8.6-10.3) mg/dl Intake and Output 03/08/25 03/09/25 03/09/25 22:59 06:59 14:59 Intake Total 1653.333 / 2449.666 470 / 2449.666 Balance 1653.333 / 2449.666 470 / 2449.666 Intake: IV 1233.333 / 1729.666 270 / 1729.666 Heparin 35144 Unit/500 ml D5w 233.333 / 729.666 270 / 729.666 25,000 units In 500 ml @ 1,250 UNITS/HR 25 mls/hr IV .Q20H BLACK Rx#:[id number] Nss + 20Meq KCl 20 meq In 1,000 1000 / 1000 ml @ 60 mls/hr IV .[id number] ONE Rx#:[id number] Oral 420 / 720 200 / 720 Other: # Unmeasured Voids 2 2 Weight 84.6 kg Weight Measurement Method Built in [facility] Diagnostic Findings ECHO 03/08/25 LVEF = 60-65% The right ventricular cavity size is normal The right ventricular systolic function is normal There is moderate mitral regurgitation The mitral regurgitant jet is eccentrically directed Mild aortic regurgitation PG Care Time/CCT Total # of Minutes Spent Total Time Spent with Patient: Total time spent is greater than 50% in coordination of care (as documented) at patient's floor/unit and/or counseling patient: Coding [place] [address] SUB INP/OBS CARE 3/50MIN Patient Type Established Diagnoses Chest pain R07.9 Chest pain type: unspecified CAD (coronary artery disease) I25.10 History of quadruple bypass Z95.1 Sinus bradycardia R00.1 Hypertension I10 Time Spent (min) 50 (1) Chest pain Chest pain type: unspecified Qualified Code(s): R07.9 - Chest pain, unspecified
--- NOTE | 2025-03-09 22:10 | Hospitalist Progress Note ---
Date of Service March 09, 2025 Assessment & Plan (1) Chest pain: (2) CAD (coronary artery disease): Plan: Per admitting service notes with above: (1) Chest pain: (2) CAD (coronary artery disease): Plan: Patient is 80 year old male with PMH HTN, dyslipidemia, CAD s/p CABG x 4 in 2017, CKD III, IBS and others listed below presented to ER with c/o intermittent left sided CP today. 06/28/2024 echo: EF: 60-64%, grade 1 diastolic dysfunction, mild aortic stenosis, mild aortic regurgitation, mild mitral regurgitation, mild tricuspid regurgitation, no evidence of pulmonary hypertension, proximal ascending thorac ic aorta mildly enlarged at 4 cm In ER vitals stable EKG without acute ST elevation. Troponin negative x 2 In ER given aspirin 324mg and nitro paste applied. Reports CP resolution with ni tropaste without recurrence during ER course R/O ACS Repeat EKG in am Will trend troponin Echo H/O Statin intolerance H/O beta ellen intolerance - bradycardia Lipid panel, A1c in am Continue aspirin -lipid panel, ?statin Nitro prn CP and repeat EKG for CP Cardiology consult 03/08 Troponin increased to 40s, decreased to 30s No EKG changes to suggest acute ischemia echo: preserved left ventricular ejection fraction with moderate mitral regurgitation (the jet is eccentric and degree of severity may be underestimated). evaluated by cardiology service for cardiac cath on Friday 03/09 for cardiac cath in AM continue Heparin drip, ASA (3) Hypertension: Plan: BP elevated HCTZ on hold increase Amlodipine from 5mg to 10mg (4) Dyslipidemia: Plan: Statin intolerant On Repatha (5) CKD (chronic kidney disease), stage III: Plan: Cr: 1.26. Baseline creatinine 1.2 DVT Prophylaxis Heparin SQ Admit telemetry Full Code as per discussion with pt Follows with Dr Hicks for routine care (3) Hypertension: Plan: Continue amlodipine, HCTZ (4) Dyslipidemia: Plan: Statin intolerant On Repatha (5) CKD (chronic kidney disease), stage III: Plan: Cr: 1.26. Baseline creatinine 1.2 DVT Prophylaxis Heparin SQ Admit telemetry Full Code as per discussion with pt Follows with Dr Hicks for routine care Pt was seen and care coordinated with Dr Wei. See addendum I spent a total of 60 minutes reviewing notes, outpatient records, labs, medication, coordinating, documenting and providing care for this patient excluding time spent in the performance of separately billed services and excluding time spent by another provider/QHP. Admission and Anticipated Discharge Date Admission Date: March 08, 2025 Subjective ff up for chest pain, nstemi, etc seen resting in bed, comfortable in good spirits would have occasional "pinching" type of pain, L chest no dyspnea, palpitations, dizziness Review of Systems Review of Systems: all noted and negative except for above Physical Exam Physical Exam: General- oriented x 3, not in distress, speaks in sentences with no effort or accessory muscle use Eyes- anicteric Neck- no JVD Lungs- clear breath sounds bilaterally, no rales/wheezes Heart- normal rate, regular rhythm; no murmurs Abdomen- normal bowel sounds, nondistended, soft, nontender Extremities- no pretibial edema, no calf tenderness Neuro- alert, oriented x 3; no gross focal neurologic deficits Skin- warm & dry Results & Data Results & Data Vital Signs (Past 12 Hours) Vital Signs Temp Pulse Pulse Resp BP BP Pulse Ox 03/09/25 19:22 36.6 C 56 L 18 152/78 H 97 03/09/25 15:43 58 L 03/09/25 15:32 36.5 C 49 L 18 131/68 97 03/09/25 12:21 36.5 C 63 18 171/73 H 94 O2 Del Method 03/09/25 19:22 Room Air 03/09/25 15:43 03/09/25 15:32 Room Air 03/09/25 12:21 Room Air all noted and reviewed including below (1) Chest pain Chest pain type: unspecified Qualified Code(s): R07.9 - Chest pain, unspecified
[2025-03-10 07:14] LABS: ANTI-Xa, UFH(UnfractionatedHep 0.58 IU/ml (0.3-0.7)
--- NOTE | 2025-03-10 07:49 | Electrocardiogram Report ---
Test Reason : Blood Pressure : */* mmHG Vent. Rate : 76 BPM Atrial Rate : 76 BPM P-R Int : 220 ms QRS Dur : 86 ms QT Int : 394 ms P-R-T Axes : 60 26 75 degrees QTcB Int : 443 ms Sinus rhythm with 1st degree A-V block Possible Left atrial enlargement Nonspecific ST and T wave abnormality Abnormal ECG When compared with ECG of 15-Jun-2024 10:40, No significant change was found Confirmed by Flavia Turner (Pao) on 03/10/2025 7:49:08 AM Referred By: Confirmed By: Flavia Turner
--- NOTE | 2025-03-10 07:55 | Electrocardiogram Report ---
Test Reason : Blood Pressure : */* mmHG Vent. Rate : 57 BPM Atrial Rate : 57 BPM P-R Int : 254 ms QRS Dur : 84 ms QT Int : 454 ms P-R-T Axes : 71 41 91 degrees QTcB Int : 441 ms Sinus bradycardia with 1st degree A-V block Nonspecific T wave abnormality Abnormal ECG When compared with ECG of 07-Mar-2025 15:01, (unconfirmed) Nonspecific T wave abnormality has replaced inverted T waves in Anterior leads Confirmed by Flavia Turner (Pao) on 03/10/2025 7:55:14 AM Referred By: REFERRED SELF Confirmed By: Flavia Turner
--- NOTE | 2025-03-10 11:01 | Cardiology Progress Note ---
Date of Service March 10, 2025 Assessment & Plan (1) Chest pain: (2) CAD (coronary artery disease): (3) History of quadruple bypass: (4) Sinus bradycardia: (5) Hypertension: Plan 80 year old male who presented to [facility] ED on 03/07/25 for evaluation of non- radiating, exertional left-sided chest pain that developed while [place]. Patient with past medical history of coronary artery disease s/p CABG x4 (2016). He recently had a Lexiscan nuclear stress test outpatient for ongoing fatigue and chest discomfort in June 2024 which was negative for inducible ischemia. Seen by cardiology on 03/08/25 for evaluation of chest pain. Chest discomfort radiated at 5 out of 10 upon arrival. Resolved after received ASA and nitro paste. EKG upon admission with no acute ischemic changes. High sensitivity troponins x2 mildly elevated (42-33) but down tren ding. ECHO 03/08/25 showed preserved LVEF 60-65%, moderate mitral regurgitation with jet eccentrically directed and degree of severity possibly underestimated, and mild aortic regurgitation. 1. Unstable angina 2. Multivessel coronary artery disease s/p CABG x4 (2017) with SCHWARZ to the LAD, SVG to the OM1-OM3, SVG to the RCA 3. Family history of premature CAD with father passing away of heart attack at age 43 -Continue ASA, heparin infusion -Baseline heart rates in the 50s to 60s prevent addition of metoprolol. -Plan for cardiac catheterization today. 4. Moderate mitral regurgitation -ECHO 03/08/25 showed preserved LVEF 60-65%, moderate mitral regurgitation with jet eccentrically directed and degree of severity possibly underestimated, and m ild aortic regurgitation -Appears euvolemic upon examination -Would consider transesophageal echocardiogram outpatient to assess severity of mitral regurgitation if he becomes symptomatic 5. Hypertension -Continue amlodipine as per current regimen 6. Hyperlipidemia -Cholesterol and LDL (48) well controlled -Currently managed outpatient with Repatha 140 mg/mL every 14 days 7. Beta-ellen intolerance, resting bradycardia -Sinus bradycardia with 1st degree AVB and rates 50-70s upon telemetry review -Hold AV edel blockers given history of beta-ellen intolerance and resting bradycardia I spent a total of 30 minutes coordinating, documenting, and providing care for this patient excluding time spent in the performance of separately billed services or time spent by another provider/QHP. Jv Henning DO Department of Cardiology Admission and Anticipated Discharge Date Admission Date: March 08, 2025 Subjective Patient without additional chest discomfort last night or thus far this morning. He has been walking short distances. Remains on a heparin infusion without complication. Telemetry reveals sinus rhythm in the 50s to 70s Physical Exam Physical Exam: General: no acute distress and stated age Eyes: conjunctiva are pink and non-injected, sclera clear Neck: normal jugular venous pulse, no hepatojugular reflux Chest: normal shape and normal respiratory effort Lungs: clear to auscultation and percussion Cardiac Exam: - regular heart sounds, no murmurs, rubs, or gallops, no jugular venous distention Abdomen: abdomen soft, non-tender, no abnormal masses and no hepatosplenomegaly Musculoskeletal: no gait disturbance, no weakness Extremities: no edema and no cyanosis Neuro:awake, conversant, follows commands, no focal motor deficits Psych: appropriate affect and insight. Results & Data Vital Signs (Past 12 Hours) Vital Signs Temp Pulse Pulse Resp BP BP Pulse Ox 03/10/25 10:25 56 L 14 156/78 H 94 03/10/25 07:30 03/10/25 07:09 36.7 C 58 L 18 149/75 H 97 03/10/25 05:31 49 L 03/10/25 03:09 36.4 C L 58 L 16 137/78 96 03/09/25 23:00 36.9 C 56 L 16 121/65 95 O2 Del Method 03/10/25 10:25 Room Air 03/10/25 07:30 Room Air 03/10/25 07:09 Room Air 03/10/25 05:31 03/10/25 03:09 Room Air 03/09/25 23:00 Room Air Laboratory Results Intake and Output 03/09/25 03/10/25 03/10/25 22:59 06:59 14:59 Intake Total 1067.500 / 1841.250 293.75 / 1841.250 Balance 1067.500 / 1841.250 293.75 / 1841.250 Intake: IV 307.500 / 601.250 293.75 / 601.250 Heparin 36823 Unit/500 ml D5w 307.500 / 601.250 293.75 / 601.250 25,000 units In 500 ml @ 1,250 UNITS/HR 25 mls/hr IV .Q20H BLACK Rx#:[id number] Oral 760 / 1240 0 / 1240 Other: # Unmeasured Voids 2 2 Weight 84.3 kg Weight Measurement Method Built in [facility] Diagnostic Findings Transthoracic echocardiogram performed 03/08/2025: LVEF 6065%, no regional wall motion abnormalities Moderate mitral regurgitation observed with an eccentric jet. Mild aortic valve regurgitation. EKG performed 03/08/2025 at 4:58 AM: Sinus bradycardia with first-degree AV block 57 bpm. Mild nonspecific T wave abnormalities Coding Level of Care Code 76824 SUB INP/OBS CARE 2/35MIN Diagnoses Chest pain R07.9 Chest pain type: unspecified CAD (coronary artery disease) I25.10 History of quadruple bypass Z95.1 Sinus bradycardia R00.1 Hypertension I10 (1) Chest pain Chest pain type: unspecified Qualified Code(s): R07.9 - Chest pain, unspecified
--- NOTE | 2025-03-10 11:54 | Pre Anesthesia Assessment ---
Date of Service March 10, 2025 Pre Sedation Assessment Vital Signs Temp Pulse Pulse Resp BP BP Pulse Ox 03/10/25 10:25 56 L 14 156/78 H 94 03/10/25 07:30 03/10/25 07:09 98.1 F 58 L 18 149/75 H 97 03/10/25 05:31 49 L 03/10/25 03:09 97.5 F L 58 L 16 137/78 96 03/09/25 23:00 98.4 F 56 L 16 121/65 95 03/09/25 21:41 53 L 03/09/25 19:22 97.9 F 56 L 18 152/78 H 97 03/09/25 15:43 58 L 03/09/25 15:32 97.7 F 49 L 18 131/68 97 03/09/25 12:21 97.7 F 63 18 171/73 H 94 O2 Del Method 03/10/25 10:25 Room Air 03/10/25 07:30 Room Air 03/10/25 07:09 Room Air 03/10/25 05:31 03/10/25 03:09 Room Air 03/09/25 23:00 Room Air 03/09/25 21:41 03/09/25 19:22 Room Air 03/09/25 15:43 03/09/25 15:32 Room Air 03/09/25 12:21 Room Air Cardiovascular + regular rate Respiratory + respiratory effort normal Pre-Sedation Airway Assessment Smoking Status: Never smoker Hx Sleep Apnea: No Short, Thick Neck: No Thyromental Distance: > or= 3.5 Finger Breadths Oral Cavity: + WNL Mallampati Class: III ASA: ASA3 NPO Status Date of Last Intake of Fluids: 03/09/25 Time of Last Intake of Fluids: 20:00 Date of Last Intake of Solid Food: 03/09/25 Time of Last Intake of Solid Foods: 20:00 Procedure Planning Contraindications for Sedation: none Current Medications Reviewed: Yes Notes The planned sedation has been discussed with the patient. Informed Consent was obtained. I have identified the patient, determined the appropriateness of sedation and have assessed the patient immediately prior to the procedure. All medicine(s) and interventions are by my order.
[2025-03-10] MEDS: MIDAZOLAM HCL 1 MG/ML 2ML VIAL ONE ×2 (13:55→13:56)
[2025-03-10] MEDS: OPTIRAY 350 ONE (13:55)
[2025-03-10] MEDS: HEPARIN (PORCINE) 1000 UNIT/ML 10 ML (CATH LAB USE ONLY) ONE ×2 (13:55→13:56)
[2025-03-10] MEDS: niCARdipine 2,000 MCG/20 ML SYR ONE (13:56)
[2025-03-10] MEDS: NITROGLYCERIN/D5W 100MCG/ML 20ML SYR ONE (13:56)
--- NOTE | 2025-03-10 14:13 | Post Anesthesia Assessment ---
Date of Service March 10, 2025 Post Sedation Assessment Vital Signs Temp Pulse Pulse Resp BP BP Pulse Ox 03/10/25 10:25 56 L 14 156/78 H 94 03/10/25 07:30 03/10/25 07:09 98.1 F 58 L 18 149/75 H 97 03/10/25 05:31 49 L 03/10/25 03:09 97.5 F L 58 L 16 137/78 96 03/09/25 23:00 98.4 F 56 L 16 121/65 95 03/09/25 21:41 53 L 03/09/25 19:22 97.9 F 56 L 18 152/78 H 97 03/09/25 15:43 58 L 03/09/25 15:32 97.7 F 49 L 18 131/68 97 O2 Del Method 03/10/25 10:25 Room Air 03/10/25 07:30 Room Air 03/10/25 07:09 Room Air 03/10/25 05:31 03/10/25 03:09 Room Air 03/09/25 23:00 Room Air 03/09/25 21:41 03/09/25 19:22 Room Air 03/09/25 15:43 03/09/25 15:32 Room Air Recovery Score Activity: Moves 4 extremities Respiration: Deep Breath/Cough Circulation: +/-20% PreAnes Value Consciousness: Fully Awake Oxygen Saturation: O2 needed for >90% Discharge Sedation Level of Care: Fast Track Phase II
--- NOTE | 2025-03-10 14:16 | Cardiac Catheterization ---
[facility] Data: Relocation Services Specialist Cardiac Status Clinical evaluation leading to the procedure CAD Presenation: Non STEMI Diagnostic Physicians Name: Slade Omalley MD Closure Device Recommendations: PCI without planned CABG Cardiac Cath Procedure Full Procedure Date March 10, 2025 Pre-Procedure Diagnosis Pre-Procedure Diagnosis: Non STEMI AUC Score AUC Score: 7 Post-Procedure Diagnosis Post-Procedure Diagnosis: Severe CAD, Successful PCI and Normal Intracardiac Pressures Procedure(s) Performed Procedure(s) Performed: Coronary Angiography, Left Heart Cath, Drug Eluting Stent, Bypass Graft Angiography and Femoral Artery Angiography Mailing Manager Slade Omalley MD Lead Quality Technician(s) Shruthi Estimated Blood Loss Estimated Blood Loss: 30 Medication(s) Medication(s): Clopidogrel, Fentanyl, Heparin, Lidocaine 1%, Nicardipine, Nitroglycerin and Versed Summary of Findings Indication: NSTEMI Access: 6Fr left radial artery, 6Fr RT [employer] with micropuncture under ultrasound (transition to femoral approach due to subclavian spasm, difficulty accessing SVG to OM1 and for intervention). Catheters: JL3.5, JR4, CORINA, AR1, AL1. JR4 guide Findings: LM -normal caliber, 20% distal disease. LAD -medium caliber, calcified, 60 to 70% proximal stenosis, 80% mid segment stenosis with competitive flow from SCHWAZR. Medium D1 40% proximal Circumflex -medium caliber, 30-40% ostial, mid segment luminal irregularities. OM1 occluded in the midsegment. OM3 70-80% proximal stenosis. Very small left PLB with 90% stenosis. Distal circumflex occluded prior to distal left PLB RCA -dominant, medium caliber, 40-50% ostial/proximal stenosis, 90% latemid stenosis, diffuse severe distal disease up to 95%. Competitive flow in posterior AV branch. LIMALADwidely patent, LAD after anastomosis without significant disease and wraps around apex. [id number] patent. OM1 small without significant disease. SVGleft PLBpatent with focal 95% mid stenosis. PLB after anastomosis widely patent. SVGright PLBwidely patent. PLB without disease interatrial fills into posterior AV branch LVEDP - 8 -- PCI -- Antithrombotic therapy: Heparin, clopidogrel Procedure: SVG to left PLB cannulated with JR4 guide Pre-procedure flow UMANG 3 Filter wire passed across lesion and filter expanded and distal vein graft Mid SVG lesion predilated with 2.5 compliant balloon Dilated lesion stented with 2.75 x 26 mm [place] Stent postdilated with stent balloon IC vasodilators administered for spasm and filter retrieved Following filter retrieval noted to have significant residual stenosis upstream from stent in SVG at bend with UMANG I-II distal flow Whisper wire redirected into the SVG across stenosis and prior stent into [place] PLB Second SRIDHAR (2.75 x 26 mm Bernardo) placed around the vein graft bend in midportion of graft and overlapping proximal aspect of initial stent. Stent postdilated with stent balloon Post procedure UMANG 3 flow, stents well expanded with minimal residual stenosis and no apparent cardiac complications. Arterial Closure: TR band, Angio-Seal Summary: 1. 95% mid SVG to left PLB 2. Widely patent SCHWARZ to LAD, SVG to OM1 and SVG to right PLB 3. Multivessel [place] coronary artery disease - 60-70% proximal, 80% mid LAD 100% mid OM1, 90% proximal very small left PLB, 100% distal circumflex prior to large distal PLB 45% ostial/proximal, 90% mid, 95% diffuse distal RCA 4. Normal intracardiac filling pressure 5. Successful PCI of SVGleft PLB with 2 overlapping drug-eluting stents (2.75 x 26, 2.75 x 26 mm Bernardo). Recommendations: To PCU for continued monitoring Loaded with clopidogrel 600 mg in Relocation Services Specialist Continue dual-antiplatelet therapy for at least 1 year Continue Repatha and ASCVD risk factor modification Medical management of residual [place] vessel CAD. Hemodynamics Rest Ao:: 130/86/107 Final Ao: 127/64/89 LV: 141/8 Recommendations Recommendations: PCI without planned CABG Radiation Exposure (mGy) 3652 Contrast (mls) 195 Anesthesia Moderate 2046-9361 Procedural Complication(s) None Disposition PCU I attest to the content of the Intraoperative Record and any orders documented therein. Any exceptions are noted below. [facility] Card Cath Procedure Codes Cardiac Catheterization Procedure 1: Cardiovascular Cath Procedures: 19070 Coronaries & LHC (+/-LV) & Grafts/IM (arterial & venous) Therapeutic Services & Ancillary Procedure 1: Cardiovascular Tx and Anc Procedures: 60748 Ultrasonic Guidance Vascular Access Moderate Sedation Procedure 1: Sedation/Anesthesia: 94154 Mod Sedation by the same physician;Init15 Min Child Age 5 & Up Procedure 2: Sedation/Anesthesia: 82967 Mod Sedation by the same physician; Ea [id number] Minutes Stenting Procedure 1: Cardiovascular Stent Procedures: 91921 Perc tranluminal revascularization of or throughout CABG PG Care Time/CCT Total # of Minutes Spent Total Time Spent with Patient: Total time spent is greater than 50% in coordination of care (as documented) at patient's floor/unit and/or counseling patient:
[2025-03-10] MEDS: CLOPIDOGREL BISULFATE 300 MG TAB ONE (14:37)
--- NOTE | 2025-03-10 18:51 | Hospitalist Progress Note ---
Date of Service March 10, 2025 Assessment & Plan (1) Chest pain: (2) CAD (coronary artery disease): Plan: Per admitting service notes with above: (1) Chest pain: (2) CAD (coronary artery disease): Plan: Patient is 80 year old male with PMH HTN, dyslipidemia, CAD s/p CABG x 4 in 2017, CKD III, IBS and others listed below presented to ER with c/o intermittent left sided CP today. 06/28/2024 echo: EF: 60-64%, grade 1 diastolic dysfunction, mild aortic stenosis, mild aortic regurgitation, mild mitral regurgitation, mild tricuspid regurgitation, no evidence of pulmonary hypertension, proximal ascending thorac ic aorta mildly enlarged at 4 cm In ER vitals stable EKG without acute ST elevation. Troponin negative x 2 In ER given aspirin 324mg and nitro paste applied. Reports CP resolution with ni tropaste without recurrence during ER course Chest pain mostly resolved, only having intermittent left-sided chest discomfort which lasts for few seconds Troponin increased to 40s, decreased to 30s No EKG changes to suggest acute ischemia echo: preserved left ventricular ejection fraction with moderate mitral regurgitation (the jet is eccentric and degree of severity may be underestimated). evaluated by cardiology service: cardiac cath on Monday continued on heparin drip 03/10 Status postcardiac cath By Dr. Slade Omalley Summary: 1. 95% mid SVG to left PLB 2. Widely patent SCHWARZ to LAD, SVG to OM1 and SVG to right PLB 3. Multivessel [place] coronary artery disease - 60-70% proximal, 80% mid LAD 100% mid OM1, 90% proximal very small left PLB, 100% distal circumflex prior to large distal PLB 45% ostial/proximal, 90% mid, 95% diffuse distal RCA 4. Normal intracardiac filling pressure 5. Successful PCI of SVGleft PLB with 2 overlapping drug-eluting stents (2.75 x 26, 2.75 x 26 mm Bernardo). 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 Baseline creatinine 1.2 DVT Prophylaxis Heparin SQ--> held for cardiac cath Admit telemetry Full Code as per discussion with pt Follows with Dr Hicks for routine care (3) Hypertension: Plan: Continue amlodipine, HCTZ (4) Dyslipidemia: Plan: Statin intolerant On Repatha (5) CKD (chronic kidney disease), stage III: Plan: Cr: 1.26. Baseline creatinine 1.2 DVT Prophylaxis Heparin SQ Admit telemetry Full Code as per discussion with pt Follows with Dr Hicks for routine care Pt was seen and care coordinated with Dr Wei. See addendum I spent a total of 60 minutes reviewing notes, outpatient records, labs, medication, coordinating, documenting and providing care for this patient excluding time spent in the performance of separately billed services and excluding time spent by another provider/QHP. Admission and Anticipated Discharge Date Admission Date: March 08, 2025 Subjective follow-up for chest pain, etc. Underwent cardiac cath today Seen resting in bed, sleeping but easily awakened States he feels fine overall Chest pain-free No shortness of breath, nausea, dizziness, palpitations No other new symptoms Review of Systems Review of Systems: all noted and negative except for above Physical Exam Physical Exam: General- oriented x 3, not in distress, speaks in sentences with no effort or accessory muscle use Eyes- anicteric Neck- no JVD Lungs- clear breath sounds bilaterally, no rales/wheezes Heart- normal rate, regular rhythm; no murmurs Abdomen- normal bowel sounds, nondistended, soft, nontender Extremities- no pretibial edema, no calf tenderness Left wrist: no bleeding, hematoma Neuro- alert, oriented x 3; no gross focal neurologic deficits Skin- warm & dry Results & Data Results & Data Vital Signs (Past 12 Hours) Vital Signs Temp Pulse Resp BP BP Pulse Ox O2 Del Method 03/10/25 18:00 73 16 139/80 96 Room Air 03/10/25 17:38 67 16 135/78 96 Room Air 03/10/25 17:00 62 16 159/72 H 98 Room Air 03/10/25 16:00 54 L 14 144/85 H 96 Room Air 03/10/25 16:00 59 L 16 160/86 H 97 Room Air 03/10/25 15:36 59 L 12 155/88 H 97 Room Air 03/10/25 15:30 67 16 161/80 H 97 Room Air 03/10/25 15:15 55 L 16 163/54 H 98 Room Air 03/10/25 15:04 54 L 15 158/81 H 96 Room Air 03/10/25 14:45 55 L 153/85 H 94 Room Air 03/10/25 14:30 58 L 14 161/84 H 94 Room Air 03/10/25 14:15 54 L 16 148/78 H 93 Room Air 03/10/25 14:05 58 L 16 131/71 94 Room Air 03/10/25 10:25 56 L 14 156/78 H 94 Room Air 03/10/25 07:30 Room Air 03/10/25 07:09 36.7 C 58 L 18 149/75 H 97 Room Air all noted and reviewed including below (1) Chest pain Chest pain type: unspecified Qualified Code(s): R07.9 - Chest pain, unspecified
[2025-03-11 07:25] LABS: Hematocrit (blood only) 40.3 % (42.0-52.0); Hemoglobin 13.4 g/dl (14.0-18.0); Immature Granulocytes # (auto) 0.03 K/uL (0.01-0.20); Immature Granulocytes % (auto) 0.4 %; Mean Corpuscular Hemoglobin 26.7 pg (25.0-34.0); Mean Corpuscular Volume 80.3 fL (80.0-100.0); Platelet Count 210 K/uL (130-400); RDW Standard Deviation 42.6 fL (36.4-46.3); Red Blood Count 5.02 M/uL (4.70-6.10); White Blood Count 7.77 K/ul (4.8-10.8)
[2025-03-11 07:51] LABS: Alanine Aminotransferase 29.0 U/L (7-52); Albumin Globulin Ratio 1.4 (0.9-2); Alkaline Phosphatase 63.0 U/L (34-104); Anion Gap 8.0 (3-11); Bilirubin,Total 0.6 mg/dl (0.2-1.0); Blood Urea Nitrogen 23.0 mg/dl (6-23); Calcium 8.9 mg/dl (8.6-10.3); Carbon Dioxide 24.0 mmol/L (21-32); Chloride 106.0 mmol/L (98-107); Creatinine Clr Calc Pharmacy 47.5 ml/min; Globulin 2.8 gm/dl (2.5-4.0); Glucose 98.0 mg/dl (70-99(Fasting)); Potassium 3.9 mmol/L (3.5-5.1); Sodium 138.0 mmol/L (136-145); Total Protein 6.6 gm/dl (6.0-8.3)
[2025-03-11 08:00] LABS: ANTI-Xa, UFH(UnfractionatedHep < 0.10 IU/ml (0.3-0.7)
[2025-03-11] MEDS: CLOPIDOGREL BISULFATE 75 MG TAB PO SCH (08:41)
[2025-03-11 11:25] VITALS: RESP 18; O2SAT 96
--- NOTE | 2025-03-11 11:28 | Cardiology Progress Note ---
Date of Service March 11, 2025 Assessment & Plan (1) Chest pain: (2) CAD (coronary artery disease): (3) History of quadruple bypass: (4) Sinus bradycardia: (5) Hypertension: Plan 80 year old male who presented to [facility] ED on 03/07/25 for evaluation of non- radiating, exertional left-sided chest pain that developed [place]. Patient with past medical history of coronary artery disease s/p CABG x4 (2016). Negative nuclear stress test May 2024. patient with mild troponin elevation, EKG with no acute ischemic changes. Patient ultimately underwent cardiac catheterization with successful PCI of SVG-PLB with 2 overlapping stents. 1. Unstable angina 2. Multivessel coronary artery disease s/p CABG x4 (2016) with SCHWARZ to the LAD, SVG to the OM1-OM3, SVG to the RCA 3. Family history of premature CAD with father passing away of heart attack at age 43 -Patient is stable from a cardiac perspective today. No acute events overnight. -s/p C with successful PCI of SVG-PLB with 2 overlapping stents. -Continue DAPT uninterrupted for a minimum of 6 months, ideally one year with prior history of CABG, vein graft intervention ASA 81mg PO Daily and Plavix 75mg PO Daily -Continue Amlodipine 10mg PO Daily. BP well controlled -Cath sites clean/dry/intact, +pulse/motor sensation -Patient remains off of beta ellen therapy s/t bradycardia. -Arrange for cardiac rehab OP -Plan for follow up with OP cardiology in 4-5 weeks with labs prior 4. Moderate mitral regurgitation -ECHO 03/08/25 showed preserved LVEF 60-65%, moderate mitral regurgitation with jet eccentrically directed and degree of severity possibly underestimated, and mild aortic regurgitation -Appears euvolemic upon examination -Would consider transesophageal echocardiogram outpatient to assess severity of mitral regurgitation if he becomes symptomatic 5. Hypertension -Continue amlodipine as per current regimen 6. Hyperlipidemia -Cholesterol and LDL (48) well controlled -Currently managed outpatient with Repatha 140 mg/mL every 14 days 7. Beta-ellen intolerance, resting bradycardia -Sinus bradycardia with 1st degree AVB and rates 50-70s upon telemetry review -Hold AV edel blockers given history of beta-ellen intolerance and resting bradycardia Case has been discussed with Dr. Nguyễn. Further recommendations regarding plan of care as per his assessment. I spent a total of 30 minutes on the date of service in preparation, delivery, documentation of the care provided to the patient excluding any time spent in the performance of separately billed services. JEFF Montaño [facility] [address] Admission and Anticipated Discharge Date Admission Date: March 08, 2025 Supervising Physician Co-Signing Physician Notes Patient was seen and personally examined. Care and management discussed with advanced provider as above and personally endorsed. 80-year-old male with prior known coronary disease and coronary bypass grafting in 2017 with acute onset of angina with resultant hospitalization/non-ST segment elevation myocardial infarction. LV systolic function preserved Patient underwent successful coronary intervention saphenous vein graft to the posterolateral branch Currently asymptomatic ambulatory in room Access sites healing well Plan as outlined above. Discussed personally with patient Stable for discharge today Subjective 07/11/2025: Patient seen and examined in follow up today. Feeling "really good". He is sitting up in bed visiting with family at time of my exam. Offers no acute concerns. Labs, vitals, diagnostics, telemetry and documentation reviewed. Telemetry reviewed showing SB/SR rates 50-70's with no acute events overnight. Review of Systems Review of Systems: All systems reviewed & are unremarkable except as noted in HPI & below Physical Exam Constitutional: well developed and well nourished; no acute distress and not ill appearing Neck: normal visual inspection and trachea midline Cardiovascular: RRR, no murmur, no edema Vessels: dorsalis pedis pulses present; no JVD Extremities: no edema Skin: no rashes, warm and dry OP site to left wrist, clean dry, intact, positive pulse/motor sensation left groin puncture site clean/dry/intact Psychiatric: A+Ox3, euthymic affect Results & Data Vital Signs (Past 12 Hours) Vital Signs Temp Pulse Pulse Resp BP Pulse Ox O2 Del Method 03/11/25 10:56 58 L 03/11/25 07:59 37.3 C 84 16 123/65 94 Room Air 03/11/25 03:25 36.9 C 62 20 125/73 97 Room Air 03/11/25 02:43 Room Air Laboratory Results Cardiac Enzymes 03/11/25 Range/Units 06:25 AST 33 (13-39) U/L CBC 03/11/25 Range/Units 06:25 WBC 7.77 (4.8-10.8) K/ul RBC 5.02 (4.70-6.10) M/uL Hgb 13.4 L (14.0-18.0) g/dl Hct 40.3 L (42.0-52.0) % Plt Count 210 (130-400) K/uL Neut # (Auto) 5.26 (1.40-6.50) K/uL Lymph # (Auto) 1.78 (1.20-3.40) K/uL [place] # (Auto) 0.62 H (0.11-0.59) K/uL Eos # (Auto) 0.05 (0.00-0.50) K/uL Baso # (Auto) 0.03 (0.00-0.20) K/uL Comprehensive Metabolic Panel 03/11/25 Range/Units 06:25 Sodium 138 (136-145) mmol/L Potassium 3.9 (3.5-5.1) mmol/L Chloride 106 (98-107) mmol/L Carbon Dioxide 24 (21-32) mmol/L BUN 23 (6-23) mg/dl Creatinine 1.20 (0.6-1.4) mg/dl Glucose 98 (70-99(Fasting)) mg/dl Calcium 8.9 (8.6-10.3) mg/dl AST 33 (13-39) U/L ALT 29 (7-52) U/L Alkaline Phosphatase 63 (34-104) U/L Total Protein 6.6 (6.0-8.3) gm/dl Albumin 3.8 (3.4-5.0) gm/dl Intake and Output 03/10/25 03/11/25 03/11/25 22:59 06:59 14:59 Intake Total 400 / 675 200 / 675 Output Total 401 / 401 Balance - 200 / 274 Intake: Oral 400 / 600 200 / 600 Output: Urine 400 / 400 # Bowel Movements Other: # Unmeasured Voids 2 2 Weight 84 kg Weight Measurement Method Built in [facility] Diagnostic Findings Cardiac cath 03/10/25 Summary: 1. 95% mid SVG to left PLB 2. Widely patent SCHWARZ to LAD, SVG to OM1 and SVG to right PLB 3. Multivessel [place] coronary artery disease - 60-70% proximal, 80% mid LAD 100% mid OM1, 90% proximal very small left PLB, 100% distal circumflex prior to large distal PLB 45% ostial/proximal, 90% mid, 95% diffuse distal RCA 4. Normal intracardiac filling pressure 5. Successful PCI of SVGleft PLB with 2 overlapping drug-eluting stents (2.75 x 26, 2.75 x 26 mm Bernardo). PG Care Time/CCT Total # of Minutes Spent Total Time Spent with Patient: Total time spent is greater than 50% in coordination of care (as documented) at patient's floor/unit and/or counseling patient: Coding Level of Care Code 56067 SUB INP/OBS CARE 3/50MIN Diagnoses Chest pain R07.9 Chest pain type: unspecified CAD (coronary artery disease) I25.10 History of quadruple bypass Z95.1 Sinus bradycardia R00.1 Hypertension I10 Time Spent (min) 30 (1) Chest pain Chest pain type: unspecified Qualified Code(s): R07.9 - Chest pain, unspecified
[2025-03-11 11:54] VITALS: TEMP 97.7
[2025-03-11 12:04] VITALS: PULSE 56
--- NOTE | 2025-03-11 12:09 | Discharge Summary ---
Discharge Summary Date of Service March 11, 2025 Principal Dx & Hospital Course #1 = Principal Diagnosis (1) Chest pain: (2) CAD (coronary artery disease): Mr. De La Torre is an 80 year old male with PMH HTN, dyslipidemia, CAD s/p CABG x 4 in 2016, CKD III, IBS and others listed below presented to ER with c/o intermittent left sided CP. Pain continued and troponin began to rise despite inital negative values. It was decied to bring patient to [facility] which revealed the following: Summary: 1. 95% mid SVG to left PLB 2. Widely patent SCHWARZ to LAD, SVG to OM1 and SVG to right PLB 3. Multivessel [place] coronary artery disease - 60-70% proximal, 80% mid LAD 100% mid OM1, 90% proximal very small left PLB, 100% distal circumflex prior to large distal PLB 45% ostial/proximal, 90% mid, 95% diffuse distal RCA 4. Normal intracardiac filling pressure 5. Successful PCI of SVGleft PLB with 2 overlapping drug-eluting stents (2.75 x 26, 2.75 x 26 mm [place]). Patient's post stent course was unremarkable. Patient started on asa and plavix. Patient chest pain free on day of discharge. Plans for cardiac rehab OP and follow up with cardiology in 4-5 weeks with labs prior #Unstable angina #Multivessel coronary artery disease s/p CABG x4 (2016) with SCHWARZ to the LAD, SVG to the OM1-OM3, SVG to the RCA 06/28/2024 echo: EF: 60-64%, grade 1 diastolic dysfunction, mild aortic stenosis, mild aortic regurgitation, mild mitral regurgitation, mild tricuspid regurgitation, no evidence of pulmonary hypertension, proximal ascending thoracic aorta mildly enlarged at 4 cm EKG without acute ST elevation. Troponin negative x 2 In ER given aspirin 324mg and nitro paste applied. Reports CP resolution with nitropaste without recurrence during ER course Troponin increased to 40s, decreased to 30s No EKG changes to suggest acute ischemia echo: preserved left ventricular ejection fraction with moderate mitral regurgitation (the jet is eccentric and degree of severity may be underestimated). 03/10 Status postcardiac cath By Dr. Slade Omalley Loaded with clopidogrel 600 mg in [facility] Continue dual-antiplatelet therapy for at least 1 year Continue Repatha and ASCVD risk factor modification #Hypertension: : BP elevated d/c hctz,increased amlodipine 10mg daily #Dyslipidemia: Statin intolerant On Repatha #CKD (chronic kidney disease), stage III: Cr: 1.26. Baseline creatinine 1.2 (3) Hypertension: (4) Dyslipidemia: (5) CKD (chronic kidney disease), stage III: Notes For Next Care Provider Medication Changes From Visit d/c hctz increased amlodipine to 10mg daily start plavix uninterrupted for 1 year with asa Admission HPI Per Admitting Provider Patient is 80 year old male with PMH HTN, dyslipidemia, CAD s/p CABG x 4 in 2017, CKD III, IBS and others listed below presented to ER with c/o CP today. Patient reports today was threading wire through a pipe with left arm and started with some twinging left chest pain. States was "pinching" sensation. Initially he thought it may be muscular. He sat and rested. States intermittent left chest pain throughout the day. States his head felt "a little foggy" but denies ESPANA, dizziness, syncope, vision change. Left CP remained intermittent throughout the day. Denies worsening pain with ROM extremities or inspiration or palpation. Denies fever/chills, diaphoresis, N/V/D/C, ESPANA, dizziness, syncope, vision changes, neck pain, SOB, palpitations, cough, rhinorrhea, abdominal pain, paresthesias, weakness, extremity edema, rashes, urinary symptoms. In ER nitro paste placed with resolution of CP. Admission Exam Per Admitting Provider General: no distress, WDWN Head: normocephalic, atraumatic Eyes: conjunctiva non-injected, anicteric ENT: normal inspection external ears, nose, mucous membranes moist Neck: supple, trachea midline Lungs: clear, no respiratory distress, no wheezing/rhonchi/rales CV: RRR, + murmur, no JVD, 1+ pretibial edema Abd: normal BS, soft, non-tender Ext: no cyanosis, no calf tenderness Neuro: A&O x 3, no focal deficits noted, normal affect Skin: warm, dry Discharge Exam Constitutional WD/WN, vitals as above Respiratory normal respiratory effort, lungs clear to auscultation Cardiovascular RRR, no murmur, no edema Gastrointestinal (Abdomen) normal bowel sounds, soft, nontender, no hepatosplenomegaly Musculoskeletal no cyanosis or clubbing, extremities motor strength 5/5 Updated Medication List Medication Instructions Recorded Confirmed Type acetaminophen 500 mg tablet 500 mg PO TID PRN Pain 08/06/18 03/07/25 History (Tylenol Extra Strength) [id number]-[id number]-vitC 1 cap PO QAM 08/06/18 03/07/25 History capsule (Glucosamine Complex-MSM capsule) multivitamin 1 tab PO QAM 02/20/19 03/07/25 History evolocumab 140 mg/mL subcutaneous 140 mg subcut UD 01/06/24 03/07/25 History pen injector (Repatha SureClick) psyllium husk 3.4 gram/5.4 gram 1 tbsp PO DAILY 02/08/24 03/07/25 History oral powder (Metamucil) nitroglycerin 0.4 mg sublingual 0.4 mg sublingual Q5M PRN chest 06/15/24 03/07/25 Rx tablet pain #25 tabs aspirin 81 mg tablet,delayed 81 mg PO DAILY 03/07/25 03/07/25 History release amlodipine 5 mg tablet 10 mg (2 x 5 mg) PO DAILY 30 days 03/11/25 Rx #60 tabs clopidogrel 75 mg tablet 75 mg PO QAM 30 days #30 tabs 03/11/25 Rx Hospital Stay Data Consultations 03/07/25 16:40 ED Decision to Admit Stat 03/07/25 17:56 Consult Cardiology Routine 03/10/25 08:00 Consult Cardiac Catheterization Routine Procedures Performed Operation Date: 03/10/25 09:30 Actual Procedures p Cineradiography w/Routine Exam - Slade Omalley MD p Cath, Left w/Cors Vent Grafts - Slade Omalley MD p Drug Eluding Stent, SVG/[place], A - Slade Omalley MD Diagnostic Imagining Performed 03/10/25 07:10 CL Cath Imgs for PACS use only Routine Pending Results Patient Have Any Pending Studies at Discharge: No Discharge Instructions Given to Patient (Per Discharging Provider) You were admitted for chest pain and ultimately brought to the [facility] which revealed multivessel coronary artery disease. Your grafts are patent, but you were noted to have a vessel that like was contributing to your symptoms. You received two stents to that vessel. Your amlodipine was increased to 10mg daily. Your hydrochlorothiazide was discontinued. You will continue aspirin, in addition to starting Plavix (clopidogrel) 75 mg daily. Your next dose in the morning. You will continue this uninterrupted for a minimum of 6 months, ideally one year with prior history of CABG. Do not discontinue either until told otherwise. You will need to follow up with cardiology as an oupatient as well as discuss starting Cardiac rehab. You were noted to have a leaky valve called mitral regurgitation. Cardiology will follow and discuss further imaging as necessary as an outpatient. Total Time Total Time Spent Total Time Spent (In Minutes): 45
--- NOTE | 2025-03-11 13:11 | Electrocardiogram Report ---
Test Reason : Blood Pressure : */* mmHG Vent. Rate : 53 BPM Atrial Rate : 53 BPM P-R Int : 240 ms QRS Dur : 88 ms QT Int : 476 ms P-R-T Axes : 75 7 79 degrees QTcB Int : 446 ms Sinus bradycardia with 1st degree A-V block Possible Left atrial enlargement Borderline ECG When compared with ECG of 08-Mar-2025 04:58, Nonspecific T wave abnormality, improved in Lateral leads Confirmed by Kelton Brambila ([id number]) on 03/11/2025 1:10:57 PM Referred By: REFERRED SELF Confirmed By: Kelton Brambila
[2025-03-11 13:25] VITALS: BP 139/80
== END 2025-03-11 13:29 | disposition home or self-care (01) | DRG 322 ==
LOC: 2S 14:52 → ED 14:52 → SUATTDRO 17:04 → 2S 21:18 → SUATTDRO 03-08 17:48

== ENCOUNTER 2025-05-22 08:08 | Observation (INO) ==
--- NOTE | 2025-05-22 08:28 | Emergency Department Note ---
Impression & Plan Chest pain ED Provider Note Name: FRANCE MARTINEZ Age: 80 Sex: Male Arrives Via: Walk-In Informant: Patient ED Provider: Choco Lozano MD Chief Complaint: Chest pain Impression: As per impressions above Medical Decision Makin-year-old gentleman with a history of CAD and stenting just 2 months ago arrives for evaluation of 24 to 48 hours rapidly worsening substernal chest discomfort initially pressure-like pain, more uncomfortable. Laboratory workup is reassuring. Initial EKG does not show any clear evidence of ischemia other than some questionable lateral ST depressions. Discussed that with the hospitalist service given his recent cardiac event and now having increasing chest pain and plan will be to bring him in for further workup and evaluation. Triage/Nursing Notes reviewed by Me External Chart Review by me: Discharge summary from 03/11/2025 reviewed by me for past medical history. Differential:Cardiac ischemia, aortic dissection, pulmonary embolism, pneumothorax, pneumonia, pericarditis, myocarditis, esophageal rupture, GERD, cholecystitis, pancreatitis, musculoskeletal, as well as other pathologies. Vital Signs: reviewed and remarkable for no significant abnormalities Labs:ED labs Reviewed by me and remarkable for no significant abnormalities Imaging:X ray results are stated below per my interpretation: Chest: 1 view: No infiltrate, no effusion, normal cardiac border. EKG:As per my interpretation. Indication chest pain. Sinus at 66 bpm with a first-degree AV block and a QTc of 444. There is no ectopy nor overt ischemia beyond some lateral ST depressions which are similar to EKG March 10, 2025. Cardiac/Tele Monitoring: Cardiac Monitoring: An Order was placed for continuous cardiac monitoring. The monitor shows a rate of 60 with a normal sinus rhythm. Consults:Discussed with [facility] captain's assistant who advised that he could evaluate the patient if hospitalized. Discussed with [facility] hospitalist service who will further manage. Plan: Disposition:Hospitalization. Condition: Fair History of Present Illness: 80-year-old arrives for evaluation of substernal chest pain. Patient notes that for the last 48 hours he has been having increasing left-sided and substernal chest discomfort. Initially started as pressure-like and has become increasingly sharp/firm. Seems to occur at both rest and with exertion. No significant shortness of breath, tachycardia, nausea, vomiting, syncope, other concerning signs or symptoms. He did have a pretty severe episode of chest pain around 3 AM when his dog it woke him from sleep. He is had no recent abdominal pain, back pain, calf swelling, patient does note that he had a mild headache this morning when he woke up and that is completely resolved. Took his daily medications this morning. No other medications. Did have some swelling in ankles post stents in February, though that has improved with medication changes. Patient had heart cath with stents for chest pain with elevated troponins in February. Father of [place]. Past Medical History:HTN, Dyslipidemia, CAD Home Medications:HCTZ, ASA, Rapatha, long acting nitro, plavix Allergies:Statins Vitals:Blood Pressure: 144/90, Pulse 71, RR 18, T 36.7C, O2 96% on RA Physical Exam: GENERAL: Patient is mildly anxious appearing and in minimal distress. RESPIRATORY: No dyspnea. Clear to auscultation and equal bilaterally. CARDIOVASCULAR: Regular rate and rhythm. Questionable faint systolic murmur (pt notes chronic) GASTROINTESTINAL: Abdomen soft, non-tender, no peritonitis. EXTREMITIES: Normal motion all extremities, no cyanosis, no edema. NEUROLOGIC: Alert and oriented. No focal neurologic deficits appreciated SKIN: No rash, no jaundice, no diaphoresis. PSYCH: Appropriate GCS: 15 ED Course: Times/Reassessments: Repeat evaluations patient without any significant pain or other concerning signs or symptoms. He is agreeable to hospitalization. Choco Lozano MD Past Med/Surg History Problem List (Updated 05/22/25 @ 15:14 by Choco Lozano MD) Aortic stenosis Mitral regurgitation Dyslipidemia, goal LDL below 70 Bradycardia Uncontrolled hypertension ASCVD (arteriosclerotic cardiovascular disease) Hx of coronary artery bypass graft History of heart artery stent History of non-ST elevation myocardial infarction (NSTEMI) Sinus bradycardia Hyperlipidemia Hypertension (Acute) Dizziness (Acute) Chest pain (Acute) Medical History CKD (chronic kidney disease), stage III Dyslipidemia CAD (coronary artery disease) Intracranial abscess Diverticulitis DVT (deep venous thrombosis) IBS (irritable bowel syndrome) Social History Smoking Status: Former smoker Do You Dip or Chew Tobacco: No; Hx Alcohol Use: No Hx Substance Use: No Preferred Language: Moroccan Communication Ability: Effective Inspector Multifocal Lens Required: No Beliefs That Will Affect Care: None Current Living Situation: Alone Current Living Situation Comment: home alone current occupation: Retired Feels Safe at Home: Yes Safety Concerns: Feels Safe At This Time Assistive Devices: Glasses Allergies Allergies Allergy/AdvReac Type Severity Reaction Status Date / Time Beiijkm-SEN-ByF Reductase AdvReac Muscle Pain Verified 03/07/25 21:40 Inhibitor Home Meds Home Medications Medication Instructions Recorded Confirmed acetaminophen 500 mg tablet 500 mg PO TID PRN Pain 08/06/18 05/22/25 (Tylenol Extra Strength) qeuvjoiuthw-qcg-[id number]-vitC 1 cap PO QAM 08/06/18 05/22/25 capsule (Glucosamine Complex-MSM capsule) multivitamin 1 tab PO QAM 02/20/19 05/22/25 evolocumab 140 mg/mL subcutaneous 140 mg subcut UD 01/06/24 05/22/25 pen injector (Repatha SureClick) psyllium husk 3.4 gram/5.4 gram 1 tbsp PO DAILY 02/08/24 05/22/25 oral powder (Metamucil) aspirin 81 mg tablet,delayed 81 mg PO DAILY 03/07/25 05/22/25 release clopidogrel 75 mg tablet 75 mg PO DAILY 05/22/25 05/22/25 hydrochlorothiazide 12.5 mg capsule 12.5 mg PO DAILY 05/22/25 05/22/25 ranolazine 500 mg tablet,extended 500 mg PO QAM 05/22/25 05/22/25 release,12 hr Previous Rx's Medication Instructions Recorded nitroglycerin 0.4 mg sublingual 0.4 mg sublingual Q5M PRN chest 06/15/24 tablet pain #25 tabs Results & Data (ED) Vital Signs Vital Signs - 24 hr 05/22/25 08:11 05/22/25 08:30 05/22/25 08:33 Temperature 36.7 C Temperature Source Temporal Artery Scan Pulse Rate 71 62 60 Pulse Rate [Apical] Pulse Rate from SpO2 Sensor Respiratory Rate 18 19 Respiratory Effort / Characteristics Non-Labored Spontaneous Respiratory Depth Normal Blood Pressure 144/90 H 154/84 H Blood Pressure [Left Arm] Blood Pressure Mean 108 112 Blood Pressure Mean [Left Arm] Blood Pressure Position [Left Arm] Pulse Oximetry 96 94 Oxygen Delivery Method Room Air Room Air Sepsis Recent Fever Within 48 Hours No Sepsis New/Unexplained Change in Mental Status No Sepsis Action Taken by Nursing No Action Required 05/22/25 09:00 05/22/25 09:36 05/22/25 10:42 Temperature Temperature Source Pulse Rate 54 L 56 L 58 L Pulse Rate [Apical] Pulse Rate from SpO2 Sensor 57 L 58 L Respiratory Rate 20 18 19 Respiratory Effort / Characteristics Respiratory Depth Blood Pressure 140/80 162/82 H 167/98 H Blood Pressure [Left Arm] Blood Pressure Mean 118 108 121 Blood Pressure Mean [Left Arm] Blood Pressure Position [Left Arm] Pulse Oximetry 94 95 97 Oxygen Delivery Method Room Air Room Air Room Air Sepsis Recent Fever Within 48 Hours Sepsis New/Unexplained Change in Mental Status Sepsis Action Taken by Nursing 05/22/25 11:00 Temperature Temperature Source Pulse Rate Pulse Rate [Apical] 59 L Pulse Rate from SpO2 Sensor Respiratory Rate 18 Respiratory Effort / Characteristics Non-Labored Spontaneous Respiratory Depth Normal Blood Pressure Blood Pressure [Left Arm] 159/91 H Blood Pressure Mean Blood Pressure Mean [Left Arm] 113 Blood Pressure Position [Left Arm] Sitting Pulse Oximetry 96 Oxygen Delivery Method Room Air Sepsis Recent Fever Within 48 Hours Sepsis New/Unexplained Change in Mental Status Sepsis Action Taken by Nursing Laboratory Data 05/22/25 08:27 05/22/25 08:27 Lab Results 05/22/25 Range/Units 08:27 WBC 5.84 (4.8-10.8) K/ul RBC 5.22 (4.70-6.10) M/uL Hgb 13.8 L (14.0-18.0) g/dl Hct 41.9 L (42.0-52.0) % MCV 80.3 (80.0-100.0) fL MCH 26.4 (25.0-34.0) pg MCHC 32.9 (32.0-36.0) g/dL RDW Std Deviation 42.5 (36.4-46.3) fL RDW Coeff of Marie 14.6 H (11.5-14.5) % Plt Count 221 (130-400) K/uL MPV 10.5 (9.4-12.4) fL Immature Gran % (Auto) 0.3 % Neut % (Auto) 62.5 % Lymph % (Auto) 26.0 % [place] % (Auto) 8.6 % Eos % (Auto) 2.1 % Baso % (Auto) 0.5 % Neut # (Auto) 3.65 (1.40-6.50) K/uL Lymph # (Auto) 1.52 (1.20-3.40) K/uL [place] # (Auto) 0.50 (0.11-0.59) K/uL Eos # (Auto) 0.12 (0.00-0.50) K/uL Baso # (Auto) 0.03 (0.00-0.20) K/uL Immature Gran # (Auto) 0.02 (0.01-0.20) K/uL Sodium 137 (136-145) mmol/L Potassium 3.7 (3.5-5.1) mmol/L Chloride 102 (98-107) mmol/L Carbon Dioxide 23 (21-32) mmol/L Anion Gap 12 H (3-11) BUN 21 (6-23) mg/dl Creatinine 1.33 (0.6-1.4) mg/dl Est Cr Clr Drug Dosing 42.8 ml/min eGFR 53.37 BUN/Creatinine Ratio 15.8 (10-20) Glucose 192 H (70-99(Fasting)) mg/dl Calcium 9.1 (8.6-10.3) mg/dl Magnesium 1.8 (1.7-2.4) mg/dl Troponin I High Sens 12.1 (0-20) pg/ml Discharge Plan Visit Data Chief Complaint: Chest Pain Stated Complaint: CHEST PAIN, HIGH BLOOD PRESSURE ED Provider: Choco Lozano Discharge Problem: Chest pain Patient Disposition: Admitted As Inpatient Condition: Fair Discharge Instructions Interventions: ED Discharge Assessment Last Done: 05/22/25 12:43 Discharge Problem: Chest pain Qualifiers: Chest pain type: unspecified Qualified Code(s): R07.9 - Chest pain, unspecified
[2025-05-22 08:39] LABS: Hematocrit (blood only) 41.9 % (42.0-52.0); Hemoglobin 13.8 g/dl (14.0-18.0); Immature Granulocytes # (auto) 0.02 K/uL (0.01-0.20); Immature Granulocytes % (auto) 0.3 %; Mean Corpuscular Hemoglobin 26.4 pg (25.0-34.0); Mean Corpuscular Volume 80.3 fL (80.0-100.0); Platelet Count 221 K/uL (130-400); RDW Standard Deviation 42.5 fL (36.4-46.3); Red Blood Count 5.22 M/uL (4.70-6.10); White Blood Count 5.84 K/ul (4.8-10.8)
[2025-05-22 08:55] LABS: Anion Gap 12.0 (3-11); Blood Urea Nitrogen 21.0 mg/dl (6-23); Calcium 9.1 mg/dl (8.6-10.3); Carbon Dioxide 23.0 mmol/L (21-32); Chloride 102.0 mmol/L (98-107); Creatinine Clr Calc Pharmacy 42.8 ml/min; Glucose 192.0 mg/dl (70-99(Fasting)); Magnesium 1.8 mg/dl (1.7-2.4); Potassium 3.7 mmol/L (3.5-5.1); Sodium 137.0 mmol/L (136-145)
--- NOTE | 2025-05-22 09:45 | History & Physical Report ---
Date of Service May 22, 2025 Assessment & Plan (1) Chest pain: (2) History of non-ST elevation myocardial infarction (NSTEMI): (3) History of heart artery stent: (4) CAD (coronary artery disease): (5) Hx of coronary artery bypass graft: (6) Hypertension: Plan Patient is an 80-year-old male with past medical history significant for multivessel coronary artery disease s/p CABG x 4 [SCHWARZ to the LAD, SVG to the OM1-OM3, SVG to the RCA] in December 2016, history of postoperative atrial fibrillation without documented recurrence, unstable angina, NSTEMI s/p PCI of the SVG to the left PLB with 2 overlapping drug-eluting stents on 03/10/2025, moderate mitral regurgitation, mild aortic stenosis, HTN, HLD with statin intolerance, 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 Chest pain C/o intermittent sharp chest pain, located in L anterior chest wall, x 2 days. Describes it as a "pinching" sensation; comes on both at rest and with exertion. No reported SOB, diaphoresis, lightheadedness or dizziness with this. Troponin x 2 negative. EKG personally reviewed, sinus bradycardia with first-degree AVB. Questionable ST depression in the lateral leads. Follow troponin trend, monitor on telemetry. EKG with chest pain as needed. Appreciate routine cardiology consult given recent significant history of NSTEMI with stenting. History of unstable angina NSTEMI s/p PCI of SVG-PLB with 2 overlapping drug-eluting stents on 03/10/2025 at [facility] Multivessel CAD s/p CABG x 4 [SCHWARZ to the LAD, SVG to the OM1-OM3, SVG to the RCA] in December 2016 Family history of premature CAD, father at the age of 53. Confinement under our service 03/07/2025-03/11/2025 for unstable angina, NSTEMI s/p PCI of SVG-PLB with 2 overlapping drug-eluting stents on 03/10/2025. Patient currently enrolled in cardiac rehabilitation through [facility]. Will need to continue DAPT uninterrupted for minimum of 6 months, ideally 1 year with prior history of CABG. Was started on Imdur at his cardiology follow-up appointment last month. -PCP stopped Imdur on 04/30/2025 due to adverse reactions of headache, lip swelling and dizziness. -Switched to Ranexa, continue. HTN Was discharged on Norvasc 10 mg daily following his confinement in February. Norvasc dose was reduced to 5 mg daily at his cardiology follow-up appointment last month / below. PCP stopped Norvasc on 05/20/2025 due to his persistent BLE edema as per below. Likely will need reinitiation of antihypertensive agent given BP borderline elevated on admission. HTN could be contributing to presentation. Fluid retention Started on HCTZ 12.5mg M/W/F at his cardiology follow-up appointment last month. BLE edema thought secondary to Norvasc use. Norvasc was stopped by his PCP on 05/20/2025. BLE edema improving, now currently on 12.5mg HCTZ daily. Will hold HCTZ for now. Prediabetes Hemoglobin A1c 6.2% in February 2025. Encourage healthy diet and lifestyle changes. Recommend repeat hemoglobin A1c in approximately 1 to 2 months. HLD Statin intolerance, Zetia nonresponder. LDL cholesterol well-controlled on Repatha. CKD stage IIIa Creatinine stable on admission, baseline creatinine 1.1-1.4 per chart review. Continue to monitor and avoid nephrotoxic agents as able. History of 1st degree AVB Resting bradycardia with history of beta-ellen intolerance Remains off beta-ellen therapy d/t resting bradycardia. Moderate mitral regurgitation TTE 03/08/2025: preserved LVEF 60-65%, moderate MR with jet eccentrically directed and degree of severity possibly underestimated, and mild aortic regurgitation. Follows closely with [facility] cardiology as an outpatient. Per previous cardiology documentation, consideration for outpatient ARLEEN to further assess severity of MR if patient becomes symptomatic. DVT Prophylaxis: SCDs/TEDs for now, encourage ambulation Code Status: FULL CODE PCP: Abdullahi Hicks DO Disposition: Observation in med/telemetry Patient seen in collaboration with Dr. Valladares. Please see addendum. I spent a total of 70 minutes coordinating, documenting, and providing care for this patient excluding time spent in the performance of separately billed services or time spent by another provider/QHP. This included personally reviewing all current laboratories and imaging studies, medical reconciliation, outpatient chart review and discussion with specialists. This chart was completed in part utilizing Speech Voice Recognition Software. Grammatical errors, random word insertions, pronoun errors, and incomplete sentences are an occasional consequence of this system due to software limitations, ambient noise, and hardware issues. Any formal questions or concerns about the content, text, or information contained within the body of this dictation should be directly addressed to the provider for clarification. 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 History obtained from the patient, discussion with the ED provider and associated chart review. Patient seen at bedside with Dr. Valladares in the ED. Endorses chest pain since yesterday, describes as intermittent "pinching" sensation in the left upper chest wall. No reported SOB, dizziness, lightheadedness or diaphoresis reported with this. Has experienced this chest discomfort both at rest and with exertion. Has not used any nitroglycerin. Currently in cardiac rehabilitation through [facility]. Did not experience any chest discomfort during cardiac rehabilitation yesterday. Did note his BP was slightly elevated during his cardiac rehabilitation session yesterday. Has been compliant with medication regimen including DAPT and antihypertensive regimen. Describes some tenderness with palpation across the left lower chest wall, primarily along the breast bone region, which has been ongoing for several weeks. BP 159/91, HR 51, O2 sat 96% on RA and RR 25 during our evaluation shortly after 11 AM. Allergies Allergy/AdvReac Type Severity Reaction Status Date / Time Kqpjrbh-LZJ-QnY Reductase AdvReac Muscle Pain Verified 03/07/25 21:40 Inhibitor Home Medications Medication Instructions Recorded Confirmed Type acetaminophen 500 mg tablet 500 mg PO TID PRN Pain 08/06/18 05/22/25 History (Tylenol Extra Strength) vqaduqyshas-tys-dhvyshkxm-vitC 1 cap PO QAM 08/06/18 05/22/25 History capsule (Glucosamine Complex-MSM capsule) multivitamin 1 tab PO QAM 02/20/19 05/22/25 History evolocumab 140 mg/mL subcutaneous 140 mg subcut UD 01/06/24 05/22/25 History pen injector (Repatha SureClick) psyllium husk 3.4 gram/5.4 gram 1 tbsp PO DAILY 02/08/24 05/22/25 History oral powder (Metamucil) nitroglycerin 0.4 mg sublingual 0.4 mg sublingual Q5M PRN chest 06/15/24 05/22/25 Rx tablet pain #25 tabs aspirin 81 mg tablet,delayed 81 mg PO DAILY 03/07/25 05/22/25 History release clopidogrel 75 mg tablet 75 mg PO DAILY 05/22/25 05/22/25 History hydrochlorothiazide 12.5 mg capsule 12.5 mg PO DAILY 05/22/25 05/22/25 History ranolazine 500 mg tablet,extended 500 mg PO QAM 05/22/25 05/22/25 History release,12 hr Past Med/Surg History Problem List (Updated 05/22/25 @ 12:26 by Anna Christian PA-C) Hx of coronary artery bypass graft History of heart artery stent History of non-ST elevation myocardial infarction (NSTEMI) Sinus bradycardia Hyperlipidemia Hypertension (Acute) Dizziness (Acute) Chest pain (Acute) Medical History CKD (chronic kidney disease), stage III Dyslipidemia CAD (coronary artery disease) Intracranial abscess Diverticulitis DVT (deep venous thrombosis) IBS (irritable bowel syndrome) Social History Smoking Status: Never smoker Do You Dip or Chew Tobacco: No; Hx Alcohol Use: Yes Alcohol type: wine Hx Substance Use: No Preferred Language: Divehi Communication Ability: Effective 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 Physical Exam Physical Exam: Please refer to Dr. Valladares's addendum for physical examination findings. Results & Data Results & Data Vital Signs (Past 12 Hours) Vital Signs Temp Pulse Resp BP Pulse Ox O2 Del Method 05/22/25 09:00 54 L 20 140/80 94 Room Air 05/22/25 08:33 60 05/22/25 08:30 62 19 154/84 H 94 Room Air 05/22/25 08:11 36.7 C 71 18 144/90 H 96 Room Air Laboratory Results Short CBC 05/22/25 Range/Units 08:27 WBC 5.84 (4.8-10.8) K/ul Hgb 13.8 L (14.0-18.0) g/dl Hct 41.9 L (42.0-52.0) % Plt Count 221 (130-400) K/uL BMP 05/22/25 08:27 Sodium 137 Potassium 3.7 Chloride 102 Carbon Dioxide 23 BUN 21 Creatinine 1.33 Glucose 192 H Calcium 9.1 Supervising Physician Co-Signing Physician Notes Pt seen and examined by me, care coordinated w/ Sumaya Christian PA-C, pls refer to her note above for further detail. 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 Pt reports he has been doing cardiac rehab for several weeks. Yesterday his left chest has been bothering him a lot. At first feeling pressure, then more like pinching sensation. Recently, he says he was taken off amlodipine and Imdur. Per chart review, Imdur was discontinued. Pt says amlodipine was stopped d/t LE edema. Currently pt is sitting up in bed in NAD. He presents in ED with his sister (pt's and pt's sister reports she stays in close contact with him). Pt is awake, alert, able to provide history. Denies any shortness of breath, dizziness, radiation of chest pain to jaw or arm. BP 159/91, HR 51, O2 sat 96% on RA and RR 25 during our evaluation shortly after 11 AM. Pt has recorded BPs from this AM that were more elevated. Initial troponin negat., will repeat. Will obtain echo and further discuss w/ cardiology. MD Jacquelyn (1) Chest pain Chest pain type: unspecified Qualified Code(s): R07.9 - Chest pain, unspecified
[2025-05-22] MEDS ORDERED: ONDANSETRON INJ 2 MG/ML 2 ML VIAL IV PRN (13:10)
[2025-05-22] MEDS ORDERED: MAGNESIUM HYDROXIDE SUSP 30 ML UDC PO PRN (13:10)
[2025-05-22] MEDS ORDERED: POLYETHYLENE (MIRALAX) 17 GM PACK PO PRN (13:10)
[2025-05-22] MEDS ORDERED: ACETAMINOPHEN 325 MG TAB PO PRN (13:10)
--- NOTE | 2025-05-22 14:30 | Cardiology Consultation ---
Date of Consultation May 22, 2025 Assessment & Plan (1) Uncontrolled hypertension: (2) ASCVD (arteriosclerotic cardiovascular disease): (3) Bradycardia: (4) Dyslipidemia, goal LDL below 70: (5) Mitral regurgitation: (6) Aortic stenosis: (7) Hx of coronary artery bypass graft: (8) History of non-ST elevation myocardial infarction (NSTEMI): 80-year-old male admitted with atypical chest discomfort. EKG without acute ST segment change. High-sensitivity troponin negative x 2. Preliminary resting echocardiography with preserved LV systolic function without regional wall motion abnormalities. Inpatient telemetry monitoring benign thus far. Blood pressure mild to moderately elevated. Options of management discussed. Plan as outlined below: Recommendation/Plan: * Serial cardiac enzymes * EKG with chest pain, daily * Continuous telemetry monitoring * PA and lateral chest x-ray * NPO after midnight for probable exercise stress echocardiography in AM of May 23, 2025 * Add valsartan 80 mg/day for additional blood pressure control * Supplement potassium orally * Supplement magnesium IV * Continue dual antiplatelet therapy at least until February 2026 * Continue HCTZ 12.5 mg/day. * May consider retrial of low dose amlodipine if/when needed in the future. * Avoid isosorbide, RE: headaches, dizziness * Resting bradycardia precludes addition of beta-ellen therapy * Patient status intolerant. Ezetimibe nonresponder. Continue PCSK9 Inhibitor therapy, Repatha. * Likely repeat resting echocardiography in April 2026 to follow the mild to moderate valvular disease, nonrheumatic aortic stenosis and mitral regurgitation Supervising Physician Co-Signing Physician Notes Patient seen and examined. Past medical history, surgical history, social history and family history have been reviewed. The medical record and all the above studies have been reviewed. Case DW SANDRA including management. 05/22/25 ECHO Interpretation Summary Left ventricular systolic function is normal. Left Ventricular Ejection Fraction = 60-65%. Grade I diastolic dysfunction, (abnormal relaxation pattern). Mild aortic regurgitation. Mild to moderate valvular aortic stenosis. Mild pulmonic valvular regurgitation. There is mild to moderate mitral regurgitation. The mitral regurgitant jet is anteriorly directed, which is consistent with posterior leaflet pathology. There is mild tricuspid regurgitation. Right ventricular systolic pressure is normal. HTN - uncontrolled Asymptomatic mild sinus bradycardia CAD S/P SRIDHAR X 2 H/O 4V CABG CP - ND R/O Mild to moderate start Diovan 80mg PO daily and titrate for systolic BP between 100-140 mmHg continue Ranexa f/u renal function continue DAPT avoid hypovolemia keep patient euvolemic DVT prophylaxis History of Present Illness Reason for Consultation: Chest pain r/o, recent NSTEMI s/p stents Requesting Physician: [facility] [address] Hospitalist Service, Anna Christian PA-C [facility] Dr. Curt Valladares MD History of Present Illness Radhika De La Torre is a very pleasant 80-year-old male who presented to the [facility] ER on May 22, 2025 via personal vehicle for evaluation of chest discomfort. Patient describes ongoing intermittentchest discomfort since Monday. He notes that it is a pressure not a pain and that it is a little harder, more intense, more frequent than previously. The discomfort occurs without rhyme or reason, lasts for a second or 2 then can reoccur without overt aggravating or alleviating factors identified. Symptoms are not particularly brought on by activity, seemingly improved with exertion. Notes participating in cardiac rehab on Monday without significant difficulty though with observed increased blood pressure readings following multiple recent medication changes. Multiple recent medication changes included discontinuation of Imdur secondary to headaches and dizziness, discontinuation of amlodipine secondary to lip swelling (may have just bit his lip a couple weeks ago), resumption and titration of HCTZ secondary to hypertension and fluid retention. On day of presentation patient awoke around 3 AM to go to the bathroom and let the dog out. While lying in bed he decided to check his blood pressure, observing elevated readings as follows: 179/93 then 161/92, then 157/90, then 161/93. Due to discomfort well is elevated blood pressure readings, leading to some anxiety, patient elected further evaluation in the ER. EKG on presentation revealed sinus rhythm at 66 bpm with a first-degree AV block, diffuse STT wave abnormality unchanged compared to prior EKG dated May 09, 2025. High- sensitivity troponin negative x 2. Resting echocardiography has been completed though is pending interpretation. Inpatient telemetry monitoring benign thus far, revealing sinus/sinus bradycardia throughout with heart rates in the 50s and 60s. No imaging of the chest performed this admission. Chest discomfort is not aggravated by activity. No overt palpitations. Stable exertional dyspnea. No resting or nocturnal dyspnea. No fluid retention following resumption and then titration of HCTZ. No recent nocturnal leg cramps. No orthopnea or PND. No positional dizziness or lightheadedness. Dizziness and headaches have resolved completely following discontinuation of Imdur. No near-syncope or syncope. No recent colds. No fevers or chills. No epistaxis, hemoptysis, melena, medic easy, or hematuria. 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 Patient notes that symptoms were not severe. He did not take nitroglycerin. After discussion with family patient also many presented to the [facility] ER. Discomfort improved after receiving aspirin and nitro paste. EKG without acute ST segment change. High sensitivity troponin mildly elevated and downtrending. Resting echocardiography on March 08, 2025 revealed preserved LV systolic function (LVEF 60 to 65%) without reported wall motion abnormality. Moderate mitral regurgitation observed along with mild aortic regurgitation. Diagnostic cardiac catheterization performed by Dr. Omalley on March 10, 2025 revealed severe multivessel algaaciq coronary artery disease with a 60 to 70% proximal LAD stenosis, 80% mid LAD stenosis, 100% 1st obtuse marginal stenosis, 90% proximal small left PLB, 100% distal left circumflex stenosis prior to the large distal PLB, 45% ostial/proximal RCA stenosis, 90% mid LAD stenosis, 95% diffuse distal RCA. The SCHWARZ to the LAD, SVG to the OM1, and SVG to the right PLV were patent. 95% mid SVG to the left PLV noted, undergoing successful percutaneous coronary intervention with 2 overlapping drug-eluting stents (2.75 x 26, 2.75 x 26 mm [place]). Intracardiac filling pressures were normal. Recommendations by Interventional Cardiology included dual antiplatelet therapy for at least a year. Problem List: Multivessel coronary artery disease Status post January 04, 2017 CABG x4 with SCHWARZ to the LAD, SVG to the OM1-OM3, SVG to the RCA. Postoperative atrial fibrillation, without documented recurrence. Presentation in February 2025 with chest pain, NSTEMI, status post PCI of the SVG to the left PLB with 2 overlapping drug-eluting stents ([facility], Dr. Omalley): Hypertension Dyslipidemia with statin intolerance Beta-ellen intolerance, resting bradycardia Chronic renal insufficiency Impotence. Irritable bowel syndrome Diverticulosis, diverticulitis. History of DVT Chart history of cerebral aneurysm Family history of premature coronary artery disease, father at the age of 53. Family History: Positive for CAD in father, mother with CVA. Social History: Never smoker. No smokeless tobacco. Rare alcohol use only. No illegal drug use. last year. 2 children, son at bedside. Retired Allergies Allergy/AdvReac Type Severity Reaction Status Date / Time Tlauphr-RCH-FjJ Reductase AdvReac Muscle Pain Verified 03/07/25 21:40 Inhibitor Home Medications Medication Instructions Recorded Confirmed Type acetaminophen 500 mg tablet 500 mg PO TID PRN Pain 08/06/18 05/22/25 History (Tylenol Extra Strength) mqzslncogxd-cse-qaitdfaqr-vitC 1 cap PO QAM 08/06/18 05/22/25 History capsule (Glucosamine Complex-MSM capsule) multivitamin 1 tab PO QAM 02/20/19 05/22/25 History evolocumab 140 mg/mL subcutaneous 140 mg subcut UD 01/06/24 05/22/25 History pen injector (Repatha SureClick) psyllium husk 3.4 gram/5.4 gram 1 tbsp PO DAILY 02/08/24 05/22/25 History oral powder (Metamucil) nitroglycerin 0.4 mg sublingual 0.4 mg sublingual Q5M PRN chest 06/15/24 05/22/25 Rx tablet pain #25 tabs aspirin 81 mg tablet,delayed 81 mg PO DAILY 03/07/25 05/22/25 History release clopidogrel 75 mg tablet 75 mg PO DAILY 05/22/25 05/22/25 History hydrochlorothiazide 12.5 mg capsule 12.5 mg PO DAILY 05/22/25 05/22/25 History ranolazine 500 mg tablet,extended 500 mg PO QAM 05/22/25 05/22/25 History release,12 hr Patient History Medical History CKD (chronic kidney disease), stage III Dyslipidemia CAD (coronary artery disease) Intracranial abscess Diverticulitis DVT (deep venous thrombosis) IBS (irritable bowel syndrome) Social History Smoking Status: Former smoker Do You Dip or Chew Tobacco: No; Hx Alcohol Use: No Hx Substance Use: No Preferred Language: Romanian Communication Ability: Effective 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 Physical Exam Physical Exam: General: A&Ox3. NAD. HENT: Normocephalic. Atraumatic. Eyes: PER. Conjunctiva pink, sclera clear. Neck: No carotid bruits. Transmitted systolic murmur. No JVD. Heart: RRR. Grade II/ systolic ejection murmur. No diastolic murmur. No rub. No gallop. PMI is nondisplaced. Chest: There is a second chest discomfort, left upper sternal border, reproducible with palpation. Lungs: Clear to auscultation. Abdomen: +BS. Soft. Nontender. No masses or organomegaly. Extremities: No edema. Limited neurological examination is without focal deficits. Pulses: radial=2/4, posterior tibial=2/4. Results & Data Vital Signs (Past 12 Hours) Vital Signs Temp Pulse Pulse Resp BP BP Pulse Ox 05/22/25 13:33 36.3 C L 56 L 16 157/86 H 96 05/22/25 12:44 57 L 05/22/25 11:00 59 L 18 159/91 H 96 05/22/25 10:42 58 L 19 167/98 H 97 05/22/25 09:36 56 L 18 162/82 H 95 05/22/25 09:00 54 L 20 140/80 94 05/22/25 08:33 60 05/22/25 08:30 62 19 154/84 H 94 05/22/25 08:11 36.7 C 71 18 144/90 H 96 O2 Del Method 05/22/25 13:33 Room Air 05/22/25 12:44 05/22/25 11:00 Room Air 05/22/25 10:42 Room Air 05/22/25 09:36 Room Air 05/22/25 09:00 Room Air 05/22/25 08:33 05/22/25 08:30 Room Air 05/22/25 08:11 Room Air Laboratory Results Cardiac Enzymes 05/22/25 05/22/25 Range/Units 08:27 11:41 Troponin I High Sens 12.1 12.5 (0-20) pg/ml CBC 05/22/25 Range/Units 08:27 WBC 5.84 (4.8-10.8) K/ul RBC 5.22 (4.70-6.10) M/uL Hgb 13.8 L (14.0-18.0) g/dl Hct 41.9 L (42.0-52.0) % Plt Count 221 (130-400) K/uL Neut # (Auto) 3.65 (1.40-6.50) K/uL Lymph # (Auto) 1.52 (1.20-3.40) K/uL [place] # (Auto) 0.50 (0.11-0.59) K/uL Eos # (Auto) 0.12 (0.00-0.50) K/uL Baso # (Auto) 0.03 (0.00-0.20) K/uL Comprehensive Metabolic Panel 05/22/25 Range/Units 08:27 Sodium 137 (136-145) mmol/L Potassium 3.7 (3.5-5.1) mmol/L Chloride 102 (98-107) mmol/L Carbon Dioxide 23 (21-32) mmol/L BUN 21 (6-23) mg/dl Creatinine 1.33 (0.6-1.4) mg/dl Glucose 192 H (70-99(Fasting)) mg/dl Calcium 9.1 (8.6-10.3) mg/dl Intake and Output 05/21/25 05/22/25 05/22/25 22:59 06:59 14:59 Other: Weight 84.368 kg Weight Measurement Method Standing Scale Patient Weight 05/23/25 06:59 Weight 84.368 kg Diagnostic Findings High-sensitivity troponin 12.1 then 12.5. Telemetry: Sinus/sinus bradycardia with heart rates in the upper 50s and lower 60s. No significant arrhythmias. Medications Administered Home Medications Medication Instructions Recorded Confirmed Last Taken acetaminophen 500 mg tablet 500 mg PO TID PRN Pain 08/06/18 05/22/25 02/20/19 (Tylenol Extra Strength) flrrenmvgii-vmq-wzeydgywi-vitC 1 cap PO QAM 08/06/18 05/22/25 03/07/25 capsule (Glucosamine Complex-MSM capsule) multivitamin 1 tab PO QAM 02/20/19 05/22/25 03/07/25 evolocumab 140 mg/mL subcutaneous 140 mg subcut UD 01/06/24 05/22/25 02/26/25 pen injector (Repatha Vernaick) psyllium husk 3.4 gram/5.4 gram 1 tbsp PO DAILY 02/08/24 05/22/25 Unknown oral powder (Metamucil) nitroglycerin 0.4 mg sublingual 0.4 mg sublingual Q5M PRN chest 06/15/24 05/22/25 Unknown tablet pain #25 tabs aspirin 81 mg tablet,delayed 81 mg PO DAILY 03/07/25 05/22/25 03/07/25 release clopidogrel 75 mg tablet 75 mg PO DAILY 05/22/25 05/22/25 Unknown hydrochlorothiazide 12.5 mg capsule 12.5 mg PO DAILY 05/22/25 05/22/25 Unknown ranolazine 500 mg tablet,extended 500 mg PO QAM 05/22/25 05/22/25 Unknown release,12 hr Active Medications Generic Name Dose Route Start Last Admin Trade Name Freq PRN Reason Stop Dose Admin Magnesium Sulfate/Dextrose 1 gm in 100 mls @ 50 mls/hr 05/22/25 15:15 05/22/25 16:34 Magnesium Sulfate / D5w IV 05/22/25 17:14 50 mls/hr ONE ONE Administration Valsartan 80 mg 05/22/25 15:15 05/22/25 16:32 Valsartan 80 Mg Tab PO 06/21/25 15:14 80 mg QAM BLACK Administration PG Care Time/CCT Total # of Minutes Spent Total Time Spent with Patient: Total time spent is greater than 50% in coordination of care (as documented) at patient's floor/unit and/or counseling patient. I spent a total of 82 minutes on the date of service in preparation, delivery, and documentation of the care provided to this patient excluding any time spent in the performance of separately billed services. This visit was a split-shared visit with the substantive portion of the medical decision making performed by the supervising half section ironer/billing provider. Coding Level of Care Code 16324 INT INP/OBS CARE MIN Diagnoses Uncontrolled hypertension I10 ASCVD (arteriosclerotic cardiovascular disease) I25.10 Bradycardia R00.1 Dyslipidemia, goal LDL below 70 E78.5 Mitral regurgitation I34.0 Aortic stenosis I35.0 Hx of coronary artery bypass graft Z95.1 History of non-ST elevation myocardial infarction (NSTEMI) I25.2
--- NOTE | 2025-05-22 14:46 | XCELERA ---
[id number] \\[id number]\[id number]_[id number]
[2025-05-22] MEDS: VALSARTAN 80 MG TAB PO SCH (16:32)
[2025-05-22] MEDS: POTASSIUM CHLORIDE CRTAB 20 MEQ TABCR PO ONE (16:34)
[2025-05-22] MEDS: MAGNESIUM SULFATE / D5W 1 GM/100 ML BAG IV ONE (16:34)
--- NOTE | 2025-05-22 18:02 | XRay Report ---
Chest x-ray, 2 views History: chest pain Comparison: None Technique: 2 views of the chest, PA and lateral Findings: The lungs are clear. Post CABG changes. The cardiomediastinal silhouette is within normal limits. No pleural effusion or pneumothorax. The heart size appears normal. No bony or soft tissue abnormality. Impression: Normal chest x-ray Electronically signed by Slade Anthony 05-22-2025 6:01 PM
[2025-05-22] MEDS: hydroCHLOROthiazide 25 MG TAB PO SCH (20:01)
[2025-05-23] MEDS: ASPIRIN 81 MG ECTAB PO SCH (07:57)
[2025-05-23] MEDS: RANOLAZINE 500 MG ER TAB PO SCH (07:57)
[2025-05-23] MEDS: CLOPIDOGREL BISULFATE 75 MG TAB PO SCH (07:57)
[2025-05-23] MEDS: VALSARTAN 80 MG TAB PO SCH (07:58)
[2025-05-23] MEDS: MULTIVITAMIN TAB PO SCH (07:59)
[2025-05-23 09:07] LABS: Hematocrit (blood only) 45.1 % (42.0-52.0); Hemoglobin 15.0 g/dl (14.0-18.0); Mean Corpuscular Hemoglobin 27.0 pg (25.0-34.0); Mean Corpuscular Volume 81.3 fL (80.0-100.0); Platelet Count 256 K/uL (130-400); RDW Standard Deviation 42.6 fL (36.4-46.3); Red Blood Count 5.55 M/uL (4.70-6.10); White Blood Count 7.37 K/ul (4.8-10.8)
[2025-05-23 09:21] LABS: Anion Gap 9.0 (3-11); Blood Urea Nitrogen 22.0 mg/dl (6-23); Calcium 9.5 mg/dl (8.6-10.3); Carbon Dioxide 27.0 mmol/L (21-32); Chloride 100.0 mmol/L (98-107); Creatinine Clr Calc Pharmacy 37.2 ml/min; Glucose 111.0 mg/dl (70-99(Fasting)); Potassium 4.1 mmol/L (3.5-5.1); Sodium 136.0 mmol/L (136-145)
--- NOTE | 2025-05-23 11:48 | XCELERA ---
[id number] \\[id number]\[email or web address]_PDF_[id number]
--- NOTE | 2025-05-23 11:54 | Cardiology Progress Note ---
Date of Service May 23, 2025 Assessment & Plan (1) Uncontrolled hypertension: (2) ASCVD (arteriosclerotic cardiovascular disease): (3) Bradycardia: (4) Dyslipidemia, goal LDL below 70: (5) Mitral regurgitation: (6) Aortic stenosis: (7) Hx of coronary artery bypass graft: (8) History of non-ST elevation myocardial infarction (NSTEMI): Plan: 80-year-old male admitted with atypical chest discomfort. EKG without acute ST segment change. High-sensitivity troponin negative x 2. Preliminary resting echocardiography with preserved LV systolic function without regional wall motion abnormalities. Inpatient telemetry monitoring benign thus far. Blood pressure mild to moderately elevated. Options of management discussed. Plan as outlined below: 05/22/25 ECHO Interpretation Summary Left ventricular systolic function is normal. Left Ventricular Ejection Fraction = 60-65%. Grade I diastolic dysfunction, (abnormal relaxation pattern). Mild aortic regurgitation. Mild to moderate valvular aortic stenosis. Mild pulmonic valvular regurgitation. There is mild to moderate mitral regurgitation. The mitral regurgitant jet is anteriorly directed, which is consistent with posterior leaflet pathology. There is mild tricuspid regurgitation. Right ventricular systolic pressure is normal. 05/23/25 STRESS ECHO Interpretation Summary The exercise echocardiographic examination is normal without resting left ventricular wall motion abnormalities or inducible ischemia. STRESS STUDY: Normal exercise stress echocardiogram. No echocardiographic or ECG evidence of myocardial ischemia having achieved heart rate adequate for diagnostic purposes. The stress ECG response was normal Stress ECG: No ST changes. Isolated premature ventricular contractions were present. There was no new ST segment depression. Resting wall motion: Normal. Stress wall motion: Appropriate increase in Left ventricular systolic function and decrease in cavity size. No stress induced segmental wall motion abnormalities. Left ventricular systolic function is normal. Left Ventricular Ejection Fraction = 60-65%. HTN - uncontrolled - better Asymptomatic mild sinus bradycardia CAD S/P SRIDHAR X 2 H/O 4V CABG CP - MA R/O Mild to moderate continue Diovan 80mg PO daily and titrate for systolic BP between 100-140 mmHg continue Ranexa Continue HCTZ 12.5 mg QD Avoid isosorbide - patient had c/o headache, dizziness cannot use bblkr due to bradycardia Continue Repatha f/u renal function continue DAPT avoid hypovolemia keep patient euvolemic DVT prophylaxis stable from cardiac standpoint for discharge f/u as OP in cardiology clinic Admission and Anticipated Discharge Date Admission Date: May 22, 2025 Subjective Patient on exam is lying in bed in NAD; no c/o cp, sob, palpitations, dizziness, LOC; feels better Review of Systems Review of Systems: Complete Review of Systems is as stated above, negative, or noncontributory. Physical Exam Physical Exam: General: A&Ox3. NAD. HENT: Normocephalic. Atraumatic. Eyes: Conjunctiva pink, sclera clear. Neck: No carotid bruits. Transmitted systolic murmur. No JVD. Heart: RRR. Grade II/ systolic ejection murmur. No diastolic murmur. No rub. No gallop. PMI is nondisplaced. Chest: There is a second chest discomfort, left upper sternal border, reproducible with palpation. Lungs: Clear to auscultation. Abdomen: +BS. Soft. Nontender. No masses or organomegaly. Extremities: No edema. Limited neurological examination is without focal deficits. Results & Data Vital Signs (Past 12 Hours) Vital Signs Temp Pulse Pulse Resp BP Pulse Ox O2 Del Method 05/23/25 08:41 36.5 C 65 18 112/62 95 Room Air 05/23/25 05:51 63 05/23/25 04:20 37 C 71 14 115/74 94 Room Air Laboratory Results Laboratory Results - last 48 hr 05/22/25 05/22/25 05/22/25 08:27 11:41 17:53 WBC 5.84 RBC 5.22 Hgb 13.8 L Hct 41.9 L MCV 80.3 MCH 26.4 MCHC 32.9 RDW Std Deviation 42.5 RDW Coeff of Marie 14.6 H Plt Count 221 MPV 10.5 Immature Gran % (Auto) 0.3 Neut % (Auto) 62.5 Lymph % (Auto) 26.0 [place] % (Auto) 8.6 Eos % (Auto) 2.1 Baso % (Auto) 0.5 Neut # (Auto) 3.65 Lymph # (Auto) 1.52 [place] # (Auto) 0.50 Eos # (Auto) 0.12 Baso # (Auto) 0.03 Immature Gran # (Auto) 0.02 Sodium 137 Potassium 3.7 Chloride 102 Carbon Dioxide 23 Anion Gap 12 H BUN 21 Creatinine 1.33 Est Cr Clr Drug Dosing 42.8 eGFR 53.37 BUN/Creatinine Ratio 15.8 Glucose 192 H Calcium 9.1 Magnesium 1.8 Troponin I High Sens 12.1 12.5 14.9 05/23/25 05/23/25 00:34 08:29 WBC 7.37 RBC 5.55 Hgb 15.0 Hct 45.1 MCV 81.3 MCH 27.0 MCHC 33.3 RDW Std Deviation 42.6 RDW Coeff of Marie 14.6 H Plt Count 256 MPV 10.6 Immature Gran % (Auto) Neut % (Auto) Lymph % (Auto) [place] % (Auto) Eos % (Auto) Baso % (Auto) Neut # (Auto) Lymph # (Auto) [place] # (Auto) Eos # (Auto) Baso # (Auto) Immature Gran # (Auto) Sodium 136 Potassium 4.1 Chloride 100 Carbon Dioxide 27 Anion Gap 9 BUN 22 Creatinine 1.53 H Est Cr Clr Drug Dosing 37.2 eGFR 45.11 BUN/Creatinine Ratio 14.4 Glucose 111 H Calcium 9.5 Magnesium Troponin I High Sens 12.8 12.4 Diagnostic Findings Laboratory Results WBC 7.37 K/ul (4.8-10.8) 05/23/25 08:29 RBC 5.55 M/uL (4.70-6.10) 05/23/25 08:29 Hgb 15.0 g/dl (14.0-18.0) 05/23/25 08:29 Hct 45.1 % (42.0-52.0) 05/23/25 08:29 MCV 81.3 fL (80.0-100.0) 05/23/25 08:29 MCH 27.0 pg (25.0-34.0) 05/23/25 08:29 MCHC 33.3 g/dL (32.0-36.0) 05/23/25 08:29 RDW Std Deviation 42.6 fL (36.4-46.3) 05/23/25 08:29 RDW Coeff of Marie 14.6 % (11.5-14.5) H 05/23/25 08:29 Plt Count 256 K/uL (130-400) 05/23/25 08:29 MPV 10.6 fL (9.4-12.4) 05/23/25 08:29 Immature Gran % (Auto) 0.3 % 05/22/25 08:27 Neut % (Auto) 62.5 % 05/22/25 08:27 Lymph % (Auto) 26.0 % 05/22/25 08:27 [place] % (Auto) 8.6 % 05/22/25 08:27 Eos % (Auto) 2.1 % 05/22/25 08:27 Baso % (Auto) 0.5 % 05/22/25 08:27 Neut # (Auto) 3.65 K/uL (1.40-6.50) 05/22/25 08:27 Lymph # (Auto) 1.52 K/uL (1.20-3.40) 05/22/25 08:27 [place] # (Auto) 0.50 K/uL (0.11-0.59) 05/22/25 08:27 Eos # (Auto) 0.12 K/uL (0.00-0.50) 05/22/25 08:27 Baso # (Auto) 0.03 K/uL (0.00-0.20) 05/22/25 08:27 Immature Gran # (Auto) 0.02 K/uL (0.01-0.20) 05/22/25 08:27 Sodium 136 mmol/L (136-145) 05/23/25 08:29 Potassium 4.1 mmol/L (3.5-5.1) 05/23/25 08:29 Chloride 100 mmol/L (98-107) 05/23/25 08:29 Carbon Dioxide 27 mmol/L (21-32) 05/23/25 08:29 Anion Gap 9 (3-11) 05/23/25 08:29 BUN 22 mg/dl (6-23) 05/23/25 08:29 Creatinine 1.53 mg/dl (0.6-1.4) H 05/23/25 08:29 Est Cr Clr Drug Dosing 37.2 ml/min 05/23/25 08:29 eGFR 45.11 05/23/25 08:29 BUN/Creatinine Ratio 14.4 (10-20) 05/23/25 08:29 Glucose 111 mg/dl (70-99(Fasting)) H 05/23/25 08:29 Calcium 9.5 mg/dl (8.6-10.3) 05/23/25 08:29 Magnesium 1.8 mg/dl (1.7-2.4) 05/22/25 08:27 Troponin I High Sens 12.4 pg/ml (0-20) 05/23/25 08:29 Impressions Chest X-Ray 05/22/25 15:01 Chest x-ray, 2 views History: chest pain Comparison: None Technique: 2 views of the chest, PA and lateral Findings: The lungs are clear. Post CABG changes. The cardiomediastinal silhouette is within normal limits. No pleural effusion or pneumothorax. The heart size appears normal. No bony or soft tissue abnormality. Impression: Normal chest x-ray Electronically signed by Slade Anthony 05-22-2025 6:01 PM Medications Administered Home Medications Medication Instructions Recorded Confirmed Last Taken acetaminophen 500 mg tablet 500 mg PO TID PRN Pain 08/06/18 05/22/25 02/20/19 (Tylenol Extra Strength) [id number]-vitC 1 cap PO QAM 08/06/18 05/22/25 03/07/25 capsule (Glucosamine Complex-MSM capsule) multivitamin 1 tab PO QAM 02/20/19 05/22/25 03/07/25 evolocumab 140 mg/mL subcutaneous 140 mg subcut UD 01/06/24 05/22/25 02/26/25 pen injector (Sd Patterson) psyllium husk 3.4 gram/5.4 gram 1 tbsp PO DAILY 02/08/24 05/22/25 Unknown oral powder (Metamucil) nitroglycerin 0.4 mg sublingual 0.4 mg sublingual Q5M PRN chest 06/15/24 05/22/25 Unknown tablet pain #25 tabs aspirin 81 mg tablet,delayed 81 mg PO DAILY 03/07/25 05/22/25 03/07/25 release clopidogrel 75 mg tablet 75 mg PO DAILY 05/22/25 05/22/25 Unknown hydrochlorothiazide 12.5 mg capsule 12.5 mg PO DAILY 05/22/25 05/22/25 Unknown ranolazine 500 mg tablet,extended 500 mg PO QAM 05/22/25 05/22/25 Unknown release,12 hr Active Medications Generic Name Dose Route Start Last Admin Trade Name Freq PRN Reason Stop Dose Admin Aspirin 81 mg 05/23/25 09:00 05/23/25 07:57 Aspirin 81 Mg Ectab PO 06/22/25 08:59 81 mg DAILY BLACK Administration Clopidogrel Bisulfate 75 mg 05/23/25 09:00 05/23/25 07:57 Clopidogrel Bisulfate 75 Mg Tab PO 06/22/25 08:59 75 mg DAILY BLACK Administration Hydrochlorothiazide 12.5 mg 05/22/25 18:00 05/23/25 07:55 Hydrochlorothiazide 25 Mg Tab PO 06/21/25 17:59 12.5 mg QAM BLACK Administration Multivitamins 1 tab 05/23/25 09:00 05/23/25 07:59 Multivitamin Tab PO 06/22/25 08:59 Not Given QAM BLACK Ranolazine 500 mg 05/23/25 09:00 05/23/25 07:57 Ranolazine 500 Mg Er Tab PO 06/22/25 08:59 500 mg QAM BLACK Administration Valsartan 80 mg 05/23/25 08:00 05/23/25 07:58 Valsartan 80 Mg Tab PO 06/22/25 07:59 80 mg QAM BLACK Administration PG Care Time/CCT Total # of Minutes Spent Total Time Spent with Patient: Total time spent is greater than 50% in coordination of care (as documented) at patient's floor/unit and/or counseling patient: Coding Level of Care Code 40697 SUB INP/OBS CARE 3/50MIN Diagnoses Uncontrolled hypertension I10 ASCVD (arteriosclerotic cardiovascular disease) I25.10 Bradycardia R00.1 Dyslipidemia, goal LDL below 70 E78.5 Mitral regurgitation I34.0 Aortic stenosis I35.0 Hx of coronary artery bypass graft Z95.1 History of non-ST elevation myocardial infarction (NSTEMI) I25.2
[2025-05-23 12:23] VITALS: BP 111/72; RESP 16; TEMP 98.1; O2SAT 96
[2025-05-23 12:24] VITALS: PULSE 60
--- NOTE | 2025-05-23 12:25 | Discharge Summary ---
Discharge Summary Date of Service May 23, 2025 Principal Dx & Hospital Course #1 = Principal Diagnosis (1) Atypical chest pain: (2) Uncontrolled hypertension: (3) Aortic stenosis: (4) ASCVD (arteriosclerotic cardiovascular disease): (5) Hyperlipidemia: Plan Patient 80-year-old gentleman with known coronary artery disease presented to the emergency room with acute onset of chest discomfort that he described as a pinching in his chest wall. No shortness of breath. No palpitations. Initial evaluation in the emergency room was significant for uncontrolled hypertension. EKG was unremarkable and troponins unremarkable. Patient was referred for further evaluation. Patient was monitored in the hospital. No significant arrhythmias. Cardiology consultation was obtained. Which showed a normal ejection fraction with some moderate aortic stenosis Patient had updated echocardiogram. Valsartan was added to his antihypertensive regimen. Patient underwent stress echo on the day of discharge which showed no evidence of ischemia. Cardiology recommended him continuing on his valsartan and to be discharged outpatient care and follow-up. Notes For Next Care Provider Titrate valsartan as needed for optimal blood pressure control Medication Changes From Visit Valsartan for blood pressure management Admission HPI Per Admitting Provider Patient is an 80-year-old male with past medical history significant for multivessel coronary artery disease s/p CABG x 4 [SCHWARZ to the LAD, SVG to the OM1-OM3, SVG to the RCA] in December 2016, history of postoperative atrial fibrillation without documented recurrence, unstable angina, NSTEMI s/p PCI of the SVG to the left PLB with 2 overlapping drug-eluting stents on 03/10/2025, moderate mitral regurgitation, mild aortic stenosis, HTN, HLD with statin intolerance, resting bradycardia with history of beta-ellen intolerance, CKD stage IIIa and history of DVT who presented to the ED with complaint of intermittent sharp chest pain. History obtained from the patient, discussion with the ED provider and associated chart review. Patient seen at bedside with Dr. Valladares in the ED. Endorses chest pain since yesterday, describes as intermittent "pinching" sensation in the left upper chest wall. No reported SOB, dizziness, lightheadedness or diaphoresis reported with this. Has experienced this chest discomfort both at rest and with exertion. Has not used any nitroglycerin. Currently in cardiac rehabilitation through [facility]. Did not experience any chest discomfort during cardiac rehabilitation yesterday. Did note his BP was slightly elevated during his cardiac rehabilitation session yesterday. Has been compliant with medication regimen including DAPT and antihypertensive regimen. Describes some tenderness with palpation across the left lower chest wall, primarily along the breast bone region, which has been ongoing for several weeks. BP 159/91, HR 51, O2 sat 96% on RA and RR 25 during our evaluation shortly after 11 AM. Admission Exam Per Admitting Provider See H&P Discharge Exam Constitutional: Alert HEENT: Mucous membranes moist. Lungs: Clear to auscultation, decreased, no wheezes rales or rhonchi CV: S1-S2, regular Abdomen: Soft, nontender, nondistended Extremities: No significant edema Neuro: No focal deficits Psych: Cooperative, normal mood Updated Medication List Medication Instructions Recorded Confirmed Type acetaminophen 500 mg tablet 500 mg PO TID PRN Pain 08/06/18 05/22/25 History (Tylenol Extra Strength) [id number]-vitC 1 cap PO QAM 08/06/18 05/22/25 History capsule (Glucosamine Complex-MSM capsule) multivitamin 1 tab PO QAM 02/20/19 05/22/25 History evolocumab 140 mg/mL subcutaneous 140 mg subcut UD 01/06/24 05/22/25 History pen injector (Repatha SureClick) psyllium husk 3.4 gram/5.4 gram 1 tbsp PO DAILY 02/08/24 05/22/25 History oral powder (Metamucil) nitroglycerin 0.4 mg sublingual 0.4 mg sublingual Q5M PRN chest 06/15/24 05/22/25 Rx tablet pain #25 tabs aspirin 81 mg tablet,delayed 81 mg PO DAILY 03/07/25 05/22/25 History release clopidogrel 75 mg tablet 75 mg PO DAILY 05/22/25 05/22/25 History hydrochlorothiazide 12.5 mg capsule 12.5 mg PO DAILY 05/22/25 05/22/25 History ranolazine 500 mg tablet,extended 500 mg PO QAM 05/22/25 05/22/25 History release,12 hr valsartan 80 mg tablet (Diovan) 80 mg PO QAM #30 tabs 05/23/25 Rx Hospital Stay Data Consultations 05/22/25 09:59 ED Decision to Admit Stat 05/22/25 11:32 Consult Cardiology Routine Diagnostic Imagining Performed Reviewed imaging, laboratory and diagnostic studies. Pertinent findings as below. Stress echo: Normal response, no ST changes, normal left ventricular function Echocardiogram moderate aortic stenosis, ejection fraction 60 to 65% CBC within normal range Electrolytes within normal range Creatinine 1.53 Troponin normal x 5 sets Pending Results Patient Have Any Pending Studies at Discharge: No Discharge Instructions Given to Patient (Per Discharging Provider) Take medications as prescribed, follow-up with your PCP Total Time Total Time Spent Total Time Spent (In Minutes): 25
--- NOTE | 2025-05-23 21:40 | Electrocardiogram Report ---
Test Reason : Blood Pressure : */* mmHG Vent. Rate : 66 BPM Atrial Rate : 66 BPM P-R Int : 226 ms QRS Dur : 84 ms QT Int : 424 ms P-R-T Axes : 75 18 82 degrees QTcB Int : 444 ms Sinus rhythm with 1st degree A-V block Nonspecific ST and T wave abnormality Abnormal ECG When compared with ECG of 10-Mar-2025 14:10, No significant change was found Confirmed by Vinh Stanford ([id number]) on 05/23/2025 9:40:08 PM Referred By: REFERRED SELF Confirmed By: Vinh Stanford
--- NOTE | 2025-05-23 21:41 | Electrocardiogram Report ---
Test Reason : Blood Pressure : */* mmHG Vent. Rate : 51 BPM Atrial Rate : 51 BPM P-R Int : 238 ms QRS Dur : 88 ms QT Int : 464 ms P-R-T Axes : 71 4 83 degrees QTcB Int : 427 ms Sinus bradycardia with 1st degree A-V block Otherwise normal ECG When compared with ECG of 22-May-2025 08:19, No significant change was found Confirmed by Vinh Stanford ([id number]) on 05/23/2025 9:40:34 PM Referred By: REFERRED SELF Confirmed By: Vinh Stanford
== END 2025-05-23 13:56 | disposition home or self-care (01) ==
LOC: ED 08:08 → 2N 08:08 → SUATTDRO 11:30 → 2N 12:43
DX: I25.10 Atherosclerotic heart disease of native coronary artery without angina pectoris; Z79.899 Other long term (current) drug therapy; N18.31 Chronic kidney disease, stage 3a; Z95.1 Presence of aortocoronary bypass graft; Z86.718 Personal history of other venous thrombosis and embolism; R07.89 Other chest pain; E78.5 Hyperlipidemia, unspecified; Z79.82 Long term (current) use of aspirin; I25.2 Old myocardial infarction; I37.1 Nonrheumatic pulmonary valve insufficiency; R73.03 Prediabetes; Z87.891 Personal history of nicotine dependence; Z82.49 Family history of ischemic heart disease and other diseases of the circulatory system; I12.9 Hypertensive chronic kidney disease with stage 1 through stage 4 chronic kidney disease, or unspecified chronic kidney disease; Z88.8 Allergy status to other drugs, medicaments and biological substances; Z79.02 Long term (current) use of antithrombotics/antiplatelets; Z95.5 Presence of coronary angioplasty implant and graft; I08.3 Combined rheumatic disorders of mitral, aortic and tricuspid valves; R00.1 Bradycardia, unspecified